=== PATIENT | female | born 1935 | race Caucasian/White ===

== ENCOUNTER 2020-07-17 20:57 | Emergency (ER) | payer MEDICARE, BC, SELFPAY ==
[2020-07-17 20:59] VITALS: BP 138/82; PULSE 78; RESP 16; TEMP 36; O2SAT 96; BMI 28.3
--- NOTE | 2020-07-17 22:36 | ED.VIS.GEN ---
History of Present Illness Chief Complaint: Diarrhea Narrative: This patient is an 85-year-old female who presents with diarrhea. She has had diarrhea. For the last 5 days. She was seen at an urgent care. She had a stool culture. This returned positive for Campylobacter. She started azithromycin tonight. She states tonight when she was drinking it feels like things were going down right. She is able to drink water without regurgitation vomiting but felt like she had a lump in her throat. No difficulty breathing. She also had increased diarrhea today and is concerned for dehydration and she did have some nausea earlier. No pain. Past Medical History - Allergies and Home Meds Allergies/Adverse Reactions: Allergies amoxicillin Adverse Reaction (Verified 07/17/20 21:04) Rash ampicillin Adverse Reaction (Verified 07/17/20 21:04) Rash ceftriaxone [From Rocephin] Adverse Reaction (Verified 07/17/20 21:04) Rash Cephalosporins Adverse Reaction (Verified 07/17/20 21:04) Rash minocycline Adverse Reaction (Verified 07/17/20 21:04) Rash sulfamethoxazole [From Bactrim] Adverse Reaction (Verified 07/17/20 21:04) Rash trimethoprim [From Bactrim] Adverse Reaction (Verified 07/17/20 21:04) Rash Primary Care Physician: Abel Ortiz DO [Primary Care Provider] - Past Medical History: - - Hyperlipidemia, hypothyroidism Surgical History: no surgical history Smoking Status: Never smoker Review of Systems All systems negative except as indicated General: Denies: Fever Eyes: Denies: Visual changes - bilaterally ENT: Denies: Bilateral ear pain Cardiovascular: Denies: Chest pain Respiratory: Denies: Dyspnea Gastrointestinal: Reports: Nausea, Diarrhea. Denies: Abdominal pain, Vomiting Musculoskeletal: Denies: Myalgias, Arthralgias Skin: Denies: Rash Neurological: Denies: Headache Hematologic: Denies: Easy bruising Allergy: Denies: Uticaria Physical Exam Vital Signs/Narrative: Vital Signs Temp Pulse Resp BP Pulse Ox 07/17/20 20:59 96.8 F L 78 16 138/82 H 96 Inital Vital Signs reviewed: Yes General: Well nourished Head: Normocephalic Eyes: EOMI ENT: Moist mucous membranes, - - Oropharynx clear, airway patent, no stridor Neck: Supple Cardiovascular: Regular rate, Regular rhythm Respiratory: No distress, CTA bilaterally Abdomen: Soft, Nontender, Nondistended Skin: Normal color Neurological: Alert Psychological: Normal affect Diagnostic/Tx/Re-eval Laboratory Results 07/17/20 23:00 Sodium 140 Potassium 3.6 Chloride 105 Carbon Dioxide 28.0 Anion Gap 7 BUN 13 Creatinine 0.93 Estim Creat Clear Calc 41.24 Est GFR (MDRD) Af Amer 74 Est GFR (MDRD) Non-Af 61 BUN/Creatinine Ratio 14.0 Glucose 115 H Calcium 8.6 - Medical Decision Making Patient was given IV fluid and Zofran. BMP is normal. Patient advised to complete her prescribed medications follow-up as an outpatient or return for new or worsening symptoms and was discharged home. ED Disposition - Plan for ED Patient: Disposition: Home or Assisted Living Diagnosis: Diarrhea Instructions: ED Diarrhea, Bacterial (Adult) Referrals: Abel Ortiz DO [Primary Care Provider] -
[2020-07-17] MEDS: 0.9% Normal Saline 1,000 ML 999 ML IV (23:06)
[2020-07-17] MEDS: Ondansetron 4 MG/2 ML Vial IV (23:06)
[2020-07-17 23:37] LABS: Anion Gap 7 (5-15); BUN 13 mg/dL (7-18); Calcium,Total 8.6 mg/dL (8.5-10.1); Chloride 105 mmol/L (98-107); Creatinine, Serum 0.93 mg/dL (0.55-1.02); EST Glomerular Filtration Rate 61 mL/min (>60); Est Glom Filt Rate - Afr Amer 74 mL/min (>60); Estimated Creatinine Clearance 41.24 ml/min; Glucose 115 mg/dL (74-106); Potassium 3.6 mmol/L (3.5-5.1); Sodium Level 140 mmol/L (136-145)
[2020-07-18 00:07] VITALS: BP 126/71; PULSE 78; RESP 18; O2SAT 97
== END 2020-07-18 00:07 | disposition home or self-care (01) ==
PROVIDERS: Emergency Provider Emergency Medicine; PCP Student in an Organized Health Care Education/Training Program
DX: R19.7 Diarrhea, unspecified (principal); E03.9 Hypothyroidism, unspecified; E78.5 Hyperlipidemia, unspecified; Z88.0 Allergy status to penicillin; Z88.1 Allergy status to other antibiotic agents; Z88.2 Allergy status to sulfonamides
CPT/HCPCS: 80048; 96361; 96374; 99282; J7030; J2405

== ENCOUNTER → 2024-01-17 20:15 | Outpatient (REF) | payer MEDICAID, SELFPAY ==
[2024-01-18 09:41] LABS: Mucous, Urine 0 SEEN /hpf (<or=2+)
[2024-01-18 09:59] LABS: Color, Urine Yellow (Yellow); Glucose, Dipstick Normal (Normal); Ketone-Dipstick Negative (Negative); Leukocyte Esterase-Dipstick 500 /ul (Negative); Nitrite-Dipstick Negative (Negative); Occult Blood-Urine 50 /ul (Negative); Protein-Dipstick 15 mg/dl (Negative); Specific Gravity, Urine 1.015 (1.002-1.030); Urine Bilirubin Dipstick Negative (Negative); Urine Clarity Clear (Clear); Urine Urobilinogen Normal (Normal)
[2024-01-18 10:21] LABS: White Blood Cells >100 SEEN /hpf (0-5)
[2024-01-18 10:22] LABS: Bacteria 2+ /hpf (None Seen); Red Blood Cells-Urine 10-25 SEEN /hpf (0-5); Squamous Epithelial Cells - UA 0-5 SEEN /hpf (5-10)
== END ==
LOC: OLS.SWAL 20:15
PROVIDERS: PCP Student in an Organized Health Care Education/Training Program; Visit Provider Student in an Organized Health Care Education/Training Program
DX: N39.0 Urinary tract infection, site not specified (principal)
CPT/HCPCS: 81001; 87086; 87088

== ENCOUNTER → 2024-04-03 | Outpatient (REF) | payer MEDICAID, SELFPAY ==
[2024-04-03 08:12] LABS: Color, Urine Straw (Yellow); Glucose, Dipstick Normal (Normal); Ketone-Dipstick Negative (Negative); Leukocyte Esterase-Dipstick 500 /ul (Negative); Nitrite-Dipstick Negative (Negative); Occult Blood-Urine 150 /ul (Negative); Protein-Dipstick 15 mg/dl (Negative); Specific Gravity, Urine 1.015 (1.002-1.030); Urine Bilirubin Dipstick Negative (Negative); Urine Clarity Sl. Cloudy (Clear); Urine Urobilinogen Normal (Normal); Urine pH 6.5 (5.0 - 8.0)
[2024-04-03 08:53] LABS: Red Blood Cells-Urine 10-25 SEEN /hpf (0-5); White Blood Cells >100 SEEN /hpf (0-5)
[2024-04-03 08:54] LABS: Squamous Epithelial Cells - UA 10-25 SEEN /hpf (5-10)
[2024-04-03 08:55] LABS: Bacteria 2+ /hpf (None Seen); Mucous, Urine 1+ /hpf (<or=2+)
== END | disposition home or self-care (01) ==
LOC: OLS.SWAL 07:38
PROVIDERS: PCP Student in an Organized Health Care Education/Training Program; Referring Provider Student in an Organized Health Care Education/Training Program; Visit Provider Student in an Organized Health Care Education/Training Program
DX: N39.0 Urinary tract infection, site not specified (principal)
CPT/HCPCS: 81001; 87086

== ENCOUNTER 2024-07-22 22:53 | Emergency (ER) | payer MEDICARE, MEDICAID, SELFPAY ==
[2024-07-22 22:53] VITALS: BP 143/70; PULSE 91; RESP 18; TEMP 37.2; O2SAT 93; BMI 32.3
[2024-07-22 22:58] VITALS: BP 143/70; PULSE 92; RESP 17; TEMP 37.2; O2SAT 96
--- NOTE | 2024-07-22 23:05 | EKG12_ITS ---
Test Reason : SOB Blood Pressure : */* mmHG Vent. Rate : 89 BPM Atrial Rate : 89 BPM P-R Int : 282 ms QRS Dur : 102 ms QT Int : 368 ms P-R-T Axes : 37 -76 53 degrees QTcB Int : 447 ms Sinus rhythm with 1st degree A-V block Left axis deviation Low voltage QRS Inferior infarct Possible Anterolateral infarct , age undetermined Abnormal ECG Confirmed by Alexandro Jacobs ([id number]), editor book ELIOT RANKIN ([id number]) on 07/24/2024 10:59:33 AM Referred By: SHANELLE Confirmed By: Alexandro Jacobs
--- NOTE | 2024-07-22 23:06 | EDS_ITS ---
HPI History of Present Illness Chief Complaint: Cough Informant: patient and EMS Narrative Narrative: Brought by EMS from [facility] for evaluation. History dementia. She has had an ongoing cough cannot tell me timeframe. Denies fevers. Reports dyspnea and there was no wheezing. Status post albuterol by EMS. She denies asthma or COPD history. Denies tobacco history. Denies chest or abdominal pain. Denies vomiting diarrhea. Denies any urinary symptoms. PFSH PFSH Medical History History of lung cancer Hypothyroidism HLD (hyperlipidemia) Home Medications ?Medication ?Instructions ?Recorded ?Last Taken ?Type levothyroxine 100 mcg tablet 100 mcg PO DAILY 07/17/20 Unknown History naproxen sodium 220 mg capsule 220 mg PO PRN PRN Pain 1-10 Or 07/17/20 Unknown History Fever yvxtyhga-usd-jqspa acid 0.4 1 tab PO DAILY 03/05/23 Un known History mg-lycopene 300 mcg-lutein 250 mcg tablet (Centrum Silver) ondansetron HCl 8 mg tablet 8 mg PO Q8H PRN nausea and 03/05/23 Unknown Rx vomiting #14 tabs Allergy/AdvReac Type Severity Reaction Status Date / Time amoxicillin AdvReac Rash Verified 07/22/24 22:55 ampicillin AdvReac Rash Verified 07/22/24 22:55 ceftriaxone (From Rocephin) AdvReac Rash Verified 07/22/24 22:55 Cephalosporins AdvReac Rash Verified 07/22/24 22:55 minocycline AdvReac Rash Verified 07/22/24 22:55 sulfamethoxazole (From AdvReac Rash Verified 07/22/24 22:55 Bactrim) trimethoprim (From Bactrim) AdvReac Rash Verified 07/22/24 22:55 Family History Father Cancer Surgical History History of lung surgery Social History Smoking Status: Never smoker alcohol intake: current alcohol intake frequency: a few times a month Alcohol type: wine substance use type: does not use ROS ROS ED Constitutional Constitutional ED: Denies chills, fever(s) or sweats ENT ENT ED: Denies sore throat Cardiovascular Cardiovascular: Denies chest pain, leg edema, palpitations or racing heartbeat Respiratory/Chest Respiratory/Chest: Reports cough and dyspnea; Denies dyspnea on exertion Gastrointestinal Gastrointestinal: Denies abdominal pain, diarrhea, nausea or vomiting Genitourinary Genitourinary ED: Denies dysuria, hematuria or urinary frequency Musculoskeletal Musculoskeletal: Denies back pain, extremity pain or neck pain Integumentary Denies rash or wounds Neurologic Neurologic: Denies headache(s), paresthesias or weakness EXAM Physical Exam Const Vital Signs: 07/22/24 22:53 07/22/24 22:58 07/22/24 23:20 Temperature 99 F 99 F Temperature Source Oral Oral Pulse Rate 91 92 Respiratory Rate 18 17 Respiratory Effort Short of Breath Labored Respiratory Depth Normal Respiratory Pattern Normal Blood Pressure 143/70 H 143/70 H Blood Pressure Mean 94 94 Pulse Ox 93 96 Oxygen Delivery Method Room Air Room Air Room Air 07/22/24 23:22 07/22/24 23:58 Temperature 98.9 F Temperature Source Oral Pulse Rate 89 95 Respiratory Rate 24 H 23 H Respiratory Effort Respiratory Depth Respiratory Pattern Tachypnea Blood Pressure 137/59 H Blood Pressure Mean 85 Pulse Ox 96 Oxygen Delivery Method Room Air Positive well nourished and well developed General Appearance ED: well developed and NAD HEENT Reports moist mucous membranes normocephalic and atraumatic Eyes General Eye ED: Yes normal appearance of both eyes Neck full ROM Chest Wall Chest: Negative for tenderness Resp Resp Narrative: Bilateral mild wheezing noted. No distress. Effort and Inspection: symmetric chest movement; Negative for respiratory di stress Cardio regular rate, regular rhythm and no murmurs Peripheral Pulses: pulses 2+ throughout GI normal to inspection, nondistended, normoactive bowel sounds and non-tender Palpation: Negative for guarding or rebound tenderness present Extremity normal to inspection General Extremety ED: Negative for edema or tenderness General Extremity: Negative for edema Neuro no sensory deficits noted Neuro Narrative: Alert to person and place, reported to me, year was 2023. Sensorium / Orientation: awake and alert Skin no rashes or lesions noted and no wounds MDM MDM MDM Narrative Medical decision making narrative: Interventions / MDM: Differential diagnosis: Viral syndrome, bronchospasms, history of dementia Diagnosis considered but do not suspect: Pneumonia however x-ray negative. My EKG interpretation: Sinus first-degree AV block rate of 89, no ST or T wave changes, interventricular delay with QRS of 102. Imaging independently reviewed and interpreted by myself: 2 view chest x-ray: No acute process also read by radiology. External documents reviewed: N/A Test considered but not ordered:N/A ED course: Vital stable in the ED 96% room air no distress. Temp of 99. Still current mild wheezing status post albuterol by EMS. Will check lab work chest x-ray additional aerosol treatments ordered. 0100: X-ray negative labs stable EKG sinus rhythm. Wheezing improving. Nursing discussed with facility note COPD or asthma history. No indication for steroids. Discussed with them will dispense albuterol MDI with spacer for use at the facility. COVID, flu, RSV negative. Re-evaluation: stable Disposition discussed with patient/family/significant other: Patient Case discussed with consulting clinician: Nursing facility This note was generated with [employer] dictation software. It may contain incorrect words, spelling, and punctuation that were not noted in checking the note before signing. Lab Data Attestation: I reviewed the patient's lab results. Labs: Laboratory Results - last 24 hr 07/22/24 23:17 WBC 6.6 RBC 4.00 L Hgb 12.0 Hct 36.6 L MCV 91.5 MCH 30.0 MCHC 32.8 RDW Std Deviation 46.8 H RDW Coeff of [place] 13.8 Plt Count 140 L MPV 10.4 Immature Gran % (Auto) 0.300 Neut % (Auto) 68.9 Lymph % (Auto) 15.7 L [place] % (Auto) 12.5 H Eos % (Auto) 2.3 Baso % (Auto) 0.3 Absolute Neuts (auto) 4.6 Absolute Lymphs (auto) 1.04 Nucleated RBC % 0 Sodium 137 Potassium 4.1 Chloride 104 Carbon Dioxide 22.0 Anion Gap 11 BUN 25 H Creatinine 0.86 Estim Creat Clear Calc 50.55 Est GFR (MDRD) Non-Af 65 BUN/Creatinine Ratio 29.5 H Glucose 102 H Calcium 8.9 Radiography Diagnostic Testing: Clinical Impression(s) from Imaging Studies Chest X-Ray 07/22/24 23:47 IMPRESSION: No acute cardiopulmonary process. Reading Location: [facility] Discharge Plan Triage Chief Complaint: Cough ED Provider: Glenn Steiner Dx/Rx/DC Orders Clinical Impression: Viral upper respiratory infection, Acute bronchospasm, Dementia Instructions: ED Bronchospasm (Adult), ED URI, Viral, No Abx (Adult) Prescriptions: No Action Centrum Silver 0.4 mg-300 mcg- 250 mcg tablet 1 tab PO DAILY ondansetron HCl 8 mg tablet 8 mg PO Q8H PRN (Reason: nausea and vomiting) Qty: 14 0RF levothyroxine 100 MCG tablet 100 mcg PO DAILY naproxen sodium 220 MG capsule 220 mg PO PRN PRN (Reason: Pain 1-10 Or Fever) Primary Care Provider: Abel Ortiz Referrals: Abel Ortiz, [Primary Care Provider] - 1 Week if not improving Activity Restrictions/Additional Instructions: EKG normal chest x-ray negative. Labs negative. COVID, influenza, RSV negative. Use inhaler every 4 hours as needed for wheezing. Print Language: Hebrew Disposition Disposition: Home, Self Care
[2024-07-22 23:20] VITALS: O2SAT 95
[2024-07-22] MEDS: Ipratropium/Albuterol Sulfate 3 ML AMPUL.NEB INHALATION (23:21)
[2024-07-22 23:22] VITALS: PULSE 89; RESP 24
--- NOTE | 2024-07-22 23:47 | RAD_ITS ---
PROCEDURE: CHEST PA AND LATERAL REASON FOR EXAM: Cough. TECHNIQUE: Frontal and lateral views of the chest. COMPARISON: None. FINDINGS: Cardiac size and pulmonary vasculature are within normal limits. No consolidation, pleural effusion, or pneumothorax is present. There is dextroscoliosis of the midthoracic spine. Degenerative changes are identified. RAD/Chest PA and Lateral IMPRESSION: No acute cardiopulmonary process. Reading Location: [facility]
[2024-07-22 23:58] VITALS: BP 137/59; PULSE 95; RESP 23; TEMP 37.2; O2SAT 96
[2024-07-22 23:59] LABS: Anion Gap 11 (5-15); BUN 25 mg/dL (4-19); BUN/Creat Ratio 29.5 RATIO (10-20); Calcium,Total 8.9 mg/dL (7.6-11.0); Chloride 104 mmol/L (98-108); Creatinine, Serum 0.86 mg/dL (0.70-1.20); EST Glomerular Filtration Rate 65 (>60); Estimated Creatinine Clearance 50.55 ml/min (50-250); Glucose 102 mg/dL (70-99); Potassium 4.1 mmol/L (3.3-5.1); Sodium Level 137 mmol/L (133-145)
[2024-07-23 00:08] LABS: Absolute Lymphocyte Count 1.04 X10^3/uL (0.83-4.51); Absolute Neutrophil Count 4.6 X10^3/uL (2.0-7.7); Basophil# 0.02 X10^3/uL; Basophil% 0.3 % (0-1); Eosinophil# 0.15 X10^3/uL; Eosinophils% 2.3 % (0-5); Hematocrit 36.6 % (37-47); Lymphocyte # 1.04 X10^3/ul (0.83-4.51); Lymphocyte % 15.7 % (19-41); Mean Corp Hgb Conc 32.8 g/dL (32-36); Mean Corpuscular Volume 91.5 fL (81-99); Mean Platelet Vol. 10.4 fl (6.2-12.0); Monocyte# 0.83 X10^3/uL; Monocyte% 12.5 % (0-10); NRBC Flagged by Analyzer 0 % (0-5); Neutrophil # 4.58 X10^3/uL (2.7-7.7); Neutrophil % 68.9 % (47-70); Platelet Count 140 K/mm3 (150-450); RBC Distribution Width CV 13.8 % (11.6-14.6); RBC Distribution Width SD 46.8 fl (35.1-43.9); White Blood Count 6.6 K/mm3 (4.4-11.0)
[2024-07-23 00:53] VITALS: BP 137/59; PULSE 90; RESP 21; O2SAT 94
--- NOTE | 2024-07-23 01:13 | ED.RN ---
CALLED [facility] @0115 TO ARRANGE TRANSPORT FOR PT, ETA IS 2 HOURS ([id number]).
[2024-07-23 01:33] VITALS: BP 117/56; PULSE 88; RESP 18; TEMP 36.6; O2SAT 92
[2024-07-23 03:00] VITALS: PULSE 93; RESP 20; O2SAT 94
[2024-07-23] MEDS: Albuterol Sulfate 8 gm Inhaler (60 puffs) 2 PUFF INHALATION (03:04)
[2024-07-23] MEDS: INHALER, ASSIST DEVICES 1 EACH SPACER INHALATION (04:12)
== END 2024-07-23 04:18 | disposition home or self-care (01) ==
PROVIDERS: Emergency Provider Emergency Medicine; PCP Student in an Organized Health Care Education/Training Program; Visit Provider Emergency Medicine
DX: J06.9 Acute upper respiratory infection, unspecified (principal); F03.90 Unspecified dementia, unspecified severity, without behavioral disturbance, psychotic disturbance, mood disturbance, and anxiety; I44.0 Atrioventricular block, first degree; E78.5 Hyperlipidemia, unspecified; J98.01 Acute bronchospasm; E03.9 Hypothyroidism, unspecified; Z85.118 Personal history of other malignant neoplasm of bronchus and lung
CPT/HCPCS: 71046; 80048; 85025; 87631; 93005; 94640; 99285; A4216

== ENCOUNTER 2024-07-26 00:09 | Emergency (ER) | payer MEDICARE, MEDICAID, SELFPAY ==
[2024-07-26 00:09] VITALS: BP 130/59; PULSE 76; RESP 16; TEMP 36.9; O2SAT 93; BMI 32.1
[2024-07-26 00:21] VITALS: O2SAT 96
--- NOTE | 2024-07-26 00:22 | RAD_ITS ---
PROCEDURE: CHEST PA AND LATERAL REASON FOR EXAM: COUGH TECHNIQUE: Frontal and lateral views of the chest. COMPARISON: 07/22/2024 FINDINGS: There are bilateral left more than right patchy ill-defined airspace opacities at the lower lobes which may be inflammatory, infectious with possible aspiration not entirely excluded. Pulmonary vascularity appears within limits. No pleural effusion. Right staple line and surgical clips at the right hilum again noted. The cardiac and mediastinal contours appear within limits. Atherosclerotic change aortic arch. RAD/Chest PA and Lateral IMPRESSION: There are bilateral left more than right patchy ill-defined airspace opacities at the lower lobes which may be inflammatory, infectious with possible aspiration not entirely excluded. Pulmonary vasculari ty appears within limits. No pleural effusion. Reading Location: [id number]
--- NOTE | 2024-07-26 00:23 | EDS_ITS ---
HPI History of Present Illness Chief Complaint: Shortness of Breath Informant: patient, EMS and SNF Narrative Narrative: Patient is an 89-year-old female from [facility] with history of dementia as well as hyperlipidemia and hypothyroidism. She was seen recently secondary to congestion and cough and at that time had negative COVID influenza RSV swab as well as normal blood work and a normal chest x-ray. Reportedly the patient's been having difficulty using her inhaler and the detention felt that she may need admitted for oxygen and therefore called EMS to have her brought in for evaluation. Upon arrival to the ER the patient is in no acute respiratory distress satting 93% on room air and she repeatedly states that she does not understand why she is at the hospital at this time. She denies fevers chills chest pain or shortness of breath but does admit to the persistent cough that she has had over the past week. [facility] Medical History Unspecified urinary incontinence Major depressive disorder, single episode, unspecified Vitamin D deficiency, unspecified Unspecified dementia, mild, without behavioral disturbance, psychotic disturbance, mood disturbance, and anxiety History of lung cancer Hypothyroidism HLD (hyperlipidemia) Home Medications ?Medication ?Instructions ?Recorded ?Last Taken ?Type levothyroxine 100 mcg tablet 100 mcg PO DAILY 07/17/20 Unknown History naproxen sodium 220 mg capsule 220 mg PO PRN PRN Pain 1-10 Or 07/17/20 Unknown History Fever xobhfrxy-lib-hbwto acid 0.4 1 tab PO DAILY 03/05/23 Un known History mg-lycopene 300 mcg-lutein 250 mcg tablet (Centrum Silver) ondansetron HCl 8 mg tablet 8 mg PO Q8H PRN nausea and 03/05/23 Unknown Rx vomiting #14 tabs levofloxacin 500 mg tablet 500 mg PO DAILY 7 days #7 t abs 07/26/24 Unknown Rx Allergy/AdvReac Type Severity Reaction Status Date / Time amoxicillin AdvReac Rash Verified 07/26/24 00:15 ampicillin AdvReac Rash Verified 07/26/24 00:15 ceftriaxone (From Rocephin) AdvReac Rash Verified 07/26/24 00:15 Cephalosporins AdvReac Rash Verified 07/26/24 00:15 minocycline AdvReac Rash Verified 07/26/24 00:15 sulfamethoxazole (From AdvReac Rash Verified 07/26/24 00:15 Bactrim) trimethoprim (From Bactrim) AdvReac Rash Verified 07/26/24 00:15 Family History Father Cancer Surgical History History of lung surgery Social History Smoking Status: Never smoker alcohol intake: current alcohol intake frequency: a few times a month Alcohol type: wine substance use type: does not use ROS ROS ED Constitutional Constitutional ED: Denies chills or fever(s) Eyes Eyes: Denies change in vision ENT ENT ED: Denies sore throat Cardiovascular Cardiovascular: Denies chest pain Respiratory/Chest Respiratory/Chest: Reports cough; Denies dyspnea Gastrointestinal Gastrointestinal: Denies abdominal pain, diarrhea, nausea or vomiting Genitourinary Genitourinary ED: Denies dysuria Musculoskeletal Musculoskeletal: Denies myalgias Integumentary Denies rash Neurologic Neurologic: Denies headache(s) Hematologic/Lymphatic Hematologic/Lymphatic: Denies easy bleeding or easy bruising EXAM Physical Exam Const Vital Signs: 07/26/24 00:09 07/26/24 00:21 07/26/24 01:04 Temperature 98.4 F Temperature Source Oral Pulse Rate 76 75 Respiratory Rate 16 16 Respiratory Effort Normal Non-Labored Respiratory Depth Normal Respiratory Pattern Normal Normal Blood Pressure 130/59 H Blood Pressure Mean 82 Pulse Ox 93 Oxygen Delivery Method Room Air Positive well nourished and well developed General Appearance ED: well developed; Negative for pallor HEENT HEENT Narrative: No tongue or lip swelling no oral lesions no airway edema or compromise There is cobblestoning noted in posterior pharynx consistent with sinus drainage without secondary findings to suggest infection Eyes PERRL and EOMs intact bilaterally General Eye ED: Negative for scleral icterus Neck supple and no JVD Chest Wall palpation of chest normal Resp normal respiratory effort Resp Narrative: Breath sounds are diminished throughout with diffuse expiratory wheeze however no nasal flaring retractions tachypnea accessory muscle use stridor or dyspnea with speech Cardio regular rate and regular rhythm Extremity normal to inspection Extremity Narrative: No asymmetric edema no pitting edema negative Homans' sign bilaterally Neuro CN's II-XII intact bilaterally and no sensory deficits noted Neuro Narrative: Patient is at her baseline mental status consistent with history of dementia without focal neurologic deficit Sensorium / Orientation: alert Motor Exam: strength 5/5 throughout Psych mental status grossly normal Skin no rashes or lesions noted General Skin Exam: Negative for jaundice or pallor MDM MDM MDM Narrative Medical decision making narrative: Patient arrived to the ER with stable vitals in no acute respiratory distress and satting in the mid 90s on room air. She was seen on July 22 for the same complaint and at that time was negative for COVID influenza RSV chest x-ray did not reveal pneumonia and blood work showed no systemic findings concerning for sepsis or acute kidney injury. As the patient is not hypoxic she is not in respiratory distress she did not derangement to her vital signs I do not feel that there is need for repeat blood work or viral swab. In order to ensure that the x-ray was not lagging behind from the previous day and that she has now developed tension pneumonia I did elect to repeat an x-ray. The x-ray today is showing poor inspiratory effort but there is concern for developing infection. Secondary to this should be placed on oral Levaquin. However because she is not hypoxic or in respiratory distress does not derangement to her vital signs I do not feel that there will be need for repeat blood work or even potential admission as she is not hypoxic. Therefore the patient was placed on oral Levaquin but is safe to return to the nursing facility. History & Record Review Discussion w/independent historian: EMS personnel and Patient Radiography Diagnostic Testing: Clinical Impression(s) from Imaging Studies Chest X-Ray 07/26/24 00:22 IMPRESSION: There are bilateral left more than right patchy ill-defined airspace opacities at the lower lobes which may be inflammatory, infectious with possible aspiration not entirely excluded. Pulmonary vascularity appears within limits. No pleural effusion. Reading Location: [id number] 2 view chest x-ray as interpreted by the emergency medicine physician reveals poor inspiration with hazy opacities in the bilateral lower lobes right slightly greater than left which could be development of pneumonia versus poor inspiration and atelectasis Discharge Plan Triage Chief Complaint: Shortness of Breath ED Provider: Jerardo Black Dx/Rx/DC Orders Clinical Impression: Pneumonia, Dementia, Hypothyroidism, HLD (hyperlipidemia) Instructions: Treating Pneumonia Prescriptions: New levofloxacin 500 mg tablet 500 mg PO DAILY 7 Days Qty: 7 0RF No Action Centrum Silver 0.4 mg-300 mcg- 250 mcg tablet 1 tab PO DAILY ondansetron HCl 8 mg tablet 8 mg PO Q8H PRN (Reason: nausea and vomiting) Qty: 14 0RF levothyroxine 100 MCG tablet 100 mcg PO DAILY naproxen sodium 220 MG capsule 220 mg PO PRN PRN (Reason: Pain 1-10 Or Fever) Primary Care Provider: Abel Ortiz Referrals: Abel Ortiz DO [Primary Care Provider] - Activity Restrictions/Additional Instructions: Your x-ray today questions pneumonia that was not present from your x-ray on July 22. Secondary to this take the prescribed antibiotics/Levaquin once a day. However you will still need to take your inhaler to help with bronchospasm and wheeze. Your oxygen level and work of breathing are normal in the ER and therefore you do not require oxygen and you do not have signs of systemic infection/sepsis and therefore do not require admission or IV antibiotics. If your symptoms continue to worsen he develop a fever or you have any further co ncerns please return to the ER for repeat evaluation. Print Language: Citizen Of [place] Disposition Disposition: Home, Self Care
--- NOTE | 2024-07-26 00:55 | ED.RN ---
[facility] CALLED REQUESTING UPDATE. INFORMATION PROVIDED ON PT. CURRENT STATUS.
[2024-07-26] MEDS: Ipratropium/Albuterol Sulfate 3 ML AMPUL.NEB INHALATION (01:02)
[2024-07-26 01:04] VITALS: PULSE 75; RESP 16
[2024-07-26 02:00] VITALS: BP 131/57; PULSE 78; RESP 18; O2SAT 93
[2024-07-26 02:10] VITALS: BP 131/57; PULSE 77; RESP 18; TEMP 36.7; O2SAT 93
[2024-07-26] MEDS: levoFLOXacin 500 MG Tablet PO (02:19)
--- NOTE | 2024-07-26 02:51 | ED.RN ---
This RN gave report to DARYA Peter at [facility] at this time about the patient's care while at [facility].
== END 2024-07-26 02:50 | disposition home or self-care (01) ==
PROVIDERS: Emergency Provider Emergency Medicine; PCP Student in an Organized Health Care Education/Training Program; Visit Provider Emergency Medicine
DX: J18.9 Pneumonia, unspecified organism (principal); F03.90 Unspecified dementia, unspecified severity, without behavioral disturbance, psychotic disturbance, mood disturbance, and anxiety; E78.5 Hyperlipidemia, unspecified; E03.9 Hypothyroidism, unspecified; Z85.118 Personal history of other malignant neoplasm of bronchus and lung
CPT/HCPCS: 71046; 94640; 99284

== ENCOUNTER → 2024-08-08 | Outpatient (REF) | payer MEDICAID, SELFPAY ==
[2024-08-08 09:13] LABS: Basophil# 0.05 X10^3/uL; Basophil% 0.7 % (0-1); Eosinophil# 0.21 X10^3/uL; Eosinophils% 2.8 % (0-5); Hematocrit 37.4 % (37-47); Lymphocyte % 21.1 % (19-41); Mean Corp Hgb Conc 32.1 g/dL (32-36); Mean Corpuscular Hgb 29.3 pg (27.0-32.0); Mean Corpuscular Volume 91.4 fL (81-99); Mean Platelet Vol. 10.4 fl (6.2-12.0); Monocyte# 0.68 X10^3/uL; NRBC Flagged by Analyzer 0 % (0-5); Neutrophil # 5.01 X10^3/uL (2.7-7.7); Platelet Count 188 K/mm3 (150-450); RBC Distribution Width CV 13.5 % (11.6-14.6); RBC Distribution Width SD 45.4 fl (35.1-43.9); Red Blood Count 4.09 M/mm3 (4.2-5.4); White Blood Count 7.6 K/mm3 (4.4-11.0)
[2024-08-08 12:04] LABS: ALB/GLOB Ratio 1.5 RATIO (0.9-2.4); AST(SGOT) 26 U/L (<=31); Alanine Aminotransfer ALT/SGPT 16 U/L (<=34); Alkaline Phosphatase 80 U/L (35-104); Anion Gap 12 (5-15); BUN 21 mg/dL (4-19); BUN/Creat Ratio 22.1 RATIO (10-20); Calcium,Total 9.3 mg/dL (7.6-11.0); Carbon Dioxide 23.1 mmol/L (21.0-32.0); Chloride 105 mmol/L (98-108); Creatinine, Serum 0.97 mg/dL (0.70-1.20); EST Glomerular Filtration Rate 57 (>60); Globulin 2.7 g/dL (2.2-4.2); Glucose 90 mg/dL (70-99); Magnesium 2.1 mg/dL (1.5-2.2); Potassium 4.6 mmol/L (3.3-5.1); Protein, Total 6.8 g/dL (5.9-8.4); Sodium Level 140 mmol/L (133-145); Vitamin B12 506 pg/mL (180-914); Vitamin D,25 Hydroxy 34.6 ng/mL (30-100)
== END | disposition home or self-care (01) ==
LOC: OLS.SWAL 05:00
PROVIDERS: PCP Student in an Organized Health Care Education/Training Program; Visit Provider Student in an Organized Health Care Education/Training Program
DX: R26.89 Other abnormalities of gait and mobility (principal); E03.9 Hypothyroidism, unspecified
CPT/HCPCS: 36415; 80053; 82306; 82607; 83735; 84439; 84443; 85025

== ENCOUNTER 2024-09-18 17:16 | Emergency (ER) | payer MEDICAID, SELFPAY ==
[2024-09-18 17:18] VITALS: PULSE 71; RESP 16; TEMP 36.6; O2SAT 98; BMI 34.4
[2024-09-18 18:07] VITALS: BP 139/63
--- NOTE | 2024-09-18 18:10 | ED.RN ---
Pts son is in [place] and wanted to get an update. Son told that she hadn't been seen yet and to call back in an hour or so.
--- NOTE | 2024-09-18 18:18 | CT_ITS ---
PROCEDURE: BRAIN/HEAD WITHOUT CONTRAST 09/18/2024 REASON FOR EXAM: Patient fell hitting head. TECHNIQUE: Contiguous axial scans of 3.75 mm slice thicknesses with sagittal and coronal reconstruction images. One or more dose reduction techniques were utilized (e.g., automated exposure control, adjustment of mA and/or kv according to patient size, use of iterative reconstruction technique). RADIATION DOSE SUMMARY: DLP: 855.03 mGycm COMPARISON: No relevant prior FINDINGS: Cerebrum: No intraparenchymal hemorrhage. No abnormal areas of encephalomalacia. No mass effect or midline shift. Diffuse central white matter and subcortical hypoattenuation.. Ventricles and cisterns: Appropriate size for patient's age. Age-appropriate senescent change. Extra-axial fluid: Unremarkable. Posterior fossa: Unremarkable cerebellum. No abnormalities involving the brainstem. Paranasal sinuses: Normal. Vasculature: Unremarkable. Mastoid air cells: Postoperative findings on the right Calvarium: Unremarkable. Soft tissues: Artifact from cochlear implant.. CT/Brain/Head without Contrast IMPRESSION: Chronic age-related microvascular ischemic changes. Cochlear implant. Age-appropriate senescent change. No acute intracranial findings. Reading Location: [facility]
[2024-09-18 19:00] VITALS: BP 132/71; PULSE 98; RESP 12; O2SAT 98
[2024-09-18] MEDS: Lidocaine 1% (20 ml mdv) 20 ML Vial 5 ML INFILT (19:35)
--- NOTE | 2024-09-18 19:39 | ED.RN ---
ATTEMPTED TO CALL REPORT TO MYRON [facility] W/ NO ANSWER.
[2024-09-18 19:40] VITALS: BP 130/70; PULSE 88; RESP 18; TEMP 36.6; O2SAT 99
--- NOTE | 2024-09-18 23:57 | ED.VIS.FALL ---
HPI HPI - Fall History of Present Illness Chief Complaint: Fall Informant: patient and EMS Narrative Narrative: 89-year-old female from [facility] presenting to the emergency room with head injury following a fall. Patient states that she frequently falls due to balance issues. She states that today was no different and she struck the back of her head on a piece of furniture. She denies a loss of consciousness. It is not reported that the patient is on a blood thinner. She denies any other injuries. She denies neck pain arm or leg pain. She denies any hip pelvis or abdominal pain. No chest pain. [facility] Medical History Unspecified urinary incontinence Major depressive disorder, single episode, unspecified Vitamin D deficiency, unspecified Unspecified dementia, mild, without behavioral disturbance, psychotic disturbance, mood disturbance, and anxiety History of lung cancer Hypothyroidism HLD (hyperlipidemia) Home Medications ?Medication ?Instructions ?Recorded ?Last Taken ?Type levothyroxine 100 mcg tablet 100 mcg PO MOTUWETHFRSA 07/17/20 Unknown History Lactobacillus acidophilus 1 tab PO DAILY 09/18/24 Unknown History (Acidophilus chewable tablet) acetaminophen 325 mg capsule 650 mg PO Q4H PRN fever 09/18/24 Unknown History albuterol sulfate 90 mcg/actuation 2 inh inhalation Q4H PRN shortness 09/18/24 Unknown History aerosol inhaler (Ventolin HFA) of breath or wheezing aluminum-magnesium hydroxide 200 30 ml PO Q4H PRN GI DISTRES 09/18/24 Unknown History mg-200 mg/5 mL oral suspension aspirin 81 mg tablet,delayed 81 mg PO DAILY 09/18/24 Unknown History release (Adult Aspirin Regimen) carboxymethylcellulose sodium 1 % 1 drp EACH EYE Q8H PRN dry eye(s) 09/18/24 Unknown History eye drops (Artificial Tears (carboxymethylcellulose)) cholecalciferol (vitamin D3) 50 50 mcg PO DAILY 09/18/24 Unknown History mcg (2,000 unit) capsule guaifenesin 100 mg/5 mL oral 200 mg PO Q4H PRN congestion 09/18/24 Unknown History liquid (Adult [facility]-Tussin) levothyroxine 100 mcg tablet 200 mcg PO BLANC 09/18/24 Unknown History (Levo-T) meloxicam 15 mg tablet 15 mg PO DAILY 09/18/24 Unknown History memantine 5 mg tablet 5 mg PO BID 09/18/24 Unknown History multivitamin (Daily Multi-Vitamin 1 tab PO DAILY 09/18/24 Unknown History tablet) nystatin 100,000 unit/gram topical 1 applic topical BID PRN YEAST 09/18/24 Unknown History powder ([facility]) ondansetron 4 mg disintegrating 4 mg PO Q8H PRN nausea and vomiting 09/18/24 Unknown History tablet sertraline 50 mg tablet 50 mg PO QHS 09/18/24 Unknown History simvastatin 40 mg tablet 40 mg PO QHS 09/18/24 Unknown History Allergy/AdvReac Type Severity Reaction Status Date / Time amoxicillin AdvReac Rash Verified 07/26/24 00:15 ampicillin AdvReac Rash Verified 07/26/24 00:15 ceftriaxone (From Rocephin) AdvReac Rash Verified 07/26/24 00:15 Cephalosporins AdvReac Rash Verified 07/26/24 00:15 minocycline AdvReac Rash Verified 07/26/24 00:15 sulfamethoxazole (From AdvReac Rash Verified 07/26/24 00:15 Bactrim) trimethoprim (From Bactrim) AdvReac Rash Verified 07/26/24 00:15 Family History Father Cancer Surgical History History of lung surgery Social History Smoking Status: Never smoker alcohol intake: current alcohol intake frequency: a few times a month Alcohol type: wine substance use type: does not use ROS ROS ED Constitutional Constitutional ED: Denies chills or weight loss Eyes Eyes: Denies change in vision or diplopia ENT ENT ED: Denies ear pain, rhinorrhea or sore throat Cardiovascular Cardiovascular: Denies chest pain, orthopnea, palpitations or racing heartbeat Respiratory/Chest Respiratory/Chest: Denies cough, dyspnea or orthopnea Gastrointestinal Gastrointestinal: Denies abdominal pain, diarrhea, nausea or vomiting Genitourinary Genitourinary ED: Denies dysuria, hematuria or urinary frequency Musculoskeletal Musculoskeletal: Denies arthralgias, back pain, myalgias or neck pain Integumentary Reports other Details: Scalp laceration ; Denies abscess or rash Neurologic Neurologic: Reports headache(s); Denies weakness Psychiatric Psychiatric: Denies anxiety, depression, suicidal ideation or suicidal thoughts Endocrine Endocrinology: Denies polydipsia, polyphagia or polyuria Allergic/Immunologic Allergic/Immunologic ED: Denies mouth swelling, tongue swelling or urticaria EXAM Physical Exam Const Vital Signs: 09/18/24 17:18 09/18/24 17:22 09/18/24 18:07 Temperature 97.9 F Temperature Source Oral Pulse Rate 71 Respiratory Rate 16 Respiratory Effort Normal Respiratory Depth Normal Respiratory Pattern Normal Blood Pressure 139/63 H Blood Pressure Mean 88 Pulse Ox 98 Oxygen Delivery Method Room Air Room Air 09/18/24 19:00 09/18/24 19:40 Temperature 98 F Temperature Source Pulse Rate 98 88 Respiratory Rate 12 18 Respiratory Effort Respiratory Depth Respiratory Pattern Blood Pressure 132/71 H 130/70 H Blood Pressure Mean 91 90 Pulse Ox 98 99 Oxygen Delivery Method Room Air Positive well nourished and well developed General Appearance ED: well developed and NAD HEENT Reports normocephalic and moist mucous membranes HEENT Narrative: Located in the occiput of the scalp is a 1 cm linear laceration with no active bleeding. No palpable bony depression. Eyes PERRL and EOMs intact bilaterally Neck no lymphadenopathy, supple and no JVD Resp normal respiratory effort and clear to auscultation bilaterally Cardio regular rate, regular rhythm and no murmurs GI normal to inspection, nondistended, normoactive bowel sounds and non-tender Palpation: soft Back/Spine no CVA tenderness and normal ROM Extremity normal to inspection General Extremety ED: Negative for edema General Extremity: Negative for edema Neuro CN's II-XII intact bilaterally [place] Coma Scale: document GCS findings Spontaneous Obeys Commands Oriented 15 Sensorium / Orientation: alert, oriented to person and oriented to place Motor Exam: strength 5/5 throughout Psych mental status grossly normal Mood & Affect: Negative for depressed or tearful Skin no rashes or lesions noted MDM MDM MDM Narrative Medical decision making narrative: Differential diagnosis includes but not limited to concussion skull fracture intracranial hemorrhage laceration CT the brain does not demonstrate any intracranial hemorrhage or fracture. The wound was locally anesthetized using 1% lidocaine and closed using 2 simple erupted 4-0 Ethilon sutures. Stitches will need to be removed in 5 to 7 days. I believe the patient can be discharged back to SNF. Return if worsening or concerns History & Record Review Discussion w/independent historian: EMS personnel, Patient and Other (SNF) Additional record(s) reviewed:: Prior ED visit and Prior labs Radiography Diagnostic Testing: Clinical Impression(s) from Imaging Studies Brain CT 09/18/24 18:18 IMPRESSION: Chronic age-related microvascular ischemic changes. Cochlear implant. Age-appropriate senescent change. No acute intracranial findings. Reading Location: [facility] Discharge Plan Triage Chief Complaint: Fall ED Provider: Alex Gomez Dx/Rx/DC Orders Clinical Impression: Fall, Laceration of scalp, Head injury Instructions: ED Laceration Scalp Stitches or [place] Prescriptions: No Action levothyroxine 100 MCG tablet 100 mcg PO MOTUWETHFRSA acetaminophen 325 mg capsule 650 mg PO Q4H PRN (Reason: fever ) Acidophilus Tablet,Chewable 1 tab PO DAILY aluminum-magnesium hydroxide 200-200 mg/5 mL suspension 30 ml PO Q4H PRN (Reason: GI DISTRES) Artificial Tears (cmc) 1 % drops 1 drp EACH EYE Q8H PRN (Reason: dry eye(s)) aspirin [Adult Aspirin Regimen] 81 mg tablet,delayed release (DR/EC) 81 mg PO DAILY cholecalciferol (vitamin D3) 50 mcg (2,000 unit) capsule 50 mcg PO DAILY guaifenesin [Adult [facility]-Tussin] 100 mg/5 mL liquid 200 mg PO Q4H PRN (Reason: congestion) meloxicam 15 mg tablet 15 mg PO DAILY memantine 5 mg tablet 5 mg PO BID multivitamin [Daily Multi-Vitamin] Tablet 1 tab PO DAILY nystatin [Nyamyc] 100,000 unit/gram powder 1 applic topical BID PRN (Reason: YEAST) levothyroxine [Levo-T] 100 mcg tablet 200 mcg PO BLANC albuterol sulfate [Ventolin HFA] 90 mcg/actuation HFA aerosol inhaler 2 inh inhalation Q4H PRN (Reason: shortness of breath or wheezing) simvastatin 40 mg tablet 40 mg PO QHS sertraline 50 mg tablet 50 mg PO QHS ondansetron 4 mg tablet,disintegrating 4 mg PO Q8H PRN (Reason: nausea and vomiting) Primary Care Provider: Abel Ortiz Referrals: Abel Ortiz DO [Primary Care Provider] - (1 week for suture removal) Print Language: Mongolian Disposition Disposition: Home, Self Care Discharge Date/Time: 09/18/24 20:10
== END 2024-09-18 20:10 | disposition home or self-care (01) ==
PROVIDERS: Emergency Provider Emergency Medicine; PCP Student in an Organized Health Care Education/Training Program; Visit Provider Emergency Medicine
DX: S01.01XA Laceration without foreign body of scalp, initial encounter (principal); E78.5 Hyperlipidemia, unspecified; E03.9 Hypothyroidism, unspecified; Z79.51 Long term (current) use of inhaled steroids; Z79.82 Long term (current) use of aspirin; Z79.899 Other long term (current) drug therapy; W19.XXXA Unspecified fall, initial encounter
CPT/HCPCS: 12001; 70450; 99285

== ENCOUNTER 2024-11-04 07:52 | Emergency (ER) | payer MEDICARE, MEDICAID, SELFPAY ==
--- NOTE | 2024-11-04 07:53 | RAD_ITS ---
PROCEDURE: HIP, UNI W/ PELVIS 2-3 VIEWS 11/04/2024 REASON FOR EXAM: FALL Initial encounter TECHNIQUE: HIP, UNI W/ PELVIS 2-3 VIEWS COMPARISON: None FINDINGS: Bones: No hip fracture. No pelvis fracture. 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 Mild cartilage loss in the right hip. Soft tissues: Unremarkable Other: RAD/HIP, UNI W/ Pelvis 2-3 Views IMPRESSION: No acute fracture of the right hip Reading Location: [facility]
[2024-11-04 07:54] VITALS: BP 143/110; PULSE 69; RESP 18; TEMP 36.9; O2SAT 96; BMI 34.2
--- NOTE | 2024-11-04 08:12 | EX.ED.GENINJ ---
HPI History of Present Illness Chief Complaint: Fall Detail of Chief Complaint: Fall and now unable to ambulate Informant: EMS and SNF Limited: dementia Onset/Context/Timing Onset: Days Mechanism/Context: Fall Location of pain/injuries: Right hip Location: Right groin area Current Severity: Patient not a good informant due to her dementia. Patient appears in no di Maximum Severity: Moderate (With logrolling.) Worsened by: Movement Relieved by: Remaining still Associated Symptoms Associated Symptoms: Positive for Loss of function and Inability to ambulate; Negative for Parasthesias, Weakness or Loss of consciousness Narrative Narrative: Patient is an 89-year-old woman who presents from nursing facility. History is limited due to dementia. She reportedly fell a couple days ago. She was walking yesterday with no difficulty. Today she is unable to walk. History is limited to what paramedics told me. Will review retirement documentation. Prior similar symptoms: No Recent Illness/Hospitalization: No PFSH PFSH Medical History Unspecified urinary incontinence Major depressive disorder, single episode, unspecified Vitamin D deficiency, unspecified Unspecified dementia, mild, without behavioral disturbance, psychotic disturbance, mood disturbance, and anxiety History of lung cancer Hypothyroidism HLD (hyperlipidemia) Home Medications ?Medication ?Instructions ?Recorded ?Last Taken ?Type levothyroxine 100 mcg tablet 100 mcg PO MOTUWETHFRSA 07/17/20 Unknown History Lactobacillus acidophilus 1 tab PO DAILY 09/18/24 Unknown History (Acidophilus chewable tablet) acetaminophen 325 mg capsule 650 mg PO Q4H PRN fever 09/18/24 Unknown History albuterol sulfate 90 mcg/actuation 2 inh inhalation Q4H PRN shortness 09/18/24 Unknown History aerosol inhaler (Ventolin HFA) of breath or wheezing aluminum-magnesium hydroxide 200 30 ml PO Q4H PRN GI DISTRES 09/18/24 Unknown History mg-200 mg/5 mL oral suspension aspirin 81 mg tablet,delayed 81 mg PO DAILY 09/18/24 Unknown History release (Adult Aspirin Regimen) carboxymethylcellulose sodium 1 % 1 drp EACH EYE Q8H PRN dry eye(s) 09/18/24 Unknown History eye drops (Artificial Tears (carboxymethylcellulose)) cholecalciferol (vitamin D3) 50 50 mcg PO DAILY 09/18/24 Unknown History mcg (2,000 unit) capsule guaifenesin 100 mg/5 mL oral 200 mg PO Q4H PRN congestion 09/18/24 Unknown History liquid (Adult [facility]-Tussin) levothyroxine 100 mcg tablet 200 mcg PO BLANC 09/18/24 Unknown History (Levo-T) meloxicam 15 mg tablet 15 mg PO DAILY 09/18/24 Unknown History memantine 5 mg tablet 5 mg PO BID 09/18/24 Unknown History multivitamin (Daily Multi-Vitamin 1 tab PO DAILY 09/18/24 Unknown History tablet) nystatin 100,000 unit/gram topical 1 applic topical BID PRN YEAST 09/18/24 Unknown History powder (Nyamyc) ondansetron 4 mg disintegrating 4 mg PO Q8H PRN nausea and vomiting 09/18/24 Unknown History tablet sertraline 50 mg tablet 50 mg PO QHS 09/18/24 Unknown History simvastatin 40 mg tablet 40 mg PO QHS 09/18/24 Unknown History Allergy/AdvReac Type Severity Reaction Status Date / Time amoxicillin AdvReac Rash Verified 11/04/24 07:58 ampicillin AdvReac Rash Verified 11/04/24 07:58 ceftriaxone (From Rocephin) AdvReac Rash Verified 11/04/24 07:58 Cephalosporins AdvReac Rash Verified 11/04/24 07:58 minocycline AdvReac Rash Verified 11/04/24 07:58 sulfamethoxazole (From AdvReac Rash Verified 11/04/24 07:58 Bactrim) trimethoprim (From Bactrim) AdvReac Rash Verified 11/04/24 07:58 Family History Father Cancer Surgical History History of lung surgery Social History Smoking Status: Never smoker alcohol intake: current alcohol intake frequency: a few times a month Alcohol type: wine substance use type: does not use ROS ROS ED Review of Systems ROS Unobtainable: due to mental status EXAM Physical Exam Const Vital Signs: 11/04/24 07:54 11/04/24 08:04 11/04/24 08:52 Temperature 98.4 F Temperature Source Oral Pulse Rate 69 64 Respiratory Rate 18 18 Respiratory Effort Normal Non-Labored Respiratory Depth Normal Respiratory Pattern Normal Blood Pressure 143/110 H 155/72 H Blood Pressure Mean 121 99 Pulse Ox 96 95 Oxygen Delivery Method Room Air Room Air Room Air 11/04/24 09:00 11/04/24 10:00 Temperature Temperature Source Pulse Rate 61 67 Respiratory Rate 16 14 Respiratory Effort Respiratory Depth Respiratory Pattern Blood Pressure 155/86 H 131/79 H Blood Pressure Mean 109 96 Pulse Ox 94 95 Oxygen Delivery Method Room Air Room Air Positive well nourished and well developed Constitutional Narrative: Patient's blood pressure is elevated. General Appearance ED: well developed and NAD HEENT Reports TM's clear atraumatic; Negative for tenderness Nose: Negative for septum abnormal Tympanic Membrane ED: Yes TM's clear Eyes PERRL and EOMs intact bilaterally General Eye ED: Yes other Other Details: There is no subconjunctival hemorrhage. Neck full ROM General: Negative for tenderness Chest Wall palpation of chest normal Resp normal respiratory effort and clear to auscultation bilaterally Cardio regular rhythm, S1 normal heart sound, S2 normal heart sound and no murmurs Rate: regular rate GI normal to inspection, nondistended, normoactive bowel sounds, non-tender, non-distended and no masses GI Narrative: There is no pain ovation of the right or left iliac wing, pubic symphysis or right or left ischial tuberosity. Palpation: soft Back/Spine no thoracic nor lumbar tenderness Extremity Negative for normal to inspection Extremity Narrative: Right lower extremity is externally rotated. Logrolling causes discomfort in the groin area on the right. There is no neurovasc compromise. There is no swelling of the knee. There is no pain ovation of the knee or patella. Neuro No oriented x3 and CN's II-XII intact bilaterally Neuro Narrative: Patient moves both upper extremities and left lower extremity. She will not move her right lower extremity. Sensorium / Orientation: Negative for alert Psych Psych Narrative: Patient's altered mental status due to dementia. She appears depressed. Skin no wounds and no jaundice MDM MDM MDM Narrative Medical decision making narrative: Suspicious for hip fracture. Hip x-ray was placed. If patient does have hip fracture will obtain chest x-ray and appropriate blood work to help risk stratify for surgery and admission. Radiography Diagnostic Testing: Clinical Impression(s) from Imaging Studies Hip/Pelvis X-Ray 11/04/24 07:53 IMPRESSION: No acute fracture of the right hip [facility] Lower Extremity CT 11/04/24 08:56 IMPRESSION: No acute fracture or dislocations. Mild degenerative changes of the right hip as above. Reading Location: [id number] CT was obtained since patient will not weight-bear. CT was reviewed by me at 0914. I do not see evidence of a fracture. Awaiting formal read by radiologist. Treatment and Re-Evaluation Narrative: Since patient is able to ambulate with walker and apply weight to her right lower extremity she will be discharged back to the nursing facility. Discharge Plan Triage Chief Complaint: Fall ED Provider: Vishal Oliveira Dx/Rx/DC Orders Clinical Impression: Contusion of hip, right, HLD (hyperlipidemia), Hypothyroidism, Difficulty in walking, Injury due to fall, Dementia, Hypertension Instructions: ED Hip Contusion Prescriptions: No Action levothyroxine 100 MCG tablet 100 mcg PO MOTUWETHFRSA acetaminophen 325 mg capsule 650 mg PO Q4H PRN (Reason: fever ) Acidophilus Tablet,Chewable 1 tab PO DAILY aluminum-magnesium hydroxide 200-200 mg/5 mL suspension 30 ml PO Q4H PRN (Reason: GI DISTRES) Artificial Tears (cmc) 1 % drops 1 drp EACH EYE Q8H PRN (Reason: dry eye(s)) aspirin [Adult Aspirin Regimen] 81 mg tablet,delayed release (DR/EC) 81 mg PO DAILY cholecalciferol (vitamin D3) 50 mcg (2,000 unit) capsule 50 mcg PO DAILY guaifenesin [Adult Wal-Tussin] 100 mg/5 mL liquid 200 mg PO Q4H PRN (Reason: congestion) meloxicam 15 mg tablet 15 mg PO DAILY memantine 5 mg tablet 5 mg PO BID multivitamin [Daily Multi-Vitamin] Tablet 1 tab PO DAILY nystatin [Nyamyc] 100,000 unit/gram powder 1 applic topical BID PRN (Reason: YEAST) levothyroxine [Levo-T] 100 mcg tablet 200 mcg PO BLANC albuterol sulfate [Ventolin HFA] 90 mcg/actuation HFA aerosol inhaler 2 inh inhalation Q4H PRN (Reason: shortness of breath or wheezing) simvastatin 40 mg tablet 40 mg PO QHS sertraline 50 mg tablet 50 mg PO QHS ondansetron 4 mg tablet,disintegrating 4 mg PO Q8H PRN (Reason: nausea and vomiting) Primary Care Provider: Abel Ortiz Referrals: Abel Ortiz DO [Primary Care Provider] - As Needed Print Language: Tajik Disposition Disposition: Home, Self Care
--- OUTSIDE RECORDS SUMMARY | 2024-11-04 08:34 | XMS RPT_ITS | CCD ---
Author Organization [facility] ion Partnership [facility] Care Team Providers Care Casting Supervisor Name Role Phone Abel Ortiz DO Primary Care Provider Serena Cummings MD Unavailable Abel Ortiz Primary Care Provider Abel Ortiz DO Primary Care Provider Serena Cummings MD Unavailable Abel Ortiz DO Primary Care Provider MIGUEL A DAVIS Referring Unavailable ABEL ORTIZ Primary Care Unavailable Marguerite Reyes Unavailable Jhaveri TREASURY DIRECTOR.Haydee PORTER Unavailable [facility] TREASURY DIRECTOR.Iva PORTER Unavailable Jhaveri TREASURY DIRECTOR.Haydee PORTER Unavailable ABEL ORTIZ Primary Care Unavailable ALEXANDER GALAVIZ Attending Unavailable ABEL ORTIZ Primary Care Unavailable LAEXANDER GALAVIZ Attending Unavailable Dr. Abel Ortiz DO Primary Care Provider [phone] Abel Flood Attending Provider UnavailAbel Petersen Referring Provider Dr. Glenn Neely Emergency Provider Dr. Jerardo Black DO Emergency Provider Dr. Abel Ortiz DO Primary Care Provider Dr. Glenn Steiner DO Attending Provider [phone] Jerardo Black DO Attending Provider Ortiz OLS, Abel Attending Provider Unavaila robert Ortiz, Abel Primary Care Unavailable Ortiz OLS, Abel Attending Unavailable Ortiz, Abel Primary Care Unavailable Glenn Steiner Attending Unavailable Ortiz, Abel Primary Care Unavailable Jerardo Black Attending Unavailable Ortiz, Abel Primary Care Unavailable Alex Gomez Attending Unavailable Ortiz, Abel Primary Care Unavailable Ortiz OLS, Abel Attending Unavailable Ortiz OLS, Abel Referring Unavailable Ortiz, Abel Primary Care Unavailable Ortiz OLS, Abel Attending Unavailable ORTIZ, ABEL L Primary Care Unavailable ORTIZ, ABLE L Attending Unavailable ORTIZ, ABEL L Primary Care Unavailable ORTIZ, ABEL L Referring Unavailable ORTIZ, ABEL L Primary Care Unavailable ORTIZ, ABEL L Attending Unavailable ORTIZ, ABEL L Primary Care Unavailable ORTIZ, ABEL L Referring Unavailable ORTIZ, ABEL L Primary Care Unavailable ORTZI, ABLE L Attending Unavailable MIGUEL A DAVISF Attending Unavailable ORTIZ, ABEL L Primary Care Unavailable CAMILA LEDEZMA Attending Unavailable ORTIZ, ABEL L Primary Care Unavailable ORTIZ, ABEL L Primary Care Unavailable ALI, MIGUEL A ANNE Referring Unavailable ORTIZ, ABEL L Primary Care Unavailable DANIELLE PEACE Attending Unavailable Allergies Allergy Classification Reported Allergen(s) Allergy Type Date of Onset Reaction(s) Facility (20 sources) Amoxicillin; Translations: [AMOXICILLIN] Drug Allergy 02-21-20 05 [facility] (20 sources) Ampicillin; Translations: [AMPICILLIN] Drug Allergy 07-22-19 12 [facility] (20 sources) cefTRIAXone; Translations: [CEFTRIAXONE SODIUM] Drug Allergy 07-22-19 [facility] (20 sources) Cephalosporins (Antibiotic); Translations: [CEPHALOSPORINS] Drug Allergy 02-21-20 05 [facility] (20 sources) Minocycline; Translations: [MINOCYCLINE] Drug Allergy 07-22-19 12 [facility] (20 sources) Sulfamethoxazole; Translations: [SULFAMETHOXAZOLE] Drug Allergy 08-29-19 11 [facility] (20 sources) Cephalosporins (Antibiotic) Drug Allergy 02-21-20 05 [facility] (11 sources) cefTRIAXone Drug Allergy 07-22-19 12 [facility] (8 sources) Minocycline Drug Allergy 07-22-19 12 [facility] (8 sources) Sulfamethoxazole Allergy to substance 08-29-19 11 [facility] (11 sources) Trimethoprim Drug Allergy 04-12-20 21 [facility] (3 sources) Cephalosporins (Antibiotic) Propensity to adverse reactions 07-23-19 [facility] (1 source) Amoxicillin Drug Allergy 07-27-19 [facility] (1 source) Ampicillin Drug Allergy 07-27-19 [facility] (1 source) cefTRIAXone Drug Allergy 07-27-19 [facility] (1 source) Cephalosporins (Antibiotic) Drug allergy (disorder) 07-27-19 [facility] (1 source) Minocycline Drug Allergy 07-27-19 [facility] (1 source) Sulfamethoxazole Drug Allergy 07-27-19 [facility] (1 source) Trimethoprim Drug Allergy 07-27-19 [facility] Medications Current Medications Medication Drug Class(es) Dates Sig (Normalized) Sig (Original) acetaminophen 325 mg oral capsule (4 sources) take 1 capsule by mouth every four hours as needed for pain acetaminophen (Tylenol) 325 MG capsule Take 325 mg by mouth every 4 hours as needed for mild pain (1-3). Active [id number] 200 actuat albuterol 0.09 mg/actuat metered dose inhaler (2 sources) beta2-Adrenergic Agonist take 2 puff(s) by inhalation every four hours as needed for wheezing albuterol 108 (90 Base) MCG/ACT inhaler Inhale 2 puffs every 4 hours as needed for wheezing. Active aluminum hydroxide 40 mg/ml / magnesium hydroxide 40 mg/ml / simethicone 4 mg/ml oral suspension (4 sources) take 30 mL by mouth every four hours as needed for gastroesophageal reflux disease aluminum & magnesium hydroxide-simethico ne (Mylanta) 200-200-20 MG/5ML oral suspension Take 30 mL by mouth every 4 hours as needed for indigestion or heartburn. Active ARTIFICIAL TEAR SOLUTION OP (2 sources) ARTIFICIAL TEAR SOLUTION OP Administer into affected eye(s) every 8 hours as needed. Active benzonatate 100 mg oral capsule (3 sources) Non-narcotic Antitussive Start: 02-06-2022 End: 03-08-2022 take 1 capsule by mouth three times daily as needed for cough benzonatate (TESSALON PERLES) 100 mg capsule Indications: Productive cough Take 1 capsule by mouth three times daily as needed for cough. 60 capsule 0 02/06/2022 03/08/2022 Active Comment on above: Take 1 capsule by mo uth three times daily as needed for cough. cholecalciferol 0.05 mg oral capsule (8 sources) Vitamin D take 1 capsule by mouth once daily cholecalciferol (Vitamin D-3) 50 MCG (2000 UT) capsule Take 2,000 Units by mouth daily. Active cholecalciferol, vitamin D3, (VITAMIN D3 50 MCG, 2,000 UNIT, GUMMIES) (20 sources) cholecalciferol, vitamin D3, (VITAMIN D3 50 MCG, 2,000 UNIT, GUMMIES) Active cholecalciferol, vitamin D3, (VITAMIN D3 50 MCG, 2,000 UNIT, GUMMIES) donepezil hydrochloride 5 mg oral tablet (20 sources) Start: 08-27-2023 End: 08-04-2024 take 1 tablet by mouth once daily at bedtime donepezil (ARICEPT) 10 mg tablet Indications: Moderate dementia without behavioral disturbance, psychotic disturbance, mood disturbance, or anxiety, unspecified dementia type (HCC) Take 1 tablet by mouth daily at bedtime. 90 tablet 1 11/09/2023 08/04/2024 Discontinued Start: 08-05-2023 End: 02-02-2025 take 1 tablet by mouth once daily at bedtime donepezil (ARICEPT) 5 mg tablet Take 1 tablet by mouth daily at bedtime. 08/04/2024 Active 12 hr guaiFENesin 600 mg extended release oral tablet (7 sources) Start: 02-06-2022 End: 03-08-2022 take 2 tablets by mouth twice daily guaiFENesin (MUCINEX) 600 mg 12 hr tablet Indications: Productive cough Take 2 tablets by mouth twice daily. 120 tablet 0 02/06/2022 03/08/2022 Active take 10 mL by mouth every four hours as needed for cough guaiFENesin (Robitussin) 100 MG/5ML liqu id Take 10 mL by mouth every 4 hours as needed for cough. Active Comment on above: Take 2 tablets by mo ut twice daily. Incontinence Pad, Liner, Disp (BLADDER CONTROL PAD LONG) pads (19 sources) Start: 03-11-2024 Incontinence Pad, Liner, Disp (BLADDER CONTROL PAD LONG) pads Indications: Urinary incontinence, unspecified type , Mild dementia without behavioral disturbance, psychotic disturbance, mood disturbance, or anxiety, unspecified dementia type (HCC) 1 application three times a day as needed (urinary incontinence). 200 Each 2 03/11/2024 Active Lactobacillus (4 sources) Lactobacillus (ACIDOPHILUS PO) Take by mouth daily. Active Lactobacillus acidophilus (20 sources) Lactobacillus ac idophilus (PROBIOTIC ORAL) Take by mouth once daily. Active Lactobacillus ac idophilus (PROBIOTIC ORAL) Take by mouth once daily. 0 Active Comment on above: Take by mouth once d aily. levoFLOXacin 500 mg oral tablet (4 sources) Quinolone Antimicrobial Start: 07-27-19 End: 08-04-19 take 1 tablet by mouth once daily Levofloxacin 500 mg tablet Active 500 mg PO DAILY 7 July 26, 2024 12:00am levothyroxine sodium 0.1 mg oral tablet (20 sources) l-Thyroxine Start: 05-16-20 levothyroxine (Synthroid, Levoxyl) 100 MCG tablet 100 mcg daily. Take one tablet daily for six days a week. Take 2 tablets one day of the week 05/16/2023 Active Start: 07-17-2020 End: 04-30-2023 take 1 tablet by mouth once daily, then take 2 tablets by mouth every week levothyroxine (SYNTHROID) 100 mcg tablet Indications: Hypothyroidism, unspecified type Take 1 tablet by mouth once daily 6 days a week and 2 tablets one day per week. Take on an empty stomach. 96 tablet 3 04/30/2023 Active Comment on above: TAKE ON AN EMPTY STO MACH. Take 1 PO daily x 6 days a week and 2 PO 1 day a week Take 1 tablet by sean th once daily 6 days a week and 2 tablets one day per week. Take on an empty stomach. Multiple Vitamin (multivitamin) tablet (8 sources) take 1 tablet by mouth once daily Multiple Vitamin (multivitamin) tablet Take 1 tablet by mouth daily. Active take 1 tablet by mouth once laurel y Multiple Vitamin (multivitamin) tablet Take 1 tablet by mouth daily. 0 Active Mxbqdmii-Pfb-Vd-Lycopen-Lute in (Centrum Silver) 0.4 mg-300 mcg- 250 mcg tablet (3 sources) Start: 03-05-2023 take 1 tablet by mouth once daily Mswghqcr-Eqc-Ew-Lycopen-Lutein (Centrum Silver) 0.4 mg-300 mcg- 250 mcg tablet Active 1 {tbl} PO DAILY March 05, 2023 12:00am MULTIVITAMIN TAB (20 sources) Start: 06-29-2005 MULTIVITAMIN TAB Take one(1) tablet daily. 0 06/29/2005 Active Comment on above: Take one(1) tablet d aily. naproxen sodium 220 mg oral capsule (3 sources) Nonst eroid al Anti- infla mmato ry Drug Start: 07-17-2020 Naproxen Sodium 220 MG capsu le Active 220 mg PO NEEDED as needed for Pain 1-10 Or Fever July 17, 2020 1:00am ondansetron 4 mg disintegrat ing oral tablet (20 sources) Serot onin- 3 Research Associate tor Antag onist Start: 08-03-2023 take 1 tablet by mouth every eight hours as needed for nausea and nausea ondansetron orally disintegrating (ZOFRAN ODT) 4 mg disintegrating tablet Indications: Nausea Take 1 tablet by mouth every 8 hours as needed for nausea/vomiting. 20 tablet 1 08/03/2023 Active Start: 03-05-2023 take 1 tablet by sean th every eight hours as needed for nausea and vomiting Ondansetron Hcl 8 mg tablet Active 8 mg PO Q8H as needed for nausea and vomiting March 05, 2023 12:00am take 1 tablet by sean th every eight hours as needed for nausea and vomiting ondansetron (Zofran) 4 MG tablet Take 4 mg by mouth every 8 hours as needed for nausea or vomiting. Active Comment on above: Take 1 tablet by sean th every 8 hours as needed for nausea/vomiting. Probiotic Product (PROBIOTIC-10 PO) (8 sources) Probiotic Produc t (PROBIOTIC-10 PO) Take by mouth. Active Probiotic Produc t (PROBIOTIC-10 PO) Take by mouth. 0 Active sertraline 50 mg oral tablet (20 sources) Serotonin Reuptake Inhibitor Start: 11-09-2023 take 1 tablet by mouth once daily at bedtime sertraline (ZOLOFT) 50 mg tablet Indications: Major depressive disorder with current active episode, unspecified depression episode severity, unspecified whether recurrent Take 1 tablet by mouth daily at bedtime. 90 tablet 1 11/09/2023 Active simvastatin 40 mg oral tablet (20 sources) HMG-CoA Reductase Inhibitor Start: 02-28-2021 End: 08-03-2023 take 1 tablet by mouth once daily at bedtime simvastatin (ZOCOR) 40 mg tablet Indications: Pure hypercholesterolemia Take 1 tablet by mouth daily at bedtime. 90 tablet 3 08/03/2023 Active Start: 07-17-2020 End: 03-05-2023 take 1 tablet by mouth at bedtime Simvastatin 20 MG tablet Discontinued 20 mg PO AT BEDTIME July 17, 2020 1:00am March 05, 2023 2:42pm Comment on above: Take 1 tablet by sean th daily at bedtime. TAKE 1 TABLET BY SEAN TH AT BEDTIME Completed/Discontinued Medications Medication Drug Class(es) Dates Sig (Normalized) Sig (Original) aspirin 81 mg chewable tablet (20 sources) Platelet Aggregation Inhibitor, Nonsteroidal Anti-inflammatory Drug Start: 07-17-2020 End: 03-05-2023 Aspirin 81 MG tablet,chewable Discontinued 1 {tbl} PO DAILY July 17, 2020 1:00am March 05, 2023 2:42pm Start: 02-20-2005 ASPIRIN 81 MG TAB Take one(1) tablet daily. 0 02/20/2005 Active take 1 tablet by sean th once daily aspirin 81 MG EC tablet Take 81 mg by mouth daily. Active Comment on above: Take one(1) tablet d aily. esomeprazole 20 mg delayed release oral capsule (5 sources) Proton Pump Inhibitor Start: 05-31-19 End: 09-09-19 esomeprazole (NEXIUM) 20 mg capsule 2 caps every morning, 1/2 hr before meal. 60 capsule 1 05/31/2020 09/08/2021 Discontinued Comment on above: 2 caps every morning , 1/2 hr before meal. KandyAcidJordan lew B.Animalis 1 EACH capsule (3 sources) Start: 07-18-19 End: 03-05-20 take 1 capsule by mouth once daily L.Acidvipin,Paracasei, B.Animalis 1 EACH capsule Discontinued 1 NMA PO DAILY July 17, 2020 1:00am March 05, 2023 2:42pm lidocaine 0.05 mg/mg medicated patch (2 sources) Antiarrhythmic, Amide Local Anesthetic Start: 08-14-19 End: 08-19-19 apply 1 dose transdermal route every twelve hours lidocaine (LIDODERM) 5 % Indications: Fall, initial encounter Apply 1 Patch as directed every 12 hours for 5 days. Remove old patch prior to placing new patch. Location: L side of chest 10 Patch 08/13/2022 08/18/2022 Comment on above: Apply 1 Patch as dir ected every 12 hours for 5 days. Remove old patch prior to placing new patch. Location: L side of chest perflutren lipid microspheres 1.3 mL in NaCl (PF) 0.9% 10 mL injection (DEFINITY) (20 sources) Start: 01-08-20 End: 04-08-20 perflutren lipid microspheres 1.3 mL in NaCl (PF) 0.9% 10 mL injection (DEFINITY) 125 ml sodium chloride 9 mg/ml prefilled syringe (20 sources) Start: 01-08-20 End: 04-08-20 sodium chloride 0.9 % (flush) 10 mL (BD POSIFLUSH) Problems Active Problems Problem Classification Problem Date Documented Da te Episodic/Chronic Administrative/social admission (20 sources) Bereavement; Translations: [Disappearance and of family member] Onset: 06-07-2018 08-09-2018 Episodic Anxiety disorders (20 sources) Anxiety; Translations: [Other specified anxiety disorders] Onset: 06-07-2018 06-07-2018 Chronic Cancer of bronchus; lung (20 sources) Malignant neoplasm of right upper lobe of lung; Translations: [Malignant neoplasm of upper lobe, right bronchus or lung] Onset: 08-08-2018 08-11-2018 Chronic Cancer of bronchus; lung (20 sources) History of malignant neoplasm of thoracic cavity structure; Translations: [Personal history of other malignant neoplasm of bronchus and lung] Onset: 01-07-2022 Episodic Cancer; other respiratory and intrathoracic (3 sources) Malignant neoplasm of lower respiratory tract; 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] Onset: 10-12-2024 Chronic Delirium, dementia, and amnestic and other cognitive disorders (20 sources) Dementia; Translations: [Mild dementia without behavioral disturbance, psychotic disturbance, mood disturbance, or anxiety] Onset: 05-04-2023 06-24-2023 Chronic Disorders of lipid metabolism (20 sources) Pure hypercholesterolemia; Translations: [Pure hypercholesterolemia, unspecified] Onset: 02-23-2005 03-05-2009 Chronic Diverticulosis and diverticulitis (20 sources) Diverticular disease; Translations: [Diverticulosis of intestine, part unspecified, without perforation or abscess without bleeding] Onset: 02-21-2009 02-26-2009 Chronic E Codes: Fall (2 sources) Fall; Translations: [Unspecified fall, initial encounter] Episodic Genitourinary symptoms and ill-defined conditions (20 sources) Urinary incontinence; Translations: [Unspecified urinary incontinence] Onset: 06-04-2021 06-04-2021 Chronic Miscellaneous mental health disorders (20 sources) Insomnia; Translations: [Other insomnia not due to a substance or known physiological condition] Onset: 06-07-2018 06-07-2018 Chronic Mood disorders (20 sources) Major depressive disorder; Translations: [Major depressive disorder, single episode, unspecified] Onset: 11-09-2023 11-09-2023 Chronic Mycoses (13 sources) Onychomycosis; Translations: [Tinea unguium] Onset: 08-04-2024 08-04-2024 Episodic Nutritional deficiencies (20 sources) Vitamin D deficiency; Translations: [Vitamin D deficiency, unspecified] Onset: 03-01-2021 03-01-2021 Chronic Osteoarthritis (20 sources) Degenerative joint disease involving multiple joints; Translations: [Polyosteoarthritis, unspecified] Onset: 02-23-2005 02-23-2005 Chronic Other connective tissue disease (12 sources) Other symptoms and signs involving the musculoskeletal system; Translations: [Other musculoskeletal symptoms referable to limbs] Onset: 08-04-2024 08-04-2024 Episodic Other ear and sense organ disorders (20 sources) Sensorineural hearing loss, bilateral; Translations: [Sensorineural hearing loss, bilateral] Onset: 03-25-2015 Chronic Other ear and sense organ disorders (20 sources) Cochlear prosthesis in situ; Translations: [Cochlear implant status] Onset: 06-18-2017 06-18-2017 Chronic Other ear and sense organ disorders (1 source) Impacted cerumen of bilateral ears; Translations: [Impacted cerumen, bilateral] Episodic Other gastrointestinal disorders (11 sources) Diarrhea; Translations: [Diarrhea, unspecified] Onset: 06-24-2023 06-24-2023 Episodic Other injuries and conditions due to external causes (1 source) Unspecified injury of head, initial encounter; Translations: [Unspecified injury of head, initial encounter] Onset: 09-21-2024 Episodic Other lower respiratory disease (3 sources) Multiple nodules of lung; Translations: [Other nonspecific abnormal finding of lung field] Episodic Other lower respiratory disease (2 sources) Productive cough ; Translations: [Productive cough] Episodic Other lower respiratory disease (1 source) Cough; Translations: [Cough] 05-20-2021 Episodic Other lower respiratory disease (1 source) Shortness of breath; Translations: [Shortness of breath] Onset: 08-04-2024 Episodic Other lower respiratory disease (1 source) Other nonspecific abnormal finding of lung field; Translations: [Lung nodules] Onset: 10-12-2024 Episodic Other nervous system disorders (2 sources) Impaired cognition; Translations: [Other symptoms and signs involving cognitive functions and awareness] 06-24-2023 Episodic Other nervous system disorders (12 sources) Abnormal gait; Translations: [Other abnormalities of gait and mobility] Onset: 08-04-2024 08-04-2024 Episodic Other nervous system disorders (1 source) Other abnormalities of gait and mobility; Translations: [Other abnormalities of gait and mobility] Onset: 08-31-2024 Episodic Other non-traumatic joint disorders (1 source) Bilateral arthritis of feet 08-04-2024 Chronic Other non-traumatic joint disorders (20 sources) Bunion; Translations: [Effusion, unspecified foot] Onset: 06-24-2023 06-24-2023 Episodic Comment on above: Nontoxic-appearing, slightly hard of hearing 85-year-old female presents to the now clinic for evaluation of the above complaint. Patient has a history of bunion to her great toes. Recently had the left great toe bunion irritated with new tight fitting shoes. She had a little bit of bleeding that has since resolved. There is no evidence of secondary infection or gout. Patient is given outpatient referral to podiatry. Advised on wearing comfortable loose fitting shoe and following up as instructed. Signs and symptoms for which to return are discussed as well as those for which to seek ER care. Patient declined any pain medication as she states she is able to take Aleve at home which is helping. Her questions are answered and she verbalizes understanding and agreement with plan. Other nutritional; endocrine; and metabolic disorders (20 sources) Obesity; Translations: [Obesity, unspecified] Onset: 06-26-2008 06-26-2008 Chronic Other screening for suspected conditions (not mental disorders or infectious disease) (1 source) Patient encounter status; Translations: [Encounter for screening mammogram for malignant neoplasm of breast] Episodic Other upper respiratory disease (3 sources) Acute bronchospasm; Translations: [Acute bronchospasm] 07-23-2024 Episodic Other upper respiratory infections (3 sources) Viral upper respiratory tract infection; Translations: [Acute upper respiratory infection, unspecified] 07-23-2024 Episodic Pneumonia (except that caused by tuberculosis or sexually transmitted disease) (2 sources) Pneumonia; Translations: [Pneumonia, unspecified organism] 07-26-2024 Episodic Residual codes; unclassified (1 source) Procedure not done; Translations: [Procedure and treatment not carried out, unspecified reason] Episodic Residual codes; unclassified (1 source) Left after triage; Translations: [Procedure and treatment not carried out due to patient leaving prior to being seen by health care provider] Episodic Thyroid disorders (20 sources) Hypothyroidism; Translations: [Hypothyroidism, unspecified] Onset: 07-22-2011 07-22-2011 Chronic Unclassified (1 source) Cough, unspecified; Translations: [Cough, unspecified] Onset: 08-04-2024 Unclassified (1 source) New Patient Onset: 10-11-2024 Unclassified (1 source) Mild dementia without behavioral disturbance, psychotic disturbance, mood disturbance, or anxiety, unspecified dementia type (HCC); Translations: [Mild dementia without behavioral disturbance, psychotic disturbance, mood disturbance, or anxiety, unspecified dementia type (HCC)] Onset: 05-04-2023 Past or Other Problems Problem Classification Problem Date Documented Da te Episodic/Chronic Chronic obstructive pulmonary disease and bronchiectasis (20 sources) Bronchitis; Translations: [Bronchitis, not specified as acute or chronic] Onset: 0 05-22-2019 Episodic Gastrointestinal hemorrhage (20 sources) Gastrointestinal hemorrhage; Translations: [Gastrointestinal hemorrhage, unspecified] Onset: 3 05-12-2021 Episodic Genitourinary symptoms and ill-defined conditions (20 sources) Dysuria; Translations: [Dysuria] Onset: 3 06-24-2023 Episodic Heart valve disorders (20 sources) Heart murmur; Translations: [Cardiac murmur, unspecified] Onset: 2 Episodic Inflammatory diseases of female pelvic organs (20 sources) Abscess of labia; Translations: [Abscess of vulva] Onset: 1 07-14-2010 Episodic Malaise and fatigue (20 sources) Fatigue; Translations: [Other fatigue] Onset: 2 Episodic Nausea and vomiting (20 sources) Nausea; Translations: [Nausea] Onset: 4 08-03-2023 Episodic Noninfectious gastroenteritis (20 sources) Colitis; Translations: [Noninfective gastroenteritis and colitis, unspecified] Onset: 3 05-12-2021 Episodic Other aftercare (20 sources) Cochlear prosthesis in situ; Translations: [Encounter for other specified surgical aftercare] Onset: 8 Episodic Other gastrointestinal disorders (20 sources) Chronic constipation; Translations: [Other constipation] Onset: 8 06-18-2017 Episodic Other lower respiratory disease (20 sources) Dyspnea; Translations: [Shortness of breath] Onset: 2 Episodic Other nervous system disorders (20 sources) Acute postoperative pain; Translations: [Other acute postprocedural pain] Onset: 9 08-11-2018 Episodic Other nervous system disorders (20 sources) Impairment of balance; Translations: [Other abnormalities of gait and mobility] Onset: 3 01-13-2023 Episodic Other non-traumatic joint disorders (18 sources) Hip pain; Translations: [Pain in left hip] Onset: 4 03-31-2024 Episodic Other nutritional; endocrine; and metabolic disorders (20 sources) Unintentional weight loss; Translations: [Abnormal weight loss] Onset: 4 11-09-2023 Episodic Other nutritional; endocrine; and metabolic disorders (1 source) Abnormal weight loss; Translations: [Weight loss, unintentional] Onset: 4 Episodic Other skin disorders (20 sources) Actinic keratosis; Translations: [Actinic keratosis] Onset: 9 03-27-2019 Episodic Other upper respiratory disease (20 sources) Lesion of nose; Translations: [Other specified disorders of nose and nasal sinuses] Onset: 0 05-22-2019 Episodic Pleurisy; pneumothorax; pulmonary collapse (20 sources) Chylothorax; 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] Onset: 9 08-11-2018 Episodic Residual codes; unclassified (20 sources) History of lung lobectomy; Translations: [Acquired absence of lung [part of]] Onset: 9 08-23-2018 Episodic Residual codes; unclassified (20 sources) Poor short-term memory ; Translations: [Other amnesia] Onset: 3 01-13-2023 Episodic Residual codes; unclassified (20 sources) Medication non-compliance due to cognitive impairment; Translations: [Unspecified symptoms and signs involving cognitive functions and awareness] Onset: 3 06-24-2023 Episodic Unclassified (1 source) Weakness of both lower extremities 08-04-2024 Urinary tract infections (2 sources) Urinary tract infection, site not specified; Translations: [Urinary tract infection, site not specified] Onset: Episodic Results Test Name Value Interpretation Reference Range Facility [facility] 10-12-2024 [facility] Visit (SP) Office (HEMMED) MONSERRAT FRENCH ([id number]) 1935 F DEF Date Time Provider Department 10/12/24 9:40 AM MIGUEL A DAVIS HEMMED During your visit today, we recorded the following information about you: Temperature Pulse Respiration Blood pressure 97.8 degrees 68/minute 16/minute 101/50 Weight 90.9 kg Miguel A Davis MD 10/12/2024 10:29 AM Signed Patient Overview: The patient is an 89-year-old female with a diagnosis of 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 She underwent a right upper lobectomy in June 2018, during which lymph nodes were resected. No adjuvant therapy was required. We have been following her with serial imaging once a year to ensure there is no new lung primary. Her CT scans from August 2023 were essentially negative. Diagnostic Results: - CT Chest (September 29, 2024): No evidence of intrathoracic lymphadenopathy or suspicious pulmonary nodules. Recording using [employer] software for draft documentation of the visit was discussed with the patient/authorized media sales representative; all questions welcomed and answered. Patient/authorized media sales representative agreed to proceed INTERIM HISTORY:Ms. French returns for follow up. On 06/2018, the patient, an 89-year-old female, was diagnosed with right upper lobe non-small cell lung cancer, measuring 2.2 cm with an invasive component of 1.2 cm. She underwent a right upper lobectomy with lymph node resection and did not require adjuvant therapy. She has been monitored with annual imaging to check for new lung primaries. A CT scan in 08/2023 showed no significant findings. A recent non-contrast chest CT on 09/29/2024 revealed no intrathoracic lymphadenopathy or suspicious pulmonary nodules. She reports good appetite, no issues with persistent cough, new bone pain, or upper right abdominal pain. She has gained weight and denies bowel or bladder function problems, though she occasionally uses pads for urinary incontinence. She experiences hip pain, likely related to her gait, but has no other complaints. She resides in assisted living at [facility] in [place]. Review Of Systems: GENERAL: Negative for weight loss or fever, positive for weight gain, denies malaise HEENT: Negative for frequent or significant headaches; no changes in vision or hearing; no epistaxis or other nasal problems NECK: Negative for lumps, goiter, pain, and significant neck swelling RESPIRATORY: Negative for cough, dyspnea, or shortness of breath CARDIOVASCULAR: Negative for chest pain, leg swelling, CHF, or palpitations GI: No nausea, vomiting, diarrhea, heartburn, abdominal pain, hematochezia, or melena GENITOURINARY: Positive for occasional urinary incontinence requiring pads, denies dysuria or urinary frequency MUSCULOSKELETAL: Positive for hip pain, negative for joint swelling or muscle pain, no back pain SKIN: Negative for lesions, rash, and itching PSYCH: Negative for anxiety or depression HEMATOLOGY/LYMPHOLOGY: No bleeding concerns NEURO: No history of headaches, syncope, paralysis, seizures, or tremors ENDOCRINE: No history of polydipsia, increased thirst, or other endocrine symptoms Physical Examination: BP 101/50 Pulse 68 Temp 36.6 ?C (97.8 ?F) (Temporal) Resp 16 Wt 90.9 kg (200 lb 6.4 oz) SpO2 98% BMI 34.21 kg/m? General: Alert AND oriented, no acute distress Skin: Normal HEENT: Pupils equal, round. Oral cavity, oropharynx clear Neck: Supple, no mass Breast: Deferred Respiratory: Clear to auscultation, bilaterally Cardiovascular: Regular rate and rhythm, no murmurs, rubs, or gallops Abdomen: Soft, non-tender, non-distended, no masses palpable, no hepatosplenomegaly, normal bowel sounds Genitourinary: Deferred MSK: Back is non-tender Extremities: No clubbing, cyanosis, or edema Labs: (09/29/24) CT Chest without contrast: No evidence of intrathoracic lymphadenopathy or suspicious pulmonary nodules (August 2023) CT Chest: Essentially negative (2022) CT Chest: Stable left lower lung nodule, no new suspicious findings DATA: Diagnostic tests reviewed for today's visit: Most recent labs and imaging results. CBC: WBC (k/uL) Date Value 03/31/2024 7.86 02/24/2021 6.48 RBC (m/uL) Date Value 03/31/2024 4.07 02/24/2021 3.90 Hemoglobin (g/dL) Date Value 03/31/2024 12.3 02/24/2021 12.1 Hematocrit (%) Date Value 03/31/2024 39.3 02/24/2021 36.0 Platelet Count (k/uL) Date Value 03/31/2024 200 02/24/2021 159 MCV (fL) Date Value 03/31/2024 96.6 02/24/2021 92.3 MCH Date Value 03/31/2024 30.2 pg 02/24/2021 31.0 pG MPV (fL) Date Value 03/31/2024 10.7 02/24/2021 9.8 CMP: Sodium (mmol/L) Date Value 03/31/2024 138 02/24/2021 138 Chloride (mmol/L) Date Value 03/31/2024 100 (more content not included)... Normal [facility] CNOVon 10-11-2024 CNOV Office Visit (TOMÁS ) MONSERRAT FRENCH ([id number]) 1935 F DEF Date Time Provider Department 10/11/24 1:25 PM CAMILA LEDEZMA During your visit today, we recorded the following information about you: Camila Ledezma PA-C 10/11/2024 3:30 PM Signed History of Present Illness Ms. MONSERRAT FRENCH is a 89 year old female Chief Complaint: Reestablish care for cochlear implant S/p right sided cochlear implant Dr. Cabrera 05/14/2015 Wears a left sided hearing aid from outside facility Last programmed by audiology 07/18/24 Last seen 12/19/[address] Cabrera Since last seen, The implant has been functioning well She now is in a mcc for dementia, she requires virtual assistant for advertisers to use the device but depends on it for hearing Otalgia/magnet site pain: denies Otorrhea: denies Dizziness/Imbalance: denies Facial Numbness, Weakness or Tingling: denies ALLERGIES Allergen Reactions Bactrim [Sulfametho* Rash shaking and chills, dry mouth Amoxicillin Rash Ampicillin Rash Cephalosporins Rash Minocycline Rash shaking and chills , dry mouth Rocephin [Ceftriaxo* Rash Current Outpatient Medications on File Prior to Visit Medication Sig donepezil (ARICEPT) 5 mg tablet Take 1 tablet by mouth daily at bedtime. Incontinence Pad, Liner, Disp (BLADDER CONTROL PAD LONG) pads 1 application three times a day as needed (urinary incontinence). sertraline (ZOLOFT) 50 mg tablet Take 1 tablet by mouth daily at bedtime. simvastatin (ZOCOR) 40 mg tablet Take 1 tablet by mouth daily at bedtime. ondansetron orally disintegrating (ZOFRAN ODT) 4 mg disintegrating tablet Take 1 tablet by mouth every 8 hours as needed for nausea/vomiting. cholecalciferol, vitamin D3, (VITAMIN D3 50 MCG, 2,000 UNIT, GUMMIES) levothyroxine (SYNTHROID) 100 mcg tablet Take 1 tablet by mouth once daily 6 days a week and 2 tablets one day per week. Take on an empty stomach. Lactobacillus acidophilus (PROBIOTIC ORAL) Take by mouth once daily. MULTIVITAMIN TAB Take one(1) tablet daily. ASPIRIN 81 MG TAB Take one(1) tablet daily. No current facility-administered medications on file prior to visit. Objective: There were no vitals taken for this visit. Appearance: Non-syndromic, cooperative and calm Communication: Voice has adequate volume; there is no stridor Head/Face: head and facial contours are symmetric Facial nerve 1/6 bilateral Skin: no skin lesions or scarring on face Ears: AD EAC clear. TM intact without perforation or retraction. Middle ear aerated. Magnet site well seated without erythema or swelling. EAC clear. TM intact without perforation or retraction. Middle ear aerated. Nose: external exam with straight profile Oral Cavity: Normal dentition Oropharynx: Uvula hangs midline; mucosa is pink and moist; tonsils present Neck: no LAD; thyroid without masses or enlargement Lymphatic: No lymphadenopathy or masses Neuro/Psych.: Alert and Oriented x 3 Cranial nerves intact Assessment: Z96.[address] (primary encounter diagnosis) H90.3 Sensorineural hearing loss (SNHL) of both ears Plan: Medically cleared for cochlear implant use and any upgrades or replacement parts, established with cochlear implant surgeon Yina Daigle's practice Follow-up within 2-3 years to stay medically established Camila Ledezma PA-C Otology Medical Decision Making: Problems: Low: Stable chronic illness Risk: Minimal: Minimal risk from testing/treatment Medical Decision Making Level: 2 - Straightforward Camila Ledezma PA-C 10/11/2024 1:18 PM Addendum She is established with the care of Dr. Yina Daigle now that Dr. Cabrera is retired I?m interested in upgrading my Cochlear Implant processor, what do I do now? Coverage of replacement processors may differ based on your insurance carrier or plan. If you are interested in upgrading your processor, it must be damaged and out of warranty, obsolete, or more than 5 years old for most insurance plans to cover an upgrade. Verify that you are current with your surgeon and have been seen within the last 3 years. If it has been more than 3 years, call to schedule immediately. You will be seen by one of the physician?s assistants in the office to reestablish care with a signing provider. Reach out to your current device?s garment cutter. Your garment cutter is [employer]ar [employer]: Your garment cutter will reach out to the [facility] HIP team to get a Letter of Medical Necessity signed by your medical provider to submit to insurance. Once the letter is signed by your provider, it will be submitted by the garment cutter to insurance. Your credit authorizer is not able to sign the paperwork for you, as it must be completed by a medical doctor. When the garment cutter gets insurance approval, they will notify you and mail the upgrade (more content not included)... Normal [facility] CT CHEST WO IVCONon 09-30-[address] CHEST WO IVCON * * *Final Report* * * DATE OF EXAM: Sep 29 2024 8:33AM [facility] 0541 - CT CHEST WO IVCON / PROCEDURE REASON: Malignant neoplasm of unspecified part of unspecified bronchus or lung (HCC) * * * * Physician Interpretation * * * * EXAMINATION: CHEST CT WITHOUT CONTRAST CLINICAL HISTORY: Lung cancer Technique: Spiral CT acquisition of the chest from the thoracic inlet to the upper abdomen without contrast. MQ: [id number] CT Radiation dose: Integrated Dose-length product (DLP) for this visit = 235 mGy*cm CT Dose Reduction Employed: Automated exposure control(AEC) and iterative recon Comparison: CT chest 09/06/2023 RESULT: Limitations: None. Lines, tubes, and devices: None. Lung parenchyma and airways: Postoperative changes from a right upper lobectomy. No consolidation. Stable nodules in the left lower lobe measuring 4 mm or less. No new suspicious pulmonary nodule. The central airways are patent. Pleural space: No pleural effusion. No pleural thickening. Lower neck, lymph nodes, and mediastinum: The imaged thyroid gland is normal. No lymphadenopathy in the supraclavicular, axillary, mediastinal, or hilar regions. Heart, pericardium, and thoracic vessels: The thoracic aorta and main pulmonary artery are normal in caliber. The cardiac chambers are normal in size. Coronary artery atherosclerotic calcifications are noted, although the study is not optimized for coronary assessment. No pericardial effusion or thickening. Bones and soft tissues: No destructive bone lesion. Degenerative disease of the thoracic spine. Chest wall is unremarkable. Upper abdomen: No acute abnormality in the imaged upper abdomen. Cholelithiasis. Small sliding hiatal hernia. Localizer images: No additional findings. IMPRESSION: No new suspicious pulmonary nodules. No thoracic lymphadenopathy. Preventative Maintenance Technician: PSCB Transcribe Date/Time: Oct 06 2024 12:04P Dictated by : JONAS NUNEZ MD This examination was interpreted and the report reviewed and electronically signed by: JONAS NUNEZ MD on Oct 06 2024 12:15PM EST [id number] Normal [facility] Brain/Head without Contrasto n 09-18-2024 Brain/Head without Contrast [facility] Imaging Services [address] [place] [id number] Brain/Head without Contrast MR#: [id number] Acct: [id number] Name: MONSERRAT FRENCH Rep #: [id number] : 1935 F 89 From: Leo Costa MD PCP: Dr. Abel Ortiz, DO Status: PRE ER Study: Brain/Head without Contrast Date of Exam: 10/08 Exam# [id number] Ordering Dr: Dominick Blevins MD PROCEDURE: BRAIN/HEAD WITHOUT CONTRAST 09/18/2024 REASON FOR EXAM: Patient fell hitting head. TECHNIQUE: Contiguous axial scans of 3.75 mm slice thicknesses with sagittal and coronal reconstruction images. One or more dose reduction techniques were utilized (e.g., automated exposure control, adjustment of mA and/or kv according to patient size, use of iterative reconstruction technique). RADIATION DOSE SUMMARY: DLP: 855.03 mGycm COMPARISON: No relevant prior FINDINGS: Cerebrum: No intraparenchymal hemorrhage. No abnormal areas of encephalomalacia. No mass effect or midline shift. Diffuse central white matter and subcortical hypoattenuation.. Ventricles and cisterns: Appropriate size for patient's age. Age-appropriate senescent change. Extra-axial fluid: Unremarkable. Posterior fossa: Unremarkable cerebellum. No abnormalities involving the brainstem. Paranasal sinuses: Normal. Vasculature: Unremarkable. Mastoid air cells: Postoperative findings on the right Calvarium: Unremarkable. Soft tissues: Artifact from cochlear implant.. CT/Brain/Head without Contrast IMPRESSION: Chronic age-related microvascular ischemic changes. Cochlear implant. Age-appropriate senescent change. No acute intracranial findings. Reading Location: [facility] CC: Dr. Dominick Blevins MD; Dr. Abel Ortiz DO Preventative Maintenance Technician: Signed Normal [facility] Emergency Department Summary on 09-18-2024 Emergency Department Summary [facility] Medical Records Department [address] [place] [address] Emergency Department Summary 09/18/24 MR#: [id number] Acct: [id number] Name: MONSERRAT FRENCH Rep #: [id number] : 1935 89 From: Alex Gomez DO PCP: Dr. Abel Ortiz DO Status:DEP ER Location: ED HPI HPI - Fall History of Present Illness Chief Complaint: Fall Informant: patient and EMS Narrative Narrative: 89-year-old female from [facility] presenting to the emergency room with head injury following a fall. Patient states that she frequently falls due to balance issues. She states that today was no different and she struck the back of her head on a piece of furniture. She denies a loss of consciousness. It is not reported that the patient is on a blood thinner. She denies any other injuries. She denies neck pain arm or leg pain. She denies any hip pelvis or abdominal pain. No chest pain. [facility] Medical History Unspecified urinary incontinence Major depressive disorder, single episode, unspecified Vitamin D deficiency, unspecified Unspecified dementia, mild, without behavioral disturbance, psychotic disturbance, mood disturbance, and anxiety History of lung cancer Hypothyroidism HLD (hyperlipidemia) Home Medications ???Medication ???Instructions ???Recorded ???Last Taken ???Type levothyroxine 100 mcg tablet 100 mcg PO MOTUWETHFRSA 07/17/20 U nknown History Lactobacillus acidophilus 1 tab PO DAILY 09/18/24 Unknown Hi story (Acidophilus chewable tablet) acetaminophen 325 mg capsule 650 mg PO Q4H PRN fever 09/18/24 U nknown History albuterol sulfate 90 mcg/actuation 2 inh inhalation Q4H PRN shortne ss 09/18/24 Unknown History aerosol inhaler (Ventolin HFA) of breath or wheezing aluminum-magnesium hydroxide 200 30 ml PO Q4H PRN GI DISTRES Unknown History mg-200 mg/5 mL oral suspension aspirin 81 mg tablet,delayed 81 mg PO DAILY 09/18/24 Unknown Hi story release (Adult Aspirin Regimen) carboxymethylcellulose sodium 1 % 1 drp EACH EYE Q8H PRN dry eye(s) 09/18/24 Unknown History eye drops (Artificial Tears (carboxymethylcellulose )) cholecalciferol (vitamin D3) 50 50 mcg PO DAILY 09/18/24 Unknown H istory mcg (2,000 unit) capsule guaifenesin 100 mg/5 mL oral 200 mg PO Q4H PRN congestion 09/18 Unknown History liquid (Adult Wal-Tussin) levothyroxine 100 mcg tablet 200 mcg PO BLANC 09/18/24 Unknown His tory (Levo-T) meloxicam 15 mg tablet 15 mg PO DAILY 09/18/24 Unknown Hi story memantine 5 mg tablet 5 mg PO BID 09/18/24 Unknown Histo ry multivitamin (Daily Multi-Vitamin 1 tab PO DAILY 09/18/24 Unknown H istory tablet) nystatin 100,000 unit/gram topical 1 applic topical BID PRN YEAST 0 09/18/24 Unknown History powder (Nyamyc) ondansetron 4 mg disintegrating 4 mg PO Q8H PRN nausea and vomitin g 09/18/24 Unknown History tablet sertraline 50 mg tablet 50 mg PO QHS 09/18/24 Unknown Hist ory simvastatin 40 mg tablet 40 mg PO QHS 09/18/24 Unknown Hist ory Allergy/AdvReac Type Severity Reaction Status Date / Time amoxicillin AdvReac Rash Verified 07/26/24 00:15 ampicillin AdvReac Rash Verified 07/26/24 00:15 ceftriaxone (From Rocephin) AdvReac Rash Verified 07/26/24 00:15 Cephalosporins AdvReac Rash Verified 07/26/24 00:15 minocycline AdvReac Rash Verified 07/26/24 00:15 sulfamethoxazole (From AdvReac Rash Verified 07/26/24 00:15 Bactrim) trimethoprim (From Bactrim) AdvReac Rash Verified 07/26/24 00:15 Family History Father Cancer Surgical History History of lung surgery Social History Smoking Status: Never smoker alcohol intake: current alcohol intake frequency: a few times a month Alcohol type: wine substance use type: does not use ROS ROS ED Constitutional Constitutional ED: Denies chills or weight loss Eyes Eyes: Denies change in vision or diplopia ENT ENT ED: Denies ear pain, rhinorrhea or sore throat Cardiovascular Cardiovascular: Denies chest pain, orthopnea, palpitations or racing heartbeat Respiratory/Chest Respiratory/Chest: Denies cough, dyspnea or orthopnea Gastrointestinal Gastrointestinal: Denies abdominal pain, diarrhea, nausea or vomiting Genitourinary Genitourinary ED: Denies dysuria, hematuria or urinary frequency Musculoskeletal Musculoskeletal: Denies arthralgias, back pain, myalgias or neck pain Integumentary Reports other Details: Scalp laceration ; Denies abscess or rash Neurologic Neurologic: Reports headache(s); Denies weakness Psychiatric Psychiatric: Denies anxiety, depression, suicidal ideation (more content not included)... [facility] 09-12-2024 [facility] Telephone (FAMWS) MONSERRAT FRENCH ([id number]) 1935 F DEF Date Time Provider Department 09/12/24 ABEL ORTIZ [facility] During your visit today, we recorded the following information about you: Tg Leonard MA 09/12/2024 1:03 PM Signed See Green Is Good message regarding pt. Please review and advise. Did not see anything in faxes, but may have already been received in office. Tg Leonard MA Pt message: Perfecto Ortiz. This is Boris messaging you. Spoke with the nurses today at [facility] and they are reporting that mom's hip has been causing her pain. They took an x-ray and sent it to your office. They are awaiting further instructions and have been giving her Aleve in the meantime. I know she's had cortisone shots in the past. Could this be an option now? Thanks Abel Grimm DO 09/19/2024 5:13 PM Signed I don't have an xray to review Please find results for me to see DO Butch Leiva Susan LPN 09/20/2024 10:34 AM Signed Medication order sent to [facility]. Allergies As of Date: 09/12/2024 Noted Allergy Reaction BACTRIM (SULFAMETHOXAZOLE) 08/28/2010 2 - Rash Comments: shaking and chills, dry mouth AMOXICILLIN 02/20/2005 2 - Rash AMPICILLIN 07/22/2011 2 - Rash CEPHALOSPORINS 02/20/2005 2 - Rash MINOCYCLINE 07/22/2011 2 - Rash Comments: shaking and chills , dry mouth ROCEPHIN (CEFTRIAXONE SODIUM) 07/22/2011 2 - Rash Date Reviewed: 08/04/2024 Reviewed by: Zoraida De La Garza LPN - Fully Assessed Reason for Visit: Hip Pain [136] Prescriptions as of 09/20/2024 - donepezil (ARICEPT) 5 mg tablet Take 1 tablet by mouth daily at bedtime. - Incontinence Pad, Liner, Disp (BLADDER CONTROL PAD LONG) pads 1 application three times a day as needed (urinary incontinence). - sertraline (ZOLOFT) 50 mg tablet Take 1 tablet by mouth daily at bedtime. - simvastatin (ZOCOR) 40 mg tablet Take 1 tablet by mouth daily at bedtime. - ondansetron orally disintegrating (ZOFRAN ODT) 4 mg disintegrating tablet Take 1 tablet by mouth every 8 hours as needed for nausea/vomiting. - cholecalciferol, vitamin D3, (VITAMIN D3 50 MCG, 2,000 UNIT, GUMMIES) - levothyroxine (SYNTHROID) 100 mcg tablet Take 1 tablet by mouth once daily 6 days a week and 2 tablets one day per week. Take on an empty stomach. - Lactobacillus acidophilus (PROBIOTIC ORAL) Take by mouth once daily. - MULTIVITAMIN TAB Take one(1) tablet daily. - ASPIRIN 81 MG TAB Take one(1) tablet daily. Problem List As Of Date 09/12/2024 Noted Resolved Pure Hypercholesterolemia [E78.00] 02/23/2005 GENERAL OSTEOARTHROSIS [M15.9] 02/23/2005 OBESITY NOS [E66.9] 06/26/2008 Diverticulosis [K57.90] 02/21/2009 Labial abscess [N76.4] 07/14/2010 Hypothyroidism [E03.9] 07/22/2011 Colitis [K52.9] 06/15/2012 GI bleed [K92.2] 06/15/2012 Acquired hypothyroidism [E03.9] 12/14/2014 Sensorineural hearing loss, bilateral [H90.3] 03/25/2015 Cochlear implant follow-up [Z48.89, Z96.21] 06/11/2017 Chronic constipation [K59.09] 06/18/[address] [Z96.21] 06/18/2017 Class 1 obesity without serious comorbidity wit*06/18/2017 Situational insomnia [F51.09] 06/07/2018 Bereavement [Z63.4] 06/07/2018 Situational anxiety [F41.8] 06/07/2018 Malignant neoplasm of upper lobe of right lung *08/08/2018 Discharge planning issues [Z75.8] 08/08/2018 Pain, postoperative, acute [G89.18] 08/08/2018 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 Hypothyroidism, acquired [E03.9] 08/23/2018 Adenocarcinoma of lung, stage 1, right (HCC) [C*08/23/2018 S/P lobectomy of lung [Z90.2] 08/23/2018 Actinic keratosis [L57.0] 03/27/2019 Nasal sore [J34.89] 05/22/2019 Bronchitis [J40] 05/22/2019 Malignant neoplasm of right upper lobe of lung * Vitamin D deficiency [E55.9] 03/01/2021 Urinary incontinence [R32] 06/04/2021 Cardiac murmur, previously undiagnosed [R01.1] 01/07/2022 Fatigue [R53.83] 01/07/2022 SOB (shortness of breath) [R06.02] 01/07/2022 History of lung cancer [Z85.118] 01/07/2022 Memory loss, short term [R41.3] 01/13/2023 Balance disorder [R26.89] 01/13/2023 Medication noncompliance due to cognitive impai*05/04/2023 Moderate late onset Alzheimer's dementia withou*05/04/2023 Dysuria [R30.0] 05/04/2023 Nausea [R11.0] 08/03/2023 Weight loss, unintentional [R63.4] 11/09/2023 Major depressive disorder with current active e*11/09/2023 Osteoarthritis [M19.90] 03/31/2024 Left hip pain [M25.552] 03/31/2024 Impaired gait and mobility [R26.89] 08/04/2024 Bunion, left foot [M21.612] 08/04/2024 Onychomycosis [B35.1] 08/04/2024 Arthritis of both feet [M19.071, M19.072] 08/04/2024 Weakness of both lower extremities [R29.898] 08/04/2024 Impaired mobility and ADLs [Z74.09, Z78.9] 08/04/2024 Encounter Status:Closed by ZORAIDA DE LA GARZA LPN on 09/20/24 [facility] 36on 08-09-2024 36 Med order sent Normal [facility] 36 Name of caller: Destiny Contact phone number: [phone] Relationship to Patient: Titus Luna Assisted Living Provider: Practice: [facility] Chief Complaint/Reason for Call: Destiny called in regarding voicemail from the office. Destiny stated they have not received any information or medication changes. Destiny provided a fax number of [phone] to send any information to if needed. Please call Destiny back to advise. Best time of day caller can be reached: any Patient advised that office/PCP has 24-48 business hours to return their call: no Normal [facility] 36 Assistant Broker transferre d me to the nursing line for patient and I got voicemail again. Left a message explaining called previously about an RX that was sent to the pharmacy for patient. I asked for call back to confirm they received our messages and the medication order. Normal [facility] 36on 08-08-2024 36 Son is OK with patie nt starting memantine (see Mychart message). Prescribing Memantine 5 mg daily for 7 days then 5 mg BID thereafter. Script sent to pharmacy I did try to call her assisted living ([facility] ). No answer. Did get the nursing staff voicemail. Left voicemail identifying myself and asking them to call our office tomorrow to receive instructions Reina - Could you reach out to [facility] and let them know I sent a script of Memantine to her pharmacy ([facility])? She should take 5 mg daily x 7 days then 5 mg BID thereafter. Their phone number is: [phone]. She is in the assisted living (which was option 3 when I tried calling) [facility] Absolute neutrophil countOrd ered By: Abel Ortiz on 08-08-2024 Neutrophils (Bld) [#/Vol] 5.0 10*3/uL 2.0-7.7 [facility] Anion gap in Serum or Plasma Ordered By: Abel Ortiz on 08-08-2024 Anion gap [Moles/Vol] 12 mmol/L 5-15 [facility] BUN/creatinine ratioOrdered By: Abel Ortiz on 08-08-2024 Urea nitrogen/Creatinine [Mass ratio] 22.1 mg/mg High 10-20 [facility] Basophil percentageOrdered B y: Abel Ortiz on 08-08-2024 Basophils/100 WBC (Bld) 0.7 % 0-1 [facility] [place] Bilirubin, totalOrdered By: Abel Ortiz on 08-08-2024 Bilirubin [Mass/Vol] 0.50 mg/dL 0.00-1.30 [facility] CBC W/Diff, Automatedon 07-16 Absolute Lymph 1.60 X10 3/uL Normal 0.83-4.51 [facility] Comment on above: Order Comment: 180 Performed By: #### L 506.0400, L506.1001, L100.0100, L503.0106, L501.9520, L500.4050, L501.5200 ####[facility] [address] [place], [address] Absolute Neut 5.0 X10 3/uL Normal 2.0-7.7 [facility] Comment on above: Order Comment: 180 Performed By: #### L 506.0400, L506.1001, L100.0100, L503.0106, L501.9520, L500.4050, L501.5200 ####[facility] [address] [place], [address] Basophils/100 WBC (Bld) 0.7 % Normal 0-1 [facility] Comment on above: Order Comment: 180 Performed By: #### L 506.0400, L506.1001, L100.0100, L503.0106, L501.9520, L500.4050, L501.5200 ####[facility] [address] [place], [address] Eosinophils/100 WBC (Bld) 2.8 % Normal 0-5 [facility] Comment on above: Order Comment: 180 Performed By: #### L 506.0400, L506.1001, L100.0100, L503.0106, L501.9520, L500.4050, L501.5200 ####[facility] [address] [place], [address] Erythrocyte distribution width (RBC) [Ratio] 13.5 % Normal 11.6-14.6 [facility] Comment on above: Order Comment: 180 Performed By: #### L 506.0400, L506.1001, L100.0100, L503.0106, L501.9520, L500.4050, L501.5200 ####[facility] [address] [place], [address] Hematocrit (Bld) [Volume fraction] 37.4 % Normal 37-47 [facility] Comment on above: Order Comment: 180 Performed By: #### L 506.0400, L506.1001, L100.0100, L503.0106, L501.9520, L500.4050, L501.5200 ####[facility] [address] [place], [address] Hemoglobin (Bld) [Mass/Vol] 12.0 g/dL Normal 12.0-15.0 [facility] Comment on above: Order Comment: 180 Performed By: #### L 506.0400, L506.1001, L100.0100, L503.0106, L501.9520, L500.4050, L501.5200 ####[facility] [address] [place], [address] IG% 0.400 Normal 0.0-0.9 [facility] Comment on above: Order Comment: 180 Result Comment: IG% - Immature Granulocytes (promyelocytes, myelocytes and metamyelocytes) > 1% indicates that a LEFT SHIFT is Present. Performed By: #### L 506.0400, L506.1001, L100.0100, L503.0106, L501.9520, L500.4050, L501.5200 ####[facility] [address] [place], [address] Lymphocytes/100 WBC (Bld) 21.1 % Normal 19-41 [facility] Comment on above: Order Comment: 180 Performed By: #### L 506.0400, L506.1001, L100.0100, L503.0106, L501.9520, L500.4050, L501.5200 ####[facility] [address] [place], [address] MCH (RBC) [Entitic mass] 29.3 pg Normal 27.0-32.0 [facility] Comment on above: Order Comment: 180 Performed By: #### L 506.0400, L506.1001, L100.0100, L503.0106, L501.9520, L500.4050, L501.5200 ####[facility] [address] [place], [address] MCHC (RBC) [Mass/Vol] 32.1 g/dL Normal 32-36 [facility] Comment on above: Order Comment: 180 Performed By: #### L 506.0400, L506.1001, L100.0100, L503.0106, L501.9520, L500.4050, L501.5200 ####[facility] [address] [place], [address] MCV (RBC) [Entitic vol] 91.4 fL Normal 81-99 [facility] Comment on above: Order Comment: 180 Performed By: #### L 506.0400, L506.1001, L100.0100, L503.0106, L501.9520, L500.4050, L501.5200 ####[facility] [address] [place], [address] Monocytes/100 WBC (Bld) 9.0 % Normal 0-10 [facility] Comment on above: Order Comment: 180 Performed By: #### L 506.0400, L506.1001, L100.0100, L503.0106, L501.9520, L500.4050, L501.5200 ####[facility] [address] [place], [address] Neutrophils/100 WBC (Bld) 66.0 % Normal 47-70 [facility] Comment on above: Order Comment: 180 Performed By: #### L 506.0400, L506.1001, L100.0100, L503.0106, L501.9520, L500.4050, L501.5200 ####[facility] [address] [place], [address] Nucleated RBC (Bld) [#/Vol] 0 10*3/uL Normal 0-5 [facility] Comment on above: Order Comment: 180 Performed By: #### L 506.0400, L506.1001, L100.0100, L503.0106, L501.9520, L500.4050, L501.5200 ####[facility] [address] [place], [address] Platelet mean volume (Bld) [Entitic vol] 10.4 fL Normal 6.2-12.0 [facility] Comment on above: Order Comment: 180 Performed By: #### L 506.0400, L506.1001, L100.0100, L503.0106, L501.9520, L500.4050, L501.5200 ####[facility] [address] [place], [address] Platelets (Bld) [#/Vol] 188 10*3/uL Normal 150-450 [facility] Comment on above: Order Comment: 180 Performed By: #### L 506.0400, L506.1001, L100.0100, L503.0106, L501.9520, L500.4050, L501.5200 ####[facility] [address] [place], [address] RBC (Bld) [#/Vol] 4.09 10*6/uL Low 4.2-5.4 [facility] Comment on above: Order Comment: 180 Performed By: #### L 506.0400, L506.1001, L100.0100, L503.0106, L501.9520, L500.4050, L501.5200 ####[facility] [address] [place], [address] RDW SD 45.4 fl High 35.1-43.9 [facility] Comment on above: Order Comment: 180 Performed By: #### L 506.0400, L506.1001, L100.0100, L503.0106, L501.9520, L500.4050, L501.5200 ####[facility] [address] [place], [address] WBC (Bld) [#/Vol] 7.6 10*3/uL Normal 4.4-11.0 [facility] Comment on above: Order Comment: 180 Performed By: #### L 506.0400, L506.1001, L100.0100, L503.0106, L501.9520, L500.4050, L501.5200 ####[facility] [address] [place], [address] Carbon dioxide, total [Moles /volume] in Central venous bloodOrdered By: Abel Ortiz on 08-08-2024 CO2 [Moles/Vol] 23.1 mmol/L 21.0-32.0 [facility] Chloride assayOrdered By: Arlene Ortiz on 08-08-2024 Chloride [Moles/Vol] 105 mmol/L 98-108 [facility] Comprehensive Metabolic Prof ilon 08-08-2024 Albumin [Mass/Vol] 4.0 g/dL Normal 3.4-4.8 [facility] Comment on above: Order Comment: 180 Performed By: #### L 506.0400, L506.1001, L100.0100, L503.0106, L501.9520, L500.4050, L501.5200 ####[facility] [address] [place], [address] Albumin/Globulin [Mass ratio] 1.5 {ratio} Normal 0.9-2.4 [facility] Comment on above: Order Comment: 180 Performed By: #### L 506.0400, L506.1001, L100.0100, L503.0106, L501.9520, L500.4050, L501.5200 ####[facility] [address] [place], [address] ALK PHOS 80 U/L Normal 35-104 [facility] Comment on above: Order Comment: 180 Performed By: #### L 506.0400, L506.1001, L100.0100, L503.0106, L501.9520, L500.4050, L501.5200 ####[facility] [address] [place], [address] ALT [Catalytic activity/Vol] 16 U/L Normal <=34 [facility] Comment on above: Order Comment: 180 Performed By: #### L 506.0400, L506.1001, L100.0100, L503.0106, L501.9520, L500.4050, L501.5200 ####[facility] [address] [place], [address] AST [Catalytic activity/Vol] 26 U/L Normal <=31 [facility] Comment on above: Order Comment: 180 Performed By: #### L 506.0400, L506.1001, L100.0100, L503.0106, L501.9520, L500.4050, L501.5200 ####[facility] [address] [place], [address] Bilirubin [Mass/Vol] 0.50 mg/dL Normal 0.00-1.30 [facility] Comment on above: Order Comment: 180 Performed By: #### L 506.0400, L506.1001, L100.0100, L503.0106, L501.9520, L500.4050, L501.5200 ####[facility] [address] [place], [address] BUN/CRE 22.1 RATIO High 10-20 [facility] Comment on above: Order Comment: 180 Performed By: #### L 506.0400, L506.1001, L100.0100, L503.0106, L501.9520, L500.4050, L501.5200 ####[facility] [address] [place], [address] Calcium [Mass/Vol] 9.3 mg/dL Normal 7.6-11.0 [facility] Comment on above: Order Comment: 180 Performed By: #### L 506.0400, L506.1001, L100.0100, L503.0106, L501.9520, L500.4050, L501.5200 ####[facility] [address] [place], [address] Chloride [Moles/Vol] 105 mmol/L Normal 98-108 [facility] Comment on above: Order Comment: 180 Performed By: #### L 506.0400, L506.1001, L100.0100, L503.0106, L501.9520, L500.4050, L501.5200 ####[facility] [address] [place], [address] CO2 [Moles/Vol] 23.1 mmol/L Normal 21.0-32.0 [facility] Comment on above: Order Comment: 180 Performed By: #### L 506.0400, L506.1001, L100.0100, L503.0106, L501.9520, L500.4050, L501.5200 ####[facility] [address] [place], [address] Creatinine [Mass/Vol] 0.97 mg/dL Normal 0.70-1.20 [facility] Comment on above: Order Comment: 180 Performed By: #### L 506.0400, L506.1001, L100.0100, L503.0106, L501.9520, L500.4050, L501.5200 ####[facility] [address] [place], [address] GAP 12 Normal 5-15 [facility] Comment on above: Order Comment: 180 Performed By: #### L 506.0400, L506.1001, L100.0100, L503.0106, L501.9520, L500.4050, L501.5200 ####[facility] [address] [place], [address] GFR/1.73 sq M.predicted among non-blacks MDRD (S/P/Bld) [Vol rate/Area] 57 mL/min/{1.73_m2} Low >60 [facility] Comment on above: Order Comment: 180 Result Comment: mL/m in/1.73m2 CKD-EPI Creatinine Equation (2020) Performed By: #### L 506.0400, L506.1001, L100.0100, L503.0106, L501.9520, L500.4050, L501.5200 ####[facility] [address] [place], [address] Globulin (S) [Mass/Vol] 2.7 g/dL Normal 2.2-4.2 [facility] Comment on above: Order Comment: 180 Performed By: #### L 506.0400, L506.1001, L100.0100, L503.0106, L501.9520, L500.4050, L501.5200 ####[facility] [address] [place], [address] Glucose [Mass/Vol] 90 mg/dL Normal 70-99 [facility] Comment on above: Order Comment: 180 Performed By: #### L 506.0400, L506.1001, L100.0100, L503.0106, L501.9520, L500.4050, L501.5200 ####[facility] [address] [place], [address] Potassium [Moles/Vol] 4.6 mmol/L Normal 3.3-5.1 [facility] Comment on above: Order Comment: 180 Performed By: #### L 506.0400, L506.1001, L100.0100, L503.0106, L501.9520, L500.4050, L501.5200 ####[facility] [address] [place], [address] Sodium [Moles/Vol] 140 mmol/L Normal 133-145 [facility] Comment on above: Order Comment: 180 Performed By: #### L 506.0400, L506.1001, L100.0100, L503.0106, L501.9520, L500.4050, L501.5200 ####[facility] [address] [place], [address] T PROT 6.8 g/dL Normal 5.9-8.4 [facility] Comment on above: Order Comment: 180 Performed By: #### L 506.0400, L506.1001, L100.0100, L503.0106, L501.9520, L500.4050, L501.5200 ####[facility] [address] [place], [address] Urea nitrogen [Mass/Vol] 21 mg/dL High 4-19 [facility] Comment on above: Order Comment: 180 Performed By: #### L 506.0400, L506.1001, L100.0100, L503.0106, L501.9520, L500.4050, L501.5200 ####[facility] [address] [place], [address] Eosinophil percentageOrdered By: Abel Ortiz on 08-08-2024 Eosinophils/100 WBC (Bld) 2.8 % 0-5 [facility] Erythrocyte distribution wid th (RBC) [Ratio]Ordered By: Abel Ortiz on 08-08-2024 Erythrocyte distribution width (RBC) [Entitic vol] 45.4 fL High 35.1-43.9 [facility] Erythrocyte distribution wid th ratioOrdered By: Abel Ortiz on 08-08-2024 Erythrocyte distribution width (RBC) [Ratio] 13.5 % 11.6-14.6 [facility] GFR/1.73 sq M.predicted german g non-blacks MDRD (S/P/Bld) [Vol rate/Area]Ordered By: Abel Ortiz on 08-08-2024 Estimated GFR (MDRD) Non-Af Amer 57 Low >60 [facility] Comment on above: mL/min/1.73m2 CKD-EP I Creatinine Equation (2020) Hematocrit Auto (Bld) [Volum e fraction]Ordered By: Abel Ortiz on 08-08-2024 Hematocrit (Bld) [Volume fraction] 37.4 % 37-47 [facility] Hemoglobin measurementOrdere d By: Abel Ortiz on 08-08-2024 Hemoglobin (Bld) [Mass/Vol] 12.0 g/dL 12.0-15.0 [facility] Immature granulocytes/100 WB C Auto (Bld)Ordered By: Abel Ortiz on 08-08-2024 Immature granulocytes/100 WBC (Bld) 0.400 % 0.0-0.9 [facility] Comment on above: IG% - Immature Granu locytes (promyelocytes, myelocytes and metamyelocytes) > 1% indicates that a LEFT SHIFT is Present. L503.0106on 08-08-2024 Cobalamin (Vitamin B12) [Mass/Vol] 506 pg/mL Normal 180-914 [facility] Comment on above: Order Comment: 180 Performed By: #### L 506.0400, L506.1001, L100.0100, L503.0106, L501.9520, L500.4050, L501.5200 ####[facility] [address] [place], [place], [address] L506.1001on 08-08-2024 Vitamin D 25-OH 34.6 ng/mL Normal 30-100 [facility] Comment on above: Order Comment: 180 Result Comment: Zohreh min D Status Deficiency: <20 ng/mL (50nmol/L) Insufficiency: 20-30 ng/mL (50-75 nmol/L) Sufficiency: 30-100 ng/mL (75-250 nmol/L) Toxicity: >100 ng/mL (>250 nmol/L) Performed By: #### L 506.0400, L506.1001, L100.0100, L503.0106, L501.9520, L500.4050, L501.5200 ####[facility] [address] [place], [place], [id number] Laboratory - Chemistry and C hemistry - challengeOrdered By: Abel Ortiz on 08-08-2024 AST [Catalytic activity/Vol] 26 U/L <32 [facility] Lymphocytes Auto (Unsp spec) [#/Vol]Ordered By: Abel Ortiz on 08-08-2024 Lymphocytes (Bld) [#/Vol] 1.60 10*3/uL 0.83-4.51 [facility] Lymphocytes/100 WBC Auto (Un sp spec)Ordered By: Abel Ortiz on 08-08-2024 Lymphocytes/100 WBC (Bld) 21.1 % 19-41 [facility] MCV (mean corpuscular volume ) determinationOrdered By: Abel Ortiz on 08-08-2024 MCV (RBC) [Entitic vol] 91.4 fL 81-99 [facility] [place] Magnesiumon 08-08-2024 Magnesium [Mass/Vol] 2.1 mg/dL Normal 1.5-2.2 [facility] Comment on above: Order Comment: 180 Performed By: #### L 506.0400, L506.1001, L100.0100, L503.0106, L501.9520, L500.4050, L501.5200 ####[facility] [address] [place], [place], [id number] Magnesium (Unsp spec) [Mass/ Vol]Ordered By: Abel Ortiz on 08-08-2024 Magnesium [Mass/Vol] 2.1 mg/dL 1.5-2.2 [facility] Mean corpuscular hemoglobin (MCH) determinationOrdered By: Abel Ortiz on 08-08-2024 MCH (RBC) [Entitic mass] 29.3 pg 27.0-32.0 [facility] Mean corpuscular hemoglobin concentration (MCHC) determinationOrdered By: Abel Ortiz on 08-08-2024 MCHC (RBC) [Mass/Vol] 32.1 g/dL 32-36 [facility] Mean platelet volume determi nationOrdered By: Abel Ortiz on 08-08-2024 Platelet mean volume (Bld) [Entitic vol] 10.4 fL 6.2-12.0 [facility] Monocyte percentageOrdered B y: Abel Ortiz on 08-08-2024 Monocytes/100 WBC (Bld) 9.0 % 0-10 [facility] [place] Neutrophil percentageOrdered By: Abel Ortiz on 08-08-2024 Neutrophils/100 WBC (Bld) 66.0 % 47-70 [facility] Nucleated red blood cell per centageOrdered By: Abel Ortiz on 08-08-2024 Nucleated RBC/100 WBC (Bld) [Ratio] 0 % 0-5 [facility] Platelet countOrdered By: Arlene Ortiz on 08-08-2024 Platelets (Bld) [#/Vol] 188 10*3/uL 150-450 [facility] Potassium (Unsp spec) [Mass/ Vol]Ordered By: Abel Ortiz on 08-08-2024 Potassium [Moles/Vol] 4.6 mmol/L 3.3-5.1 [facility] RBC Auto (Bld) [#/Vol]Ordere d By: Abel Ortiz on 08-08-2024 RBC (Bld) [#/Vol] 4.09 10*6/uL Low 4.2-5.4 [facility] Serum creatinine measurement (mass/volume)Ordered By: Abel Ortiz on 08-08-2024 Creatinine [Mass/Vol] 0.97 mg/dL 0.70-1.20 [facility] Serum globulin measurementOr dered By: Abel Ortiz on 08-08-2024 Globulin (S) [Mass/Vol] 2.7 g/dL 2.2-4.2 [facility] Serum glucose measurement (m ass/volume)Ordered By: Abel Ortiz on 08-08-2024 Glucose [Mass/Vol] 90 mg/dL 70-99 [facility] Serum or plasma alanine [place]ancaster otransferase (ALT) measurementOrdered By: Abel Ortiz on 08-08-2024 ALT [Catalytic activity/Vol] 16 U/L <35 [facility] Serum or plasma albumin natalie urement (mass/volume)Ordered By: Abel Ortiz on 08-08-2024 Albumin [Mass/Vol] 4.0 g/dL 3.4-4.8 [facility] Serum or plasma albumin/glob ulin mass ratioOrdered By: Abel Ortiz on 08-08-2024 Albumin/Globulin [Mass ratio] 1.5 {ratio} 0.9-2.4 [facility] Serum or plasma alkaline vivek sphatase measurementOrdered By: Abel Ortiz on 08-08-2024 ALP [Catalytic activity/Vol] 80 U/L 35-104 [facility] Serum or plasma calcium natalie urement (mass/volume)Ordered By: Abel Ortiz on 08-08-2024 Calcium [Mass/Vol] 9.3 mg/dL 7.6-11.0 [facility] Serum or plasma urea nitroge n measurement (mass/volume)Ordered By: Abel Ortiz on 08-08-2024 Urea nitrogen [Mass/Vol] 21 mg/dL High 4-19 [facility] Sodium levelOrdered By: Brittney Ortiz on 08-08-2024 Sodium [Moles/Vol] 140 mmol/L 133-145 [facility] T4 Free Directon 08-08-2024 T4 FREE DIRECT 1.30 ng/dL Normal 0.76-1.46 [facility] Comment on above: Order Comment: 180 Performed By: #### L 506.0400, L506.1001, L100.0100, L503.0106, L501.9520, L500.4050, L501.5200 ####[facility] [address] [place], [address] T4 freeOrdered By: Abel bowling on 08-08-2024 Free T4 [Mass/Vol] 1.30 ng/dL 0.76-1.46 [facility] TSH DL <= 0.005 mIU/L QnOrde red By: Abel Ortiz on 08-08-2024 Thyroid Stimulating Hormone (TSH) 7.120 uIU/mL High 0.300-4.200 [facility] Thyroid Stim Hormone (TSH)on 08-08-2024 TSH 7.120 uIU/mL High 0.300-4.200 [facility] Comment on above: Order Comment: 180 Performed By: #### L 506.0400, L506.1001, L100.0100, L503.0106, L501.9520, L500.4050, L501.5200 ####[facility] [address] [place], [address] Total proteinOrdered By: Monty Ortiz on 08-08-2024 Protein [Mass/Vol] 6.8 g/dL 5.9-8.4 [facility] Vitamin B12 ser/plasOrdered By: Abel Ortiz on 08-08-2024 Cobalamin (Vitamin B12) [Mass/Vol] 506 pg/mL 180-914 [facility] Vitamin D, 25-hydroxyOrdered By: Abel Ortiz on 08-08-2024 Vitamin D 25-Hydroxy 34.6 ng/mL 30-100 [facility] Comment on above: Vitamin D StatusDefi ciency: <20 ng/mL (50nmol/L)Insufficiency: 20-30 ng/mL (50-75 nmol/L)Sufficiency: 30-100 ng/mL (75-250 nmol/L)Toxicity: >100 ng/mL (>250 nmol/L) White blood cell (WBC) count Ordered By: Abel Ortiz on 08-08-2024 WBC (Bld) [#/Vol] 7.6 10*3/uL 4.4-11.0 [facility] CNOVon 08-07-2024 CNOV Office Visit (OTAUME ) MONSERRAT FRENCH ([id number]) 1935 F DEF Date Time Provider Department 08/07/24 10:30 AM DANIELLE PEACE During your visit today, we recorded the following information about you: Danielle Peace, CARLY 08/07/2024 10:32 PM Signed [facility] COCHLEAR IMPLANT ADULT PROGRAMMING Name: Monserrat French CCF#:[id number] Date of Service: 08/07/2024 Date of : 1935 Age: [age] year old COCHLEAR IMPLANT INFORMATION (see below for all device details) Right ear: External Processor: Cochlear [id number] (Nucleus 7) - upgraded 06/07/2020 Processor SN: [id number] Processor (Back Up CP910) SN: [id number] Magnet strength: 05/18 Internal Device: AeroScout CI522 Profile with Slim Straight Array Internal Device SN: [id number] Inactive electrodes: 1-3 (poor sound quality) Surgery Date: 04/17/2015 Initial activation date: 05/14/2015 Surgeon: Dallin Cabrera M.D. Left ear: Tresa 3 series I20 paviby-eej-zzp (BTE) hearing aid with full shell ear mold and open vent; the device was fit at an outside facility and is being managed by that facility. Remote Control (CR210) SN: [id number] Remote Psychology Technician (CR230) SN: [id number] Cochlear Mini Microphone SN: [id number] Cochlear Phone Clip SN: [id number] Cochlear TV Streamer SN: [id number] HISTORY: Monserrat French was seen for annual evaluation of the device/s. The patient reported: * that she is here for an annual follow up and has no concerns. She is accompanied to today's visit by her son, Leonid who is visiting from [place] He reported that his mother hears women's voices better than men and there's a definite improvement with the processor on. * Problems noted with the equipment: patient noted no issues however, visual inspection revealed her cable to be worn and the sheathing at the connection points to the coil and the plug are torn. Her microphone covers have not been changed in at least 1 year. * No pain, redness, swelling at magnet site. * Wearing sound processor: all waking hours per day *Last otology visit 12/19/2018-Dallin Cabrera MD CONTRALATERAL HEARING AID TROUBLESHOOTING: This patient does not remember ever wearing a hearing aid in her left ear. Her son does not remember the last time she had a hearing aid as well. We discussed that at their last visit with Dr. Davis on 07/06/2023 they discussed replacing her Tresa hearing aid with a ReSound to allow for better streaming access with her phone. The patient and her son do not recall this and will look for her Tresa aid at home. They were encouraged to consider updating her hearing test and obtaining a new hearing aid for the left ear. AIDED AUDIOMETRIC TESTING: Audiologic testing was completed in the sound field with the speech processor(s) at user settings Program 1, Volume 6, sensitivity 12. before programming. See Audiogram under procedures tab for obtained thresholds. 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 NOTE: The contralateral ear was Plugged during testing. The following testing and results were obtained: Omkxntfcp-Vdkutgm-Pqzvd nant Words (CNC) Test Condition List # Phonemes Words Clinically significant change compared to previous visit? Clinically significant change compared to BEST? Right Ear 3 80% 60% no (68% on 07/06/2023) no (68% on 07/05/2019) AZ BIO (quiet) Test Condition List # Score Clinically significant change compared to previous visit? Clinically significant change compared to BEST? Right Ear 2 76% no (65% on 07/06/2023) no (88% on 08/26/2021) AZ BIO (+10 SNR) Test Condition List # Score Clinically significant change compared to previous visit? Clinically significant change compared to BEST? Right Ear 8 23% yes, decreased (47% on 07/06/2023) yes, decreased (47% on 07/06/2023) Bkb 14 16.5 Summary: Detection was obtained between 20 and 30 dBHL for 250-6000 Hz with the right CI only. Speech perception testing revealed stable performance on CNC words and [employer] sentences in quiet with the right CI only. Speech perception in noise declined significantly. COCHLEAR IMPLANT PROGRAMMING: Datalogging: Time in Use 14.5 hours Time in quiet 7 hours RIGHT Programming: Headset pressure, magnet strength, and incision site were checked with no problems noted. Electrode impedances, used to monitor internal device function, were measured across the electrode array. Impedances were WNL across all active electrodes. Review of impedances obtained today with comparison to previous 4 visits and 60-day postactivation baseline did not identify any remarkable changes or atypical measurements. Programming consisted of sweeping Comfort (C) levels at loud, but comfortable (more content not included)... Normal [facility] HEARING IMPLANTABLE DEVICES (E.G. COCHLEAR IMPLANTS (CI), BONE ANCHORED (TESSA), SENSORY DEVICES)[facility] (FAMWS ) MONSERRAT FRENCH ([id number]) 1935 F DEF Date Time Provider Department 08/04/24 9:40 AM ABEL ORTIZ [facility] During your visit today, we recorded the following information about you: Temperature Pulse Respiration Blood pressure 96.7 degrees 76/minute 20/minute 134/70 Weight 86.2 kg Abel Ortiz, 08/04/2024 5:20 PM Signed CC: Monserrat French is a 89 year old female who presents to the office for follow up HPI: At previous OFFICE VISIT on 11/09/23 Alzhemier's dementia, moderate, is taking aricept 5 mg a day, has seen Neurologist. Is having more memory decline. She drove from her home to [place] and was found about 1 hour from [place] by the police department. Sons have taken her keys- she is not longer driving for the last 1 month Weight loss. Son thinks she is now only eating about 1 meal a day. Gets meals on wheels daily delivered to her home. Is supposed to be drinking her Boost. He has a camera installed in her kitchen to monitor her. Also she is only walking the dog once a day now, not more often. She admits to depression symptoms several days a week- is lonely. Doesn't have people to talk to much No recent falls Urinary incontinence, comes and goes, hasn't been wearing her depends. No blood or frequency or urgency or dysuria. Hypothyroidism, states that she is taking her thyroid medication At follow up on 03/31/2024 Alzheimer's disease, seeing Neurologist, dose of aricept was attempted to be increased to 10 mg a day but caused her to have diarrhea so had to go back down on this dose and this resolved then. Memory continues to decline, she is doing well now that she has been in a fdc care facility living for the last 3 months since December. No falls Bowel function has been better now Urinary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 nurse, she was seen in [place] ED 3 days ago and diagnosed with URI. Was given prescription for albuterol inhaler 2 puffs q4 hours but with her dementia has been unable to use it. She has been having persistent cough and ox sat at 92%. Called asking recs and prescription to help with breathing. Advised that they should switch to albuterol nebs every 4 hours. If she is continuing to have increased WOB or oxygen sat <90%, then need to follow again in ED. DO Angel Vega Jordan L, DO 07/26/2024 9:27 AM Signed Noted, agree Abel Ortiz DO Allergies As of Date: 07/25/2024 Noted Allergy Reaction BACTRIM (SULFAMETHOXAZOLE) 08/28/2010 2 - Rash Comments: shaking and chills, dry mouth AMOXICILLIN 02/20/2005 2 - Rash AMPICILLIN 07/22/2011 2 - Rash CEPHALOSPORINS 02/20/2005 2 - Rash MINOCYCLINE 07/22/2011 2 - Rash Comments: shaking and chills , dry mouth ROCEPHIN (CEFTRIAXONE SODIUM) 07/22/2011 2 - Rash Date Reviewed: 11/09/2023 Reviewed by: Zoraida De La Garza LPN - Fully Assessed Prescriptions as of 09/27/2024 - donepezil (ARICEPT) 5 mg tablet Take 1 tablet by mouth daily at bedtime. - Incontinence Pad, Liner, Disp (BLADDER CONTROL PAD LONG) pads 1 application three times a day as needed (urinary incontinence). - sertraline (ZOLOFT) 50 mg tablet Take 1 tablet by mouth daily at bedtime. - simvastatin (ZOCOR) 40 mg tablet Take 1 tablet by mouth daily at bedtime. - ondansetron orally disintegrating (ZOFRAN ODT) 4 mg disintegrating tablet Take 1 tablet by mouth every 8 hours as needed for nausea/vomiting. - cholecalciferol, vitamin D3, (VITAMIN D3 50 MCG, 2,000 UNIT, GUMMIES) - levothyroxine (SYNTHROID) 100 mcg tablet Take 1 tablet by mouth once daily 6 days a week and 2 tablets one day per week. Take on an empty stomach. - Lactobacillus acidophilus (PROBIOTIC ORAL) Take by mouth once daily. - MULTIVITAMIN TAB Take one(1) tablet daily. - ASPIRIN 81 MG TAB Take one(1) tablet daily. Problem List As Of Date 07/25/2024 Noted Resolved Pure Hypercholesterolemia [E78.00] 02/23/2005 GENERAL OSTEOARTHROSIS [M15.9] 02/23/2005 OBESITY NOS [E66.9] 06/26/2008 Diverticulosis [K57.90] 02/21/2009 Labial abscess [N76.4] 07/14/2010 Hypothyroidism [E03.9] 07/22/2011 Colitis [K52.9] 06/15/2012 GI bleed [K92.2] 06/15/2012 Acquired hypothyroidism [E03.9] 12/14/2014 Sensorineural hearing loss, bilateral [H90.3] 03/25/2015 Cochlear implant follow-up [Z48.89, Z96.21] 06/11/2017 Chronic constipation [K59.09] 06/18/[address] [Z96.21] 06/18/2017 Class 1 obesity without serious comorbidity wit*06/18/2017 Situational insomnia [F51.09] 06/07/2018 Bereavement [Z63.4] 06/07/2018 Situational anxiety [F41.8] 06/07/2018 Malignant neoplasm of upper lobe of right lung *08/08/2018 Discharge planning issues [Z75.8] 08/08/2018 Pain, postoperative, acute [G89.18] 08/08/2018 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 Hypothyroidism, acquired [E03.9] 08/23/2018 Adenocarcinoma of lung, stage 1, right (HCC) [C*08/23/2018 S/P lobectomy of lung [Z90.2] 08/23/2018 Actinic keratosis [L57.0] 03/27/2019 Nasal sore [J34.89] 05/22/2019 Bronchitis [J40] 05/22/2019 Malignant neoplasm of right upper lobe of lung * Vitamin D deficiency [E55.9] 03/01/2021 Urinary incontinence [R32] 06/04/2021 Cardiac murmur, previously undiagnosed [R01.1] 01/07/2022 Fatigue [R53.83] 01/07/2022 SOB (shortness of breath) [R06.02] 01/07/2022 History of lung cancer [Z85.118] 01/07/2022 Memory loss, short term [R41.3] 01/13/2023 Balance disorder [R26.89] 01/13/2023 Medication noncompliance due to cognitive impai*05/04/2023 Mild dementia without behavioral disturbance, p*05/04/2023 Dysuria [R30.0] 05/04/2023 Nausea [R11.0] 08/03/2023 Weight loss, unintentional [R63.4] 11/09/2023 Major depressive disorder with current active e*11/09/2023 Osteoarthritis [M19.90] 03/31/2024 Left hip pain [M25.552] 03/31/2024 Encounter Status:Closed by DINORA CALLEJAS on 09/27/24 Normal [facility] CBC W/Diff, Automatedon 03-0 Absolute Lymph 1.04 X10 3/uL Normal 0.83-4.51 [facility] Comment on above: Performed By: #### L 500.2500, L100.0100 #### [facility] [address] [place], [address] Absolute Neut 4.6 X10 3/uL Normal 2.0-7.7 [facility] Comment on above: Performed By: #### L 500.2500, L100.0100 #### [facility] [address] [place], [address] Basophils/100 WBC (Bld) 0.3 % Normal 0-1 [facility] Comment on above: Performed By: #### L 500.2500, L100.0100 #### [facility] [address] [place], [address] Eosinophils/100 WBC (Bld) 2.3 % Normal 0-5 [facility] Comment on above: Performed By: #### L 500.2500, L100.0100 #### [facility] [address] [place], [address] Erythrocyte distribution width (RBC) [Ratio] 13.8 % Normal 11.6-14.6 [facility] Comment on above: Performed By: #### L 500.2500, L100.0100 #### [facility] [address] [place], [address] Hematocrit (Bld) [Volume fraction] 36.6 % Low 37-47 [facility] Comment on above: Performed By: #### L 500.2500, L100.0100 #### [facility] [address] [place], [address] Hemoglobin (Bld) [Mass/Vol] 12.0 g/dL Normal 12.0-15.0 [facility] Comment on above: Performed By: #### L 500.2500, L100.0100 #### [facility] [address] [place], [address] IG% 0.300 Normal 0.0-0.9 [facility] Comment on above: Result Comment: IG% - Immature Granulocytes (promyelocytes, myelocytes and metamyelocytes) > 1% indicates that a LEFT SHIFT is Present. Performed By: #### L 500.2500, L100.0100 #### [facility] [address] [place], [address] Lymphocytes/100 WBC (Bld) 15.7 % Low 19-41 [facility] Comment on above: Performed By: #### L 500.2500, L100.0100 #### [facility] [address] [place], [address] MCH (RBC) [Entitic mass] 30.0 pg Normal 27.0-32.0 [facility] Comment on above: Performed By: #### L 500.2500, L100.0100 #### [facility] [address] [place], [address] MCHC (RBC) [Mass/Vol] 32.8 g/dL Normal 32-36 [facility] Comment on above: Performed By: #### L 500.2500, L100.0100 #### [facility] [address] [place], [address] MCV (RBC) [Entitic vol] 91.5 fL Normal 81-99 [facility] Comment on above: Performed By: #### L 500.2500, L100.0100 #### [facility] [address] [place], [address] Monocytes/100 WBC (Bld) 12.5 % High 0-10 [facility] Comment on above: Performed By: #### L 500.2500, L100.0100 #### [facility] [address] [place], [address] Neutrophils/100 WBC (Bld) 68.9 % Normal 47-70 [facility] Comment on above: Performed By: #### L 500.2500, L100.0100 #### [facility] [address] [place], [address] Nucleated RBC (Bld) [#/Vol] 0 10*3/uL Normal 0-5 [facility] Comment on above: Performed By: #### L 500.2500, L100.0100 #### [facility] [address] [place], [address] Platelet mean volume (Bld) [Entitic vol] 10.4 fL Normal 6.2-12.0 [facility] Comment on above: Performed By: #### L 500.2500, L100.0100 #### [facility] [address] [place], [address] Platelets (Bld) [#/Vol] 140 10*3/uL Low 150-450 [facility] Comment on above: Performed By: #### L 500.2500, L100.0100 #### [facility] [address] [place], [address] RBC (Bld) [#/Vol] 4.00 10*6/uL Low 4.2-5.4 [facility] Comment on above: Performed By: #### L 500.2500, L100.0100 #### [facility] [address] [place], [address] RDW SD 46.8 fl High 35.1-43.9 [facility] Comment on above: Performed By: #### L 500.2500, L100.0100 #### [facility] [address] [place], [address] WBC (Bld) [#/Vol] 6.6 10*3/uL Normal 4.4-11.0 [facility] Comment on above: Performed By: #### L 500.2500, L100.0100 #### [facility] [address] [place], [address] M100.678on 07-23-2024 M100.678 SARS-CoV-2 (COVID 19 ) Negative INFLUENZA A Negative INFLUENZA B Negative RSV PCR Negative Normal [facility] Comment on above: Performed By: #### M 100.678 #### [facility] [address] [place], [address] 12 Lead EKGon 07-22-2024 12 Lead EKG [facility] Cardiovascular Services [address] [place] [address] 12 Lead EKG 07/22/24 2306 MR#: [id number] Acct: [id number] Name: MONSERRAT FRENCH Rep #: [id number] : 1935 89 From: Alexandro Jacobs MD Attending Dr: Status: DEP ER Ordering Dr: Glenn Steiner DO Date: 07/22/24 Location: ED Sex: F C Admitted: Test Reason : SOB Blood Pressure : */* mmHG Vent. Rate : 89 BPM Atrial Rate : 89 BPM P-R Int : 282 ms QRS Dur : 102 ms QT Int : 368 ms P-R-T Axes : 37 -76 53 degrees QTcB Int : 447 ms Sinus rhythm with 1st degree A-V block Left axis deviation Low voltage QRS Inferior infarct Possible Anterolateral infarct , age undetermined Abnormal ECG Confirmed by Alexandro Jacobs ([id number]), order editor ELIOT RANKIN ([id number]) on 07/24/2024 10:59:33 AM Referred By: SHANELLE Confirmed By: Alexandro Jacobs 07/24/24 1059 Date Alexandro Jacobs MD CC: Dr. Abel Ortiz DO; Dr. Glenn Steiner DO Signed Normal [facility] Absolute neutrophil countOrd ered By: Glenn Steiner on 07-22-2024 Neutrophils (Bld) [#/Vol] 4.6 10*3/uL 2.0-7.7 [facility] Anion gap in Serum or Plasma Ordered By: Glenn Steiner on 07-22-2024 Anion gap [Moles/Vol] 11 mmol/L 5-15 [facility] BUN/creatinine ratioOrdered By: Glenn Steiner on 07-22-2024 Urea nitrogen/Creatinine [Mass ratio] 29.5 mg/mg High 10-20 [facility] Basic Metabolic Profile (BMP )on 07-22-2024 BUN/CRE 29.5 RATIO High 10- [facility] Comment on above: Performed By: #### L 500.2500, L100.0100 #### [facility] [address] [place], [address] Calcium [Mass/Vol] 8.9 mg/dL Normal 7.6-11.0 [facility] Comment on above: Performed By: #### L 500.2500, L100.0100 #### [facility] [address] [place], [address] Chloride [Moles/Vol] 104 mmol/L Normal 98-108 [facility] Comment on above: Performed By: #### L 500.2500, L100.0100 #### [facility] [address] [place], [address] CO2 [Moles/Vol] 22.0 mmol/L Normal 21.0-32.0 [facility] Comment on above: Performed By: #### L 500.2500, L100.0100 #### [facility] [address] [place], [address] Creatinine [Mass/Vol] 0.86 mg/dL Normal 0.70-1.20 [facility] Comment on above: Performed By: #### L 500.2500, L100.0100 #### [facility] [address] [place], [address] ECRCL 50.55 ml/min Normal 50-250 [facility] Comment on above: Performed By: #### L 500.2500, L100.0100 #### [facility] [address] [place], [address] GAP 11 Normal 5-15 [facility] Comment on above: Performed By: #### L 500.2500, L100.0100 #### [facility] [address] [place], [address] GFR/1.73 sq M.predicted among non-blacks MDRD (S/P/Bld) [Vol rate/Area] 65 mL/min/{1.73_m2} Normal >60 [facility] Comment on above: Result Comment: mL/m in/1.73m2 CKD-EPI Creatinine Equation (2020) Performed By: #### L 500.2500, L100.0100 #### [facility] [address] [place], [address] Glucose [Mass/Vol] 102 mg/dL High 70-99 [facility] Comment on above: Performed By: #### L 500.2500, L100.0100 #### [facility] [address] [place], [address] Potassium [Moles/Vol] 4.1 mmol/L Normal 3.3-5.1 [facility] Comment on above: Performed By: #### L 500.2500, L100.0100 #### [facility] [address] [place], [address] Sodium [Moles/Vol] 137 mmol/L Normal 133-145 [facility] Comment on above: Performed By: #### L 500.2500, L100.0100 #### [facility] [address] [place], [address] Urea nitrogen [Mass/Vol] 25 mg/dL High 4-19 [facility] Comment on above: Performed By: #### L 500.2500, L100.0100 #### [facility] [address] [place], [address] Basophil percentageOrdered B y: Glenn Steiner on 07-22-2024 Basophils/100 WBC (Bld) 0.3 % 0-1 [facility] Carbon dioxide, total [Moles /volume] in Central venous bloodOrdered By: Glenn Steiner on 07-22-2024 CO2 [Moles/Vol] 22.0 mmol/L 21.0-32.0 [facility] Chest PA and Lateralon 07-22 Chest PA and Lateral [facility] Imaging Services [address] [place] [address] Chest PA and Lateral MR#: [id number] Acct: [id number] Name: MONSERRAT FRENCH Rep #: [id number] : 1935 F 89 From: Shiva Sellers DO PCP: Dr. Abel Ortiz, DO Status: REG ER Study: Chest PA and Lateral Date of Exam: 07/22/24 Exam# [id number] Ordering Dr: Glenn Steiner DO PROCEDURE: CHEST PA AND LATERAL REASON FOR EXAM: Cough. TECHNIQUE: Frontal and lateral views of the chest. COMPARISON: None. FINDINGS: Cardiac size and pulmonary vasculature are within normal limits. No consolidation, pleural effusion, or pneumothorax is present. There is dextroscoliosis of the midthoracic spine. Degenerative changes are identified. RAD/Chest PA and Lateral IMPRESSION: No acute cardiopulmonary process. Reading [facility] CC: Dr. Abel Ortiz DO; Dr. Glenn Steiner DO Preventative Maintenance Technician: Signed Normal [facility] Chloride assayOrdered By: Prakash Steiner on 07-22-2024 Chloride [Moles/Vol] 104 mmol/L 98-108 [facility] Emergency Department Summary on 07-22-2024 Emergency Department Summary [facility] Medical Records Department [address] [place] [address] Emergency Department Summary 07/22/24 MR#: [id number] Acct: [id number] Name: MONSERRAT FRENCH Rep #: [id number] : 1935 89 From: Glenn Farfan PCP: Dr. Abel Ortiz DO Status:REG ER Location: ED HPI History of Present Illness Chief Complaint: Cough Informant: patient and EMS Narrative Narrative: Brought by EMS from [facility] for evaluation. History dementia. She has had an ongoing cough cannot tell me timeframe. Denies fevers. Reports dyspnea and there was no wheezing. Status post albuterol by EMS. She denies asthma or COPD history. Denies tobacco history. Denies chest or abdominal pain. Denies vomiting diarrhea. Denies any urinary symptoms. [facility] Medical History History of lung cancer Hypothyroidism HLD (hyperlipidemia) Home Medications ???Medication ???Instructions ???Recorded ???Last Taken ???Type levothyroxine 100 mcg tablet 100 mcg PO DAILY 07/17/20 Unknown History naproxen sodium 220 mg capsule 220 mg PO PRN PRN Pain 1-10 Or 08/04 Unknown History Fever rsdnhltu-woo-dkvrl acid 0.4 1 tab PO DAILY 03/05/23 Unknown Hi story mg-lycopene 300 mcg-lutein 250 mcg tablet (Centrum Silver) ondansetron HCl 8 mg tablet 8 mg PO Q8H PRN nausea and 3 Unknown Rx vomiting #14 tabs Allergy/AdvReac Type Severity Reaction Status Date / Time amoxicillin AdvReac Rash Verified 07/22/24 22:55 ampicillin AdvReac Rash Verified 07/22/24 22:55 ceftriaxone (From Rocephin) AdvReac Rash Verified 07/22/24 22:55 Cephalosporins AdvReac Rash Verified 07/22/24 22:55 minocycline AdvReac Rash Verified 07/22/24 22:55 sulfamethoxazole (From AdvReac Rash Verified 07/22/24 22:55 Bactrim) trimethoprim (From Bactrim) AdvReac Rash Verified 07/22/24 22:55 Family History Father Cancer Surgical History History of lung surgery Social History Smoking Status: Never smoker alcohol intake: current alcohol intake frequency: a few times a month Alcohol type: wine substance use type: does not use ROS ROS ED Constitutional Constitutional ED: Denies chills, fever(s) or sweats ENT ENT ED: Denies sore throat Cardiovascular Cardiovascular: Denies chest pain, leg edema, palpitations or racing heartbeat Respiratory/Chest Respiratory/Chest: Reports cough and dyspnea; Denies dyspnea on exertion Gastrointestinal Gastrointestinal: Denies abdominal pain, diarrhea, nausea or vomiting Genitourinary Genitourinary ED: Denies dysuria, hematuria or urinary frequency Musculoskeletal Musculoskeletal: Denies back pain, extremity pain or neck pain Integumentary Denies rash or wounds Neurologic Neurologic: Denies headache(s), paresthesias or weakness EXAM Physical Exam Const Vital Signs: 07/22/24 22:53 07/22/24 22:58 07/22/24 23:20 Temperature 99 F 99 F Temperature Source Oral Oral Pulse Rate 91 92 Respiratory Rate 18 17 Respiratory Effort Short of Breath Labored Respiratory Depth Normal Respiratory Pattern Normal Blood Pressure 143/70 H 143/70 H Blood Pressure Mean 94 94 Pulse Ox 93 96 Oxygen Delivery Method Room Air Room Air Room Air 07/22/24 23:22 07/22/24 23:58 Temperature 98.9 F Temperature Source Oral Pulse Rate 89 95 Respiratory Rate 24 H 23 H Respiratory Effort Respiratory Depth Respiratory Pattern Tachypnea Blood Pressure 137/59 H Blood Pressure Mean 85 Pulse Ox 96 Oxygen Delivery Method Room Air Positive well nourished and well developed General Appearance ED: well developed and NAD HEENT Reports moist mucous membranes normocephalic and atraumatic Eyes General Eye ED: Yes normal appearance of both eyes Neck full ROM Chest Wall Chest: Negative for tenderness Resp Resp Narrative: Bilateral mild wheezing noted. No distress. Effort and Inspection: symmetric chest movement; Negative for respiratory distress Cardio regular rate, regular rhythm and no murmurs Peripheral Pulses: pulses 2+ throughout GI normal to inspection, nondistended, normoactive bowel sounds and non-tender Palpation: Negative for guarding or rebound tenderness present Extremity normal to inspection General Extremety ED: Negative for edema or tenderness General Extremity: Negative for edema Neuro no sensory deficits noted Neuro Narrative: Alert to person and place, reported to me, year was 2023. Sensorium / Orientation: awake and alert Skin no rashes or lesions noted and no wounds MDM MDM MDM Narrative Medical decision making narrative: Interve (more content not included)... Normal [facility] Eosinophil percentageOrdered By: Glenn Steiner on 07-22-2024 Eosinophils/100 WBC (Bld) 2.3 % 0-5 [facility] [facility] Erythrocyte distribution wid th ratioOrdered By: Glenn Steiner on 07-22-2024 Erythrocyte distribution width (RBC) [Ratio] 13.8 % 11.6-14.6 [facility] Erythrocyte distribution wid th standard deviationOrdered By: Glenn Steiner on 07-22-2024 Erythrocyte distribution width (RBC) [Entitic vol] 46.8 fL High 35.1-43.9 [facility] Estimation of creatinine kristian aranceOrdered By: Glenn Steiner on 07-22-2024 Estimated Creatinine Clearance Calc 50.55 ml/min 50-250 [facility] GFR/1.73 sq M.predicted german g non-blacks MDRD (S/P/Bld) [Vol rate/Area]Ordered By: Glenn Steiner on 07-22-2024 Estimated GFR (MDRD) Non-Af Amer 65 >60 [facility] Comment on above: mL/min/1.73m2 CKD-EP I Creatinine Equation (2020) Hematocrit Auto (Bld) [Volum e fraction]Ordered By: Glenn Steiner on 07-22-2024 Hematocrit (Bld) [Volume fraction] 36.6 % Low 37-47 [facility] Hemoglobin measurementOrdere d By: Glenn Steiner on 07-22-2024 Hemoglobin (Bld) [Mass/Vol] 12.0 g/dL 12.0-15.0 [facility] Immature granulocytes/100 WB C Auto (Bld)Ordered By: Glenn Steiner on 07-22-2024 Immature granulocytes/100 WBC (Bld) 0.300 % 0.0-0.9 [facility] Comment on above: IG% - Immature Granu locytes (promyelocytes, myelocytes and metamyelocytes) > 1% indicates that a LEFT SHIFT is Present. Influenza virus A and B and SARS-CoV-2 (COVID-19) and Respiratory syncytial virus RNAOrdered By: Glenn Steiner on 07-22-2024 SARS-CoV-2 (COVID-19) RNA HA+probe Ql (Unsp spec) [facility] Lymphocytes Auto (Unsp spec) [#/Vol]Ordered By: Glenn Steiner on 07-22-2024 Lymphocytes (Bld) [#/Vol] 1.04 10*3/uL 0.83-4.51 [facility] Lymphocytes/100 WBC Auto (Un sp spec)Ordered By: Glenn Steiner on 07-22-2024 Lymphocytes/100 WBC (Bld) 15.7 % Low 19-41 [facility] MCV (mean corpuscular volume ) determinationOrdered By: Glenn Steiner on 07-22-2024 MCV (RBC) [Entitic vol] 91.5 fL 81-99 [facility] [place] Mean corpuscular hemoglobin (MCH) determinationOrdered By: Glenn Steiner on 07-22-2024 MCH (RBC) [Entitic mass] 30.0 pg 27.0-32.0 [facility] Mean corpuscular hemoglobin concentration (MCHC) determinationOrdered By: Glenn Steiner on 07-22-2024 MCHC (RBC) [Mass/Vol] 32.8 g/dL 32-36 [facility] Mean platelet volume determi nationOrdered By: Glenn Steiner on 07-22-2024 Platelet mean volume (Bld) [Entitic vol] 10.4 fL 6.2-12.0 [facility] Monocyte percentageOrdered B y: Glenn Steiner on 07-22-2024 Monocytes/100 WBC (Bld) 12.5 % High 0-10 [place] Neutrophil percentageOrdered By: Glenn Steiner on 07-22-2024 Neutrophils/100 WBC (Bld) 68.9 % 47-70 [facility] Nucleated red blood cell per centageOrdered By: Glenn Steiner on 07-22-2024 Nucleated RBC/100 WBC (Bld) [Ratio] 0 % 0-5 [facility] Platelet countOrdered By: Prakash Steiner on 07-22-2024 Platelets (Bld) [#/Vol] 140 10*3/uL Low 150-450 [facility] Potassium (Unsp spec) [Mass/ Vol]Ordered By: Glenn Steiner on 07-22-2024 Potassium [Moles/Vol] 4.1 mmol/L 3.3-5.1 [facility] RBC Auto (Bld) [#/Vol]Ordere d By: Glenn Steiner on 07-22-2024 RBC (Bld) [#/Vol] 4.00 10*6/uL Low 4.2-5.4 [facility] Serum creatinine measurement (mass/volume)Ordered By: Glenn Steiner on 07-22-2024 Creatinine [Mass/Vol] 0.86 mg/dL 0.70-1.20 [facility] Serum glucose measurement (m ass/volume)Ordered By: Glenn Steiner on 07-22-2024 Glucose [Mass/Vol] 102 mg/dL High 70-99 [facility] Serum or plasma calcium natalie urement (mass/volume)Ordered By: Glenn Steiner on 07-22-2024 Calcium [Mass/Vol] 8.9 mg/dL 7.6-11.0 [facility] Serum or plasma urea nitroge n measurement (mass/volume)Ordered By: Glenn Steiner on 07-22-2024 Urea nitrogen [Mass/Vol] 25 mg/dL High 4-19 [facility] Sodium levelOrdered By: Glenn Steiner on 07-22-2024 Sodium [Moles/Vol] 137 mmol/L 133-145 [facility] White blood cell (WBC) count Ordered By: Glenn Steiner on 07-22-2024 WBC (Bld) [#/Vol] 6.6 10*3/uL 4.4-11.0 [facility] CNPNon 06-21-2024 CNPN Telephone (HEMMED) MONSERRAT FRENCH ([id number]) 1935 F DEF Date Time Provider Department 06/21/24 MIGUEL A DAVIS HEMNIDHI During your visit today, we recorded the following information about you: Dinora Kowalski 06/21/2024 10:43 AM Signed Called patient and left LVM that appt with Dr. Davis on 10/05/2024 has been canceled due to provider being out of office. Advised to call back to reschedule. Dinora Fierro Allergies As of Date: 06/21/2024 Noted Allergy Reaction BACTRIM (SULFAMETHOXAZOLE) 08/28/2010 2 - Rash Comments: shaking and chills, dry mouth AMOXICILLIN 02/20/2005 2 - Rash AMPICILLIN 07/22/2011 2 - Rash CEPHALOSPORINS 02/20/2005 2 - Rash MINOCYCLINE 07/22/2011 2 - Rash Comments: shaking and chills , dry mouth ROCEPHIN (CEFTRIAXONE SODIUM) 07/22/2011 2 - Rash Date Reviewed: 11/09/2023 Reviewed by: Zoraida De La Garza LPN - Fully Assessed Reason for Visit: Appointment [186] Prescriptions as of 06/21/2024 - Incontinence Pad, Liner, Disp (BLADDER CONTROL PAD LONG) pads 1 application three times a day as needed (urinary incontinence). - sertraline (ZOLOFT) 50 mg tablet Take 1 tablet by mouth daily at bedtime. - donepezil (ARICEPT) 10 mg tablet Take 1 tablet by mouth daily at bedtime. - simvastatin (ZOCOR) 40 mg tablet Take 1 tablet by mouth daily at bedtime. - ondansetron orally disintegrating (ZOFRAN ODT) 4 mg disintegrating tablet Take 1 tablet by mouth every 8 hours as needed for nausea/vomiting. - cholecalciferol, vitamin D3, (VITAMIN D3 50 MCG, 2,000 UNIT, GUMMIES) - levothyroxine (SYNTHROID) 100 mcg tablet Take 1 tablet by mouth once daily 6 days a week and 2 tablets one day per week. Take on an empty stomach. - Lactobacillus acidophilus (PROBIOTIC ORAL) Take by mouth once daily. - MULTIVITAMIN TAB Take one(1) tablet daily. - ASPIRIN 81 MG TAB Take one(1) tablet daily. Problem List As Of Date 06/21/2024 Noted Resolved Pure Hypercholesterolemia [E78.00] 02/23/2005 GENERAL OSTEOARTHROSIS [M15.9] 02/23/2005 OBESITY NOS [E66.9] 06/26/2008 Diverticulosis [K57.90] 02/21/2009 Labial abscess [N76.4] 07/14/2010 Hypothyroidism [E03.9] 07/22/2011 Colitis [K52.9] 06/15/2012 GI bleed [K92.2] 06/15/2012 Acquired hypothyroidism [E03.9] 12/14/2014 Sensorineural hearing loss, bilateral [H90.3] 03/25/2015 Cochlear implant follow-up [Z48.89, Z96.21] 06/11/2017 Chronic constipation [K59.09] 06/18/[address] [Z96.21] 06/18/2017 Class 1 obesity without serious comorbidity wit*06/18/2017 Situational insomnia [F51.09] 06/07/2018 Bereavement [Z63.4] 06/07/2018 Situational anxiety [F41.8] 06/07/2018 Malignant neoplasm of upper lobe of right lung *08/08/2018 Discharge planning issues [Z75.8] 08/08/2018 Pain, postoperative, acute [G89.18] 08/08/2018 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 Hypothyroidism, acquired [E03.9] 08/23/2018 Adenocarcinoma of lung, stage 1, right (HCC) [C*08/23/2018 S/P lobectomy of lung [Z90.2] 08/23/2018 Actinic keratosis [L57.0] 03/27/2019 Nasal sore [J34.89] 05/22/2019 Bronchitis [J40] 05/22/2019 Malignant neoplasm of right upper lobe of lung * Vitamin D deficiency [E55.9] 03/01/2021 Urinary incontinence [R32] 06/04/2021 Cardiac murmur, previously undiagnosed [R01.1] 01/07/2022 Fatigue [R53.83] 01/07/2022 SOB (shortness of breath) [R06.02] 01/07/2022 History of lung cancer [Z85.118] 01/07/2022 Memory loss, short term [R41.3] 01/13/2023 Balance disorder [R26.89] 01/13/2023 Medication noncompliance due to cognitive impai*05/04/2023 Mild dementia without behavioral disturbance, p*05/04/2023 Dysuria [R30.0] 05/04/2023 Nausea [R11.0] 08/03/2023 Weight loss, unintentional [R63.4] 11/09/2023 Major depressive disorder with current active e*11/09/2023 Osteoarthritis [M19.90] 03/31/2024 Left hip pain [M25.552] 03/31/2024 Encounter Status:Closed by DINORA KOWALSKI on 06/21/24 [facility] 04-26-2024 KASIA Telephone (NEENA) MONSERRAT FRENCH ([id number]) 1935 F DEF Date Time Provider Department 04/26/24 MARGUERITE DAVIS During your visit today, we recorded the following information about you: Dinora Kowalski 04/26/2024 10:17 AM Signed Patients son Leonid called into the office regarding patient stating her Cochlear implant battery is not working and is wondering next steps in how to fix this and if that is something our office can help with. Leonid can be reached at [phone]. Dinora Fierro Megan 04/26/2024 3:19 PM Signed Spoke with Leonid and relayed providers message below. Leonid verbalized understanding and will reach out to Cochlear. Provided contact number to Leonid. Thanks, Dinora Kowalski Allergies As of Date: 04/26/2024 Noted Allergy Reaction BACTRIM (SULFAMETHOXAZOLE) 08/28/2010 2 - Rash Comments: shaking and chills, dry mouth AMOXICILLIN 02/20/2005 2 - Rash AMPICILLIN 07/22/2011 2 - Rash CEPHALOSPORINS 02/20/2005 2 - Rash MINOCYCLINE 07/22/2011 2 - Rash Comments: shaking and chills , dry mouth ROCEPHIN (CEFTRIAXONE SODIUM) 07/22/2011 2 - Rash Date Reviewed: 11/09/2023 Reviewed by: Zoraida De La Garza LPN - Fully Assessed Reason for Visit: Patient Question [1477] Prescriptions as of 04/27/2024 - Incontinence Pad, Liner, Disp (BLADDER CONTROL PAD LONG) pads 1 application three times a day as needed (urinary incontinence). - sertraline (ZOLOFT) 50 mg tablet Take 1 tablet by mouth daily at bedtime. - donepezil (ARICEPT) 10 mg tablet Take 1 tablet by mouth daily at bedtime. - simvastatin (ZOCOR) 40 mg tablet Take 1 tablet by mouth daily at bedtime. - ondansetron orally disintegrating (ZOFRAN ODT) 4 mg disintegrating tablet Take 1 tablet by mouth every 8 hours as needed for nausea/vomiting. - cholecalciferol, vitamin D3, (VITAMIN D3 50 MCG, 2,000 UNIT, GUMMIES) - levothyroxine (SYNTHROID) 100 mcg tablet Take 1 tablet by mouth once daily 6 days a week and 2 tablets one day per week. Take on an empty stomach. - Lactobacillus acidophilus (PROBIOTIC ORAL) Take by mouth once daily. - MULTIVITAMIN TAB Take one(1) tablet daily. - ASPIRIN 81 MG TAB Take one(1) tablet daily. Problem List As Of Date 04/26/2024 Noted Resolved Pure Hypercholesterolemia [E78.00] 02/23/2005 GENERAL OSTEOARTHROSIS [M15.9] 02/23/2005 OBESITY NOS [E66.9] 06/26/2008 Diverticulosis [K57.90] 02/21/2009 Labial abscess [N76.4] 07/14/2010 Hypothyroidism [E03.9] 07/22/2011 Colitis [K52.9] 06/15/2012 GI bleed [K92.2] 06/15/2012 Acquired hypothyroidism [E03.9] 12/14/2014 Sensorineural hearing loss, bilateral [H90.3] 03/25/2015 Cochlear implant follow-up [Z48.89, Z96.21] 06/11/2017 Chronic constipation [K59.09] 06/18/[address] [Z96.21] 06/18/2017 Class 1 obesity without serious comorbidity wit*06/18/2017 Situational insomnia [F51.09] 06/07/2018 Bereavement [Z63.4] 06/07/2018 Situational anxiety [F41.8] 06/07/2018 Malignant neoplasm of upper lobe of right lung *08/08/2018 Discharge planning issues [Z75.8] 08/08/2018 Pain, postoperative, acute [G89.18] 08/08/2018 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 Hypothyroidism, acquired [E03.9] 08/23/2018 Adenocarcinoma of lung, stage 1, right (HCC) [C*08/23/2018 S/P lobectomy of lung [Z90.2] 08/23/2018 Actinic keratosis [L57.0] 03/27/2019 Nasal sore [J34.89] 05/22/2019 Bronchitis [J40] 05/22/2019 Malignant neoplasm of right upper lobe of lung * Vitamin D deficiency [E55.9] 03/01/2021 Urinary incontinence [R32] 06/04/2021 Cardiac murmur, previously undiagnosed [R01.1] 01/07/2022 Fatigue [R53.83] 01/07/2022 SOB (shortness of breath) [R06.02] 01/07/2022 History of lung cancer [Z85.118] 01/07/2022 Memory loss, short term [R41.3] 01/13/2023 Balance disorder [R26.89] 01/13/2023 Medication noncompliance due to cognitive impai*05/04/2023 Mild dementia without behavioral disturbance, p*05/04/2023 Dysuria [R30.0] 05/04/2023 Nausea [R11.0] 08/03/2023 Weight loss, unintentional [R63.4] 11/09/2023 Major depressive disorder with current active e*11/09/2023 Osteoarthritis [M19.90] 03/31/2024 Left hip pain [M25.552] 03/31/2024 Encounter Status:Closed by DINORA KOWALSKI on 04/27/24 [facility] 04-17-2024 CNPN Telephone (FAMHonorioWS) MONSERRAT FRENCH ([id number]) 1935 F DEF Date Time Provider Department 04/17/24 [facility] During your visit today, we recorded the following information about you: Sofiya DeleonJERE 04/17/2024 11:11 AM Signed Per patient mychart: Dr. Ortiz - This is Boris [place] French's son. We brought mom to [place] for the holiday. She had a cough when we left [place] but she didn't seem too bad. The cough has persisted this week and I decided to test her for COVID last night. The test came back positive. She does not have too many symptoms. - A cough, mainly while laying in bed. I have moved her to a couch where she can be propped up. This has helped. - She seems a bit lethargic but not sure how much of that is attributable to the dementia - I can hear a little wheezing or rattle in her breathing, mainly at night. - No sore throat - No fever - No headache - Has an appetite - Can smell I have not tried any OTC drugs. She will be back in [place] on April 16. Any recommendations for care over the next few days? Plan once she's back in [place]? Following up on this. We tested her today and the test came back negative. Possibly a false positive or she was at the end of Covid from a previous infection. She was improved today with just a cough that is less persistent than it was. She is back at [facility] where they checked her heart and oxygen levels and all looked good. Apologies for the false alarm. Nurses will continue to check in with her at [facility]. Rosario Pandey PA-C 04/18/2024 1:30 PM Signed Noted-reviewed addendum, patient improved. Advise f/u in office if symptoms are not resolving, or worsening. ACE Beltran Susan LPN 04/18/2024 1:43 PM Signed Informed via my Chart. Allergies As of Date: 04/17/2024 Noted Allergy Reaction BACTRIM (SULFAMETHOXAZOLE) 08/28/2010 2 - Rash Comments: shaking and chills, dry mouth AMOXICILLIN 02/20/2005 2 - Rash AMPICILLIN 07/22/2011 2 - Rash CEPHALOSPORINS 02/20/2005 2 - Rash MINOCYCLINE 07/22/2011 2 - Rash Comments: shaking and chills , dry mouth ROCEPHIN (CEFTRIAXONE SODIUM) 07/22/2011 2 - Rash Date Reviewed: 11/09/2023 Reviewed by: Zoraida De La Gazra LPN - Fully Assessed Reason for Visit: Patient Update [1234] Cmt: Cough, FYI Prescriptions as of 04/18/2024 - Incontinence Pad, Liner, Disp (BLADDER CONTROL PAD LONG) pads 1 application three times a day as needed (urinary incontinence). - sertraline (ZOLOFT) 50 mg tablet Take 1 tablet by mouth daily at bedtime. - donepezil (ARICEPT) 10 mg tablet Take 1 tablet by mouth daily at bedtime. - simvastatin (ZOCOR) 40 mg tablet Take 1 tablet by mouth daily at bedtime. - ondansetron orally disintegrating (ZOFRAN ODT) 4 mg disintegrating tablet Take 1 tablet by mouth every 8 hours as needed for nausea/vomiting. - cholecalciferol, vitamin D3, (VITAMIN D3 50 MCG, 2,000 UNIT, GUMMIES) - levothyroxine (SYNTHROID) 100 mcg tablet Take 1 tablet by mouth once daily 6 days a week and 2 tablets one day per week. Take on an empty stomach. - Lactobacillus acidophilus (PROBIOTIC ORAL) Take by mouth once daily. - MULTIVITAMIN TAB Take one(1) tablet daily. - ASPIRIN 81 MG TAB Take one(1) tablet daily. Problem List As Of Date 04/17/2024 Noted Resolved Pure Hypercholesterolemia [E78.00] 02/23/2005 GENERAL OSTEOARTHROSIS [M15.9] 02/23/2005 OBESITY NOS [E66.9] 06/26/2008 Diverticulosis [K57.90] 02/21/2009 Labial abscess [N76.4] 07/14/2010 Hypothyroidism [E03.9] 07/22/2011 Colitis [K52.9] 06/15/2012 GI bleed [K92.2] 06/15/2012 Acquired hypothyroidism [E03.9] 12/14/2014 Sensorineural hearing loss, bilateral [H90.3] 03/25/2015 Cochlear implant follow-up [Z48.89, Z96.21] 06/11/2017 Chronic constipation [K59.09] 06/18/[address] [Z96.21] 06/18/2017 Class 1 obesity without serious comorbidity wit*06/18/2017 Situational insomnia [F51.09] 06/07/2018 Bereavement [Z63.4] 06/07/2018 Situational anxiety [F41.8] 06/07/2018 Malignant neoplasm of upper lobe of right lung *08/08/2018 Discharge planning issues [Z75.8] 08/08/2018 Pain, postoperative, acute [G89.18] 08/08/2018 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 Hypothyroidism, acquired [E03.9] 08/23/2018 Adenocarcinoma of lung, stage 1, right (HCC) [C*08/23/2018 S/P lobectomy of lung [Z90.2] 08/23/2018 Actinic keratosis [L57.0] 03/27/2019 Nasal sore [J34.89] 05/22/2019 Bronchitis [J40] 05/22/2019 Malignant neoplasm of right upper lobe of lung * Vitamin D deficiency [E55.9] 03/01/2021 Urinary incontinence [R32] 06/04/2021 Cardiac murmur, previously undiagnosed [R01.1] 01/07/2022 Fatigue [R53.83] 01/07/2022 SOB (shortness of breath) [R06.02] 01/07/2022 History of lung cancer [Z85.118] 01/07/2022 Memory loss, short term [R41.3] (more content not included)... Normal [facility] Urine Cultureon 04-04-2024 [facility] UNKNOWN METHOD OF COLLECTION Culture exhibits no growth. Normal [facility] Comment on above: Performed By: #### L 400.0001, M100.2200 ####[facility] [address] [place], [address] Bilirubin Test strip Ql (U)O rdered By: Abel Ortiz on 04-03-2024 Bilirubin Ql (U) Negative Negative [facility] Epithelial cells.squamous LM Ql (Urine sed)Ordered By: Abel Ortiz on 04-03-2024 Epithelial cells.squamous LM.HPF (Urine sed) [#/Area] 10 /[HPF] 5-10 [facility] Glucose Ql (U)Ordered By: Arlene Ortiz on 04-03-2024 Urine Glucose (UA) Normal mg/dl Normal [facility] Ketones Test strip Ql (U)Ord ered By: Abel Ortiz on 04-03-2024 Ketones Ql (U) Negative Negative [facility] Microscopic analysis of urin e for red blood cells (RBC)Ordered By: Abel Ortiz on 04-03-2024 Urine RBC 10-25 SEEN /hpf 0-5 [facility] Mucus LM Ql (Urine sed)Order ed By: Abel Ortiz on 04-03-2024 Mucus Ql (Urine sed) 1+ /hpf [facility] Nitrite Test strip Ql (U)Ord ered By: Abel Ortiz on 04-03-2024 Nitrite Ql (U) Negative Negative [facility] Protein Test strip Ql (U)Ord ered By: Abel Lopezon on 04-03-2024 Protein Ql (U) 15 mg/dl High Negative [facility] Urinalysis, Completeon 04-03 BACTERIA 2+ /hpf Normal None Seen [facility] Comment on above: Order Comment: UNKNO WN METHOD OF COLLECTIONCLEAN CATCH Performed By: #### L 400.0001, M100.2200 ####[facility] [address] [place], [address] Mucus Ql (Urine sed) 1+ /hpf Normal [facility] Comment on above: Order Comment: UNKNO WN METHOD OF COLLECTIONCLEAN CATCH Performed By: #### L 400.0001, M100.2200 ####[facility] [address] [place], [address] EPI,SQUAMOUS 10-25 SEEN Normal 5-10 [facility] Comment on above: Order Comment: UNKNO WN METHOD OF COLLECTIONCLEAN CATCH Performed By: #### L 400.0001, M1.0 ####[facility] [address] [place], [address] RBC 10-25 SEEN Normal 0-5 [facility] Comment on above: Order Comment: UNKNO WN METHOD OF COLLECTIONCLEAN CATCH Performed By: #### L 400.0001, M100.2200 ####[facility] [address] [place], [address] WBC >100 SEEN Normal 0-5 [facility] Comment on above: Order Comment: UNKNO WN METHOD OF COLLECTIONCLEAN CATCH Performed By: #### L 400.0001, M100.2200 ####[facility] [address] [place], [address] BILIRUBIN URINE Negative Normal Negative [facility] Comment on above: Order Comment: UNKNO WN METHOD OF COLLECTIONCLEAN CATCH Performed By: #### L 400.0001, M100.2200 ####[facility] [address] [place], [address] Clarity (U) Sl. Cloudy Normal Clear [facility] Comment on above: Order Comment: UNKNO WN METHOD OF COLLECTIONCLEAN CATCH Performed By: #### L 400.0001, ####[facility] [address] [place], [address] Color (U) Straw Normal Yellow [facility] Comment on above: Order Comment: UNKNO WN METHOD OF COLLECTIONCLEAN CATCH Performed By: #### L 400.0001, ####[facility] [address] [place], [address] GLUCOSE, UR Normal Normal Normal [facility] Comment on above: Order Comment: UNKNO WN METHOD OF COLLECTIONCLEAN CATCH Performed By: #### L 400.0001, ####[facility] [address] [place], [address] KETONE UR Negative Normal Negative [facility] Comment on above: Order Comment: UNKNO WN METHOD OF COLLECTIONCLEAN CATCH Performed By: #### L 400.0001, ####[facility] [address] [place], [address] LEUK ESTERASE 500 /ul Abnormal Negative [facility] Comment on above: Order Comment: UNKNO WN METHOD OF COLLECTIONCLEAN CATCH Performed By: #### L 400.0001, ####[facility] [address] [place], [address] Nitrite Ql (U) Negative Normal Negative [facility] Comment on above: Order Comment: UNKNO WN METHOD OF COLLECTIONCLEAN CATCH Performed By: #### L 400.0001, ####[facility] [address] [place], [address] OCCULT BLOOD-UR 150 /ul Abnormal Negative [facility] Comment on above: Order Comment: UNKNO WN METHOD OF COLLECTIONCLEAN CATCH Performed By: #### L 400.0001, ####[facility] [address] [place], [address] pH UR 6.5 Normal 5.0 - 8.0 [facility] Comment on above: Order Comment: UNKNO WN METHOD OF COLLECTIONCLEAN CATCH Performed By: #### L 400.0001, M100.0 ####[facility] [address] [place], [address] PROT DIPSTX 15 mg/dl Abnormal Negative [facility] Comment on above: Order Comment: UNKNO WN METHOD OF COLLECTIONCLEAN CATCH Performed By: #### L 400.0001, M1.0 ####[facility] [address] [place], [address] SP.GR. DIPSTX 1.015 Normal 1.002-1.030 [facility] Comment on above: Order Comment: UNKNO WN METHOD OF COLLECTIONCLEAN CATCH Performed By: #### L 400.0001, .2199 ####[facility] [address] [place], [address] UROBILI Normal Normal Normal [facility] Comment on above: Order Comment: UNKNO WN METHOD OF COLLECTIONCLEAN CATCH Performed By: #### L 400.0001, M1.0 ####[facility] [address] [place], [address] Urine blood detectionOrdered By: Abel Ortiz on 04-03-2024 Urine Occult Blood 150 /ul High Negative [facility] Urine clarityOrdered By: Monty Ortiz on 04-03-2024 Clarity (U) Sl. Cloudy Clear [facility] Urine color determinationOrd ered By: Abel Ortiz on 04-03-2024 Color (U) Straw Yellow [facility] Urine cultureOrdered By: Monty Ortiz on 04-03-2024 Bacteria identified Cx Nom (U) Culture exhibits no growth. [facility] Urine leukocyte esterase det ection by dipstickOrdered By: Abel Ortiz on 04-03-2024 Leukocyte esterase Test strip Ql (U) 500 /ul High Negative [facility] Urine pHOrdered By: Abel camarena on 04-03-2024 pH (U) 6.5 [pH] 5.0 - 8.0 [facility] Urine sediment bacteria coun t by microscopy (number/high power field)Ordered By: Abel Ortiz on 04-03-2024 Bacteria LM.HPF (Urine sed) [#/Area] 2 /[HPF] None Seen [facility] Urine specific gravity measu rementOrdered By: Abel Ortiz on 04-03-2024 Specific gravity (U) [Rel density] 1.015 1.002-1.030 [facility] Urobilinogen Ql (U)Ordered B y: Abel Ortiz on 04-03-2024 Urine Urobilinogen Normal mg/dl Normal [facility] White blood cell countOrdere d By: Abel Ortiz on 04-03-2024 Urine WBC >100 SEEN /hpf 0-5 [facility] 25(OH)D3 SerPl-mCncon 2023 25-hydroxyvitamin D3 [Mass/Vol] 32.4 ng/mL Normal 31.0-80.0 [facility] Comment on above: Order Comment: Speci men Type: BLOOD SPECIMEN Ordering Facility: [facility] Address: [address] [place] [address] Result Comment: Clas sification of 25 [place] Vitamin D status: Deficiency/Insufficiency: < or = 30 ng/ml. Sufficiency/Optimal Levels: 31-80 ng/mL Toxicity: > 100 ng/mL. Test performed by chemiluminescent immunoassay. Performed By: #### 1 989-3 #### [facility] CLIA [id number] [address] [place] [address] [place] [address] [place] CBC W Auto Differential pane l (Bld)on 03-31-2024 Basophils (Bld) [#/Vol] 0.05 10*3/uL [facility] Basophils/100 WBC (Bld) 0.6 % [facility] Differential cell count method Nom (Bld) Auto [facility] Eosinophils (Bld) [#/Vol] 0.09 10*3/uL [facility] Eosinophils/100 WBC (Bld) 1.1 % [facility] Erythrocyte distribution width (RBC) [Ratio] 13.5 % 11.5 - 15.0 % [facility] Hematocrit (Bld) [Volume fraction] 39.3 % 36.0 - 46.0 % [facility] Hemoglobin (Bld) [Mass/Vol] 12.3 g/dL 11.5 - 15.5 g/dL [facility] Immature granulocytes (Bld) [#/Vol] [facility] Immature granulocytes/100 WBC (Bld) 0.1 % [facility] Lymphocytes (Bld) [#/Vol] 1.20 10*3/uL [facility] Lymphocytes/100 WBC (Bld) 15.3 % [facility] MCH (RBC) [Entitic mass] 30.2 pg 26.0 - 34.0 pg [facility] MCHC (RBC) [Mass/Vol] 31.3 g/dL 30.5 - 36.0 g/dL [facility] MCV (RBC) [Entitic vol] 96.6 fL 80.0 - 100.0 fL [facility] Monocytes (Bld) [#/Vol] 0.80 10*3/uL [facility] Monocytes/100 WBC (Bld) 10.2 % [facility] Neutrophils (Bld) [#/Vol] 5.71 10*3/uL [facility] Neutrophils/100 WBC (Bld) 72.7 % [facility] Nucleated RBC (Bld) [#/Vol] [facility] Nucleated RBC/100 WBC (Bld) [Ratio] 0.0 % /100 WBC [facility] Platelet mean volume (Bld) [Entitic vol] 10.7 fL 9.0 - 12.7 fL [facility] Platelets (Bld) [#/Vol] 200 10*3/uL [facility] RBC (Bld) [#/Vol] 4.07 10*6/uL 3.90 - 5.2 0 m/uL [facility] WBC (Bld) [#/Vol] 7.86 10*3/uL [facility] Basophils (Bld) [#/Vol] 0.05 10*3/uL Normal <0.11 [facility] Comment on above: Order Comment: Speci men Type: BLOOD SPECIMEN Ordering Facility: [facility] Address: [address] [place] [address] Performed By: #### 3 016-3, 2132-01, #### [facility] CLIA [id number] [address] [place] [address] [place] Basophils/100 WBC (Bld) 0.6 % Normal [facility] Comment on above: Order Comment: Speci men Type: BLOOD SPECIMEN Ordering Facility: [facility] Address: [address] [place] [address] Performed By: #### 3 016-3, 2132-01, #### [facility] CLIA [id number] [address] [place] [address] [place] Differential cell count method Nom (Bld) Auto Normal [facility] Comment on above: Order Comment: Speci men Type: BLOOD SPECIMEN Ordering Facility: [facility] Address: [address] [place] [address] Performed By: #### 3 016-3, 2132-01, #### [facility] CLIA [id number] [address] [place] [address] [place] Eosinophils (Bld) [#/Vol] 0.09 10*3/uL Normal <0.46 [facility] Comment on above: Order Comment: Speci men Type: BLOOD SPECIMEN Ordering Facility: [facility] Address: [address] [place] [address] Performed By: #### 3 016-3, 2132-01, #### [facility] CLIA [id number] [address] [place] [address] [place] Eosinophils/100 WBC (Bld) 1.1 % Normal [facility] Comment on above: Order Comment: Speci men Type: BLOOD SPECIMEN Ordering Facility: [facility] Address: [address] [place] [address] Performed By: #### 3 016-3, 2132-01, #### [facility] CLIA [id number] [address] [place] [address] [place] Erythrocyte distribution width (RBC) [Ratio] 13.5 % Normal 11.5-15.0 [facility] Comment on above: Order Comment: Speci men Type: BLOOD SPECIMEN Ordering Facility: [facility] Address: [address] [place] [address] Performed By: #### 3 -3, 2132-01, #### [facility] CLIA [id number] [address] [place] [address] [place] Hematocrit (Bld) [Volume fraction] 39.3 % Normal 36.0-46.0 [facility] Comment on above: Order Comment: Speci men Type: BLOOD SPECIMEN Ordering Facility: [facility] Address: [address] [place] [address] Performed By: #### 3 -3, 2132-01, #### [facility] CLIA [id number] [address] [place] [address] [place] Hemoglobin (Bld) [Mass/Vol] 12.3 g/dL Normal 11.5-15.5 [facility] Comment on above: Order Comment: Speci men Type: BLOOD SPECIMEN Ordering Facility: [facility] Address: [address] [place] [address] Performed By: #### 3 016-3, 2132-01, #### [facility] CLIA [id number] [address] [place] [address] [place] Immature granulocytes (Bld) [#/Vol] 10*3/uL Normal <0.10 [facility] Comment on above: Order Comment: Speci men Type: BLOOD SPECIMEN Ordering Facility: [facility] Address: [address] [place] [address] Performed By: #### 3 016-3, 2132-01, #### [facility] CLIA [id number] [address] [place] [address] [place] Immature granulocytes/100 WBC (Bld) 0.1 % Normal [facility] Comment on above: Order Comment: Speci men Type: BLOOD SPECIMEN Ordering Facility: [facility] Address: [address] [place] [address] Performed By: #### 3 016-3, 2132-01, #### [facility] CLIA [id number] [address] [place] [address] [place] Lymphocytes (Bld) [#/Vol] 1.20 10*3/uL Normal 1.00-4.00 [facility] Comment on above: Order Comment: Speci men Type: BLOOD SPECIMEN Ordering Facility: [facility] Address: [address] [place] [address] Performed By: #### 3 0163, 2132-01, #### [facility] CLIA [id number] [address] [place] [address] [place] Lymphocytes/100 WBC (Bld) 15.3 % Normal [facility] Comment on above: Order Comment: Speci men Type: BLOOD SPECIMEN Ordering Facility: [facility] Address: [address] [place] [address] Performed By: #### 3 016-3, 2132-01, #### [facility] CLIA [id number] [address] [place] [address] [place] MCH (RBC) [Entitic mass] 30.2 pg Normal 26.0-34.0 [facility] Comment on above: Order Comment: Speci men Type: BLOOD SPECIMEN Ordering Facility: [facility] Address: [address] [place] [address] Performed By: #### 3 016-3, 2132-01, #### [facility] CLIA [id number] [address] [place] [address] [place] MCHC (RBC) [Mass/Vol] 31.3 g/dL Normal 30.5-36.0 [facility] Comment on above: Order Comment: Speci men Type: BLOOD SPECIMEN Ordering Facility: [facility] Address: [address] [place] [address] Performed By: #### 3 016-3, 2132-01, #### [facility] CLIA [id number] [address] [place] [address] [place] MCV (RBC) [Entitic vol] 96.6 fL Normal 80.0-100.0 [facility] Comment on above: Order Comment: Speci men Type: BLOOD SPECIMEN Ordering Facility: [facility] Address: [address] [place] [address] Performed By: #### 3 016-3, 2132-01, #### [facility] CLIA [id number] [address] [place] [address] [place] Monocytes (Bld) [#/Vol] 0.80 10*3/uL Normal <0.87 [facility] Comment on above: Order Comment: Speci men Type: BLOOD SPECIMEN Ordering Facility: [facility] Address: [address] [place] [address] Performed By: #### 3 016-3, 2132-01, #### [facility] CLIA [id number] [address] [place] [address] [place] Monocytes/100 WBC (Bld) 10.2 % Normal [facility] Comment on above: Order Comment: Speci men Type: BLOOD SPECIMEN Ordering Facility: [facility] Address: [address] [place] [address] Performed By: #### 3 016-3, 2132-01, #### [facility] CLIA [id number] [address] [place] [address] [place] Neutrophils (Bld) [#/Vol] 5.71 10*3/uL Normal 1.45-7.50 [facility] Comment on above: Order Comment: Speci men Type: BLOOD SPECIMEN Ordering Facility: [facility] Address: [address] [place] [address] Performed By: #### 3 016-3, 2132-01, #### [facility] CLIA [id number] [address] [place] [address] [place] Neutrophils/100 WBC (Bld) 72.7 % Normal [facility] Comment on above: Order Comment: Speci men Type: BLOOD SPECIMEN Ordering Facility: [facility] Address: [address] [place] [address] Performed By: #### 3 016-3, 2132-01, #### [facility] CLIA [id number] [address] [place] [address] [place] Nucleated RBC (Bld) [#/Vol] 10*3/uL Normal <0.01 [facility] Comment on above: Order Comment: Speci men Type: BLOOD SPECIMEN Ordering Facility: [facility] Address: [address] [place] [address] Performed By: #### 3 016-3, 2132-01, #### [facility] CLIA [id number] [address] [place] [address] [place] Nucleated RBC/100 WBC (Bld) [Ratio] 0.0 /100 WBC Normal [facility] Comment on above: Order Comment: Speci men Type: BLOOD SPECIMEN Ordering Facility: [facility] Address: [address] [place] [address] Performed By: #### 3 016-3, 2132-01, #### [facility] CLIA [id number] [address] [place] [address] [place] Platelet mean volume (Bld) [Entitic vol] 10.7 fL Normal 9.0-12.7 [facility] Comment on above: Order Comment: Speci men Type: BLOOD SPECIMEN Ordering Facility: [facility] Address: [address] [place] [address] Performed By: #### 3 016-3, 2132-01, #### [facility] CLIA [id number] [address] [place] [address] [place] Platelets (Bld) [#/Vol] 200 10*3/uL Normal 150-400 [facility] Comment on above: Order Comment: Speci men Type: BLOOD SPECIMEN Ordering Facility: [facility] Address: [address] [place] [address] Performed By: #### 3 016-3, 2132-01, #### [facility] CLIA [id number] [address] [place] [address] [place] RBC (Bld) [#/Vol] 4.07 10*6/uL Normal 3.90-5.20 [facility] Comment on above: Order Comment: Speci men Type: BLOOD SPECIMEN Ordering Facility: [facility] Address: [address] [place] [address] Performed By: #### 3 016-3, 2132-01, #### [facility] CLIA [id number] [address] [place] [address] [place] WBC (Bld) [#/Vol] 7.86 10*3/uL Normal 3.70-11.00 [facility] Comment on above: Order Comment: Speci men Type: BLOOD SPECIMEN Ordering Facility: [facility] Address: [address] [place] [address] Performed By: #### 3 016-3, 2132-01, #### [facility] CLIA [id number] [address] [place] [address] [place] CNOVon 03-31-2024 [facility] MONSERRAT FRENCH ([id number]) 1935 F DEF Date Time Provider Department 03/31/24 10:40 AM [facility] During your visit today, we recorded the following information about you: Temperature Pulse Respiration Blood pressure 97 degrees 60/minute 20/minute 122/60 Weight 81.5 kg Abel Ortiz, 03/31/2024 12:46 PM Signed CC: Monserrat French is a 88 year old female who presents to the office for follow up HPI: At previous OFFICE VISIT on 11/09/23 Alzhemier's dementia, moderate, is taking aricept 5 mg a day, has seen Neurologist. Is having more memory decline. She drove from her home to [place] and was found about 1 hour from [place] by the police department. Sons have taken her keys- she is not longer driving for the last 1 month Weight loss. Son thinks she is now only eating about 1 meal a day. Gets meals on wheels daily delivered to her home. Is supposed to be drinking her Boost. He has a camera installed in her kitchen to monitor her. Also she is only walking the dog once a day now, not more often. She admits to depression symptoms several days a week- is lonely. Doesn't have people to talk to much No recent falls Urinary incontinence, comes and goes, hasn't been wearing her depends. No blood or frequency or urgency or dysuria. Hypothyroidism, states that she is taking her thyroid medication Currently Alzheimer's disease, seeing Neurologist, dose of aricept was attempted to be increased to 10 mg a day but caused her to have diarrhea so had to go back down on this dose and this resolved then. Memory continues to decline, she is doing well now that she has been in a supervisor long goods care facility living for the last 3 months since December. No falls Bowel function has been better now Urinary incontinence is chronic Chronic left hip pain, no falls. Would be willing to do PHYSICAL THERAPY Weight gain has been occuring PAST MEDICAL HISTORY Diagnosis Date Disorders of lipoid metabolism Diverticulosis of colon (without mention of hemorrhage) Generalized osteoarthrosis, unspecified site Hemorrhage of gastrointestinal tract, unspecified Hypothyroidism 04/2010 Internal hemorrhoids without mention of complication Malignant neoplasm of right upper lobe of lung (HCC) Nonspecific abnormal electrocardiogram (ECG) (EKG) Osteoporosis, unspecified Pure hypercholesterolemia PAST SURGICAL HISTORY Procedure Laterality Date COLONOSCOPY FLX DX W/COLLJ SPEC WHEN PFRMD 12/30/2005 Colonoscopy COLONOSCOPY FLX DX W/COLLJ SPEC WHEN PFRMD 07/14/2012 Colonoscopy repeat 10 years EXC CYST/ABERRANT BREAST TISSUE OPEN /> LESION IMPLANT COCHLEAR DEVICE Right many years ago. Social History: Social History Tobacco Use Smoking status: Never Smokeless tobacco: Never Substance Use Topics Alcohol use: Yes Comment: RARELY Drug use: Never FAMILY HISTORY Problem Relation Age of Onset other (melanoma) Sister other (pancreatic cancer) Father Current Outpatient prescriptions: donepezil (ARICEPT) 10 mg tablet Take 1 tablet by mouth daily at bedtime. (Patient taking differently: Take 5 mg by mouth daily at bedtime.) Incontinence Pad, Liner, Disp (BLADDER CONTROL PAD LONG) pads 1 application three times a day as needed (urinary incontinence). sertraline (ZOLOFT) 50 mg tablet Take 1 tablet by mouth daily at bedtime. simvastatin (ZOCOR) 40 mg tablet Take 1 tablet by mouth daily at bedtime. ondansetron orally disintegrating (ZOFRAN ODT) 4 mg disintegrating tablet Take 1 tablet by mouth every 8 hours as needed for nausea/vomiting. cholecalciferol, vitamin D3, (VITAMIN D3 50 MCG, 2,000 UNIT, GUMMIES) levothyroxine (SYNTHROID) 100 mcg tablet Take 1 tablet by mouth once daily 6 days a week and 2 tablets one day per week. Take on an empty stomach. Lactobacillus acidophilus (PROBIOTIC ORAL) Take by mouth once daily. MULTIVITAMIN TAB Take one(1) tablet daily. ASPIRIN 81 MG TAB Take one(1) tablet daily. Allergies: ALLERGIES Allergen Reactions Bactrim [Sulfametho* Rash shaking and chills, dry mouth Amoxicillin Rash Ampicillin Rash Cephalosporins Rash Minocycline Rash shaking and chills , dry mouth Rocephin [Ceftriaxo* Rash ROS: See HPI PE: 11/15/24 1040 BP: 122/60 Pulse: 60 Resp: 20 Temp: 36.1 ?C (97 ?F) TempSrc: Temporal Weight: 81.5 kg (179 lb 10.8 oz) Gen: AANDOX3, NAD, non-toxic appearing, thin, memory impaired, well dressed HEENT: PERRLA, EOMs intact b/l, nares without drainage, pharynx without erythema, exudate, lesions, or drainage. Uvula midline. Neck: No LAD, no thyromegaly, no meningismus. CV: RRR, no murmur Lungs: CTA b/l, no wheezing Skin: No rashes, lesions, or wounds on exposed skin. No edema, normal pulses Thin Abd: NT, ND, normal BS, no masses palpable Poor ROM hips ASSESSMENT/PLAN: 1. Mild dementia w (more content not included)... Normal [facility] Comprehensive metabolic 2000 panelon 03-31-2024 Albumin [Mass/Vol] 4.3 g/dL Normal 3.9-4.9 [facility] Comment on above: Order Comment: Speci men Type: BLOOD SPECIMEN Ordering Facility: [facility] Address: [address] [place] [address] Performed By: #### 3 016-3, 2132-01, #### [facility] CLIA [id number] [address] [place] [address] [place] ALP [Catalytic activity/Vol] 88 U/L Normal 34-123 [facility] Comment on above: Order Comment: Speci men Type: BLOOD SPECIMEN Ordering Facility: [facility] Address: [address] [place] [address] Performed By: #### 3 016-3, 2132-01, #### [facility] CLIA [id number] [address] [place] [address] [place] ALT [Catalytic activity/Vol] 18 U/L Normal 7-38 [facility] Comment on above: Order Comment: Speci men Type: BLOOD SPECIMEN Ordering Facility: [facility] Address: [address] [place] [address] Performed By: #### 3 016-3, 2132-01, #### [facility] CLIA [id number] [address] [place] [address] [place] Anion gap [Moles/Vol] 11 mmol/L Normal 8-15 [facility] Comment on above: Order Comment: Speci men Type: BLOOD SPECIMEN Ordering Facility: [facility] Address: [address] [place] [address] Performed By: #### 3 016-3, 2132-01, #### [facility] CLIA [id number] [address] [place] [address] [place] AST [Catalytic activity/Vol] 26 U/L Normal 13-35 [facility] Comment on above: Order Comment: Speci men Type: BLOOD SPECIMEN Ordering Facility: [facility] Address: [address] [place] [address] Performed By: #### 3 016-3, 2132-01, #### [facility] CLIA [id number] [address] [place] [address] [place] Bilirubin [Mass/Vol] 0.3 mg/dL Normal 0.2-1.3 [facility] Comment on above: Order Comment: Speci men Type: BLOOD SPECIMEN Ordering Facility: [facility] Address: [address] [place] [address] Performed By: #### 3 016-3, 2132-01, #### [facility] CLIA [id number] [address] [place] [address] [place] Calcium [Mass/Vol] 9.7 mg/dL Normal 8.5-10.2 [facility] Comment on above: Order Comment: Speci men Type: BLOOD SPECIMEN Ordering Facility: [facility] Address: [address] [place], [place] [address] Performed By: #### 3 016-3, 2132-01, #### [facility] CLIA [id number] [address] [place] [address] [place] Chloride [Moles/Vol] 100 mmol/L Normal 98-107 [facility] Comment on above: Order Comment: Speci men Type: BLOOD SPECIMEN Ordering Facility: [facility] Address: [address] [place] [address] Performed By: #### 3 016-3, 2132-01, #### [facility] CLIA [id number] [address] [place] [address] [place] CO2 [Moles/Vol] 27 mmol/L Normal 22-30 [facility] Comment on above: Order Comment: Speci men Type: BLOOD SPECIMEN Ordering Facility: [facility] Address: [address] [place] [address] Performed By: #### 3 016-3, 2132-01, #### [facility] CLIA [id number] [address] [place] [address] [place] Creatinine [Mass/Vol] 1.08 mg/dL High 0.58-0.96 [facility] Comment on above: Order Comment: Speci men Type: BLOOD SPECIMEN Ordering Facility: [facility] Address: [address] [place] [address] Performed By: #### 3 016-3, 2132-01, #### [facility] CLIA [id number] [address] [place] [address] [place] Creatinine and Glomerular filtration rate.predicted panel (S/P/Bld) 50 mL/min/1.73m??? Low >=60 [facility] Comment on above: Order Comment: Speci men Type: BLOOD SPECIMEN Ordering Facility: [facility] Address: [address] [place] [address] Result Comment: Merline mated Glomerular Filtration Rate (eGFR) is calculated using the 2020 CKD-EPI creatinine equation. This equation utilizes serum creatinine, sex, and age as parameters. The creatinine assay has traceable calibration to isotope dilution-mass spectrometry. Refer to KDIGO guidelines for clinical interpretation. In patients with unstable renal function, e.g. those with acute kidney injury, the eGFR may not accurately reflect actual GFR. Performed By: #### 3 016-3, 2132-01, #### [facility] CLIA [id number] [address] [place] [address] [place] Glucose [Mass/Vol] 98 mg/dL Normal 74-99 [facility] Comment on above: Order Comment: Nain weber Type: BLOOD SPECIMEN Ordering Facility: [facility] Address: [address] [place] [address] Result Comment: The [place] Diabetes [employer] (ADA) provides guidance for cutoff values for fasting glucose and random glucose. The ADA defines fasting as no caloric intake for at least 8 hours. Fasting plasma glucose results between 100 to 125 mg/dL indicate increased risk for diabetes (prediabetes). Fasting plasma glucose results greater than or equal to 126 mg/dL meet the criteria for diagnosis of diabetes. In the absence of unequivocal hyperglycemia, results should be confirmed by repeat testing. In a patient with classic symptoms of hyperglycemia or hyperglycemic crisis, random plasma glucose results greater than or equal to 200 mg/dL meet the criteria for diagnosis of diabetes. Reference: Standards of Medical Care in Diabetes 2016, [place] [employer]. Diabetes Care. 2016.39(Suppl 1). Performed By: #### 3 016-3, 2132-01, #### [facility] CLIA [id number] [address] [place], [place] [id number] [place] Potassium [Moles/Vol] 5.0 mmol/L Normal 3.7-5.1 [facility] Comment on above: Order Comment: Nain weber Type: BLOOD SPECIMEN Ordering Facility: [facility] Address: [address] [place] [address] Performed By: #### 3 016-3, 2132-01, #### [facility] CLIA [id number] [address] [place] [address] [place] Protein [Mass/Vol] 7.3 g/dL Normal 6.3-8.0 [facility] Comment on above: Order Comment: Speci men Type: BLOOD SPECIMEN Ordering Facility: [facility] Address: [address] [place] [address] Performed By: #### 3 016-3, 2132-01, #### [facility] CLIA [id number] [address] [place] [address] [place] Sodium [Moles/Vol] 138 mmol/L Normal 136-144 [facility] Comment on above: Order Comment: Speci men Type: BLOOD SPECIMEN Ordering Facility: [facility] Address: [address] [place] [address] Performed By: #### 3 016-3, 2132-01, #### [facility] CLIA [id number] [address] [place] [address] [place] Urea nitrogen [Mass/Vol] 22 mg/dL High 7-21 [facility] Comment on above: Order Comment: Speci men Type: BLOOD SPECIMEN Ordering Facility: [facility] Address: [address] [place] [address] Performed By: #### 3 016-3, 2132-01, #### [facility] CLIA [id number] [address] [place] [address] [place] TSH SerPl-aCncon 03-31-2024 TSH Qn 6.800 m[IU]/L High 0.270-4.200 [facility] Comment on above: Order Comment: Speci men Type: BLOOD SPECIMEN Ordering Facility: [facility] Address: [address] [place] [address] Performed By: #### 3 016-3, 2132-01, #### [facility] CLIA [id number] [address] [place] [address] [place] Vit B12 SerPl-mCncon 024 Cobalamin (Vitamin B12) [Mass/Vol] 497 pg/mL Normal 232-1245 [facility] Comment on above: Order Comment: Speci men Type: BLOOD SPECIMEN Ordering Facility: [facility] Address: [address] [place] [address] Performed By: #### 3 016-3, 2132-9, 49736-0 #### [facility] CLIA [id number] [address] [place] [address] CNPNon 03-08-2024 [facility] MONSERRAT FRENCH ([id number]) 1935 F DEF Date Time Provider Department 03/08/24 ABEL ORTIZ [facility] During your visit today, we recorded the following information about you: Zoraida De La Garza LPN 03/08/2024 7:25 PM Signed Monserrat French [facility] My Chart Rx Pool Dr. Ortiz - Mom has been using pads due to incontinence. [facility] mentioned that if this was prescribed by you this would be covered by Medicaid. Can you please add a prescription for Monserrat to have pads? Thanks Abel Lees DO 03/11/2024 12:21 PM Signed Please inform patient's son that rx sent as below Abel Ortiz DO The following approved medication requests have been transmitted electronically. Requested Prescriptions Signed Prescriptions Disp Refills Incontinence Pad, Liner, Disp (BLADDER CONTROL PAD LONG) pads 200 Each 2 Si application three times a day as needed (urinary incontinence). Authorizing Provider: ABEL ORTIZ DO Rowland, Kathryn, MA 03/13/2024 11:07 AM Signed Detailed message left on Boris's identified VM. Siria Walker MA Allergies As of Date: 03/08/2024 Noted Allergy Reaction BACTRIM (SULFAMETHOXAZOLE) 08/28/2010 2 - Rash Comments: shaking and chills, dry mouth AMOXICILLIN 02/20/2005 2 - Rash AMPICILLIN 07/22/2011 2 - Rash CEPHALOSPORINS 02/20/2005 2 - Rash MINOCYCLINE 07/22/2011 2 - Rash Comments: shaking and chills , dry mouth ROCEPHIN (CEFTRIAXONE SODIUM) 07/22/2011 2 - Rash Date Reviewed: 11/09/2023 Reviewed by: Zoraida De La Garza LPN - Fully Assessed Reason for Visit: Incontinence [338] Primary Visit Diagnosis:Urinary incontinence, unspecified type [R32] Other Visit Diagnosis:Mild dementia without behavioral disturbance, psychotic disturbance, mood disturbance, or anxiety, unspecified dementia type (HCC) [F03.A0] Order(s):Incontinence Pad, Liner, Disp (BLADDER CONTROL PAD LONG) pads1 application three times a day as needed (urinary incontinence).Disp: 200 EachRfl: 2 Prescriptions as of 03/13/2024 - Incontinence Pad, Liner, Disp (BLADDER CONTROL PAD LONG) pads 1 application three times a day as needed (urinary incontinence). - sertraline (ZOLOFT) 50 mg tablet Take 1 tablet by mouth daily at bedtime. - donepezil (ARICEPT) 10 mg tablet Take 1 tablet by mouth daily at bedtime. - simvastatin (ZOCOR) 40 mg tablet Take 1 tablet by mouth daily at bedtime. - ondansetron orally disintegrating (ZOFRAN ODT) 4 mg disintegrating tablet Take 1 tablet by mouth every 8 hours as needed for nausea/vomiting. - cholecalciferol, vitamin D3, (VITAMIN D3 50 MCG, 2,000 UNIT, GUMMIES) - levothyroxine (SYNTHROID) 100 mcg tablet Take 1 tablet by mouth once daily 6 days a week and 2 tablets one day per week. Take on an empty stomach. - Lactobacillus acidophilus (PROBIOTIC ORAL) Take by mouth once daily. - MULTIVITAMIN TAB Take one(1) tablet daily. - ASPIRIN 81 MG TAB Take one(1) tablet daily. Problem List As Of Date 03/08/2024 Noted Resolved Pure Hypercholesterolemia [E78.00] 02/23/2005 GENERAL OSTEOARTHROSIS [M15.9] 02/23/2005 OBESITY NOS [E66.9] 06/26/2008 Diverticulosis [K57.90] 02/21/2009 Labial abscess [N76.4] 07/14/2010 Hypothyroidism [E03.9] 07/22/2011 Colitis [K52.9] 06/15/2012 GI bleed [K92.2] 06/15/2012 Acquired hypothyroidism [E03.9] 12/14/2014 Sensorineural hearing loss, bilateral [H90.3] 03/25/2015 Cochlear implant follow-up [Z48.89, Z96.21] 06/11/2017 Chronic constipation [K59.09] 06/18/[address] [Z96.21] 06/18/2017 Class 1 obesity without serious comorbidity wit*06/18/2017 Situational insomnia [F51.09] 06/07/2018 Bereavement [Z63.4] 06/07/2018 Situational anxiety [F41.8] 06/07/2018 Malignant neoplasm of upper lobe of right lung *08/08/2018 Discharge planning issues [Z75.8] 08/08/2018 Pain, postoperative, acute [G89.18] 08/08/2018 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 Hypothyroidism, acquired [E03.9] 08/23/2018 Adenocarcinoma of lung, stage 1, right (HCC) [C*08/23/2018 S/P lobectomy of lung [Z90.2] 08/23/2018 Actinic keratosis [L57.0] 03/27/2019 Nasal sore [J34.89] 05/22/2019 Bronchitis [J40] 05/22/2019 Malignant neoplasm of right upper lobe of lung * Vitamin D deficiency [E55.9] 03/01/2021 Urinary incontinence [R32] 06/04/2021 Cardiac murmur, previously undiagnosed [R01.1] 01/07/2022 Fatigue [R53.83] 01/07/2022 SOB (shortness of breath) [R06.02] 01/07/2022 History of lung cancer [Z85.118] 01/07/2022 Memory loss, short term [R41.3] 01/13/2023 Balance disorder [R26.89] 01/13/2023 Medication noncompliance due to cognitive impai*05/04/2023 Mild dementia without behavioral disturbance, p*05/04/2023 Dysuria [R30.0] 05/04/2023 Nausea [R11.0] 08/03/2023 Weight loss, unintentional [R63.4] (more content not included)... Normal [facility] Office Visiton 02-03-2024 Follow-up visit [id number] Gerber French rlfabienne 1935 F Date Provider Department Center 02/03/2024 [id number] GALAVIZ [facility] CS None No family history on file Level of Service:27058 [place] OFFICE/OUTPATIENT ESTABLISHED [facility] 40 MIN Reason for Visit and Comments: Dementia [30] Normal [facility] Progress Noteon 02-03-2024 Progress Note Review of Systems Constitutional: Positive for fatigue. Negative for appetite change, fever and unexpected weight change. HENT: Positive for hearing loss. Negative for dental problem and trouble swallowing. Eyes: Negative for visual disturbance. Respiratory: Negative for cough and shortness of breath. Cardiovascular: Positive for leg swelling. Gastrointestinal: Positive for diarrhea. Negative for constipation. Genitourinary: Negative for difficulty urinating and dysuria. Musculoskeletal: Positive for gait problem. Negative for arthralgias and back pain. Neurological: Negative for tremors, speech difficulty and weakness. Psychiatric/Behavioral: Positive for confusion and sleep disturbance. Negative for agitation, dysphoric mood and hallucinations. The patient is nervous/anxious. Normal [facility] Progress Note [facility] - [address] [address] Dept: [phone] Dept Loc: [phone] Visit type: [facility] Follow Up Visit Reason for Visit: Dementia Visit Date: 02/03/2024 Assessment and Plan 1. Alzheimer's dementia without behavioral disturbance (HCC) Family has not noticed any slowing of disease progression or improvements in cognition since starting the aricept. Possible it is contributing to intermittent diarrhea. Will trial a reduced dose of Aricept to 5 mg daily. Son asked about Donanemab. Discussed it is an infusion medication that attempts to slow cognition/function decline. It does require frequent MRI monitoring for side effects like brain bleeds. I am not sure about it's availability to the [facility]. Offered referral to Neurology to discuss monoclonal antibody options but son declined at this time after this discussion. MOCA test score declined from to 04/15. She did not have working hearing aids and it is possible that impacted the score a bit today Follow up in about 6 months (around 08/02/2024). Subjective HPI: Monserrat French is a 88 y.o. female with past medical history of Alzheimer's Disease who presents to the [facility] for a follow-up visit. The patient is known to me. Chart Review: -Initially seen in June 2023: Family started to notice memory issues back in 2021. Impaired short term memory. In they noticed she wasn't taking her medications. Family increased supervision. Got her a medication dispenser and calendar. 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 Sons now doing the banking. -MOCA , MIS 10/29 -Concerning for mild stage Alzheimer's Disease -started on aricept in July 2023 -Now in an assisted living - [facility] History obtained from caregiver(s): Son Leonid Arenas -She moved into assisted living in middle of December. Seems to like it so far. -Short term memory is definitely worsening with time. For example: she will forget she just ate lunch. -Taking care of her personal hygiene. -Uses signs and calenders. -Cognition seemed a lot better this morning after she drank gatorade -Mood: Sometimes gets frustrated with her memory issues. Can be talked through it pretty well. Overall seems to be in a good mood. Likes having people to talk to. -No longer driving. Had to give up her dog to move into the assisted living. However, she rarely brings up the car or the dog. Doesn't seem upset. -Hallucinations: none -Appetite: Good -Sleep: Seems to be OK. -She has had diarrhea off and on for the past 2-3 months. History obtained from patient: -She is very hard of hearing without her hearing aids (battery ran out). All questions were written down for her -She is feeling well. She notices issues with her memory. Will forget what just happened. Family reminds her -She likes her new assisted living. Participates in some activities like bingo -eating well, sleeping well Reviewed progress notes completed by AVRIL (LIANA) and social work. Allergies Allergen Reactions Sulfamethoxazole Rash shaking and chills, dry mouth Ampicillin Rash Ceftriaxone Rash Minocycline Rash shaking and chills , dry mouth Cephalosporins Rash Trimethoprim Rash Current Outpatient Medications Medication Sig Dispense Refill acetaminophen (Tylenol) 325 MG capsule Take 325 mg by mouth every 4 hours as needed for mild pain (1-3). aluminum & magnesium hydroxide-simethicone (Mylanta) 200-200-20 MG/5ML oral suspension Take 30 mL by mouth every 4 hours as needed for indigestion or heartburn. aspirin 81 MG EC tablet Take 81 mg by mouth daily. cholecalciferol (Vitamin D-3) 50 MCG (2000 UT) capsule Take 2,000 Units by mouth daily. guaiFENesin (Robitussin) 100 MG/5ML liquid Take 10 mL by mouth every 4 hours as needed for cough. Lactobacillus (ACIDOPHILUS PO) Take by mouth daily. levothyroxine (Synthroid, Levoxyl) 100 MCG tablet 100 mcg daily. Take one tablet daily for six days a week. Take 2 tablets one day of the week Multiple Vitamin (multivitamin) tablet Take 1 tablet by mouth daily. ondansetron (Zofran) 4 MG tablet Take 4 mg by mouth every 8 hours as needed for nausea or vomiting. sertraline (Zoloft) 50 MG tablet Take 50 mg by mouth daily. simvastatin (Zocor) 40 MG tablet Take 40 mg by mouth Nightly. donepezil (Aricept) 5 MG tablet Take 1 tablet (5 mg) by mouth Nightly. 30 tablet 11 Probiotic Product (PROBIOTIC-10 PO) Take by mouth. No current facility-administered medications for this visit. Past Medical History: Diagnosis Date Actinic keratosis 03/27/2019 Adenocarcinoma of lung, stage 1, right (HCC) 08/23/2018 Balance disorder 01/13/2023 Bronchitis 05/22/2019 Cardiac murmur, previously undiagnosed 01/07/2022 Chronic constipation 2/2 (more content not included)... Normal [facility] Progress Note [facility] Social History Present at visit: patient, son Leonid, daughter in law Deepa Marital status: Children: 3 children (none) Living arrangement: alone, own home >>02/03/24 [facility] in [place] Household safety problems: fell once last year, no injury, no longer has access to stove >>02/03/24 none Concerning Behaviors: Hallucinations, rare, a little anxiety >>02/03/24 no Wandering potential: No >>02/03/24 no Pets: Yes, 1 dog, no issues caring for the dog Guns in the home: None Elder abuse: Yes, money was disappearing out of her accounts, kids now on her accounts >>02/03/24 no longer has access to get scammed Alcohol/Tobacco/Marijua na/Drug Use History: minimal when she is out service: Neither pt or spouse/partner Highest level of education: HS Occupation: retired from bureau director Activities: goes to [employer] basketball games in winter, plays cards once per week, gets together with friends, goes to visit family several times per year >>02/03/24 participating in activities if prompted Exercise: walks the dog Finances: minimal savings, income- slightly overqualified for Passport/Medicaid >>02/03/24 on Medicaid My Chart: Only son uses Healthcare Power of Archivist: Yes: nguyễn Jaquez Financial Power of Archivist: Yes: nguyễn Jaquez Living Will: Yes Guardian: No Code Status: Full Code Primary Caregiver: davi Jaquez and Boris >>02/03/24 staff at facility, davi Current care plan/supervision: sons talk to her every few days, one kid seeing her once per month >>02/03/24 has 24 hour supervision at facility Community resources: Yes: Home Delivered Meals and Video Monitoring, has a lady who comes to clean on occasion >>02/03/24 In Assisted Living Caregiver stressors: denies >>02/03/24 less stress due to patient being in Assisted Living Goals for care: evaluate memory, resources As a Caregiver, What Matters Most to You: Patient safety, medications >>06/24/23 Sons noticed that patient was starting to have trouble with finances and medications. They have taken over her finances and monitor her accounts. Patient wasn't taking her medications, then was over taking medications. Now they have implemented a new system which is working for the last week. SW gave son information on alarmed medications dispensers. Kids all live far from patient, 1 in [place], 1 in [place], and 1 in [place]. >>02/03/24 Son noticing increased decline in short term memory. Family noticed that patient's memory started rapidly declining about 4 months ago. Wasn't taking her medications correctly. Family moved her into Assisted Living and patient is adapting to it well. Patient will participate in activities if she remembers them. SW encouraged them to ask facility staff to remind her. No resources given today. Functional Status (I: Independent, A: Assisted, D: Dependent) ADLs I A D Notes Bathing [x] [] [] No issues >>02/03/24 no issues Dressing [x] [] [] No issues Toileting [x] [] [] No issues Transfers [x] [] [] No issues Feeding [x] [] [] No issues Ambulation [x] [] [] none Assistive devices: Grab bars and Hearing aids IADLs I A D Telephone [] [x] [] Has a cell phone, can call and answer, can text (sometimes get confused), can set up own appointments, does miss some appointments >>02/03/24 can call and answer, family sets up appointments, needs reminders Transportation [] [] [x] Driving safety concerns: still driving, only local, gets turned around sometimes, no night driving >>02/03/24 no longer driving Shopping [] [] [x] Forgets what she needs, overbuying same items >>02/03/24 family picks up items for her Meal prep [] [x] [] Gets mobile meals, not losing weight or forgetting to eat, just heating things up, doesn't access to stove >>02/03/24 facility provides Housework [] [x] [] Still cleaning, neighbor helps sometimes >>02/03/24 facility provides cleaning and laundry Medications [] [] [x] Was not taking them and then was overtaking them, new system implemented and she is doing ok >>02/03/24 facility admnisters Finances [] [] [x] Sons managing finances, patient was getting scammed, was forgetting to pay bills, was overdrafting, was taking a lot of blackwell out of bank. Patient can carry blackwell/cards appropriately >>02/03/24 family manages Normal [facility] Urine Cultureon 01-19-2024 URC Below infection leve l. Mixed Gram Pos Gram Neg Org Gillett Count 1000-10,000 MIXC Mixed contaminants. Submit a new specimen if indicated. Normal [facility] Comment on above: Performed By: #### M 100.2200, L400.0001 #### [facility] [address] [place], [address] Urinalysis, Completeon 01-17 BACTERIA 2+ /hpf Normal None Seen [facility] Comment on above: Order Comment: CLEAN CATCH Performed By: #### M 100.2200, L400.0001 #### [facility] [address] [place], [address] EPI,SQUAMOUS 0-5 SEEN Normal 5-10 [facility] Comment on above: Order Comment: CLEAN CATCH Performed By: #### M 100.2200, [id number] #### [facility] [address] [place], [address] RBC 10-25 SEEN Normal 0-5 [facility] Comment on above: Order Comment: CLEAN CATCH Performed By: #### M 100.2200, [id number] #### [facility] [address] [place], [address] WBC >100 SEEN Normal 0-5 [facility] Comment on above: Order Comment: CLEAN CATCH Performed By: #### M 100.2200, [id number] #### [facility] [address] [place], [address] Mucus Ql (Urine sed) 0 SEEN Normal [facility] Comment on above: Order Comment: CLEAN CATCH Performed By: #### M 100.2200, [id number] #### [facility] [address] [place], [address] Rusty 01-05-2024 [facility] Telephone ([facility]) MONSERRAT FRENCH ([id number]) 1935 F DEF Date Time Provider Department 01/05/24 [facility] ORTI[facility] During your visit today, we recorded the following information about you: Lazara Ingram MA 01/05/2024 12:56 PM Signed Please see pt message -- BC Dr. Ortiz - This is Monserrat's son, Boris. She was moved to Assisted Living at [facility] on December 26. Two items: 1) She has been having frequent accidents with peeing herself and bowel movements. Not sure if she's forgetting and moving too slow or there is another underlying issue. Please advise. She has a follow-up with you on March 31. 2) Her left side, hip, knee and ankle appear to be bothering her. There is PT available at [facility] with a doctor's orders. Should we pursue this? Thanks Boris Abel Ortiz, DO 01/05/2024 9:06 PM Signed Yes, agree with need for PHYSICAL THERAPY for her left knee and hip and ankle pain Please call the assisted living to place this order by verbal if able or I can sign faxed order Also need for UA culture and sensitivitiy to be checked Lazara Schwartz MA 01/06/2024 4:21 PM Signed Attempted to contact [facility] assisted living nurse with no answer. Will need to try again. AVRIL Harrison Linda M, CAD INTERN 01/10/2024 1:03 PM Signed Left message for nurse to return call. Lou Cortes, RN 01/12/2024 3:42 PM Signed Patient's daughter in law, Albertina calling to request orders for PT and UA/ C+S be faxed to [facility]. . DARYA Florez Bernadette, PA-C 01/13/2024 3:06 PM Signed Consult to PT ordered and UA with culture. Please print and fax. Rosario Pandey PA-C 01/13/2024 Lazara Ingram MA 01/13/2024 4:08 PM Signed Consult and Urine order faxed. Lazara Ingram MA Allergies As of Date: 01/05/2024 Noted Allergy Reaction BACTRIM (SULFAMETHOXAZOLE) 08/28/2010 2 - Rash Comments: shaking and chills, dry mouth AMOXICILLIN 02/20/2005 2 - Rash AMPICILLIN 07/22/2011 2 - Rash CEPHALOSPORINS 02/20/2005 2 - Rash MINOCYCLINE 07/22/2011 2 - Rash Comments: shaking and chills , dry mouth ROCEPHIN (CEFTRIAXONE SODIUM) 07/22/2011 2 - Rash Date Reviewed: 11/09/2023 Reviewed by: Zoraida De La Garza LPN - Fully Assessed Reason for Visit: Patient Update [1234] Primary Visit Diagnosis:Osteoarthriti s of other site, unspecified osteoarthritis type [M19.09] Other Visit Diagnosis:Urinary incontinence, unspecified type [R32] Order(s):CONSULT TO PHYSICAL THERAPY [9032] Order #: [id number]: 1 FUTURE URINALYSIS WITH MICROSCOPIC, REFLEX CULTURE [SQUACII] Order #: [id number] FUTURE Prescriptions as of 01/13/2024 - sertraline (ZOLOFT) 50 mg tablet Take 1 tablet by mouth daily at bedtime. - donepezil (ARICEPT) 10 mg tablet Take 1 tablet by mouth daily at bedtime. - simvastatin (ZOCOR) 40 mg tablet Take 1 tablet by mouth daily at bedtime. - ondansetron orally disintegrating (ZOFRAN ODT) 4 mg disintegrating tablet Take 1 tablet by mouth every 8 hours as needed for nausea/vomiting. - cholecalciferol, vitamin D3, (VITAMIN D3 50 MCG, 2,000 UNIT, GUMMIES) - levothyroxine (SYNTHROID) 100 mcg tablet Take 1 tablet by mouth once daily 6 days a week and 2 tablets one day per week. Take on an empty stomach. - Lactobacillus acidophilus (PROBIOTIC ORAL) Take by mouth once daily. - MULTIVITAMIN TAB Take one(1) tablet daily. - ASPIRIN 81 MG TAB Take one(1) tablet daily. Problem List As Of Date 01/05/2024 Noted Resolved Pure Hypercholesterolemia [E78.00] 02/23/2005 GENERAL OSTEOARTHROSIS [M15.9] 02/23/2005 OBESITY NOS [E66.9] 06/26/2008 Diverticulosis [K57.90] 02/21/2009 Labial abscess [N76.4] 07/14/2010 Hypothyroidism [E03.9] 07/22/2011 Colitis [K52.9] 06/15/2012 GI bleed [K92.2] 06/15/2012 Acquired hypothyroidism [E03.9] 12/14/2014 Sensorineural hearing loss, bilateral [H90.3] 03/25/2015 Cochlear implant follow-up [Z48.89, Z96.21] 06/11/2017 Chronic constipation [K59.09] 06/18/[address] [Z96.21] 06/18/2017 Class 1 obesity without serious comorbidity wit*06/18/2017 Situational insomnia [F51.09] 06/07/2018 Bereavement [Z63.4] 06/07/2018 Situational anxiety [F41.8] 06/07/2018 Malignant neoplasm of upper lobe of right lung *08/08/2018 Discharge planning issues [Z75.8] 08/08/2018 Pain, postoperative, acute [G89.18] 08/08/2018 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 Normal [facility] CNPNon 12-02-2023 CNPN Telephone ([facility]) MONSERRAT FRENCH ([id number]) 1935 F DEF Date Time Provider Department 12/02/23 ABEL ORTIZ [facility] During your visit today, we recorded the following information about you: Malgorzata Reardon RN 12/02/2023 10:08 AM Signed Rubina with [facility] calling to update PCP office that she will be faxing over a form this morning for provider to review and complete for level of care for patient. Patient is moving into [facility] today. For any questions call Rubina at [phone] DARYA Alvarenga Jazzmin, MA 12/03/2023 12:02 PM Signed Form on JG desk AVRIL Harrison Jordan L, DO 12/08/2023 9:51 PM Signed Paperwork signed DO Apolinar Leiva Linda M, LPN 12/09/2023 8:35 AM Signed Paperworked faxed back. Allergies As of Date: 12/02/2023 Noted Allergy Reaction BACTRIM (SULFAMETHOXAZOLE) 08/28/2010 2 - Rash Comments: shaking and chills, dry mouth AMOXICILLIN 02/20/2005 2 - Rash AMPICILLIN 07/22/2011 2 - Rash CEPHALOSPORINS 02/20/2005 2 - Rash MINOCYCLINE 07/22/2011 2 - Rash Comments: shaking and chills , dry mouth ROCEPHIN (CEFTRIAXONE SODIUM) 07/22/2011 2 - Rash Date Reviewed: 11/09/2023 Reviewed by: Zoraida De La Garza LPN - Fully Assessed Reason for Visit: Fax Update [Other] Prescriptions as of 12/09/2023 - sertraline (ZOLOFT) 50 mg tablet Take 1 tablet by mouth daily at bedtime. - donepezil (ARICEPT) 10 mg tablet Take 1 tablet by mouth daily at bedtime. - simvastatin (ZOCOR) 40 mg tablet Take 1 tablet by mouth daily at bedtime. - ondansetron orally disintegrating (ZOFRAN ODT) 4 mg disintegrating tablet Take 1 tablet by mouth every 8 hours as needed for nausea/vomiting. - cholecalciferol, vitamin D3, (VITAMIN D3 50 MCG, 2,000 UNIT, GUMMIES) - levothyroxine (SYNTHROID) 100 mcg tablet Take 1 tablet by mouth once daily 6 days a week and 2 tablets one day per week. Take on an empty stomach. - Lactobacillus acidophilus (PROBIOTIC ORAL) Take by mouth once daily. - MULTIVITAMIN TAB Take one(1) tablet daily. - ASPIRIN 81 MG TAB Take one(1) tablet daily. Problem List As Of Date 12/02/2023 Noted Resolved Pure Hypercholesterolemia [E78.00] 02/23/2005 GENERAL OSTEOARTHROSIS [M15.9] 02/23/2005 OBESITY NOS [E66.9] 06/26/2008 Diverticulosis [K57.90] 02/21/2009 Labial abscess [N76.4] 07/14/2010 Hypothyroidism [E03.9] 07/22/2011 Colitis [K52.9] 06/15/2012 GI bleed [K92.2] 06/15/2012 Acquired hypothyroidism [E03.9] 12/14/2014 Sensorineural hearing loss, bilateral [H90.3] 03/25/2015 Cochlear implant follow-up [Z48.89, Z96.21] 06/11/2017 Chronic constipation [K59.09] 06/18/[address] [Z96.21] 06/18/2017 Class 1 obesity without serious comorbidity wit*06/18/2017 Situational insomnia [F51.09] 06/07/2018 Bereavement [Z63.4] 06/07/2018 Situational anxiety [F41.8] 06/07/2018 Malignant neoplasm of upper lobe of right lung *08/08/2018 Discharge planning issues [Z75.8] 08/08/2018 Pain, postoperative, acute [G89.18] 08/08/2018 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 Hypothyroidism, acquired [E03.9] 08/23/2018 Adenocarcinoma of lung, stage 1, right (HCC) [C*08/23/2018 S/P lobectomy of lung [Z90.2] 08/23/2018 Actinic keratosis [L57.0] 03/27/2019 Nasal sore [J34.89] 05/22/2019 Bronchitis [J40] 05/22/2019 Malignant neoplasm of right upper lobe of lung * Vitamin D deficiency [E55.9] 03/01/2021 Urinary incontinence [R32] 06/04/2021 Cardiac murmur, previously undiagnosed [R01.1] 01/07/2022 Fatigue [R53.83] 01/07/2022 SOB (shortness of breath) [R06.02] 01/07/2022 History of lung cancer [Z85.118] 01/07/2022 Memory loss, short term [R41.3] 01/13/2023 Balance disorder [R26.89] 01/13/2023 Medication noncompliance due to cognitive impai*05/04/2023 Mild dementia without behavioral disturbance, p*05/04/2023 Dysuria [R30.0] 05/04/2023 Nausea [R11.0] 08/03/2023 Weight loss, unintentional [R63.4] 11/09/2023 Major depressive disorder with current active e*11/09/2023 Encounter Status:Closed by SUMMER DUNBAR on 12/09/23 [facility] 12-01-2023 [facility] Telephone (FAMPWS) MONSERRAT FRENCH ([id number]) 1935 F DEF Date Time Provider Department 12/01/23 [facility] During your visit today, we recorded the following information about you: Abel Ortiz, 12/01/2023 1:04 PM Signed Please call son and let him know that her blood work overall is stable except her TSH was slightly high, which means that she was likely missing some of her doses of her synthroid and we need to try to keep this consistent in the AM before eating Abel Greg Ortiz, Anisha Palmer LPN 12/01/2023 3:14 PM Signed Phoned patient son Leonid and went over results, notes from Dr Ortiz with understanding. He is try to get assistance from assisted living with making sure mother is getting her medications since he lives in [place]. Allergies As of Date: 12/01/2023 Noted Allergy Reaction BACTRIM (SULFAMETHOXAZOLE) 08/28/2010 2 - Rash Comments: shaking and chills, dry mouth AMOXICILLIN 02/20/2005 2 - Rash AMPICILLIN 07/22/2011 2 - Rash CEPHALOSPORINS 02/20/2005 2 - Rash MINOCYCLINE 07/22/2011 2 - Rash Comments: shaking and chills , dry mouth ROCEPHIN (CEFTRIAXONE SODIUM) 07/22/2011 2 - Rash Date Reviewed: 11/09/2023 Reviewed by: Zoraida De La Garza LPN - Fully Assessed Reason for Visit: Results [95] Prescriptions as of 12/01/2023 - sertraline (ZOLOFT) 50 mg tablet Take 1 tablet by mouth daily at bedtime. - donepezil (ARICEPT) 10 mg tablet Take 1 tablet by mouth daily at bedtime. - simvastatin (ZOCOR) 40 mg tablet Take 1 tablet by mouth daily at bedtime. - ondansetron orally disintegrating (ZOFRAN ODT) 4 mg disintegrating tablet Take 1 tablet by mouth every 8 hours as needed for nausea/vomiting. - cholecalciferol, vitamin D3, (VITAMIN D3 50 MCG, 2,000 UNIT, GUMMIES) - levothyroxine (SYNTHROID) 100 mcg tablet Take 1 tablet by mouth once daily 6 days a week and 2 tablets one day per week. Take on an empty stomach. - Lactobacillus acidophilus (PROBIOTIC ORAL) Take by mouth once daily. - MULTIVITAMIN TAB Take one(1) tablet daily. - ASPIRIN 81 MG TAB Take one(1) tablet daily. Problem List As Of Date 12/01/2023 Noted Resolved Pure Hypercholesterolemia [E78.00] 02/23/2005 GENERAL OSTEOARTHROSIS [M15.9] 02/23/2005 OBESITY NOS [E66.9] 06/26/2008 Diverticulosis [K57.90] 02/21/2009 Labial abscess [N76.4] 07/14/2010 Hypothyroidism [E03.9] 07/22/2011 Colitis [K52.9] 06/15/2012 GI bleed [K92.2] 06/15/2012 Acquired hypothyroidism [E03.9] 12/14/2014 Sensorineural hearing loss, bilateral [H90.3] 03/25/2015 Cochlear implant follow-up [Z48.89, Z96.21] 06/11/2017 Chronic constipation [K59.09] 06/18/[address] [Z96.21] 06/18/2017 Class 1 obesity without serious comorbidity wit*06/18/2017 Situational insomnia [F51.09] 06/07/2018 Bereavement [Z63.4] 06/07/2018 Situational anxiety [F41.8] 06/07/2018 Malignant neoplasm of upper lobe of right lung *08/08/2018 Discharge planning issues [Z75.8] 08/08/2018 Pain, postoperative, acute [G89.18] 08/08/2018 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 Hypothyroidism, acquired [E03.9] 08/23/2018 Adenocarcinoma of lung, stage 1, right (HCC) [C*08/23/2018 S/P lobectomy of lung [Z90.2] 08/23/2018 Actinic keratosis [L57.0] 03/27/2019 Nasal sore [J34.89] 05/22/2019 Bronchitis [J40] 05/22/2019 Malignant neoplasm of right upper lobe of lung * Vitamin D deficiency [E55.9] 03/01/2021 Urinary incontinence [R32] 06/04/2021 Cardiac murmur, previously undiagnosed [R01.1] 01/07/2022 Fatigue [R53.83] 01/07/2022 SOB (shortness of breath) [R06.02] 01/07/2022 History of lung cancer [Z85.118] 01/07/2022 Memory loss, short term [R41.3] 01/13/2023 Balance disorder [R26.89] 01/13/2023 Medication noncompliance due to cognitive impai*05/04/2023 Mild dementia without behavioral disturbance, p*05/04/2023 Dysuria [R30.0] 05/04/2023 Nausea [R11.0] 08/03/2023 Weight loss, unintentional [R63.4] 11/09/2023 Major depressive disorder with current active e*11/09/2023 Encounter Status:Closed by ANISHA CHAMPAGNE on 12/01/23 [facility] 11-29-2023 [facility] Telephone (FAMPWS) MONSERRAT FRENCH ([id number]) 1935 F DEF Date Time Provider Department 11/29/23 ABEL ORTIZ [facility] During your visit today, we recorded the following information about you: Summer Dunbar, JERE 11/29/2023 10:[address] Ortiz - This is Monserrat Hicks's son. Mom has had a rough couple of weeks with frequent peeing accidents and more confusion than she has been exhibiting. A neighbor has been checking on her daily and it seems she won't eat unless fed by her. We have removed her dog from the house as she stated she was too tired to walk or care for it. We have an opening at [facility] and she will be likely going there soon. My brother should be in town Wednesday or Wednesday next week. Two questions: 1) Wondering about the peeing and extra confusion. I've heard this could be UTI? [place] having her checked? 2) Assisted Living says we'll need your office to fill out some paperwork. How best to coordinate that? Thanks Haydee Barahona APRN.[employer]ER 11/29/2023 11:25 AM Signed Should have appointment to assess all of this. Thank you, Haydee Jhaveri APRN.CHARLOTTE Mahi AnishaJERE 11/29/2023 1:19 PM Signed Attempted to call patient son Steve, his phone was not accepting calls. Sending notes below to my chart. Zoraida De La Garza LPN 11/30/2023 1:49 PM Signed Forms received and Faxed back to [facility]. Allergies As of Date: 11/29/2023 Noted Allergy Reaction BACTRIM (SULFAMETHOXAZOLE) 08/28/2010 2 - Rash Comments: shaking and chills, dry mouth AMOXICILLIN 02/20/2005 2 - Rash AMPICILLIN 07/22/2011 2 - Rash CEPHALOSPORINS 02/20/2005 2 - Rash MINOCYCLINE 07/22/2011 2 - Rash Comments: shaking and chills , dry mouth ROCEPHIN (CEFTRIAXONE SODIUM) 07/22/2011 2 - Rash Date Reviewed: 11/09/2023 Reviewed by: Zoraida De La Garza LPN - Fully Assessed Prescriptions as of 02/16/2024 - sertraline (ZOLOFT) 50 mg tablet Take 1 tablet by mouth daily at bedtime. - donepezil (ARICEPT) 10 mg tablet Take 1 tablet by mouth daily at bedtime. - simvastatin (ZOCOR) 40 mg tablet Take 1 tablet by mouth daily at bedtime. - ondansetron orally disintegrating (ZOFRAN ODT) 4 mg disintegrating tablet Take 1 tablet by mouth every 8 hours as needed for nausea/vomiting. - cholecalciferol, vitamin D3, (VITAMIN D3 50 MCG, 2,000 UNIT, GUMMIES) - levothyroxine (SYNTHROID) 100 mcg tablet Take 1 tablet by mouth once daily 6 days a week and 2 tablets one day per week. Take on an empty stomach. - Lactobacillus acidophilus (PROBIOTIC ORAL) Take by mouth once daily. - MULTIVITAMIN TAB Take one(1) tablet daily. - ASPIRIN 81 MG TAB Take one(1) tablet daily. Problem List As Of Date 11/29/2023 Noted Resolved Pure Hypercholesterolemia [E78.00] 02/23/2005 GENERAL OSTEOARTHROSIS [M15.9] 02/23/2005 OBESITY NOS [E66.9] 06/26/2008 Diverticulosis [K57.90] 02/21/2009 Labial abscess [N76.4] 07/14/2010 Hypothyroidism [E03.9] 07/22/2011 Colitis [K52.9] 06/15/2012 GI bleed [K92.2] 06/15/2012 Acquired hypothyroidism [E03.9] 12/14/2014 Sensorineural hearing loss, bilateral [H90.3] 03/25/2015 Cochlear implant follow-up [Z48.89, Z96.21] 06/11/2017 Chronic constipation [K59.09] 06/18/[address] [Z96.21] 06/18/2017 Class 1 obesity without serious comorbidity wit*06/18/2017 Situational insomnia [F51.09] 06/07/2018 Bereavement [Z63.4] 06/07/2018 Situational anxiety [F41.8] 06/07/2018 Malignant neoplasm of upper lobe of right lung *08/08/2018 Discharge planning issues [Z75.8] 08/08/2018 Pain, postoperative, acute [G89.18] 08/08/2018 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 Hypothyroidism, acquired [E03.9] 08/23/2018 Adenocarcinoma of lung, stage 1, right (HCC) [C*08/23/2018 S/P lobectomy of lung [Z90.2] 08/23/2018 Actinic keratosis [L57.0] 03/27/2019 Nasal sore [J34.89] 05/22/2019 Bronchitis [J40] 05/22/2019 Malignant neoplasm of right upper lobe of lung * Vitamin D deficiency [E55.9] 03/01/2021 Urinary incontinence [R32] 06/04/2021 Cardiac murmur, previously undiagnosed [R01.1] 01/07/2022 Fatigue [R53.83] 01/07/2022 SOB (shortness of breath) [R06.02] 01/07/2022 History of lung cancer [Z85.118] 01/07/2022 Memory loss, short term [R41.3] 01/13/2023 Balance disorder [R26.89] 01/13/2023 Medication noncompliance due to cognitive impai*05/04/2023 Mild dementia without behavioral disturbance, p*05/04/2023 Dysuria [R30.0] 05/04/2023 Nausea [R11.0] 08/03/2023 Weight loss, unintentional [R63.4] 11/09/2023 Major depressive disorder with current active e*11/09/2023 Encounter Status:Closed by SUMMER DUNBAR on 02/16/24 Normal [facility] 25(OH)D3 SerPl-mCncon 2023 25-hydroxyvitamin D3 [Mass/Vol] 42.3 ng/mL Normal 31.0-80.0 [facility] Comment on above: Order Comment: Speci men Type: BLOOD SPECIMEN Ordering Facility: [facility] Address: [address] [place] [address] Result Comment: Clas sification of 25 OH Vitamin D status: Deficiency/Insufficiency: < or = 30 ng/ml. Sufficiency/Optimal Levels: 31-80 ng/mL Toxicity: > 100 ng/mL. Test performed by chemiluminescent immunoassay. Performed By: #### 3 016-3, 2132-9, 63319-5 #### [facility] CLIA [id number] [address] [place], [place] [address] [place] [address] [place] CBC W Auto Differential pane l (Bld)on 11-09-2023 Basophils (Bld) [#/Vol] 0.04 10*3/uL [facility] Basophils/100 WBC (Bld) 0.7 % [facility] Differential cell count method Nom (Bld) Auto [facility] Eosinophils (Bld) [#/Vol] 0.07 10*3/uL [facility] Eosinophils/100 WBC (Bld) 1.2 % [facility] Erythrocyte distribution width (RBC) [Ratio] 13.2 % 11.5 - 15.0 % [facility] Hematocrit (Bld) [Volume fraction] 40.6 % 36.0 - 46.0 % [facility] Hemoglobin (Bld) [Mass/Vol] 13.3 g/dL 11.5 - 15.5 g/dL [facility] Immature granulocytes (Bld) [#/Vol] [facility] Immature granulocytes/100 WBC (Bld) 0.2 % [facility] Interpretation and review of laboratory results Abnormal [facility] Lymphocytes (Bld) [#/Vol] 0.99 10*3/uL Low [facility] Lymphocytes/100 WBC (Bld) 17.2 % [facility] MCH (RBC) [Entitic mass] 31.1 pg 26.0 - 34.0 pg [facility] MCHC (RBC) [Mass/Vol] 32.8 g/dL 30.5 - 36.0 g/dL [facility] MCV (RBC) [Entitic vol] 94.9 fL 80.0 - 100.0 fL [facility] Monocytes (Bld) [#/Vol] 0.49 10*3/uL [facility] Monocytes/100 WBC (Bld) 8.5 % [facility] Neutrophils (Bld) [#/Vol] 4.14 10*3/uL [facility] Neutrophils/100 WBC (Bld) 72.2 % [facility] Nucleated RBC (Bld) [#/Vol] NINF [facility] Nucleated RBC/100 WBC (Bld) [Ratio] 0.0 % /100 WBC [facility] Platelet mean volume (Bld) [Entitic vol] 11.3 fL 9.0 - 12.7 fL [facility] Platelets (Bld) [#/Vol] 190 10*3/uL [facility] RBC (Bld) [#/Vol] 4.28 10*6/uL 3.90 - 5.2 0 m/uL [facility] WBC (Bld) [#/Vol] 5.74 10*3/uL [facility] Basophils (Bld) [#/Vol] 0.04 10*3/uL Normal <0.11 [facility] Comment on above: Order Comment: Speci men Type: BLOOD SPECIMEN Ordering Facility: [facility] Address: [address] [place] [address] Performed By: #### 3 016-3, 2132-9, 87948-7 #### [facility] CLIA [id number] [address] [place] [address] [place] Basophils/100 WBC (Bld) 0.7 % Normal [facility] Comment on above: Order Comment: Speci men Type: BLOOD SPECIMEN Ordering Facility: [facility] Address: [address] [place] [address] Performed By: #### 3 016-3, 2132-01, #### [facility] CLIA [id number] [address] [place] [address] [place] Differential cell count method Nom (Bld) Auto Normal [facility] Comment on above: Order Comment: Speci men Type: BLOOD SPECIMEN Ordering Facility: [facility] Address: [address] [place] [address] Performed By: #### 3 016-3, 2132-01, #### [facility] CLIA [id number] [address] [place] [address] [place] Eosinophils (Bld) [#/Vol] 0.07 10*3/uL Normal <0.46 [facility] Comment on above: Order Comment: Speci men Type: BLOOD SPECIMEN Ordering Facility: [facility] Address: [address] [place] [address] Performed By: #### 3 016-3, 2132-01, #### [facility] CLIA [id number] [address] [place] [address] [place] Eosinophils/100 WBC (Bld) 1.2 % Normal [facility] Comment on above: Order Comment: Speci men Type: BLOOD SPECIMEN Ordering Facility: [facility] Address: [address] [place] [address] Performed By: #### 3 016-3, 2132-01, #### [facility] CLIA [id number] [address] [place] [address] [place] Erythrocyte distribution width (RBC) [Ratio] 13.2 % Normal 11.5-15.0 [facility] Comment on above: Order Comment: Speci men Type: BLOOD SPECIMEN Ordering Facility: [facility] Address: [address] [place] [address] Performed By: #### 3 016-3, 2132-01, #### [facility] CLIA [id number] [address] [place] [address] [place] Hematocrit (Bld) [Volume fraction] 40.6 % Normal 36.0-46.0 [facility] Comment on above: Order Comment: Speci men Type: BLOOD SPECIMEN Ordering Facility: [facility] Address: [address] [place] [address] Performed By: #### 3 016-3, 2132-01, #### [facility] CLIA [id number] [address] [place] [address] [place] Hemoglobin (Bld) [Mass/Vol] 13.3 g/dL Normal 11.5-15.5 [facility] Comment on above: Order Comment: Speci men Type: BLOOD SPECIMEN Ordering Facility: [facility] Address: [address] [place] [address] Performed By: #### 3 3, 2132-01, #### [facility] CLIA [id number] [address] [place] [address] [place] Immature granulocytes (Bld) [#/Vol] 10*3/uL Normal <0.10 [facility] Comment on above: Order Comment: Speci men Type: BLOOD SPECIMEN Ordering Facility: [facility] Address: [address] [place] [address] Performed By: #### 3 016-3, 2132-01, #### [facility] CLIA [id number] [address] [place] [address] [place] Immature granulocytes/100 WBC (Bld) 0.2 % Normal [facility] Comment on above: Order Comment: Speci men Type: BLOOD SPECIMEN Ordering Facility: [facility] Address: [address] [place] [address] Performed By: #### 3 016-3, 2132-01, #### [facility] CLIA [id number] [address] [place] [address] [place] Lymphocytes (Bld) [#/Vol] 0.99 10*3/uL Low 1.00-4.00 [facility] Comment on above: Order Comment: Speci men Type: BLOOD SPECIMEN Ordering Facility: [facility] Address: [address] [place] [address] Performed By: #### 3 016-3, 2132-01, #### [facility] CLIA [id number] [address] [place] [address] [place] Lymphocytes/100 WBC (Bld) 17.2 % Normal [facility] Comment on above: Order Comment: Speci men Type: BLOOD SPECIMEN Ordering Facility: [facility] Address: [address] [place] [address] Performed By: #### 3 016-3, 2132-01, #### [facility] CLIA [id number] [address] [place] [address] [place] MCH (RBC) [Entitic mass] 31.1 pg Normal 26.0-34.0 [facility] Comment on above: Order Comment: Speci men Type: BLOOD SPECIMEN Ordering Facility: [facility] Address: [address] [place] [address] Performed By: #### 3 016-3, 2132-01, #### [facility] CLIA [id number] [address] [place] [address] [place] MCHC (RBC) [Mass/Vol] 32.8 g/dL Normal 30.5-36.0 [facility] Comment on above: Order Comment: Speci men Type: BLOOD SPECIMEN Ordering Facility: [facility] Address: [address] [place] [address] Performed By: #### 3 016-3, 2132-01, #### [facility] CLIA [id number] [address] [place] [address] [place] MCV (RBC) [Entitic vol] 94.9 fL Normal 80.0-100.0 [facility] Comment on above: Order Comment: Speci men Type: BLOOD SPECIMEN Ordering Facility: [facility] Address: [address] [place] [address] Performed By: #### 3 016-3, 2132-01, #### [facility] CLIA [id number] [address] [place] [address] [place] Monocytes (Bld) [#/Vol] 0.49 10*3/uL Normal <0.87 [facility] Comment on above: Order Comment: Speci men Type: BLOOD SPECIMEN Ordering Facility: [facility] Address: [address] [place] [address] Performed By: #### 3 016-3, 2132-01, #### [facility] CLIA [id number] [address] [place] [address] [place] Monocytes/100 WBC (Bld) 8.5 % Normal [facility] Comment on above: Order Comment: Speci men Type: BLOOD SPECIMEN Ordering Facility: [facility] Address: [address] [place] [address] Performed By: #### 3 016-3, 2132-01, #### [facility] CLIA [id number] [address] [place] [address] [place] Neutrophils (Bld) [#/Vol] 4.14 10*3/uL Normal 1.45-7.50 [facility] Comment on above: Order Comment: Speci men Type: BLOOD SPECIMEN Ordering Facility: [facility] Address: [address] [place] [address] Performed By: #### 3 016-3, 2132-01, #### [facility] CLIA [id number] [address] [place] [address] [place] Neutrophils/100 WBC (Bld) 72.2 % Normal [facility] Comment on above: Order Comment: Speci men Type: BLOOD SPECIMEN Ordering Facility: [facility] Address: [address] [place] [address] Performed By: #### 3 016-3, 2132-01, #### [facility] CLIA [id number] [address] [place] [address] [place] Nucleated RBC (Bld) [#/Vol] 10*3/uL Normal <0.01 [facility] Comment on above: Order Comment: Speci men Type: BLOOD SPECIMEN Ordering Facility: [facility] Address: [address] [place] [address] Performed By: #### 3 016-3, 2132-01, #### [facility] CLIA [id number] [address] [place] [address] [place] Nucleated RBC/100 WBC (Bld) [Ratio] 0.0 /100 WBC Normal [facility] Comment on above: Order Comment: Speci men Type: BLOOD SPECIMEN Ordering Facility: [facility] Address: [address] [place] [address] Performed By: #### 3 016-3, 2132-01, #### [facility] CLIA [id number] [address] [place] [address] [place] Platelet mean volume (Bld) [Entitic vol] 11.3 fL Normal 9.0-12.7 [facility] Comment on above: Order Comment: Speci men Type: BLOOD SPECIMEN Ordering Facility: [facility] Address: [address] [place] [address] Performed By: #### 3 016-3, 2132-01, #### [facility] [facility] CLIA [id number] [address] [place] [address] [place] Platelets (Bld) [#/Vol] 190 10*3/uL Normal 150-400 [facility] Comment on above: Order Comment: Speci men Type: BLOOD SPECIMEN Ordering Facility: [facility] Address: [address] [place] [address] Performed By: #### 3 016-3, 2131-9, 25054-7 #### [facility] CLIA [id number] [address] [place] [address] [place] RBC (Bld) [#/Vol] 4.28 10*6/uL Normal 3.90-5.20 [facility] Comment on above: Order Comment: Speci men Type: BLOOD SPECIMEN Ordering Facility: [facility] Address: [address] [place] [address] Performed By: #### 3 016-3, 2131-9, 93247-5 #### [facility] CLIA [id number] [address] [place] [address] [place] WBC (Bld) [#/Vol] 5.74 10*3/uL Normal 3.70-11.00 [facility] Comment on above: Order Comment: Speci men Type: BLOOD SPECIMEN Ordering Facility: [facility] Address: [address] [place] [address] Performed By: #### 3 016-3, 2131-9, 91186-8 #### [facility] CLIA [id number] [address] [place] [address] [place] CNOVon 11-09-2023 CNOV Office Visit (FAMPWS ) MONSERRAT FRENCH ([id number]) 1935 F DEF Date Time Provider Department 11/09/23 10:00 AM ABEL ORTIZ During your visit today, we recorded the following information about you: Temperature Pulse Respiration Blood pressure 97 degrees 80/minute 16/minute 120/70 Weight 68.5 kg OrtizAbel mar, DO 11/09/2023 11:02 AM Signed CC: Monserrat French is a 88 year old female who presents to the office for follow up HPI: Alzhemier's dementia, moderate, is taking aricept 5 mg a day, has seen Neurologist. Is having more memory decline. She drove from her home to [place] and was found about 1 hour from [place] by the police department. Sons have taken her keys- she is not longer driving for the last 1 month Weight loss. Son thinks she is now only eating about 1 meal a day. Gets meals on wheels daily delivered to her home. Is supposed to be drinking her Boost. He has a camera installed in her kitchen to monitor her. Also she is only walking the dog once a day now, not more often. She admits to depression symptoms several days a week- is lonely. Doesn't have people to talk to much No recent falls Urinary incontinence, comes and goes, hasn't been wearing her depends. No blood or frequency or urgency or dysuria. Hypothyroidism, states that she is taking her thyroid medication PAST MEDICAL HISTORY Diagnosis Date Disorders of lipoid metabolism Diverticulosis of colon (without mention of hemorrhage) Generalized osteoarthrosis, unspecified site Hemorrhage of gastrointestinal tract, unspecified Hypothyroidism 04/2010 Internal hemorrhoids without mention of complication Malignant neoplasm of right upper lobe of lung (HCC) Nonspecific abnormal electrocardiogram (ECG) (EKG) Osteoporosis, unspecified Pure hypercholesterolemia PAST SURGICAL HISTORY Procedure Laterality Date COLONOSCOPY FLX DX W/COLLJ SPEC WHEN PFRMD 12/30/2005 Colonoscopy COLONOSCOPY FLX DX W/COLLJ SPEC WHEN PFRMD 07/14/2012 Colonoscopy repeat 10 years EXC CYST/ABERRANT BREAST TISSUE OPEN 1/> LESION IMPLANT COCHLEAR DEVICE Right many years ago. Current Outpatient Medications Medication Sig sertraline (ZOLOFT) 50 mg tablet Take 1 tablet by mouth daily at bedtime. donepezil (ARICEPT) 10 mg tablet Take 1 tablet by mouth daily at bedtime. simvastatin (ZOCOR) 40 mg tablet Take 1 tablet by mouth daily at bedtime. ondansetron orally disintegrating (ZOFRAN ODT) 4 mg disintegrating tablet Take 1 tablet by mouth every 8 hours as needed for nausea/vomiting. cholecalciferol, vitamin D3, (VITAMIN D3 50 MCG, 2,000 UNIT, GUMMIES) levothyroxine (SYNTHROID) 100 mcg tablet Take 1 tablet by mouth once daily 6 days a week and 2 tablets one day per week. Take on an empty stomach. Lactobacillus acidophilus (PROBIOTIC ORAL) Take by mouth once daily. MULTIVITAMIN TAB Take one(1) tablet daily. ASPIRIN 81 MG TAB Take one(1) tablet daily. No current facility-administered medications for this visit. ALLERGIES Allergen Reactions Bactrim [Sulfametho* Rash shaking and chills, dry mouth Amoxicillin Rash Ampicillin Rash Cephalosporins Rash Minocycline Rash shaking and chills , dry mouth Rocephin [Ceftriaxo* Rash Social History Tobacco Use Smoking status: Never Smokeless tobacco: Never Substance Use Topics Alcohol use: Yes Comment: RARELY Drug use: Never ROS: See HPI PE: BP 120/70 Pulse 80 Temp (Src) 97 (Right Tympanic) Resp 16 Wt 151 lb (68.5kg) Gen: AANDOX3, NAD, non-toxic appearing, thin, memory impaired, well dressed HEENT: PERRLA, EOMs intact b/l, nares without drainage, pharynx without erythema, exudate, lesions, or drainage. Uvula midline. Neck: No LAD, no thyromegaly, no meningismus. CV: RRR, no murmur Lungs: CTA b/l, no wheezing Skin: No rashes, lesions, or wounds on exposed skin. No edema, normal pulses Thin Abd: NT, ND, normal BS, no masses palpable ASSESSMENT/PLAN: 1. Weight loss, unintentional - ICD9: 783.21, ICD10: R63.4 (primary diagnosis) Labs as ordered Concerns that she isn't eating enougth daily Son is looking into assisted living facility for her to go to potentially Her dementia is worsening. She is no longer driving which is the correct decision Will start on zoloft to help mood- titrate up as needed Increase aricept from 5 mg to 10 mg She is needing help with her IADLs etc.- not cooking, she is still bathing herself - COMPREHENSIVE METABOLIC PANEL - COMPLETE BLOOD COUNT AND DIFFERENTIAL - MAGNESIUM - PREALBUMIN - PROTEIN ELECTROPHORESIS SERUM W/INTERP - VITAMIN B12 2. Vitamin D deficiency - ICD9: 268.9, ICD10: E55.9 - VITAMIN D 25 HYDROXY 3. Mild dementia without behavioral disturbance, psychotic disturbance, mood disturbance, or anxiety, unspecified dementia type (HCC) - ICD9: 294.10, ICD10: F03.A0 4. Major depressive dis (more content not included)... Normal [facility] Comprehensive metabolic 2000 panelon 11-09-2023 Albumin [Mass/Vol] 4.3 g/dL Normal 3.9-4.9 [facility] Comment on above: Order Comment: Speci men Type: BLOOD SPECIMEN Ordering Facility: [facility] Address: [address] [place] [address] Performed By: #### 3 016-3, 2132-01, #### [facility] CLIA [id number] [address] [place] [address] [place] ALP [Catalytic activity/Vol] 92 U/L Normal 34-123 [facility] Comment on above: Order Comment: Speci men Type: BLOOD SPECIMEN Ordering Facility: [facility] Address: [address] [place] [address] Performed By: #### 3 016-3, 2132-01, #### [facility] CLIA [id number] [address] [place] [address] [place] ALT [Catalytic activity/Vol] 8 U/L Normal 7-38 [facility] Comment on above: Order Comment: Speci men Type: BLOOD SPECIMEN Ordering Facility: [facility] Address: [address] [place] [address] Performed By: #### 3 016-3, 2132-01, #### [facility] CLIA [id number] [address] [place] [address] [place] Anion gap [Moles/Vol] 13 mmol/L Normal 8-15 [facility] Comment on above: Order Comment: Speci men Type: BLOOD SPECIMEN Ordering Facility: [facility] Address: [address] [place] [address] Performed By: #### 3 016-3, 2132-01, #### [facility] CLIA [id number] [address] [place] [address] [place] AST [Catalytic activity/Vol] 20 U/L Normal 13-35 [facility] Comment on above: Order Comment: Speci men Type: BLOOD SPECIMEN Ordering Facility: [facility] Address: [address] [place] [address] Performed By: #### 3 016-3, 2132-01, #### [facility] CLIA [id number] [address] [place] [address] [place] Bilirubin [Mass/Vol] 0.7 mg/dL Normal 0.2-1.3 [facility] Comment on above: Order Comment: Speci men Type: BLOOD SPECIMEN Ordering Facility: [facility] Address: [address] [place] [address] Performed By: #### 3 016-3, 2132-01, #### [facility] CLIA [id number] [address] [place] [address] [place] Calcium [Mass/Vol] 9.8 mg/dL Normal 8.5-10.2 [facility] Comment on above: Order Comment: Speci men Type: BLOOD SPECIMEN Ordering Facility: [facility] Address: [address] [place] [address] Performed By: #### 3 016-3, 2132-01, #### [facility] CLIA [id number] [address] [place] [address] [place] Chloride [Moles/Vol] 104 mmol/L Normal 98-107 [facility] Comment on above: Order Comment: Speci men Type: BLOOD SPECIMEN Ordering Facility: [facility] Address: [address] [place] [address] Performed By: #### 3 016-3, 2132-01, #### [facility] CLIA [id number] [address] [place] [address] [place] CO2 [Moles/Vol] 23 mmol/L Normal 22-30 [facility] Comment on above: Order Comment: Speci men Type: BLOOD SPECIMEN Ordering Facility: [facility] Address: [address] [place] [address] Performed By: #### 3 016-3, 2132-01, #### [facility] CLIA [id number] [address] [place] [address] [place] Creatinine [Mass/Vol] 0.90 mg/dL Normal 0.58-0.96 [facility] Comment on above: Order Comment: Speci men Type: BLOOD SPECIMEN Ordering Facility: [facility] Address: [address] [place] [address] Performed By: #### 3 016-3, 2132-01, #### [facility] CLIA [id number] [address] [place] [address] [place] Creatinine and Glomerular filtration rate.predicted panel (S/P/Bld) 62 mL/min/1.73m??? Normal >=60 [facility] Comment on above: Order Comment: Speci men Type: BLOOD SPECIMEN Ordering Facility: [facility] Address: [address] [place] [address] Result Comment: Merline mated Glomerular Filtration Rate (eGFR) is calculated using the 2020 CKD-EPI creatinine equation. This equation utilizes serum creatinine, sex, and age as parameters. The creatinine assay has traceable calibration to isotope dilution-mass spectrometry. Refer to KDIGO guidelines for clinical interpretation. In patients with unstable renal function, e.g. those with acute kidney injury, the eGFR may not accurately reflect actual GFR. Performed By: #### 3 016-3, 2132-01, #### [facility] CLIA [id number] [address] [place] [address] [place] Glucose [Mass/Vol] 99 mg/dL Normal 74-99 [facility] Comment on above: Order Comment: Speci men Type: BLOOD SPECIMEN Ordering Facility: [facility] Address: [address] [place] [address] Result Comment: The [place] Diabetes Association (ADA) provides guidance for cutoff values for fasting glucose and random glucose. The ADA defines fasting as no caloric intake for at least 8 hours. Fasting plasma glucose results between 100 to 125 mg/dL indicate increased risk for diabetes (prediabetes). Fasting plasma glucose results greater than or equal to 126 mg/dL meet the criteria for diagnosis of diabetes. In the absence of unequivocal hyperglycemia, results should be confirmed by repeat testing. In a patient with classic symptoms of hyperglycemia or hyperglycemic crisis, random plasma glucose results greater than or equal to 200 mg/dL meet the criteria for diagnosis of diabetes. Reference: Standards of Medical Care in Diabetes 2016, [place] Diabetes Association. Diabetes Care. 2016.39(Suppl 1). Performed By: #### 3 016-3, 2132-01, #### [facility] CLIA [id number] [address] [place] [address] [place] Potassium [Moles/Vol] 4.3 mmol/L Normal 3.7-5.1 [facility] Comment on above: Order Comment: Nain weber Type: BLOOD SPECIMEN Ordering Facility: [facility] Address: [address] [place] [address] Performed By: #### 3 016-3, 2132-01, #### [facility] CLIA [id number] [address] [place] [address] [place] Protein [Mass/Vol] 7.0 g/dL Normal 6.3-8.0 [facility] Comment on above: Order Comment: Nain weber Type: BLOOD SPECIMEN Ordering Facility: [facility] Address: [address] [place] [address] Performed By: #### 3 016-3, 2132-01, #### [facility] CLIA [id number] [address] [place] [address] [place] Sodium [Moles/Vol] 140 mmol/L Normal 136-144 [facility] Comment on above: Order Comment: Speci men Type: BLOOD SPECIMEN Ordering Facility: [facility] Address: [address] [place] [address] Performed By: #### 3 016-3, 2132-01, #### [facility] CLIA [id number] [address] [place] [address] [place] Urea nitrogen [Mass/Vol] 14 mg/dL Normal 7-21 [facility] Comment on above: Order Comment: Speci men Type: BLOOD SPECIMEN Ordering Facility: [facility] Address: [address] [place] [address] Performed By: #### 3 016-3, 2132-01, #### [facility] CLIA [id number] [address] [place] [address] [place] Magnesium SerPl-mCncon 11-08 Magnesium [Mass/Vol] 2.2 mg/dL Normal 1.7-2.3 [facility] Comment on above: Order Comment: Speci men Type: BLOOD SPECIMEN Ordering Facility: [facility] Address: [address] [place] [address] Performed By: #### 3 016-3, 2132-01, #### [facility] CLIA [id number] [address] [place], [place] [address] [place] PROTEIN ELECTROPHORESIS SERU M (P)on 11-09-2023 Albumin [Mass/Vol] 4.01 g/dL Normal 3.43-5.41 [facility] Comment on above: Order Comment: Speci men Type: BLOOD SPECIMEN Ordering Facility: [facility] Address: [address] [place] [address] Performed By: #### 3 016-3, 2132-01, #### [facility] CLIA [id number] [address] [place] [address] [place] Alpha 1 globulin Elph [Mass/Vol] 0.33 g/dL Normal 0.18-0.43 [facility] Comment on above: Order Comment: Speci men Type: BLOOD SPECIMEN Ordering Facility: [facility] Address: [address] [place] [address] Performed By: #### 3 016-3, 2132-01, #### [facility] CLIA [id number] [address] [place] [address] [place] Alpha 2 globulin Elph [Mass/Vol] 0.86 g/dL Normal 0.42-0.98 [facility] Comment on above: Order Comment: Speci men Type: BLOOD SPECIMEN Ordering Facility: [facility] Address: [address] [place] [address] Performed By: #### 3 016-3, 2132-01, #### [facility] CLIA [id number] [address] [place], [place] [address] [place] Beta globulin Elph [Mass/Vol] 0.80 g/dL Normal 0.61-1.17 [facility] Comment on above: Order Comment: Speci men Type: BLOOD SPECIMEN Ordering Facility: [facility] Address: [address] [place], [place] [address] Performed By: #### 3 016-3, 2132-01, #### [facility] CLIA [id number] [address] [place], [place] [address] [place] Gamma globulin Elph [Mass/Vol] 0.70 g/dL Normal 0.53-1.51 [facility] Comment on above: Order Comment: Speci men Type: BLOOD SPECIMEN Ordering Facility: [facility] Address: [address] [place], [place] [address] Performed By: #### 3 016-3, 2132-01, #### [facility] CLIA [id number] [address] [place] [address] [place] M-PROTEIN LOCATION Normal [facility] Comment on above: Order Comment: Speci men Type: BLOOD SPECIMEN Ordering Facility: [facility] Address: [address] [place] [address] Result Comment: Not Applicable. Performed By: #### 3 016-3, 2132-01, #### [facility] CLIA [id number] [address] [place], [place] [address] [place] Protein Fractions [Interp] No definitive M protein is identified on protein electrophoresis. Normal No definitive M protein is identified on protein electrophores is. [facility] Comment on above: Order Comment: Speci men Type: BLOOD SPECIMEN Ordering Facility: [facility] Address: [address] [place] [address] Performed By: #### 3 016-3, 2132-01, #### [facility] CLIA [id number] [address] [place] [address] [place] Protein.monoclonal Elph [Mass/Vol] 0.00 g/dL Normal <=0.00 [facility] Comment on above: Order Comment: Speci men Type: BLOOD SPECIMEN Ordering Facility: [facility] Address: [address] [place] [address] Performed By: #### 3 016-3, 2132-01, #### [facility] CLIA [id number] [address] [place], [place] [address] [place] SPE STAFF REVIEW Reviewed by Carline Jimenez M.D. Normal [facility] Comment on above: Order Comment: Speci men Type: BLOOD SPECIMEN Ordering Facility: [facility] Address: [address] [place] [address] Performed By: #### 3 016-3, 2132-01, #### [facility] CLIA [id number] [address] [place], [place] [address] [place] Prealb SerPl-mCncon 11-09-19 24 Prealbumin [Mass/Vol] 24 mg/dL Normal 17-36 [facility] Comment on above: Order Comment: Speci men Type: BLOOD SPECIMEN Ordering Facility: [facility] Address: [address] [place] [address] Performed By: #### 3 016-3, 2132-01, #### [facility] CLIA [id number] [address] [place] [address] [place] Prot SerPl-mCncon 11-09-2023 Protein [Mass/Vol] 6.7 g/dL Normal 6.3-8.0 [facility] Comment on above: Order Comment: Speci men Type: BLOOD SPECIMEN Ordering Facility: [facility] Address: [address] [place] [address] Performed By: #### 3 016-3, 2132-01, #### [facility] CLIA [id number] [address] [place] [address] [place] T4 Free SerPl-mCncon 024 Free T4 [Mass/Vol] 1.3 ng/dL Normal 0.9-1.7 [facility] Comment on above: Order Comment: Speci men Type: BLOOD SPECIMEN Ordering Facility: [facility] Address: [address] [place] [address] Performed By: #### 3 016-3, 2132-01, #### [facility] CLIA [id number] [address] [place] [address] [place] TSH SerPl-aCncon 11-09-2023 TSH Qn 6.700 m[IU]/L High 0.270-4.200 [facility] Comment on above: Order Comment: Speci men Type: BLOOD SPECIMEN Ordering Facility: [facility] Address: [address] [place] [address] Performed By: #### 3 -3, 2132-01, #### [facility] CLIA [id number] [address] [place] [address] [place] Vit B12 [facility] 25-2 024 Cobalamin (Vitamin B12) [Mass/Vol] 594 pg/mL Normal 232-1245 [facility] Comment on above: Order Comment: Speci men Type: BLOOD SPECIMEN Ordering Facility: [facility] Address: [address] [place] [address] Performed By: #### 3 016-3, 2132-01, #### [facility] CLIA [id number] [address] [place] [address] [place] CBC W Auto Differential pane l (Bld)on 09-30-2023 Basophils (Bld) [#/Vol] 0.04 10*3/uL Normal <0.11 [facility] Comment on above: Order Comment: Speci men Type: BLOOD SPECIMEN Ordering Facility: [facility] Address: [address] [place] [address] Performed By: #### 5 7021-8 #### [facility] CLIA [id number] [address] STATES OF [facility] Basophils/100 WBC (Bld) 0.7 % Normal [facility] Comment on above: Order Comment: Speci men Type: BLOOD SPECIMEN Ordering Facility: [facility] Address: [address] [place] [address] Performed By: #### 5 7021-8 #### [facility] CLIA [id number] [address] [place] [address] [place] Differential cell count method Nom (Bld) Auto Normal [facility] Comment on above: Order Comment: Speci men Type: BLOOD SPECIMEN Ordering Facility: [facility] Address: [address] [place] [address] Performed By: #### 5 7021-8 #### [facility] CLIA [id number] [address] [place] [address] [place] Eosinophils (Bld) [#/Vol] 0.05 10*3/uL Normal <0.46 [facility] Comment on above: Order Comment: Speci men Type: BLOOD SPECIMEN Ordering Facility: [facility] Address: [address] [place] [address] Performed By: #### 5 7021-8 #### [facility] CLIA [id number] [address] [place] Eosinophils/100 WBC (Bld) 0.8 % Normal [facility] Comment on above: Order Comment: Speci men Type: BLOOD SPECIMEN Ordering Facility: [facility] Address: [address] [place] [address] Performed By: #### 5 7021-8 #### [facility] CLIA [id number] [address] STATES [facility] Erythrocyte distribution width (RBC) [Ratio] 13.1 % Normal 11.5-15.0 [facility] Comment on above: Order Comment: Speci men Type: BLOOD SPECIMEN Ordering Facility: [facility] Address: [address] [place] [address] Performed By: #### 5 7021-8 #### [facility] CLIA [id number] [address] Hematocrit (Bld) [Volume fraction] 39.0 % Normal 36.0-46.0 [facility] Comment on above: Order Comment: Speci men Type: BLOOD SPECIMEN Ordering Facility: [facility] Address: [address] [place] [address] Performed By: #### 5 7021-8 #### [facility] CLIA [id number] [address] [place] Hemoglobin (Bld) [Mass/Vol] 12.7 g/dL Normal 11.5-15.5 [facility] Comment on above: Order Comment: Speci men Type: BLOOD SPECIMEN Ordering Facility: [facility] Address: [address] [place] [address] Performed By: #### 5 7021-8 #### [facility] CLIA [id number] [address] [place] Immature granulocytes (Bld) [#/Vol] 10*3/uL Normal <0.10 [facility] Comment on above: Order Comment: Speci men Type: BLOOD SPECIMEN Ordering Facility: [facility] Address: [address] [place] [address] Performed By: #### 5 7021-8 #### [facility] CLIA [id number] [address] Immature granulocytes/100 WBC (Bld) 0.3 % Normal [facility] Comment on above: Order Comment: Speci men Type: BLOOD SPECIMEN Ordering Facility: [facility] Address: [address] [place] [address] Performed By: #### 5 7021-8 #### [facility] CLIA [id number] 1000 [address] Lymphocytes (Bld) [#/Vol] 1.10 10*3/uL Normal 1.00-4.00 [facility] Comment on above: Order Comment: Speci men Type: BLOOD SPECIMEN Ordering Facility: [facility] Address: [address] [place] [address] Performed By: #### 5 7021-8 #### [facility] CLIA [id number] [address] Lymphocytes/100 WBC (Bld) 18.2 % Normal [facility] Comment on above: Order Comment: Speci men Type: BLOOD SPECIMEN Ordering Facility: [facility] Address: [address] [place] [address] Performed By: #### 5 7021-8 #### [facility] CLIA [id number] [address] MCH (RBC) [Entitic mass] 30.5 pg Normal 26.0-34.0 [facility] Comment on above: Order Comment: Speci men Type: BLOOD SPECIMEN Ordering Facility: [facility] Address: [address] [place] [address] Performed By: #### 5 7021-8 #### [facility] CLIA [id number] [address] STATES [facility] MCHC (RBC) [Mass/Vol] 32.6 g/dL Normal 30.5-36.0 [facility] Comment on above: Order Comment: Speci men Type: BLOOD SPECIMEN Ordering Facility: [facility] Address: [address] [place] [address] Performed By: #### 5 7021-8 #### [facility] CLIA [id number] 1000 [place] [address] [place] MCV (RBC) [Entitic vol] 93.5 fL Normal 80.0-100.0 [facility] Comment on above: Order Comment: Speci men Type: BLOOD SPECIMEN Ordering Facility: [facility] Address: [address] [place] [address] Performed By: #### 5 7021-8 #### [facility] CLIA [id number] [address] [place] Monocytes (Bld) [#/Vol] 0.63 10*3/uL Normal <0.87 [facility] Comment on above: Order Comment: Speci men Type: BLOOD SPECIMEN Ordering Facility: [facility] Address: [address] [place] [address] Performed By: #### 5 7021-8 #### [facility] CLIA [id number] [address] Monocytes/100 WBC (Bld) 10.4 % Normal [facility] Comment on above: Order Comment: Speci men Type: BLOOD SPECIMEN Ordering Facility: [facility] Address: [address] [place] [address] Performed By: #### 5 7021-8 #### [facility] CLIA [id number] 1000 [place] [address] [place] Neutrophils (Bld) [#/Vol] 4.21 10*3/uL Normal 1.45-7.50 [facility] Comment on above: Order Comment: Speci men Type: BLOOD SPECIMEN Ordering Facility: [facility] Address: [address] [place] [address] Performed By: #### 5 7021-8 #### [facility] CLIA [id number] [address] [place] Neutrophils/100 WBC (Bld) 69.6 % Normal [facility] Comment on above: Order Comment: Speci men Type: BLOOD SPECIMEN Ordering Facility: [facility] Address: [facility] [place] [address] Performed By: #### 5 7021-8 #### [facility] CLIA [id number] [address] [place] Nucleated RBC (Bld) [#/Vol] 10*3/uL Normal <0.01 [facility] Comment on above: Order Comment: Speci men Type: BLOOD SPECIMEN Ordering Facility: [facility] Address: [address] [place] [address] Performed By: #### 5 7021-8 #### [facility] CLIA [id number] [address] OF [facility] Nucleated RBC/100 WBC (Bld) [Ratio] 0.0 /100 WBC Normal [facility] Comment on above: Order Comment: Speci men Type: BLOOD SPECIMEN Ordering Facility: [facility] Address: [address] [place] [address] Performed By: #### 5 7021-8 #### [facility] CLIA [id number] 1000 [place] [address] [place] Platelet mean volume (Bld) [Entitic vol] 10.3 fL Normal 9.0-12.7 [facility] Comment on above: Order Comment: Speci men Type: BLOOD SPECIMEN Ordering Facility: [facility] Address: [address] [place] [address] Performed By: #### 5 7021-8 #### [facility] CLIA [id number] 1000 [place] [address] [place] Platelets (Bld) [#/Vol] 152 10*3/uL Normal 150-400 [facility] Comment on above: Order Comment: Speci men Type: BLOOD SPECIMEN Ordering Facility: [facility] Address: [address] [place] [address] Performed By: #### 5 7021-8 #### [facility] CLIA [id number] [address] [place] [address] [place] RBC (Bld) [#/Vol] 4.17 10*6/uL Normal 3.90-5.20 [facility] Comment on above: Order Comment: Speci men Type: BLOOD SPECIMEN Ordering Facility: [facility] Address: [address] [id number] Performed By: #### 5 7021-8 #### [facility] CLIA [id number] [address] OF [facility] WBC (Bld) [#/Vol] 6.05 10*3/uL Normal 3.70-11.00 [facility] Comment on above: Order Comment: Speci men Type: BLOOD SPECIMEN Ordering Facility: [facility] Address: [address] [place] [address] Performed By: #### 5 7021-8 #### [facility] CLIA [id number] [address] STATES OF [facility] Basophils (Bld) [#/Vol] 0.04 10*3/uL [facility] Basophils/100 WBC (Bld) 0.7 % [facility] Differential cell count method Nom (Bld) Auto [facility] Eosinophils (Bld) [#/Vol] 0.05 10*3/uL [facility] Eosinophils/100 WBC (Bld) 0.8 % [facility] Erythrocyte distribution width (RBC) [Ratio] 13.1 % 11.5 - 15.0 % [facility] Hematocrit (Bld) [Volume fraction] 39.0 % 36.0 - 46.0 % [facility] Hemoglobin (Bld) [Mass/Vol] 12.7 g/dL 11.5 - 15.5 g/dL [facility] Immature granulocytes (Bld) [#/Vol] [facility] Immature granulocytes/100 WBC (Bld) 0.3 % [facility] Lymphocytes (Bld) [#/Vol] 1.10 10*3/uL [facility] Lymphocytes/100 WBC (Bld) 18.2 % [facility] MCH (RBC) [Entitic mass] 30.5 pg 26.0 - 34.0 pg [facility] MCHC (RBC) [Mass/Vol] 32.6 g/dL 30.5 - 36.0 g/dL [facility] MCV (RBC) [Entitic vol] 93.5 fL 80.0 - 100.0 fL [facility] Monocytes (Bld) [#/Vol] 0.63 10*3/uL NINF [facility] Monocytes/100 WBC (Bld) 10.4 % [facility] Neutrophils (Bld) [#/Vol] 4.21 10*3/uL [facility] Neutrophils/100 WBC (Bld) 69.6 % [facility] Nucleated RBC (Bld) [#/Vol] NINF [facility] Nucleated RBC/100 WBC (Bld) [Ratio] 0.0 % /100 WBC [facility] Platelet mean volume (Bld) [Entitic vol] 10.3 fL 9.0 - 12.7 fL [facility] Platelets (Bld) [#/Vol] 152 10*3/uL [facility] RBC (Bld) [#/Vol] 4.17 10*6/uL 3.90 - 5.2 0 m/uL [facility] WBC (Bld) [#/Vol] 6.05 10*3/uL [facility] Comprehensive metabolic 2000 panelon 09-30-2023 Albumin [Mass/Vol] 4.0 g/dL Normal 3.9-4.9 [facility] Comment on above: Order Comment: Speci men Type: BLOOD SPECIMEN Ordering Facility: [facility] Address: [address] [place] [address] Performed By: #### 2 4323-8 #### [facility] CLIA [id number] [address] STATES OF [facility] ALP [Catalytic activity/Vol] 91 U/L Normal 34-123 [facility] Comment on above: Order Comment: Speci men Type: BLOOD SPECIMEN Ordering Facility: [facility] Address: [address] [place] [address] Performed By: #### 2 4323-8 #### [facility] CLIA [id number] [address] [place] ALT [Catalytic activity/Vol] 8 U/L Normal 7-38 [facility] Comment on above: Order Comment: Speci men Type: BLOOD SPECIMEN Ordering Facility: [facility] Address: [address] [place] [address] Performed By: #### 2 4323-8 #### [facility] CLIA [id number] 1000 [place] [address] [place] Anion gap [Moles/Vol] 10 mmol/L Normal 9-18 [facility] Comment on above: Order Comment: Speci men Type: BLOOD SPECIMEN Ordering Facility: [facility] Address: [address] [place] [address] Performed By: #### 2 4323-8 #### [facility] CLIA [id number] [address] [place] [address] [place] AST [Catalytic activity/Vol] 19 U/L Normal 13-35 [facility] Comment on above: Order Comment: Speci men Type: BLOOD SPECIMEN Ordering Facility: [facility] Address: [address] [place] [address] Performed By: #### 2 4323-8 #### [facility] CLIA [id number] [address] [place] Bilirubin [Mass/Vol] 0.6 mg/dL Normal 0.2-1.3 [facility] Comment on above: Order Comment: Speci men Type: BLOOD SPECIMEN Ordering Facility: [facility] Address: [address] [place] [address] Performed By: #### 2 4323-8 #### [facility] CLIA [id number] [address] OF [facility] Calcium [Mass/Vol] 9.5 mg/dL Normal 8.5-10.2 [facility] Comment on above: Order Comment: Speci men Type: BLOOD SPECIMEN Ordering Facility: [facility] Address: [facility] [place] [address] Performed By: #### 2 4323-8 #### [facility] CLIA [id number] [address] [place] Chloride [Moles/Vol] 101 mmol/L Normal 97-105 [facility] Comment on above: Order Comment: Speci men Type: BLOOD SPECIMEN Ordering Facility: [facility] Address: [facility] [place] [address] Performed By: #### 2 4323-8 #### [facility] CLIA [id number] [address] [place] CO2 [Moles/Vol] 26 mmol/L Normal 22-30 [facility] Comment on above: Order Comment: Nain weber Type: BLOOD SPECIMEN Ordering Facility: [facility] Address: [address] [place] [address] Performed By: #### 2 4323-8 #### [facility] CLIA [id number] [address] [place] Creatinine [Mass/Vol] 0.91 mg/dL Normal 0.58-0.96 [facility] Comment on above: Order Comment: Nain weber Type: BLOOD SPECIMEN Ordering Facility: [facility] Address: [address] [place] [address] Performed By: #### 2 4323-8 #### [facility] CLIA [id number] [address] Creatinine and Glomerular filtration rate.predicted panel (S/P/Bld) 62 mL/min/1.73m??? Normal >=60 [facility] Comment on above: Order Comment: Nain weber Type: BLOOD SPECIMEN Ordering Facility: [facility] Address: [address] [place] [address] Result Comment: Merline mated Glomerular Filtration Rate (eGFR) is calculated using the 2020 CKD-EPI creatinine equation. This equation utilizes serum creatinine, sex, and age as parameters. The creatinine assay has traceable calibration to isotope dilution-mass spectrometry. Refer to KDIGO guidelines for clinical interpretation. In patients with unstable renal function, e.g. those with acute kidney injury, the eGFR may not accurately reflect actual GFR. Performed By: #### 2 4323-8 #### [facility] CLIA [id number] [address] [place] Glucose [Mass/Vol] 123 mg/dL High 74-99 [facility] Comment on above: Order Comment: Nain weber Type: BLOOD SPECIMEN Ordering Facility: [facility] Address: [address] [place] [address] Result Comment: The [place] Diabetes Association (ADA) provides guidance for cutoff values for fasting glucose and random glucose. The ADA defines fasting as no caloric intake for at least 8 hours. Fasting plasma glucose results between 100 to 125 mg/dL indicate increased risk for diabetes (prediabetes). Fasting plasma glucose results greater than or equal to 126 mg/dL meet the criteria for diagnosis of diabetes. In the absence of unequivocal hyperglycemia, results should be confirmed by repeat testing. In a patient with classic symptoms of hyperglycemia or hyperglycemic crisis, random plasma glucose results greater than or equal to 200 mg/dL meet the criteria for diagnosis of diabetes. Reference: Standards of Medical Care in Diabetes 2016, [employer] Diabetes Association. Diabetes Care. 2016.39(Suppl 1). Performed By: #### 2 4323-8 #### [facility] CLIA [id number] [address] [place] [address] [place] Potassium [Moles/Vol] 4.3 mmol/L Normal 3.7-5.1 [facility] Comment on above: Order Comment: Nain weber Type: BLOOD SPECIMEN Ordering Facility: [facility] Address: [address] [place] [address] Performed By: #### 2 4323-8 #### [facility] CLIA [id number] [address] [place] [address] [place] Protein [Mass/Vol] 6.8 g/dL Normal 6.3-8.0 [facility] Comment on above: Order Comment: Nain weber Type: BLOOD SPECIMEN Ordering Facility: [facility] Address: [address] [place] [address] Performed By: #### 2 4323-8 #### [facility] CLIA [id number] [address] [place] [address] [place] Sodium [Moles/Vol] 137 mmol/L Normal 136-144 [facility] Comment on above: Order Comment: Nain weber Type: BLOOD SPECIMEN Ordering Facility: [facility] Address: [address] [place] [address] Performed By: #### 2 4323-8 #### [facility] CLIA [id number] [address] [place] [address] [place] Urea nitrogen [Mass/Vol] 18 mg/dL Normal 7-21 [facility] Comment on above: Order Comment: Nain weber Type: BLOOD SPECIMEN Ordering Facility: [facility] Address: [address] [place] [address] Performed By: #### 2 4323-8 #### [facility] CLIA [id number] [address] [place] [address] [place] Albumin [Mass/Vol] 4.0 g/dL 3.9 - 4.9 g/dL [facility] ALP [Catalytic activity/Vol] 91 U/L 34 - 123 U/L [facility] ALT [Catalytic activity/Vol] 8 U/L 7 - 38 U/L [facility] Anion gap [Moles/Vol] 10 mmol/L 9 - 18 mmol/L [facility] AST [Catalytic activity/Vol] 19 U/L 13 - 35 U/L [facility] Bilirubin [Mass/Vol] 0.6 mg/dL 0.2 - 1 .3 mg/dL [facility] Calcium [Mass/Vol] 9.5 mg/dL 8.5 - 10. 2 mg/dL [facility] Chloride [Moles/Vol] 101 mmol/L 97 - 10 5 mmol/L [facility] CO2 [Moles/Vol] 26 mmol/L 22 - 30 mmol/L [facility] Creatinine [Mass/Vol] 0.91 mg/dL 0.58 - 0.96 mg/dL [facility] GFR/1.73 sq M.predicted among non-blacks MDRD (S/P/Bld) [Vol rate/Area] 62 mL/min/{1.73_m2} - PINF [facility] Comment on above: Estimated Glomerular Filtration Rate (eGFR) is calculated using the 2020 CKD-EPI creatinine equation. This equation utilizes serum creatinine, sex, and age as parameters. The creatinine assay has traceable calibration to isotope dilution-mass spectrometry. Refer to KDIGO guidelines for clinical interpretation. In patients with unstable renal function, e.g. those with acute kidney injury, the eGFR may not accurately reflect actual GFR. Glucose [Mass/Vol] 123 mg/dL High 74 - 99 mg/dL [facility] Comment on above: The [place] Diabete s Association (ADA) provides guidance for cutoff values for fasting glucose and random glucose. The ADA defines fasting as no caloric intake for at least 8 hours. Fasting plasma glucose results between 100 to 125 mg/dL indicate increased risk for diabetes (prediabetes). Fasting plasma glucose results greater than or equal to 126 mg/dL meet the criteria for diagnosis of diabetes. In the absence of unequivocal hyperglycemia, results should be confirmed by repeat testing. In a patient with classic symptoms of hyperglycemia or hyperglycemic crisis, random plasma glucose results greater than or equal to 200 mg/dL meet the criteria for diagnosis of diabetes. Reference: Standards of Medical Care in Diabetes 2016, [place] Diabetes Association. Diabetes Care. 2016.39(Suppl 1). Interpretation and review of laboratory results Abnormal [facility] Potassium [Moles/Vol] 4.3 mmol/L 3.7 - 5.1 mmol/L [facility] Protein [Mass/Vol] 6.8 g/dL 6.3 - 8.0 g/dL [facility] Sodium [Moles/Vol] 137 mmol/L 136 - 144 mmol/L [facility] Urea nitrogen [Mass/Vol] 18 mg/dL 7 - 21 mg/dL [facility] [id number] 36 Left message notifying. Normal [facility] 36on 08-27-2023 36 That makes more sens e - thanks. I sent in the aricept 10 mg daily with a note to pharmacy to not fill until at least Wednesday. Son should be able to pick it up next week. Please let him know. Thanks! [facility] 36 Leonid stated he only called because he had it saved in his calendar to call and update us and that he doesn't think she is completely out he was just calling in advance. I notified him she should have atleast a weeks worth left. He will be back in town that week so he was wondering if we could have the 10 mg sent in for that week so he can pick it up then. [facility] 36 Please call back son and tell/ask him the following: I'm glad to hear she is tolerating the aricept well so far! However, she just started taking the aricept (donepezil) on 08/04. Was given 30 tablets. Shouldn't be out already. Should be taking the 5 mg dose for at least another week. Has she been accidentally double taking aricept or did she misplace pills? If so, would recommend increased supervision or looking into a locked pill dispenser I can send in one more week of aricept 5 mg and then next week send in a 10 mg script going forward. I'll set a reminder for myself to send it in next Wednesday so that he doesn't have to call. Would that work for patient/family? However, it is important to make sure she is only taking it once a day or else she is at increased risk of side effects. [facility] 36 S: Patient's son (Nba mendes) is calling the [facility] to request refill on medication. B: Onset of symptoms/concern finished last pill today. A: Leonid states pt was started on Aricept 5 mg last month and was told to call back to let them know how she is doing on the medication and if doing ok she would be increased to 10 mg. Leonid states pt has not had any side effects or issues with the Aricept 5 mg and they are ready to increase it to 10 mg. Leonid would like new Rx sent to pharmacy. Pt took her last 5 mg pill today. R: Will send to office to review and call Leonid at [phone]. Pharmacy is current in chart. Leonid to call back if any further ques or concerns. Reason for Disposition Prescription refill request for NON-ESSENTIAL medicine (i.e., no harm to patient if med not taken) and triager unable to refill per department policy Answer Assessment - Initial Assessment Questions 1. DRUG NAME: What medicine do you need to have refilled? Aricept 2. REFILLS REMAINING: How many refills are remaining? (Note: The label on the medicine or pill bottle will show how many refills are remaining. If there are no refills remaining, then a renewal may be needed.) 3. EXPIRATION DATE: What is the expiration date? (Note: The label states when the prescription will , and thus can no longer be refilled.) 4. PRESCRIBING HCP: Who prescribed it? Reason: If prescribed by specialist, call should be referred to that group. Dr Galaviz 5. SYMPTOMS: Do you have any symptoms? No 6. : Is there any chance that you are ? When was your last menstrual period? N/A Protocols used: Medication Refill and Renewal [id number] [facility] CT BRAIN WO IVCONon 01-14-[address] [facility] [address] CHEST WO IVCONon 09-02-19 [facility] XR Chest PA and Lateralon IMPRESSION: No developing abnormality or acute process Preventative Maintenance Technician: FRANK Transcribe Date/Time: Aug 13 2022 4:44P Dictated by : EDWAR WINTERS MD This examination was interpreted and the report reviewed and electronically signed by: EDWAR WINTERS MD on Aug 13 2022 4:45PM [facility] DIVISION OF RADIOLOGY * * *Final Report* * * DATE OF EXAM: Aug 13 2022 10:30AM WOX [id number] - XR CHEST 2V FRONTAL/LAT / PROCEDURE REASON: Fall, initial encounter * * * * Physician Interpretation * * * * EXAMINATION: CHEST RADIOGRAPH (2 VIEW FRONTAL & LATERAL) CLINICAL HISTORY: Fall, initial encounter MQ: XC2_6 EXAM DATE/TIME: 08/13/2022 10:30 AM COMPARISON: 05/20/2021 RESULT: Lines, tubes, and devices: None. Lungs and pleura: No consolidation. No lung mass. No pleural effusion. No pneumothorax. Stable elevation of the right hemidiaphragm Cardiomediastinal silhouette: Normal cardiomediastinal silhouette. Bones and soft tissues: Stable mild degenerative change and scoliosis DIVISION OF RADIOLOGY Provider, [facility] - 08/13/2022 * * *Final Report* * * DATE OF EXAM: Aug 13 2022 10:30AM WOX 5291 - XR CHEST 2V FRONTAL/LAT / PROCEDURE REASON: Fall, initial encounter * * * * Physician Interpretation * * * * EXAMINATION: CHEST RADIOGRAPH (2 VIEW FRONTAL & LATERAL) CLINICAL HISTORY: Fall, initial encounter MQ: XC2_6 EXAM DATE/TIME: 08/13/2022 10:30 AM COMPARISON: 05/20/2021 RESULT: Lines, tubes, and devices: None. Lungs and pleura: No consolidation. No lung mass. No pleural effusion. No pneumothorax. Stable elevation of the right hemidiaphragm Cardiomediastinal silhouette: Normal cardiomediastinal silhouette. Bones and soft tissues: Stable mild degenerative change and scoliosis IMPRESSION IMPRESSION: No developing abnormality or acute process Preventative Maintenance Technician: FRANK Transcribe Date/Time: Aug 13 2022 4:44P Dictated by : EDWAR WINTERS MD This examination was interpreted and the report reviewed and electronically signed by: EDWAR WINTERS MD on Aug 13 2022 4:45PM [facility] Radiology Study observation (narrative) [facility] XR Chest PA and LateralOrder ed By: [facility] Provider on 08-13-[address] [facility] [address] CHEST W IVCONon [facility] XR Chest PA and Lateralon IMPRESSION: No acute radiographic abnormality. Preventative Maintenance Technician: FRANK Transcribe Date/Time: May 20 2021 12:01P Dictated by : JONAS NUNEZ MD This examination was interpreted and the report reviewed and electronically signed by: JONAS NUNEZ MD on May 20 2021 12:04PM [facility] DIVISION OF RADIOLOGY * * *Final Report* * * DATE OF EXAM: May 20 2021 11:56AM WOX 5291 - XR CHEST 2V FRONTAL/LAT / PROCEDURE REASON: Cough * * * * Physician Interpretation * * * * EXAMINATION: CHEST RADIOGRAPH (2 VIEW FRONTAL & LATERAL) CLINICAL HISTORY: Cough MQ: XC2_6 EXAM DATE/TIME: 05/20/2021 11:56 AM COMPARISON: Chest x-ray 03/11/2019 RESULT: Lines, tubes, and devices: None. Lungs and pleura: Stable appearance of scarring in the right lung. There is a line of sutures adjacent to the right hilum. No consolidation. No lung mass. No pleural effusion. No pneumothorax. Cardiomediastinal silhouette: Normal cardiomediastinal silhouette. Bones and soft tissues: Degenerative disease of the thoracic spine. DIVISION OF RADIOLOGY Provider, [facility] - 05/20/2021 * * *Final Report* * * DATE OF EXAM: May 20 2021 11:56AM WOX 5291 - XR CHEST 2V FRONTAL/LAT / PROCEDURE REASON: Cough * * * * Physician Interpretation * * * * EXAMINATION: CHEST RADIOGRAPH (2 VIEW FRONTAL & LATERAL) CLINICAL HISTORY: Cough MQ: XC2_6 EXAM DATE/TIME: 05/20/2021 11:56 AM COMPARISON: Chest x-ray 03/11/2019 RESULT: Lines, tubes, and devices: None. Lungs and pleura: Stable appearance of scarring in the right lung. There is a line of sutures adjacent to the right hilum. No consolidation. No lung mass. No pleural effusion. No pneumothorax. Cardiomediastinal silhouette: Normal cardiomediastinal silhouette. Bones and soft tissues: Degenerative disease of the thoracic spine. IMPRESSION IMPRESSION: No acute radiographic abnormality. Preventative Maintenance Technician: PSC[employer] Transcribe Date/Time: May 20 2021 12:01P Dictated by : JONAS NUNEZ MD This examination was interpreted and the report reviewed and electronically signed by: JONAS NUNEZ MD on May 20 2021 12:04PM EST [facility] Radiology Study observation (narrative) Juan juarez [facility] XR Chest PA and LateralOrder ed By: [facility] Provider on 05-20-2021 [facility] Vital Signs Date Time Vital Sign Value Performing Clinician Facility 10-12-2024 10:00-0400 Body mass index (BMI) [Ratio] 34.21 kg/m2 Miguel A Davis MD Work Phone: [facility] 10-12-2024 10:00-0400 Body temperature 97.81 [degF] Miguel A Davis MD Work Phone: [facility] 10-12-2024 10:00-0400 Body weight 90.9 kg Miguel A Davis MD Work Phone: [facility] 10-12-2024 10:00-0400 Diastolic blood pressure 50 mm[Hg] Miguel A Davis MD Work Phone: [facility] 10-12-2024 10:00-0400 Heart rate 68 /min Miguel A Davis MD Work Phone: [facility] 10-12-2024 10:00-0400 Respiratory rate 16 /min Miguel A Davis MD Work Phone: [facility] 10-12-2024 10:00-0400 SaO2% (BldA) [Mass fraction] 98 % Miguel A Davis MD Work Phone: [facility] 10-12-2024 10:00-0400 Systolic blood pressure 101 mm[Hg] Miguel A Davis MD Work Phone: [facility] 08-04-2024 09:20-0400 Body mass index (BMI) [Ratio] 32.44 kg/m2 Abel Ortiz DO Work Phone: [facility] 08-04-2024 09:20-0400 Body temperature 96.69 [degF] Abel Ortiz DO Work Phone: [facility] 08-04-2024 09:20-0400 Body weight 86.18 kg Abel Ortiz DO Work Phone: [facility] 08-04-2024 09:20-0400 Diastolic blood pressure 70 mm[Hg] Abel Lopezon DO Work Phone: [facility] 08-04-2024 09:20-0400 Heart rate 76 /min Abel Ortiz DO Work Phone: [facility] 08-04-2024 09:20-0400 Respiratory rate 20 /min Abel Ortiz DO Work Phone: [facility] 08-04-2024 09:20-0400 Systolic blood pressure 134 mm[Hg] Abel Lopezon DO Work Phone: [facility] 08-03-2024 09:51-0400 Body mass index (BMI) [Ratio] 32.61 kg/m2 Alexander Galaviz MD Work Phone: [facility] 08-03-2024 09:51-0400 Body weight 86.18 kg Alexander Galaviz MD Work Phone: [facility] 08-03-2024 09:51-0400 Diastolic blood pressure 68 mm[Hg] Alexander Galaviz MD Work Phone: [facility] 08-03-2024 09:51-0400 Heart rate 77 /min Alexander Galaviz MD Work Phone: [facility] 08-03-2024 09:51-0400 Systolic blood pressure 114 mm[Hg] Alexander Galaviz MD Work Phone: [facility] 07-26-2024 02:10-0400 Body temperature 98 [degF] Dr. Abel Ortiz DO Work Phone: [facility] 07-26-2024 02:10-0400 Diastolic blood pressure 57 mm[Hg] Dr. Abel Ortiz DO Work Phone: [facility] 07-26-2024 02:10-0400 Heart rate 77 /min Dr. Abel Ortiz DO Work Phone: 8(016)220-698347 [place] [address] 07-26-2024 02:10-0400 Respiratory rate 18 /min Dr. Abel Ortiz DO Work Phone: 1(602)691-663047 [place] [address] 07-26-2024 02:10-0400 SaO2% (BldA) [Mass fraction] 93 % Dr. Abel Ortiz DO Work Phone: 6(910)603-550547 [place] [address] 07-26-2024 02:10-0400 Systolic blood pressure 131 mm[Hg] Dr. Abel Ortiz DO Work Phone: 8(863)860-465047 [place] [address] 07-26-2024 00:09-0400 Body height 165.[address] Abel Ortiz DO Work Phone: 9(859)695-173947 [place] [address] 07-26-2024 00:09-0400 Body mass index (BMI) [Ratio] 32.1 kg/m2 Dr. Abel Ortiz DO Work Phone: 6(148)387-393547 [place] [address] 07-26-2024 00:09-0400 Body weight 87.[address] Abel Ortiz DO Work Phone: 5(966)283-077847 [place] [address] 07-23-2024 14:00-0400 Heart rate 93 /min Dr. Abel Ortiz DO Work Phone: 7(958)241-814847 [place] [address] 07-23-2024 14:00-0400 Respiratory rate 20 /min Dr. Abel Ortiz DO Work Phone: 9(577)490-137647 [place] [address] 07-23-2024 14:00-0400 SaO2% (BldA) [Mass fraction] 94 % Dr. Abel Ortiz DO Work Phone: 1(269)258-938247 [place] [address] 07-23-2024 01:33-0500 Body temperature 97.8 [degF] Dr. Abel Ortiz DO Work Phone: 0(671)529-501847 [place] [address] 07-23-2024 01:33-0500 Diastolic blood pressure 56 mm[Hg] Dr. Abel Ortiz DO Work Phone: 9(525)280-837547 [place] [address] 07-23-2024 01:33-0500 Systolic blood pressure 117 mm[Hg] Dr. Abel Ortiz DO Work Phone: [facility] 07-22-2024 22:53-0500 Body height 165.[address] Abel Ortiz DO Work Phone: [facility] 07-22-2024 22:53-0500 Body mass index (BMI) [Ratio] 32.3 kg/m2 Dr. Abel Ortiz DO Work Phone: [facility] 07-22-2024 22:53-0500 Body weight 88.[address] Abel Ortiz DO Work Phone: [facility] 03-31-2024 10:40-0500 Body mass index (BMI) [Ratio] 30.68 kg/m2 Abel Alonsorison DO Work Phone: [facility] 03-31-2024 10:40-0500 Body temperature 97 [degF] Abel Ortiz DO Work Phone: [facility] 03-31-2024 10:40-0500 Body weight 81.5 kg Abel Ortiz DO Work Phone: [facility] 03-31-2024 10:40-0500 Diastolic blood pressure 60 mm[Hg] Abel Ortiz DO Work Phone: [facility] 03-31-2024 10:40-0500 Heart rate 60 /min Abel Ortiz DO Work Phone: [facility] 03-31-2024 10:40-0500 Respiratory rate 20 /min Abel Ortiz DO Work Phone: [facility] 03-31-2024 10:40-0500 Systolic blood pressure 122 mm[Hg] Abel Ortiz DO Work Phone: [facility] 02-03-2024 12:58-0400 Body mass index (BMI) [Ratio] 29.7 kg/m2 Alexander Galaviz MD Work Phone: [employer] 02-03-2024 12:58-0400 Body weight 78.47 kg Alexander Galaviz MD Work Phone: [facility] [employer] 02-03-2024 12:58-0400 Diastolic blood pressure 68 mm[Hg] Alexander Galaviz MD Work Phone: [facility] 02-03-2024 12:58-0400 Heart rate 85 /min Alexander Galaviz MD Work Phone: [facility] 02-03-2024 12:58-0400 Systolic blood pressure 118 mm[Hg] Alexander Galaviz MD Work Phone: [facility] 11-09-2023 09:56-0400 Body mass index (BMI) [Ratio] 25.78 kg/m2 Abel Ortiz DO Work Phone: [facility] 11-09-2023 09:56-0400 Body temperature 97 [degF] Abel Ortiz DO Work Phone: [facility] 11-09-2023 09:56-0400 Body weight 68.49 kg Abel Ortiz DO Work Phone: [facility] 11-09-2023 09:56-0400 Diastolic blood pressure 70 mm[Hg] Abel Ortiz DO Work Phone: [facility] 11-09-2023 09:56-0400 Heart rate 80 /min Abel Ortiz DO Work Phone: [facility] 11-09-2023 09:56-0400 Respiratory rate 16 /min Abel Ortiz DO Work Phone: [facility] 11-09-2023 09:56-0400 Systolic blood pressure 120 mm[Hg] Abel Ortiz DO Work Phone: [facility] 09-30-2023 13:31-0400 Body mass index (BMI) [Ratio] 26.5 kg/m2 Miguel A Davis MD Work Phone: [facility] 09-30-2023 13:31-0400 Body temperature 97 [degF] Miguel A Davis MD Work Phone: [facility] 05-16-2024 13:31-0400 Body weight 70.4 kg Miguel A Davis MD Work Phone: [facility] 09-30-2023 13:31-0400 Diastolic blood pressure 77 mm[Hg] Miguel A Davis MD Work Phone: [facility] 09-30-2023 13:31-0400 Heart rate 68 /min Miguel A Davis MD Work Phone: [facility] 09-30-2023 13:31-0400 Respiratory rate 16 /min Miguel A Davis MD Work Phone: [facility] 09-30-2023 13:31-0400 SaO2% (BldA) [Mass fraction] 97 % Miguel A Davis MD Work Phone: [facility] 09-30-2023 13:31-0400 Systolic blood pressure 137 mm[Hg] Miguel A Davis MD Work Phone: [facility] 08-05-2023 09:48-0400 Diastolic blood pressure 55 mm[Hg] Alexander Galaviz MD Work Phone: [facility] [employer] 08-05-2023 09:48-0400 Heart rate 85 /min Alexander Galaviz MD Work Phone: [facility] [employer] 08-05-2023 09:48-0400 Systolic blood pressure 90 mm[Hg] Alexander Galaviz MD Work Phone: [facility] [employer] 08-05-2023 09:38-0400 Body mass index (BMI) [Ratio] 28.12 kg/m2 Alexander Galaviz MD Work Phone: [facility] [employer] 08-05-2023 09:38-0400 Body weight 74.3 kg Alexander Galaviz MD Work Phone: [facility] [employer] 08-03-2023 12:31-0400 Body temperature 97.3 [degF] Abel Ortiz DO Work Phone: [facility] 08-03-2023 12:31-0400 Body weight 72.58 kg Abel Ortiz DO Work Phone: [facility] 08-03-2023 12:31-0400 Diastolic blood pressure 70 mm[Hg] Abel Ortiz DO Work Phone: [facility] 08-03-2023 12:31-0400 Heart rate 76 /min Abel Ortiz DO Work Phone: [facility] 08-03-2023 12:31-0400 Respiratory rate 20 /min Abel Ortiz DO Work Phone: [facility] 08-03-2023 12:31-0400 Systolic blood pressure 110 mm[Hg] Abel Ortiz DO Work Phone: [facility] 06-24-2023 13:35-0500 Diastolic blood pressure 66 mm[Hg] Alexander Galaviz MD Work Phone: [facility] [employer] 06-24-2023 13:35-0500 Heart rate 73 /min Alexander Galaviz MD Work Phone: [facility] 06-24-2023 13:35-0500 Systolic blood pressure 103 mm[Hg] Alexander Galaviz MD Work Phone: [facility] 06-24-2023 13:32-0500 Body height 162.6 cm Alexander Galaviz MD Work Phone: [facility] [employer] 06-24-2023 13:32-0500 Body mass index (BMI) [Ratio] 28.29 kg/m2 Alexander Galaviz MD Work Phone: [facility] [employer] 06-24-2023 13:32-0500 Body weight 74.75 kg Alexander Galaviz MD Work Phone: [facility] [employer] 09-14-2022 09:31-0400 Body temperature 98.29 [degF] Miguel A Davis MD Work Phone: [facility] 09-14-2022 09:31-0400 Body weight 76.25 kg Miguel A Davis MD Work Phone: [facility] 09-14-2022 09:31-0400 Diastolic blood pressure 61 mm[Hg] Miguel A Davis MD Work Phone: [facility] 09-14-2022 09:31-0400 Heart rate 68 /min Miguel A Davis MD Work Phone: [facility] 09-14-2022 09:31-0400 SaO2% (BldA) [Mass fraction] 97 % Miguel A Davis MD Work Phone: [facility] 09-14-2022 09:31-0400 Systolic blood pressure 122 mm[Hg] Miguel A Davis MD Work Phone: [facility] 08-13-2022 09:13-0400 Body weight 76.66 kg Haydee Jhaveri TREASURY DIRECTOR.ALLEY TENDER Work Phone: [facility] 08-13-2022 09:13-0400 Diastolic blood pressure 62 mm[Hg] Haydee Jhaveri TREASURY DIRECTOR.ALLEY TENDER Work Phone: [facility] 08-13-2022 09:13-0400 Heart rate 64 /min Haydee Jhaveri TREASURY DIRECTOR.ALLEY TENDER Work Phone: [facility] 08-13-2022 09:13-0400 Respiratory rate 14 /min Haydee Jhaveri TREASURY DIRECTOR.ALLEY TENDER Work Phone: [facility] 08-13-2022 09:13-0400 Systolic blood pressure 132 mm[Hg] Haydee Jhaveri TREASURY DIRECTOR.ALLEY TENDER Work Phone: [facility] 07-15-2022 10:22-0500 Body temperature 97.81 [degF] Iva Renée TREASURY DIRECTOR.ALLEY TENDER Work Phone: [facility] 07-15-2022 10:22-0500 Body weight 75.21 kg Iva Renée TREASURY DIRECTOR.ALLEY TENDER Work Phone: [facility] 07-15-2022 10:22-0500 Diastolic blood pressure 78 mm[Hg] Iva Renée TREASURY DIRECTOR.ALLEY TENDER Work Phone: [facility] 07-15-2022 10:22-0500 Heart rate 71 /min Iva Renée TREASURY DIRECTOR.ALLEY TENDER Work Phone: [facility] 07-15-2022 10:22-0500 Respiratory rate 16 /min Iva Renée TREASURY DIRECTOR.ALLEY TENDER Work Phone: [facility] 07-15-2022 10:22-0500 SaO2% (BldA) [Mass fraction] 97 % Iva Renée TREASURY DIRECTOR.ALLEY TENDER Work Phone: [facility] 07-15-2022 10:22-0500 Systolic blood pressure 120 mm[Hg] Iva Renée TREASURY DIRECTOR.ALLEY TENDER Work Phone: [facility] 03-02-2022 09:11-0400 Body weight 76.2 kg Miguel A Davis MD Work Phone: [facility] 03-02-2022 09:11-0400 Diastolic blood pressure 80 mm[Hg] Miguel A Davis MD Work Phone: [facility] 03-02-2022 09:11-0400 Heart rate 64 /min Miguel A Davis MD Work Phone: [facility] 03-02-2022 09:11-0400 Respiratory rate 18 /min Miguel A Davis MD Work Phone: [facility] 03-02-2022 09:11-0400 SaO2% (BldA) [Mass fraction] 99 % Miguel A Davis MD Work Phone: [facility] 03-02-2022 09:11-0400 Systolic blood pressure 114 mm[Hg] Miguel A Davis MD Work Phone: [facility] 02-06-2022 11:23-0400 Body temperature 97.9 [degF] Haydee Zurawick TREASURY DIRECTOR.ALLEY TENDER Work Phone: [facility] 02-06-2022 11:23-0400 Body weight 76.66 kg Haydee Zurawick TREASURY DIRECTOR.ALLEY TENDER Work Phone: [facility] 02-06-2022 11:23-0400 Diastolic blood pressure 66 mm[Hg] Haydee Zurawick TREASURY DIRECTOR.ALLEY TENDER Work Phone: [facility] 02-06-2022 11:23-0400 Heart rate 68 /min Haydee Zurawick TREASURY DIRECTOR.ALLEY TENDER Work Phone: [facility] 02-06-2022 11:23-0400 Respiratory rate 16 /min Haydee Anthony TREASURY DIRECTOR.ALLEY TENDER Work Phone: [facility] 02-06-2022 11:23-0400 SaO2% (BldA) [Mass fraction] 98 % Haydee Betzaidanikolayck TREASURY DIRECTOR.ALLEY TENDER Work Phone: [facility] 02-06-2022 11:23-0400 Systolic blood pressure 102 mm[Hg] Haydee Anthony TREASURY DIRECTOR.ALLEY TENDER Work Phone: [facility] 01-07-2022 17:39-0400 Body height 162.5 cm Abel Ortiz DO Work Phone: [facility] 01-07-2022 17:39-0400 Body weight 76.26 kg Abel Ortiz DO Work Phone: [facility] 01-07-2022 17:39-0400 Diastolic blood pressure 60 mm[Hg] Abel Ortiz DO Work Phone: [facility] 01-07-2022 17:39-0400 Heart rate 72 /min Abel Ortiz DO Work Phone: [facility] 01-07-2022 17:39-0400 Respiratory rate 16 /min Abel Ortiz DO Work Phone: [facility] 01-07-2022 17:39-0400 Systolic blood pressure 100 mm[Hg] Abel Ortiz DO Work Phone: [facility] 12-23-2021 09:14-0400 Body temperature 97 [degF] Abel Ortiz DO Work Phone: [facility] 12-23-2021 09:14-0400 Body weight 78.47 kg Abel Ortiz DO Work Phone: [facility] 12-23-2021 09:14-0400 Diastolic blood pressure 60 mm[Hg] Abel Ortiz DO Work Phone: [facility] 12-23-2021 09:14-0400 Heart rate 80 /min Abel Ortiz DO Work Phone: [facility] 12-23-2021 09:14-0400 Respiratory rate 24 /min Abel Ortiz DO Work Phone: [facility] 12-23-2021 09:14-0400 Systolic blood pressure 120 mm[Hg] Able Ortiz DO Work Phone: [facility] 09-08-2021 08:54-0400 Body weight 76.2 kg Abel Ortiz DO Work Phone: [facility] 09-08-2021 08:54-0400 Diastolic blood pressure 62 mm[Hg] Abel Ortiz DO Work Phone: [facility] 09-08-2021 08:54-0400 Heart rate 72 /min Abel Ortiz DO Work Phone: [facility] 09-08-2021 08:54-0400 Systolic blood pressure 112 mm[Hg] Abel Ortiz DO Work Phone: [facility] 09-04-2021 08:49-0400 Body temperature 98.1 [degF] Miguel A Davis MD Work Phone: [facility] 09-04-2021 08:49-0400 Body weight 75.75 kg Miguel A Davis MD Work Phone: [facility] 09-04-2021 08:49-0400 Diastolic blood pressure 78 mm[Hg] Miguel A Davis MD Work Phone: [facility] 09-04-2021 08:49-0400 Heart rate 73 /min Miguel A Davis MD Work Phone: [facility] 09-04-2021 08:49-0400 Respiratory rate 18 /min Miguel A Davis MD Work Phone: [facility] 09-04-2021 08:49-0400 SaO2% (BldA) [Mass fraction] 97 % Miguel A Davis MD Work Phone: [facility] 09-04-2021 08:49-0400 Systolic blood pressure 132 mm[Hg] Miguel A Davis MD Work Phone: [facility] Encounters Encounter Date Encounter Type Care Provider Facility Start: 10-12-2024 End: 10-12-2024 Patient encounter procedure Miguel A Davis MD Work Phone: Hematology/Oncology Start: 10-12-2024 End: 10-12-2024 ambulatory Miguel A Davis MD Work Phone: Hematology/Oncology Comment on above: Cancer of trachea, b ronchus, and lung (HCC) (Primary Dx); Personal history of malignant neoplasm of bronchus and lung; Lung nodules Start: 10-11-2024 End: 10-11-2024 Patient encounter procedure Camila Ledezma PA-C Work Phone: Otolaryngology Comment on above: Cochlear implant in place (Primary Dx); Sensorineural hearing loss (SNHL) of both ears Start: 10-11-2024 End: 10-11-2024 ambulatory CAMILA LEDEZMA Facility:[facility] Start: 09-29-2024 ambulatory ABEL Wilkes ity:[facility] Start: 09-29-2024 End: 09-29-2024 Subsequent hospital visit by physician Ousmane [facility] (I-Stat) Work Phone: Cat Scan Comment on above: Malignant neoplasm o f unspecified part of unspecified bronchus or lung (HCC) [C34.90] Start: 09-18-2024 End: 09-18-2024 Emergency department patient visit Abel Ortiz Facility:[facility] Start: 09-13-2024 End: 09-13-2024 ambulatory Abel Greg AlonsoOrtiz DO Work Phone: [facility] Comment on above: Allied Health Visit (Medication Adherence Outreach ) Start: 09-12-2024 End: 09-12-2024 ambulatory Abel L Ortiz DO Work Phone: [facility] Comment on above: Monserrat French Hip P ain Start: 09-12-2024 End: 09-20-2024 Telephone encounter Abel Alonsorison DO Work Phone: [facility] Comment on above: Hip Pain Start: 08-14-2024 End: 08-14-2024 ambulatory Abel L Ortiz DO Work Phone: [facility] Comment on above: Allied Health Visit (Medication Adherence Outreach/) Start: 08-08-2024 End: 08-08-[address] Abel Ortiz DO Work Phone: [facility] Work Phone: Start: 08-08-2024 End: 08-08-2024 Departed Referred Abel Ortiz -[facility] Work Phone: Start: 08-07-2024 End: 08-08-2024 ambulatory Abel Ortiz Facility:[facility] Start: 08-07-2024 End: 08-07-2024 Patient encounter procedure Danielle Jitendra CARROLL Work Phone: Audiology Comment on above: Sensorineural hearin g loss, bilateral (Primary Dx); Cochlear implant follow-up Start: 08-04-2024 End: 08-07-2024 Telephone encounter Abel Ortiz DO Work Phone: [facility] Start: 08-04-2024 End: 08-04-2024 ambulatory ABEL ORTIZ Facility:[facility] Start: 08-04-2024 End: 08-04-2024 Patient encounter procedure Abel Ortiz DO Work Phone: [facility] Comment on above: Weakness of both low er extremities (Primary Dx); Arthritis of both feet; Onychomycosis; Bunion, left foot; Impaired gait and mobility; Balance disorder; 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 behavioral disturbance, psychotic disturbance, mood disturbance, or anxiety (HCC); Impaired mobility and ADLs; Hypothyroidism, unspecified type; Vitamin D deficiency Start: 08-03-2024 End: 08-03-2024 Office outpatient visit 40 minutes Alexander Galaviz MD Work Phone: [facility] Comment on above: Alzheimer's dementia without behavioral disturbance (HCC) (Primary Dx) Start: 08-03-2024 End: 08-03-2024 ambulatory ABEL ORTIZ [facility] Start: 07-26-2024 End: 07-26-2024 Emergency department patient visit Dr. Abel Ortiz DO Work Phone: -Emergency Department Work Phone: Start: 07-25-2024 End: 09-27-2024 Telephone encounter Fadi Nash DO Work Phone: Family Medicine [facility] Start: 07-22-2024 End: 07-23-2024 Emergency department patient visit Dr. Abel Ortiz DO Work Phone: -Emergency Department Work Phone: Start: 06-21-2024 End: 06-21-2024 Telephone encounter Miguel A Davis MD Work Phone: Hematology/Oncology Comment on above: Appointment Start: 04-26-2024 End: 04-27-2024 Telephone encounter Marguerite CARROLL Work Phone: Audiology Comment on above: Patient Question Start: 04-17-2024 End: 04-18-2024 Telephone encounter Abel Ortiz DO Work Phone: [facility] Comment on above: Patient Update (Coug h, FYI) Start: 04-14-2024 End: 04-17-2024 ambulatory Abel Ortiz DO Work Phone: [facility] Comment on above: Monserrat [place] of Town Start: 04-03-2024 End: 04-03-2024 Departed Referred Abel Ortiz -[facility] Work Phone: Start: 04-03-2024 End: 04-03-2024 ambulatory Abel DAVENPORT Facility:[facility] Start: 03-31-2024 End: 04-03-2024 ambulatory Abel Ortiz DO Work Phone: [facility] Start: 03-31-2024 End: 04-03-2024 Patient encounter procedure Abel Ortiz DO Work Phone: [facility] Comment on above: Mild dementia withou t behavioral disturbance, psychotic disturbance, mood disturbance, or anxiety, unspecified dementia type (HCC) (Primary Dx); Vitamin D deficiency; Osteoarthritis of other site, unspecified osteoarthritis type; Pure hypercholesterolemia; Dysuria; Hypothyroidism, unspecified type; Major depressive disorder with current active episode, unspecified depression episode severity, unspecified whether recurrent; Urinary incontinence, unspecified type; Balance disorder; Left hip pain Monserrat French Next Appointment Start: 03-12-2024 End: 03-12-2024 ambulatory Marjorie Greenwood RN NURSE [employer] Comment on above: Information Start: 03-08-2024 End: 03-08-2024 ambulatory Abel Lopezon DO [facility] Comment on above: Monserrat French - Pad s Start: 03-08-2024 End: 03-13-2024 Telephone encounter Abel Ortiz DO Work Phone: [facility] Comment on above: Incontinence Start: 03-04-2024 End: 03-04-2024 ambulatory China Santiago RN NURSE [employer] Comment on above: Information Start: 02-03-2024 End: 02-03-2024 Office outpatient visit 40 minutes Alexander Galaviz MD Work Phone: [facility] Comment on above: Alzheimer's dementia without behavioral disturbance (HCC) (Primary Dx) Start: 02-03-2024 End: 02-03-2024 ambulatory ABEL ORTIZ [facility] Start: 01-17-2024 ambulatory Abel Ortiz Facilit y:[facility] Start: 01-05-2024 End: 01-05-2024 ambulatory Abel Alonsorison DO Work Phone: [facility] Comment on above: [facility] Start: 01-05-2024 End: 01-13-2024 Telephone encounter Abel Lopezon DO Work Phone: [facility] Comment on above: Patient Update Start: 12-02-2023 ambulatory Abel Smiley son DO Work Phone: [facility] Comment on above: Monserrat Campbell [facility] Certification Form Start: 12-02-2023 Telephone encounter Abel camarena DO Work Phone: [facility] Comment on above: Fax Update Start: 12-01-2023 Telephone encounter Abel camarena DO Work Phone: [facility] Comment on above: Results Start: 11-29-2023 End: 02-16-2024 Telephone encounter Abel Ortiz DO Work Phone: [facility] Start: 11-28-2023 ambulatory Abel grove DO Work Phone: [facility] Comment on above: Monserrat merritt Start: 11-09-2023 End: 11-09-2023 ambulatory ABEL ORTIZ Facility:[facility] Start: 11-09-2023 End: 11-09-2023 Patient encounter procedure Abel Ortiz DO Work Phone: [facility] Comment on above: Weight loss, uninten tional (Primary Dx); Vitamin D deficiency; Mild dementia without behavioral disturbance, psychotic disturbance, mood disturbance, or anxiety, unspecified dementia type (HCC); Major depressive disorder with current active episode, unspecified depression episode severity, unspecified whether recurrent; Hypothyroidism, unspecified type; Moderate dementia without behavioral disturbance, psychotic disturbance, mood disturbance, or anxiety, unspecified dementia type (HCC); Urinary incontinence, unspecified type Start: 09-30-2023 End: 10-01-2023 ambulatory Mgiuel A Davis MD Work Phone: Hematology/Oncology Comment on above: Malignant neoplasm o f unspecified part of unspecified bronchus or lung (HCC) (Primary Dx) Start: 09-30-2023 End: 09-30-2023 Patient encounter procedure Miguel A Davis MD Work Phone: Hematology/Oncology Start: 09-06-2023 End: 09-06-2023 Subsequent hospital visit by physician [facility] (I-Stat) Work Phone: Cat Scan Comment on above: Malignant neoplasm o f unspecified part of unspecified bronchus or lung (HCC) [C34.90] Start: 08-05-2023 End: 08-05-2023 Office outpatient visit 40 minutes Alexander Galaviz MD Work Phone: [facility] Geriatrics Comment on above: Alzheimer's dementia without behavioral disturbance (HCC) (Primary Dx) Start: 08-03-2023 End: 08-03-2023 Patient encounter procedure Abel Ortiz DO Work Phone: [facility] [place] Comment on above: Mild dementia withou t behavioral disturbance, psychotic disturbance, mood disturbance, or anxiety, unspecified dementia type (HCC) (Primary Dx); PURE HYPERCHOLESTEROLEM; Nausea; Malignant neoplasm of upper lobe of right lung (HCC); Hypothyroidism, unspecified type; Balance disorder; Vitamin D deficiency Start: 07-06-2023 End: 07-06-2023 Patient encounter procedure Marguerite Davis AUD Work Phone: Audiology Comment on above: Sensorineural hearin g loss, bilateral (Primary Dx); Cochlear implant follow-up Start: 06-24-2023 End: 06-24-2023 Office outpatient new 60 minutes Edelmira Sun TREASURY DIRECTOR - ALLEY TENDER Work Phone: [facility] Geriatrics Comment on above: Cognitive impairment (Primary Dx) Start: 05-26-2023 Telephone encounter Alexander oro MD Work Phone: [facility] Ger[facility] Comment on above: Correcting email add ress (Correcting email address) Start: 05-21-2023 Telephone encounter [facility] Physicians [facility] Clinical Communication Comment on above: Appointment Request Start: 01-23-2023 Refill Haydee Jhaveri TREASURY DIRECTOR.ALLEY TENDER Work Phone: [facility] [place] Comment on above: Refill Request Start: 01-20-2023 Telephone encounter Abel camarena DO Work Phone: [facility] [place] Comment on above: Patient Question; Re sults Start: 01-13-2023 End: 01-13-2023 Subsequent hospital visit by physician Ct [facility] (I-Stat) Work Phone: Cat Scan Comment on above: Fatigue, unspecified type [R53.83] Start: 01-13-2023 Telephone encounter Abel camarena DO Work Phone: [facility] [place] Comment on above: Results Start: 09-21-2022 Documentation procedure Mammog irene Coordinator [facility] Start: 09-21-2022 Letter encounter Mammography Coordinator [facility] Department Start: 09-14-2022 End: 09-14-2022 ambulatory Miguel A Davis MD Work Phone: Hematology/Oncology Comment on above: Encounter for screen ing mammogram for malignant neoplasm of breast (Primary Dx); Malignant neoplasm of unspecified part of unspecified bronchus or lung (HCC) Start: 09-14-2022 End: 09-14-2022 Patient encounter procedure Miguel A Davis MD Work Phone: [facility] Start: 09-01-2022 End: 09-01-2022 Subsequent hospital visit by physician [facility] (I-Stat) Work Phone: Cat Scan Comment on above: Malignant neoplasm o f unspecified part of unspecified bronchus or lung (HCC) [C34.90] Start: 08-13-2022 End: 08-13-2022 Subsequent hospital visit by physician Xr [facility] [place] Work Phone: Radiology Comment on above: Fall, initial encoun ter [W19.XXXA] Start: 08-13-2022 End: 08-13-2022 Patient encounter procedure Haydee Jhaveri APRN.ALLEY TENDER Work Phone: [facility] [place] Comment on above: Fall, initial encoun ter (Primary Dx) Start: 08-07-2022 Refill Haydee Jhaveri APRN.ALLEY TENDER Work Phone: [facility] Medicine [place] Comment on above: Refill Request Start: 07-15-2022 End: 07-15-2022 Patient encounter procedure Iva Chinchilla TREASURY DIRECTOR.ALLEY TENDER Work Phone: [facility] [place] Comment on above: Malignant neoplasm o f right upper lobe of lung (HCC) (Primary Dx); SOB (shortness of breath); Productive cough; Hypothyroidism, unspecified type Start: 06-22-2022 End: 06-22-2022 Patient encounter procedure Murphy Lira MD Work Phone: Otolaryngology Comment on above: Sensorineural hearin g loss (SNHL) of both ears (Primary Dx); Impacted cerumen of both ears Start: 06-01-2022 End: 06-01-2022 Patient encounter procedure Rosi Cisneros CARLY Work Phone: Audiology Comment on above: Sensorineural hearin g loss, bilateral (Primary Dx); Cochlear implant follow-up Start: 04-22-2022 Refill Abel grove DO Work Phone: [facility] [place] Comment on above: Refill Request Start: 04-17-2022 Refill Abel Smiley son DO Work Phone: [facility] [place] Comment on above: Refill Request Start: 03-24-2022 Telephone encounter Abel camarena DO Work Phone: [facility] [place] Comment on above: Results Start: 03-02-2022 End: 03-02-2022 ambulatory Miguel A Davis MD Work Phone: Hematology/Oncology Comment on above: Malignant neoplasm o f unspecified part of unspecified bronchus or lung (HCC) (Primary Dx) Start: 03-02-2022 End: 03-02-2022 Patient encounter procedure Miguel A Davis MD Work Phone: [facility] Start: 02-09-2022 Telephone encounter Abel camarena DO Work Phone: [facility] [place] Comment on above: Result of covid lab done 02-06-22 Start: 02-06-2022 End: 02-06-2022 Patient encounter procedure Haydee Cruz APRN.ALLEY TENDER Work Phone: [facility] [place] Comment on above: Productive cough (Pr imary Dx); Hypothyroidism, unspecified type; Malignant neoplasm of right upper lobe of lung (HCC) Start: 01-14-2022 Telephone encounter Abel camarena DO Work Phone: [facility] [place] Comment on above: Results Start: 01-12-2022 ambulatory Adilene ALEXIS E BRICK OR BLOCK MAKER Comment on above: Abdominal Pain Start: 01-07-2022 End: 01-07-2022 Patient encounter procedure Abel Ortiz DO Work Phone: [facility] [place] Comment on above: SOB (shortness of br eath) (Primary Dx); Fatigue, unspecified type; Cardiac murmur, previously undiagnosed; Hypothyroidism, unspecified type; Chronic constipation; Vitamin D deficiency; PURE HYPERCHOLESTEROLEM; History of lung cancer Start: 12-23-2021 End: 12-23-2021 Patient encounter procedure Abel Ortiz DO Work Phone: [facility] [place] Comment on above: Patient left after rosamaria olmedo (Primary Dx) Start: 12-05-2021 ambulatory Abel grove DO Work Phone: [facility] Medicine [place] Comment on above: Right Knee Pain Start: 09-19-2021 End: 09-19-2021 Patient encounter procedure Matt Peter APRN.ALLEY TENDER Work Phone: [facility] Comment on above: Procedure not guzman d out (Primary Dx) Start: 09-09-2021 Telephone encounter Abel pughbrunilda DO Work Phone: [facility] [place] Comment on above: Patient Question Start: 09-08-2021 End: 09-08-2021 Patient encounter procedure Abel Ortiz DO Work Phone: [facility] [place] Comment on above: Hypothyroidism, unsp ecified type (Primary Dx); Vitamin D deficiency; Chronic constipation; PURE HYPERCHOLESTEROLEM; Sensorineural hearing loss, bilateral; Malignant neoplasm of right upper lobe of lung (HCC); Fatigue, unspecified type Start: 09-04-2021 End: 09-04-2021 ambulatory Migue lA Davis MD Work Phone: Hematology/Oncology Comment on above: Cancer of trachea, b ronchus, and lung (HCC) (Primary Dx) Start: 09-04-2021 End: 09-04-2021 Patient encounter procedure Miguel A Davis MD Work Phone: [facility] Start: 09-01-2021 End: 09-01-2021 Subsequent hospital visit by physician Ousmane [facility] (I-Stat) Work Phone: Cat Scan Comment on above: Primary lung cancer with metastasis from lung to other site, right (HCC) [C34.91] Start: 08-26-2021 End: 08-26-2021 Patient encounter procedure Rosi Cisneros AUD Work Phone: Audiology Comment on above: Sensorineural hearin g loss, bilateral (Primary Dx); Cochlear implant follow-up Start: 05-20-2021 End: 05-20-2021 Subsequent hospital visit by physician Myrtle [facility] [place] Work Phone: Radiology Comment on above: Cough [R05.9] Procedures Date Procedure Procedure Detail Performing Clinician Start: 08-07-2024 HEARING IMPLANTABLE DEVICES (E.G. COCHLEAR IMPLANTS (CI), BONE ANCHORED (TESSA), SENSORY DEVICES) Danielle Peace AUD Work Phone: Start: 07-26-2024 X-ray of chest, PA a nd lateral views Dr. Abel Ortiz DO Work Phone: Start: 07-22-2024 X-ray of chest, PA a nd lateral views Dr. Abel Ortiz DO Work Phone: Start: 07-22-2024 SARS-CoV-2, Influenz a & RSV (PCR) Dr. Abel Ortiz DO Work Phone: Start: 04-03-[address] Raul Ortiz DO Work Phone: Start: 11-09-2023 Thyrotropin [Units/v olume] in Serum or Plasma Alexander Galaviz MD Work Phone: Start: 07-06-2023 HEARING IMPLANTABLE DEVICES (E.G. COCHLEAR IMPLANTS (CI), BONE ANCHORED (TESSA), SENSORY DEVICES) Marguerite Davis AUD Work Phone: Start: 06-24-2023 Adult depression scr eening assessment Alexander Galaviz MD Work Phone: Start: 04-27-2023 Thyrotropin [Units/v olume] in Serum or Plasma Alexander Galaviz MD Work Phone: Start: 01-13-2023 Ct head/brain w/o co ntrast material Abel Ortiz DO Work Phone: Start: 09-01-2022 Ct thorax w/o contra st material Miguel A Davis MD Work Phone: Start: 08-13-2022 Radiologic exam ches t 2 views Haydee Jhaveri TREASURY DIRECTOR.ALLEY TENDER Work Phone: Start: 03-02-2022 PFIZER-BIONTECH COVI D-19 BIVALENT BOOSTER VACCINE, AGE 12+ YR Miguel A Davis MD Work Phone: Start: 09-01-2021 Ct thorax w/contrast material Miguel A Davis MD Work Phone: Start: 05-20-2021 Radiologic exam ches t 2 views Dolores Antoine TREASURY DIRECTOR.ALLEY TENDER Work Phone: Plan of Treatment Date Care Activity Detail Author Start: 03-31-2027 Diabetes Screening Diabetes Screening [facility] Start: 11-08-2026 Diabetes Screening Diabetes Screening [facility] Start: 09-29-2026 Diabetes Screening Diabetes Screening [facility] Start: 01-13-2026 DIABETES SCREEN DIABETES SCREEN [facility] Start: 01-13-2026 Diabetes Screening Diabetes Screening [facility] Start: 09-14-2025 DIABETES SCREEN DIABETES SCREEN [facility] Start: 03-20-2025 DIABETES SCREEN DIABETES SCREEN [facility] Start: 02-03-2025 Depression Monitoring Depression Monitoring [facility] Start: 02-01-2025 End: 02-01-2025 Patient encounter procedure 02/01/2025 10:00 AM EDT [facility] [address] [place] [address] Alexander Galaviz MD [address] [address] [facility] Start: 01-15-2025 Influenza vaccination Influenza Vaccine (Season Ended) [facility] Start: 11-28-2024 End: 11-28-2024 Patient encounter procedure 11/28/2024 10:00 AM EDT Office Visit [facility] [place] [address] [place], [place] [id number] Abel Ortiz DO [address] [facility] [place] [address] 3 month follow up [facility] [place] Comment on above: 3 month follow up Start: 11-08-2024 Thyroid stimulating hormone measurement TSH Level [facility] Start: 11-04-2024 End: 02-03-2025 Cobalamin (Vitamin B12) [Mass/volume] in Serum or Plasma VITAMIN B12 Lab Routine Balance disorder Expected: 11/04/2024, Expires: 02/03/2025 [facility] Comment on above: Expected: 11/04/2024, Expires: Start: 10-13-2024 End: 10-13-2024 Follow-up encounter 10/13/2024 11:40 AM EDT Visit (SP) Office Hematology/Oncology [address] [address] [place] [address] [place] [address] follow up 1 yr Hematology/Oncology Comment on above: follow up 1 yr Start: 10-12-2024 End: 10-12-2024 Follow-up encounter Hematology/Oncology Comment on above: follow up 1 yr lung scan follow up 1 yr Start: 10-11-2024 End: 10-11-2024 Patient encounter procedure 10/11/2024 1:25 PM EDT Office Visit Otolaryngology [address] [place] [address] Camila Ledezma PA-C [address] [facility] [place] [address] per Danielle Peace, appt with otology needed to re-establish care for cochlear implant Otolaryngology Comment on above: per Danielle Peace, appt with otology needed to re-establish care for cochlear implant Start: 10-05-2024 End: 10-05-2024 Follow-up encounter 10/05/2024 9:40 AM EDT Visit (SP) Office Hematology/Oncology [address] [address] [place] [address] [place] [address] follow up 1 yr Hematology/Oncology Comment on above: follow up 1 yr Start: 09-29-2024 End: 09-29-2024 Patient encounter procedure 09/29/2024 8:00 AM EDT Appointment Cat Scan [address] [place] [address] Malignant neoplasm of unspecified part of unspecified bronchus or lung (HCC) [C34.90] Cat Scan Comment on above: Malignant neoplasm of unspecified part o f unspecified bronchus or lung (HCC) [C34.90] Start: 09-01-2024 DIABETES SCREEN DIABETES SCREEN [facility] Start: 08-07-2024 End: 08-07-2024 Patient encounter procedure 08/07/2024 10:30 AM EDT Office Visit Audiology [address] [address] Danielle Peace, AUD [address] [place] [address] CI FOLLOW UP Audiology Comment on above: CI FOLLOW UP Start: 08-04-2024 End: 11-03-2024 25-hydroxyvitamin D3 [Mass/volume] in Serum or Plasma VITAMIN D 25 HYDROXY Lab Routine Balance disorder Vitamin D deficiency Expected: 08/04/2024, Expires: 11/03/2024 [facility] Comment on above: Expected: 08/04/2024, Expires: Start: 08-04-2024 End: 11-03-2024 CBC W Auto Differential panel - Blood COMPLETE BLOOD COUNT AND DIFFERENTIAL Lab Routine Balance disorder Expected: 08/04/2024, Expires: 11/03/2024 [facility] Comment on above: Expected: 08/04/2024, Expires: Start: 08-04-2024 End: 11-03-2024 Comprehensive metabolic 2000 panel - Serum or Plasma COMPREHENSIVE METABOLIC PANEL Lab Routine Balance disorder Expected: 08/04/2024, Expires: 11/03/2024 [facility] Comment on above: Expected: 08/04/2024, Expires: Start: 08-04-2024 End: 11-03-2024 Magnesium [Mass/volume] in Serum or Plasma MAGNESIUM Lab Routine Balance disorder Expected: 08/04/2024, Expires: 11/03/2024 [facility] Comment on above: Expected: 08/04/2024, Expires: Start: 08-04-2024 End: 11-03-2024 Thyrotropin [Units/volume] in Serum or Plasma THYROID STIMULATING HORMONE Lab Routine Hypothyroidism, unspecified type Expected: 08/04/2024, Expires: 11/03/2024 [facility] Work Phone: Comment on above: Expected: 08/04/2024, Expires: Start: 08-04-2024 End: 11-03-2024 Thyroxine (T4) free [Mass/volume] in Serum or Plasma T4 FREE/FREE THYROXINE Lab Routine Hypothyroidism, unspecified type Expected: 08/04/2024, Expires: 11/03/2024 [facility] Comment on above: Expected: 08/04/2024, Expires: Start: 08-04-2024 End: 08-04-2024 Patient encounter procedure 08/04/2024 9:40 AM EDT Office Visit [facility] [place] [address] [place] [address] Abel Ortiz DO [address] [place] [address] Doctor requested a follow-up [facility] [place] Comment on above: Doctor requested a follow-up Start: 08-03-2024 End: 08-03-2024 Patient encounter procedure 08/03/2024 10:00 AM EDT [facility] [address] [place] [address] Alexander Galaviz MD [address] [place] [address] [facility] Start: 07-26-2024 [facility] Start: 07-23-2024 [facility] Start: 07-21-2024 End: 07-21-2024 Patient encounter procedure 07/21/2024 12:30 PM EST Office Visit Audiology [address] [address] Danielle Peace, AUD [address] [place] [address] Cochlear implant 1 year follow up Audiology Comment on above: Cochlear implant 1 year follow up Start: 07-04-2024 End: 07-04-2024 Patient encounter procedure 07/04/2024 8:00 AM EST Office Visit Audiology [address] [address] Marguerite Davis, AUD [address] [place] [address] Cochlear implant 1 year follow up Audiology Comment on above: Cochlear implant 1 year follow up Start: 06-24-2024 Depression Screening Depression Screening [facility] Start: 05-17-2024 Medicare Advantage Annual Wellness Visit Medicare Advantage Annual Wellness Visit [facility] Start: 04-27-2024 Thyroid stimulating hormone measurement TSH Level [facility] Start: 03-31-2024 End: 06-30-2024 25-hydroxyvitamin D3 [Mass/volume] in Serum or Plasma [facility] Comment on above: Expected: 03/31/2024, Expires: Start: 03-31-2024 End: 06-30-2024 Cobalamin (Vitamin B12) [Mass/volume] in Serum or Plasma [facility] Comment on above: Expected: 03/31/2024, Expires: Start: 03-31-2024 End: 06-30-2024 Comprehensive metabolic 2000 panel - Serum or Plasma [facility] Work Phone: Comment on above: Expected: 03/31/2024, Expires: Start: 03-31-2024 End: 06-30-2024 Thyrotropin [Units/volume] in Serum or Plasma [facility] Comment on above: Expected: 03/31/2024, Expires: Start: 03-31-2024 End: 03-31-2024 Patient encounter procedure 03/31/2024 10:40 AM EST Office Visit [facility] [place] [address] [place] [address] Abel Ortiz DO [address] [place] [address] Dr. Ortiz has asked to see [place] 3-4 months. [facility] [place] Comment on above: Dr. Ortiz has asked to see [place] 3- 4 months. Start: 02-25-2024 DIABETES SCREEN DIABETES SCREEN [facility] Start: 02-03-2024 End: 02-03-2024 Patient encounter procedure 02/03/2024 12:45 PM EDT Office Visit [facility] Geriatrics [address] [place] [address] Alexander Galaviz MD [address] [id number] [facility] Start: 01-16-2024 COVID-19 Vaccine ( season) COVID-19 Vaccine ( season) [facility] Start: 01-16-2024 Covid-19 Vaccine ( season) Covid-19 Vaccine ( season) [facility] Start: 01-16-2024 Influenza vaccination [facility] Start: 01-14-2024 COVID-19 VACCINE (6 - Pfizer series) COVID-19 VACCINE (6 - Pfizer series) [facility] Comment on above: Postponed from 07/03/2022 (Declined at t his time) Start: 01-14-2024 SHINGRIX VACCINE (1 of 2) SHINGRIX VACCINE (1 of 2) [facility] Comment on above: Postponed from 1987 (Declined at t his time) Start: 01-14-2024 Urine microalbumin profile [facility] Comment on above: Postponed from 06/27/2008 (Declined at t his time) Start: 01-13-2024 End: 04-13-2024 Urinalysis complete panel - Urine URINALYSIS WITH MICROSCOPIC, REFLEX CULTURE Lab Routine Urinary incontinence, unspecified type Expected: 01/13/2024, Expires: 04/13/2024 [facility] Work Phone: Comment on above: Expected: 01/13/2024, Expires: Start: 11-09-2023 End: 02-08-2024 25-hydroxyvitamin D3 [Mass/volume] in Serum or Plasma [facility] Comment on above: Expected: 11/09/2023, Expires: Start: 11-09-2023 End: 02-08-2024 Cobalamin (Vitamin B12) [Mass/volume] in Serum or Plasma [facility] Comment on above: Expected: 11/09/2023, Expires: Start: 11-09-2023 End: 02-08-2024 Comprehensive metabolic 2000 panel - Serum or Plasma [facility] Comment on above: Expected: 11/09/2023, Expires: Start: 11-09-2023 End: 02-08-2024 Magnesium [Mass/volume] in Serum or Plasma [facility] Comment on above: Expected: 11/09/2023, Expires: Start: 11-09-2023 End: 02-08-2024 Prealbumin [Mass/volume] in Serum or Plasma [facility] Comment on above: Expected: 11/09/2023, Expires: Start: 11-09-2023 End: 02-08-2024 PROTEIN ELECTROPHORESIS SERUM W/INTERP [facility] Comment on above: Expected: 11/09/2023, Expires: Start: 11-09-2023 End: 02-08-2024 Thyrotropin [Units/volume] in Serum or Plasma [facility] Work Phone: Comment on above: Expected: 11/09/2023, Expires: Start: 11-09-2023 End: 02-08-2024 Thyroxine (T4) free [Mass/volume] in Serum or Plasma [facility] Comment on above: Expected: 11/09/2023, Expires: Start: 11-09-2023 End: 02-08-2024 Urinalysis complete panel - Urine URINALYSIS, WITH MICROSCOPIC Lab Routine Urinary incontinence, unspecified type Expected: 11/09/2023, Expires: 02/08/2024 [facility] Comment on above: Expected: 11/09/2023, Expires: Start: 11-09-2023 End: 11-09-2023 Patient encounter procedure 11/09/2023 10:00 AM EDT Office Visit [facility] [place] [address] [place] [address] Abel Ortiz DO [address] [place] [address] 3 month follow up [facility] [place] Comment on above: 3 month follow up Start: 10-05-2023 End: 10-05-2023 Patient encounter procedure 10/05/2023 11:30 AM EDT Appointment Mammogram [address] [place] [address] Malignant neoplasm of unspecified part of unspecified bronchus or lung (HCC) [C34.90] Mammogram Comment on above: Malignant neoplasm of unspecified part o f unspecified bronchus or lung (HCC) [C34.90] Start: 09-30-2023 End: 09-30-2023 Follow-up encounter 09/30/2023 1:40 PM EDT Visit (SP) Office Hematology/Oncology [address] [address] [place] [address] [place], [place] [id number] Lung needs labs Scan scheduled follow up Hematology/Oncology Comment on above: Lung needs labs Scan scheduled follow up Start: 08-05-2023 End: 08-05-2023 Patient encounter procedure 08/05/2023 9:45 AM EDT Office Visit [facility] [place] [id number] Alexander Galaviz MD [address] [address] [facility] Start: 06-24-2023 End: 06-24-2023 Patient encounter procedure 06/24/2023 1:45 PM EST Office Visit [facility] [address] [place] [id number] Edelmira Sun, TREASURY DIRECTOR - ALLEY TENDER [address] [address] Alexander Galaviz MD [address] [address] [facility] Start: 05-17-2023 Medicare Advantage Annual Wellness Visit Medicare Advantage Annual Wellness Visit [facility] Start: 02-20-2023 End: 04-22-2023 Thyrotropin [Units/volume] in Serum or Plasma TSH BLD Lab Routine Hypothyroidism, unspecified type Expected: 02/20/2023, Expires: 04/22/2023 [facility] Work Phone: Comment on above: Expected: 02/20/2023, Expires: 3 Start: 02-20-2023 End: 04-22-2023 Thyroxine (T4) free [Mass/volume] in Serum or Plasma T4 FREE/FREE THYROX Lab Routine Hypothyroidism, unspecified type Expected: 02/20/2023, Expires: 04/22/2023 [facility] Work Phone: Comment on above: Expected: 02/20/2023, Expires: 3 Start: 02-20-2023 End: 04-22-2023 Triiodothyronine (T3) [Mass/volume] in Serum or Plasma T3 BLD Lab Routine Hypothyroidism, unspecified type Expected: 02/20/2023, Expires: 04/22/2023 [facility] Work Phone: Comment on above: Expected: 02/20/2023, Expires: 3 Start: 01-15-2023 Covid-19 Vaccine ( season) Covid-19 Vaccine ( season) [facility] Start: 01-15-2023 Influenza vaccination [facility] Start: 01-07-2023 Urine microalbumin profile DTAP,TDAP,TD (1 - Tdap) [facility] Comment on above: Postponed from 06/27/2008 (Declined at t his time) Start: 11-13-2022 Influenza vaccination INFLUENZA (#1) [facility] Comment on above: Postponed from 01/15/2022 (Declined at t his time) Start: 08-31-2022 End: 10-31-2022 CBC W Auto Differential panel - Blood CBC + DIFF Lab Routine Malignant neoplasm of unspecified part of unspecified bronchus or lung (HCC) Expected: 08/31/2022, Expires: 10/31/2022 [facility] Work Phone: Comment on above: Expected: 08/31/2022, Expires: 3 Start: 08-31-2022 End: 10-31-2022 Comprehensive metabolic 2000 panel - Serum or Plasma COMP METABOLIC PANEL Lab Routine Malignant neoplasm of unspecified part of unspecified bronchus or lung (HCC) Expected: 08/31/2022, Expires: 10/31/2022 [facility] Work Phone: Comment on above: Expected: 08/31/2022, Expires: 3 Start: 08-31-2022 End: 04-01-2023 Ct thorax w/o contrast material CT CHEST WO IVCON Radiology Routine Malignant neoplasm of unspecified part of unspecified bronchus or lung (HCC) Expected: 08/31/2022, Expires: 04/01/2023 [facility] Work Phone: Comment on above: Expected: 08/31/2022, Expires: 3 Start: 05-17-2022 DEPRESSION ASSESSMENT DEPRESSION ASSESSMENT [facility] Start: 03-11-2022 End: 05-11-2022 CBC W Auto Differential panel - Blood CBC + DIFF Lab Routine Hypothyroidism, unspecified type Expected: 03/11/2022, Expires: 05/11/2022 [facility] Work Phone: Comment on above: Expected: 03/11/2022, Expires: 2 Start: 03-11-2022 End: 05-11-2022 Comprehensive metabolic 2000 panel - Serum or Plasma COMP METABOLIC PANEL Lab Routine Hypothyroidism, unspecified type Expected: 03/11/2022, Expires: 05/11/2022 [facility] Work Phone: Comment on above: Expected: 03/11/2022, Expires: 2 Start: 03-11-2022 End: 05-11-2022 LIPID PANEL BASIC LIPID PANEL BASIC Lab Routine PURE HYPERCHOLESTEROLEM Expected: 03/11/2022, Expires: 05/11/2022 [facility] Work Phone: Comment on above: Expected: 03/11/2022, Expires: 2 Start: 03-11-2022 End: 05-11-2022 T4 FREE/FREE THYROX T4 FREE/FREE THYROX Lab Routine Hypothyroidism, unspecified type Expected: 03/11/2022, Expires: 05/11/2022 [facility] Work Phone: Comment on above: Expected: 03/11/2022, Expires: 2 Start: 03-11-2022 End: 05-11-2022 Thyrotropin [Units/volume] in Serum or Plasma TSH BLD Lab Routine Hypothyroidism, unspecified type Expected: 03/11/2022, Expires: 05/11/2022 [facility] Work Phone: Comment on above: Expected: 03/11/2022, Expires: 2 Start: 03-11-2022 End: 05-11-2022 VITAMIN B12 BLOOD VITAMIN B12 BLOOD Lab Routine Fatigue, unspecified type Expected: 03/11/2022, Expires: 05/11/2022 [facility] Work Phone: Comment on above: Expected: 03/11/2022, Expires: 2 Start: 03-11-2022 End: 05-11-2022 VITAMIN D 25 HYDROXY VITAMIN D 25 HYDROXY Lab Routine Vitamin D deficiency Expected: 03/11/2022, Expires: 05/11/2022 [facility] Work Phone: Comment on above: Expected: 03/11/2022, Expires: 2 Start: 03-06-2022 End: 05-06-2022 CBC W Auto Differential panel - Blood CBC + DIFF Lab Routine Cancer of trachea, bronchus, and lung (HCC) Expected: 03/06/2022, Expires: 05/06/2022 [facility] Work Phone: Comment on above: Expected: 03/06/2022, Expires: 2 Start: 03-06-2022 End: 05-06-2022 Comprehensive metabolic 2000 panel - Serum or Plasma COMP METABOLIC PANEL Lab Routine Cancer of trachea, bronchus, and lung (HCC) Expected: 03/06/2022, Expires: 05/06/2022 [facility] Work Phone: Comment on above: Expected: 03/06/2022, Expires: 2 Start: 02-07-2022 End: 04-09-2022 Natriuretic peptide.B prohormone N-Terminal [Mass/volume] in Serum or Plasma NT PRO BNP Lab Routine SOB (shortness of breath) Fatigue, unspecified type Expected: 02/07/2022, Expires: 04/09/2022 [facility] Work Phone: Comment on above: Expected: 02/07/2022, Expires: 2 Start: 01-15-2022 Influenza vaccination INFLUENZA (#1) [facility] Start: 12-15-2021 COVID-19 VACCINE (5 - Booster for Pfizer series) COVID-19 VACCINE (5 - Booster for Pfizer series) [facility] Start: 07-15-2021 COVID-19 VACCINE (4 - Booster for Pfizer series) COVID-19 VACCINE (4 - Booster for Pfizer series) [facility] Start: 05-17-2021 ADVANCE DIRECTIVE DISCUSSION ADVANCE DIRECTIVE DISCUSSION [facility] Start: 05-17-2021 DEPRESSION ASSESSMENT DEPRESSION ASSESSMENT [facility] Start: 2012 RSV Immunization for Adults (1 - 1-dose 75+ series) RSV Immunization for Adults (1 - 1-dose 75+ series) [facility] Start: 2012 RSV Vaccine (1 - 1-dose 75+ series) RSV Vaccine (1 - 1-dose 75+ series) [facility] Start: 06-27-2008 DTaP/Tdap/Td Vaccines (1 - Tdap) DTaP/Tdap/Td Vaccines (1 - Tdap) [facility] Start: 06-27-2008 Urine microalbumin profile [facility] Start: 1997 RSV Immunization aged 60 or older (1 - 1-dose 60+ series) RSV Immunization aged 60 or older (1 - 1-dose 60+ series) [facility] Start: 1997 RSV Vaccine (1 - 1-dose 60+ series) RSV Vaccine (1 - 1-dose 60+ series) [facility] Start: 1987 SHINGRIX VACCINE (1 of 2) SHINGRIX VACCINE (1 of 2) [facility] Start: 1987 Zoster Vaccines (1 of 2) Zoster Vaccines (1 of 2) [facility] Start: 1956 DTaP/Tdap/Td Vaccines (1 - Tdap) DTaP/Tdap/Td Vaccines (1 - Tdap) [facility] Start: 1949 Depression Screening Depression Screening [facility] Start: 1937 Lipid panel Lipid Panel [facility] Start: 1937 Medicare Advantage Annual Wellness Visit (AWV) Medicare Advantage Annual Wellness Visit (AWV) [facility] Start: 1937 Screening for osteoporosis Bone Density Scan [facility] End: 03-31-2025 Bacteria identified in Urine by Culture URINE CULTURE Microbiology Routine Urinary incontinence, unspecified type Once per month for 12 Occurrences starting 03/31/2024 until 03/31/2025 [facility] Comment on above: Once per month for 12 Occurrences starti ng 03/31/2024 until 03/31/2025 CT Chest WO contrast CT CHEST WO IVCON Radiology Routine Malignant neoplasm of unspecified part of unspecified bronchus or lung (HCC) 09/06/2023 9:56 AM EDT [facility] Work Phone: End: 10-29-2024 CT Chest WO contrast CT CHEST WO IVCON Radiology Routine Malignant neoplasm of unspecified part of unspecified bronchus or lung (HCC) 1 Occurrences starting 09/30/2023 until 10/29/2024 [facility] Comment on above: 1 Occurrences starting 09/30/2023 until 10/29/2024 CT Chest WO contrast CT CHEST WO IVCON Radiology Routine Malignant neoplasm of unspecified part of unspecified bronchus or lung (HCC) 09/29/2024 8:33 AM EDT [facility] Work Phone: End: 11-11-2025 CT Chest WO contrast CT CHEST WO IVCON Radiology Routine Lung nodules 1 Occurrences starting 10/12/2024 until 11/11/2025 [facility] Work Phone: Comment on above: 1 Occurrences starting 10/12/2024 until 11/11/2025 End: 10-14-2023 Ct thorax w/o contrast material CT CHEST WO IVCON Radiology Routine Malignant neoplasm of unspecified part of unspecified bronchus or lung (HCC) 1 Occurrences starting 09/14/2022 until 10/14/2023 [facility] Work Phone: Comment on above: 1 Occurrences starting 09/14/2022 until 10/14/2023 End: 10-29-2024 DBT Breast - bilateral screening DARRELL SCREENING W SPARKLE Radiology Routine Malignant neoplasm of unspecified part of unspecified bronchus or lung (HCC) 1 Occurrences starting 09/30/2023 until 10/29/2024 [facility] Work Phone: Comment on above: 1 Occurrences starting 09/30/2023 until 10/29/2024 End: 01-07-2023 Echocardiography ECHO Cardiology Routine SOB (shortness of breath) Fatigue, unspecified type 1 Occurrences starting 01/07/2022 until 01/07/2023 [facility] Work Phone: Comment on above: 1 Occurrences starting 01/07/2022 until 01/07/2023 Influenza virus A an d B RNA and SARS-CoV-2 (COVID-19) N gene panel - Respiratory specimen by HA with probe detection COVID WITH FLUA+B, ROUTINE Microbiology Routine Productive cough Ordered: 02/06/2022 [facility] Work Phone: Comment on above: Ordered: 02/06/2022 End: 05-30-2024 DARRELL SCREENING W SPARKLE DARRELL SCREENING W [facility] Radiology Routine Encounter for screening mammogram for malignant neoplasm of breast 1 Occurrences starting 09/14/2022 until 10/14/2023 [facility] Work Phone: Comment on above: 1 Occurrences starting 09/14/2022 until 10/14/2023 Patient Education [facility] Work Phone: Patient referral [facility] Work Phone: End: 03-08-2023 Radiologic exam chest 2 views XR CHEST 2V FRONTAL/LAT Radiology Routine Productive cough 1 Occurrences starting 02/06/2022 until 03/08/2023 [facility] Work Phone: Comment on above: 1 Occurrences starting 02/06/2022 until 03/08/2023 End: 09-12-2023 Radiologic exam chest 2 views XR CHEST 2V FRONTAL/LAT Radiology Routine Fall, initial encounter 1 Occurrences starting 08/13/2022 until 09/12/2023 [facility] Work Phone: Comment on above: 1 Occurrences starting 08/13/2022 until 09/12/2023 Radiologic exam ches t 2 views XR CHEST 2V FRONTAL/LAT Radiology Routine Fall, initial encounter 08/13/2022 10:37 AM EDT [facility] Work Phone: End: 03-31-2025 Urinalysis complete panel - Urine URINALYSIS, WITH MICROSCOPIC Lab Routine Urinary incontinence, unspecified type Once per month for 12 Occurrences starting 03/31/2024 until 03/31/2025 [facility] Comment on above: Once per month for 12 Occurrences starti ng 03/31/2024 until 03/31/2025 [facility] Immunizations Immunization Date Immunization Notes Care Provider [place] [facility] 01-13-2023 pneumococcal (PCV20) vaccine, 20 valent (PREVNAR 20) Abel Ortiz DO Work Phone: [facility] Work Phone: 03-02-2022 COVID-19 booster vaccine, age 12+ yr, bivalent (RUSBASE-BIONTECH) Miguel A Davis MD Work Phone: [facility] 02-28-2021 influenza, high-dose , quadrivalent vaccine (FLUZONE HIGH DOSE QUADRIVALENT) Rosi Cisneros AUD Work Phone: [facility] Work Phone: 02-28-2021 influenza virus vacc ine, unspecified formulation Ct (I-Stat) Work Phone: [facility] 07-03-2020 COVID-19 vaccine, ag e 12+ yr (PFIZER-BIONTECH - PURPLE TOP) Rosi CARROLL Work Phone: [facility] Work Phone: 06-12-2020 COVID-19 vaccine, ag e 12+ yr (RUSBASE-BIONTECH - PURPLE TOP) Rosi CARROLL Work Phone: [facility] 02-26-2020 influenza, high-dose , quadrivalent vaccine (FLUZONE HIGH DOSE QUADRIVALENT) Rosi CARROLL Work Phone: [facility] Work Phone: 02-21-2019 influenza, high dose seasonal, preservative-free Rosi CARROLL Work Phone: [facility] 02-18-2018 influenza, high dose seasonal, preservative-free Rosi CARROLL Work Phone: [facility] Work Phone: 02-26-2017 influenza, high dose seasonal, preservative-free Rosi CARROLL Work Phone: [facility] 03-20-2016 influenza, high dose seasonal, preservative-free Rosi CARROLL Work Phone: [facility] Work Phone: 12-04-2015 pneumococcal polysaccharide vaccine, 23 valent Rosi Cisneros AUD Work Phone: [facility] Work Phone: 02-14-2015 influenza, high dose seasonal, preservative-free Rosi Lindahn AUD Work Phone: [facility] Work Phone: 01-07-2015 pneumococcal conjuga te vaccine, 13 valent Rosi Amelia AUD Work Phone: [facility] 02-28-2014 influenza, seasonal, injectable Rosi Lindahn AUD Work Phone: [facility] 02-13-2013 influenza virus vacc ine, unspecified formulation Rosi Amelia AUD Work Phone: [facility] Work Phone: 02-13-2012 influenza virus vacc ine, unspecified formulation Rosi Amelia AUD Work Phone: [facility] Work Phone: 02-11-2011 influenza virus vacc ine, unspecified formulation Rosi Lindahn AUD Work Phone: [facility] Work Phone: 03-11-2010 influenza virus vacc ine, unspecified formulation Rosi Lindahn AUD Work Phone: [facility] 06-26-2008 tetanus and diphther ia toxoids, adsorbed, preservative free, for adult use (2 Lf of tetanus toxoid and 2 Lf of diphtheria toxoid) Rosi Cisneros AUD Work Phone: [facility] 03-21-2007 influenza virus vacc ine, unspecified formulation Rosi Lindahn AUD Work Phone: [facility] Work Phone: 03-31-2006 influenza virus vacc ine, unspecified formulation Rosi Amelia AUD Work Phone: [facility] 05-17-2002 pneumococcal polysaccharide vaccine, 23 valent Rosi Amelia AUD Work Phone: [facility] Work Phone: Payers Date Payer Category Payer Medicare ([employer]) [id number]. [id number] 2024 Self-pay 2023 Medicaid [id number] 2023 Medicaid [id number] 2023 Medicare HMO [employer] MED[employer]ARE [id number] 2023 Medicare [id number] 2016 Unknown OSMANBRAYDEN MICHAELA MA DICARE SUPPLEMENT [id number] 2016-Present [phone] [address] [place] [address] Indemnity [id number] 2016 Unknown [id number] 2016 Unknown [id number] 2002 Medicare MEDICARE MEDICAR E A AND B [id number] 2002-Present [phone] [place] [address] Medicare [id number] 2002 Medicare [id number] Unknown [id number] Unknown [id number] Unknown [id number] Unknown [id number] Unknown [id number] Unknown [id number] Social History Date Type Detail Facility Start: 12-23-2021 End: 07-26-2024 Tobacco smoking status MIIS Never smoked tobacco [facility] Work Phone: Start: 06-04-2021 End: 10-11-2024 Alcohol intake Current drinker of alcohol (finding) [facility] Start: 11-18-2019 End: 03-25-2020 History SDOH Alcohol Frequency 2 [facility] Start: 02-23-2020 End: 03-25-2020 History SDOH Alcohol Std Drinks 1 [facility] Start: 11-18-2019 End: 02-23-2020 History SDOH Social Connections Phone 5 [facility] Start: 11-18-2019 History SDOH Social Connections Get Together 4 [facility] Start: 11-18-2019 History SDOH Social Connections Yazidism 3 [facility] Start: 11-18-2019 History SDOH Physical Activity MPS 12 [facility] Start: 1935 Sex Assigned At Female [facility] Start: 04-19-2021 End: 02-06-2022 Exposure to SARS-CoV-2 (event) Not sure [facility] Start: 12-23-2021 End: 06-24-2023 Tobacco use and exposure Smokeless tobacco non-user [facility] Work Phone: Start: 11-18-2019 End: 01-13-2023 History of Social function [facility] Start: 11-18-2019 End: 01-13-2023 Social connection and isolation panel [facility] Do you belong to any clubs or organizations such as cheondoism groups, unions, fraternal or athletic groups, or school groups? Yes [facility] Are you now , , , , never or living with a partner? [facility] How often to you hav e a drink containing alcohol? Monthly or less [facility] How many standard dr inks containing alcohol do you have on a typical day? 1 or 2 [facility] How often do you hav e 6 or more drinks on 1 occasion? Never [facility] How hard is it for y ou to pay for the very basics like food, housing, medical care, and heating Not hard at all [facility] Work Phone: Do you feel stress - tense, restless, nervous, or anxious, or unable to sleep at night because your mind is troubled all the time - these days [OSQ] To some extent [facility] (I/We) worried pau er (my/our) food would run out before (I/we) got money to buy more. Never true [facility] Work Phone: In the past 12 month s, was there a time when you were not able to pay the mortgage or rent on time? No [facility] Start: 07-29-2018 Gender identity Identifies as female gender (finding) [facility] Start: 05-21-2023 Sexual orientation Heterosexual (finding) [facility] Start: 06-24-2023 End: 08-03-2024 Alcohol intake Not Asked [facility] Start: 06-24-2023 Alcohol Comment occassionally [facility] Start: 05-21-2023 End: 08-31-2024 Sex Female (finding) [facility] Work Phone: Start: 04-12-2021 Homeless Homeless [facility] Medical Equipment Procedure Code Equipment Code Equipment Origin al Text Equipment Identifier Dates [employer] Implant - [id number] Start: 04-17-2015 Comment on above: Description: Nucleus Cochlear Implant Model # [id number] Duraseal 5ml - [id number] Start: 04-17-2015 Functional Status Date Assessment Result Facility 08-11-2018 Are you deaf, or do you have serious difficulty hearing Yes 08/11/2018 10:32 AM EDT Tai Jarquin RN Yes [facility] 08-11-2018 Are you blind, or do you have serious difficulty seeing, even when wearing glasses No 08/11/2018 10:32 AM EDT Tai Jarquin RN No [facility] 08-11-2018 Do you have serious difficulty walking or climbing stairs No 08/11/2018 10:32 AM EDT Tai Jarquin RN No [facility] 08-11-2018 Do you have difficul ty dressing or bathing No 08/11/2018 10:32 AM EDT Tai Jarquin RN No [facility] 08-11-2018 Because of a physica l, mental, or emotional condition, do you have difficulty doing errands alone such as visiting a physician's office or shopping No 08/11/2018 10:32 AM CAROLT Tai Jarquin RN No [facility] Mental Status Date Assessment Result Facility 08-11-2018 Because of a physica l, mental, or emotional condition, do you have serious difficulty concentrating, remembering, or making decisions No 08/11/2018 10:32 AM EDT Tai Jarquin RN No [facility] Clinical Notes 05-20-2021 to 10-12-2024 Addendum Note - Miguel A Davis MD - 10/12/2024 10:30 AM EDTAddendum Note - Miguel A Davis MD - 10/12/2024 10:30 AM EDTPatient InstructionsMiguel A Davis MD - 10/12/2024 10:20 AM EDT Note Date & Type Note Facility 10-12-2024 Note Addended by: JONN DAVIS on: 10/12/2024 10:30 AM Modules accepted: Orders [facility] 10-12-2024 Miscellaneous Notes Addended by: MIGUEL A DAVIS on: 10/12/2024 10:30 AM Modules accepted: Orders documented in this encounter [facility] 10-12-2024 Instructions Miguel A Davis MD - 10/12/2024 10:29 AM EDT We discussed your history of non-small cell lung cancer: - You were diagnosed with a 2.2 cm right upper lobe non-small cell lung cancer in 2019, which was treated with a right upper lobectomy. No adjuvant therapy was required at that time. - Your most recent CT scan of the chest (dated 09/29/2024) showed no evidence of intrathoracic lymphadenopathy or suspicious pulmonary nodules. The scarring from your previous surgery appears improved compared to prior imaging. - A nodule in your left lower lung, previously seen in 2023, now appears less prominent, which is reassuring and indicates it is not cancerous. - Overall, your scans are stable, and there are no concerning findings. We discussed your general health: - You reported no issues with appetite, breathing, persistent cough, or new bone pain. - You mentioned some hip pain, which may be related to your gait, but no other significant concerns were noted. - Your physical exam today was normal. Next steps: - I will see you again in one year for follow-up imaging to continue monitoring your health. - Please continue to follow up with your primary care physician, Dr. Ortiz, as scheduled in November. If you experience any new or concerning symptoms, please contact our office. documented in this encounter [facility] 10-12-2024 Note HNO ID: [id number] Author: MIGUEL A DAVIS MD Service: ? Author Type: Physician Type: Progress Notes Filed: 10/12/2024 10:29 Note Text: Patient Overview: The patient is an 89-year-old female with a diagnosis of 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 She underwent a right upper lobectomy in June 2018, during which lymph nodes were resected. No adjuvant therapy was required. We have been following her with serial imaging once a year to ensure there is no new lung primary. Her CT scans from August 2023 were essentially negative. Diagnostic Results: - CT Chest (September 29, 2024): No evidence of intrathoracic lymphadenopathy or suspicious pulmonary nodules. Recording using [employer] software for draft documentation of the visit was discussed with the patient/authorized media sales representative; all questions welcomed and answered. Patient/authorized media sales representative agreed to proceed INTERIM HISTORY:Ms. French returns for follow up. On 06/2018, the patient, an 89-year-old female, was diagnosed with right upper lobe non-small cell lung cancer, measuring 2.2 cm with an invasive component of 1.2 cm. She underwent a right upper lobectomy with lymph node resection and did not require adjuvant therapy. She has been monitored with annual imaging to check for new lung primaries. A CT scan in 08/2023 showed no significant findings. A recent non-contrast chest CT on 09/29/2024 revealed no intrathoracic lymphadenopathy or suspicious pulmonary nodules. She reports good appetite, no issues with persistent cough, new bone pain, or upper right abdominal pain. She has gained weight and denies bowel or bladder function problems, though she occasionally uses pads for urinary incontinence. She experiences hip pain, likely related to her gait, but has no other complaints. She resides in assisted living at [facility] in [place]. Review Of Systems: GENERAL: Negative for weight loss or fever, positive for weight gain, denies malaise HEENT: Negative for frequent or significant headaches; no changes in vision or hearing; no epistaxis or other nasal problems NECK: Negative for lumps, goiter, pain, and significant neck swelling RESPIRATORY: Negative for cough, dyspnea, or shortness of breath CARDIOVASCULAR: Negative for chest pain, leg swelling, CHF, or palpitations GI: No nausea, vomiting, diarrhea, heartburn, abdominal pain, hematochezia, or melena GENITOURINARY: Positive for occasional urinary incontinence requiring pads, denies dysuria or urinary frequency MUSCULOSKELETAL: Positive for hip pain, negative for joint swelling or muscle pain, no back pain SKIN: Negative for lesions, rash, and itching PSYCH: Negative for anxiety or depression HEMATOLOGY/LYMPHOLOGY: No bleeding concerns NEURO: No history of headaches, syncope, paralysis, seizures, or tremors ENDOCRINE: No history of polydipsia, increased thirst, or other endocrine symptoms Physical Examination: BP 101/50 Pulse 68 Temp 36.6 ?C (97.8 ?F) (Temporal) Resp 16 Wt 90.9 kg (200 lb 6.4 oz) SpO2 98% BMI 34.21 kg/m? General: Alert AND oriented, no acute distress Skin: Normal HEENT: Pupils equal, round. Oral cavity, oropharynx clear Neck: Supple, no mass Breast: Deferred Respiratory: Clear to auscultation, bilaterally Cardiovascular: Regular rate and rhythm, no murmurs, rubs, or gallops Abdomen: Soft, non-tender, non-distended, no masses palpable, no hepatosplenomegaly, normal bowel sounds Genitourinary: Deferred MSK: Back is non-tender Extremities: No clubbing, cyanosis, or edema Labs: (09/29/24) CT Chest without contrast: No evidence of intrathoracic lymphadenopathy or suspicious pulmonary nodules (August 2023) CT Chest: Essentially negative (2022) CT Chest: Stable left lower lung nodule, no new suspicious findings DATA: Diagnostic tests reviewed for today's visit: Most recent labs and imaging results. CBC: WBC (k/uL) Date Value 03/31/2024 7.86 02/24/2021 6.48 RBC (m/uL) Date Value 03/31/2024 4.07 02/24/2021 3.90 Hemoglobin (g/dL) Date Value 03/31/2024 12.3 02/24/2021 12.1 Hematocrit (%) Date Value 03/31/2024 39.3 02/24/2021 36.0 Platelet Count (k/uL) Date Value 03/31/2024 200 02/24/2021 159 MCV (fL) Date Value 03/31/2024 96.6 02/24/2021 92.3 MCH Date Value 03/31/2024 30.2 pg 02/24/2021 31.0 pG MPV (fL) Date Value 03/31/2024 10.7 02/24/2021 9.8 CMP: Sodium (mmol/L) Date Value 03/31/2024 138 02/24/2021 138 Chloride (mmol/L) Date Value 03/31/2024 100 02/24/2021 105 CO2 (mmol/L) Date Value 03/31/2024 27 02/24/2021 25 BUN (mg/dL) Date Value 03/31/2024 22 02/24/2021 18 Creatinine (mg/dL) Date Value 03/31/2024 1.08 02/24/2021 0.79 Glucose (mg/dL) Date Value 03/31/2024 98 02/24/2021 96 Protein, Total (g/dL) Date Value 03/31/2024 7.3 02/24 (more content not included)... [facility] 10-12-2024 History of Present illness Narrative Patient Overview: The patient is an 89-year-old female with a diagnosis of 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 She underwent a right upper lobectomy in June 2018, during which lymph nodes were resected. No adjuvant therapy was required. We have been following her with serial imaging once a year to ensure there is no new lung primary. Her CT scans from August 2023 were essentially negative. Diagnostic Results: - CT Chest (September 29, 2024): No evidence of intrathoracic lymphadenopathy or suspicious pulmonary nodules. Recording using [employer] software for draft documentation of the visit was discussed with the patient/authorized media sales representative; all questions welcomed and answered. Patient/authorized media sales representative agreed to proceed INTERIM HISTORY:Ms. French returns for follow up. On 06/2018, the patient, an 89-year-old female, was diagnosed with right upper lobe non-small cell lung cancer, measuring 2.2 cm with an invasive component of 1.2 cm. She underwent a right upper lobectomy with lymph node resection and did not require adjuvant therapy. She has been monitored with annual imaging to check for new lung primaries. A CT scan in 08/2023 showed no significant findings. A recent non-contrast chest CT on 09/29/2024 revealed no intrathoracic lymphadenopathy or suspicious pulmonary nodules. She reports good appetite, no issues with persistent cough, new bone pain, or upper right abdominal pain. She has gained weight and denies bowel or bladder function problems, though she occasionally uses pads for urinary incontinence. She experiences hip pain, likely related to her gait, but has no other complaints. She resides in assisted living at [facility] in [place]. Review Of Systems: GENERAL: Negative for weight loss or fever, positive for weight gain, denies malaise HEENT: Negative for frequent or significant headaches; no changes in vision or hearing; no epistaxis or other nasal problems NECK: Negative for lumps, goiter, pain, and significant neck swelling RESPIRATORY: Negative for cough, dyspnea, or shortness of breath CARDIOVASCULAR: Negative for chest pain, leg swelling, CHF, or palpitations GI: No nausea, vomiting, diarrhea, heartburn, abdominal pain, hematochezia, or melena GENITOURINARY: Positive for occasional urinary incontinence requiring pads, denies dysuria or urinary frequency MUSCULOSKELETAL: Positive for hip pain, negative for joint swelling or muscle pain, no back pain SKIN: Negative for lesions, rash, and itching PSYCH: Negative for anxiety or depression HEMATOLOGY/LYMPHOLOGY: No bleeding concerns NEURO: No history of headaches, syncope, paralysis, seizures, or tremors ENDOCRINE: No history of polydipsia, increased thirst, or other endocrine symptoms Physical Examination: BP 101/50 Pulse 68 Temp 36.6 C (97.8 F) (Temporal) Resp 16 Wt 90.9 kg (200 lb 6.4 oz) SpO2 98% BMI 34.21 kg/m General: Alert & oriented, no acute distress Skin: Normal HEENT: Pupils equal, round. Oral cavity, oropharynx clear Neck: Supple, no mass Breast: Deferred Respiratory: Clear to auscultation, bilaterally Cardiovascular: Regular rate and rhythm, no murmurs, rubs, or gallops Abdomen: Soft, non-tender, non-distended, no masses palpable, no hepatosplenomegaly, normal bowel sounds Genitourinary: Deferred MSK: Back is non-tender Extremities: No clubbing, cyanosis, or edema Labs: (09/29/24) CT Chest without contrast: No evidence of intrathoracic lymphadenopathy or suspicious pulmonary nodules (August 2023) CT Chest: Essentially negative (2022) CT Chest: Stable left lower lung nodule, no new suspicious findings DATA: Diagnostic tests reviewed for today's visit: Most recent labs and imaging results. CBC: WBC (k/uL) Date Value 03/31/2024 7.86 02/24/2021 6.48 RBC (m/uL) Date Value 03/31/2024 4.07 02/24/2021 3.90 Hemoglobin (g/dL) Date Value 03/31/2024 12.3 02/24/2021 12.1 Hematocrit (%) Date Value 03/31/2024 39.3 02/24/2021 36.0 Platelet Count (k/uL) Date Value 03/31/2024 200 02/24/2021 159 MCV (fL) Date Value 03/31/2024 96.6 02/24/2021 92.3 MCH Date Value 03/31/2024 30.2 pg 02/24/2021 31.0 pG MPV (fL) Date Value 03/31/2024 10.7 02/24/2021 9.8 CMP: Sodium (mmol/L) Date Value 03/31/2024 138 02/24/2021 138 Chloride (mmol/L) Date Value 03/31/2024 100 02/24/2021 105 CO2 (mmol/L) Date Value 03/31/2024 27 02/24/2021 25 BUN (mg/dL) Date Value 03/31/2024 22 02/24/2021 18 Creatinine (mg/dL) Date Value 03/31/2024 1.08 02/24/2021 0.79 Glucose (mg/dL) Date Value 03/31/2024 98 02/24/2021 96 Protein, Total (g/dL) Date Value 03/31/2024 7.3 02/24/2021 6.4 Calcium (mg/dL) Date Value 02/24/2021 9.5 Calcium, Total (mg/dL) Date Value 03/31/2024 9.7 Magnesium (mg/dL) Date Value 11/09/2023 2.2 Bilirubin, Total (mg/dL) Date Value 03/31/2024 0.3 02/24/2021 0.5 Alkaline Phosphatase (U/L) Date Value 03/31/2024 88 02/24/2021 69 ALT (U/L) Date Value 03/31/2024 18 02/24/2021 12 AST (U/L) Date Value 03/31/2024 26 02/24/2021 18 Anion Gap (mmol/L) Date Value 03/31/2024 11 02/24/2021 8 Imaging Studies: reviewed. Assessment: 1. Cancer of trachea, bronchus, and lung (HCC) (C33) Personal history of malignant neoplasm of bronchus and lung (Z85.118) Patient has a history of right upper lobe non-small cell lung cancer, 2.2 cm in size with an invasive component measuring 1.2 cm, treated with right upper lobectomy in June 2018. No adjuvant therapy was required. Serial imaging has been performed annually. Recent CT scan on 09/29/24 showed no evidence of intrathoracic lymphadenopathy or suspicious pulmonary nodules. Previous nodule in the left lower lung appears less prominent, indicating it is not malignant. No new symptoms such as cough, bone pain, or abdominal pain reported. Physical exam is unremarkable. - Continue annual surveillance with CT scans. - Next follow-up in one year with repeat imaging. Miguel A Davis MD documented in this encounter [facility] 10-11-2024 Instructions Camila Ledezma PA-C - 10/11/2024 1:14 PM EDT She is established with the care of Dr. Yina Daigle now that Dr. Cabrera is retired I m interested in upgrading my Cochlear Implant processor, what do I do now? Coverage of replacement processors may differ based on your insurance carrier or plan. If you are interested in upgrading your processor, it must be damaged and out of warranty, obsolete, or more than 5 years old for most insurance plans to cover an upgrade. Verify that you are current with your surgeon and have been seen within the last 3 years. If it has been more than 3 years, call to schedule immediately. You will be seen by one of the physician s assistants in the office to reestablish care with a signing provider. Reach out to your current device s garment cutter. Your garment cutter is [employer]: [phone] Your garment cutter will reach out to the [facility] HIP team to get a Letter of Medical Necessity signed by your medical provider to submit to insurance. Once the letter is signed by your provider, it will be submitted by the garment cutter to insurance. Your credit authorizer is not able to sign the paperwork for you, as it must be completed by a medical doctor. When the garment cutter gets insurance approval, they will notify you and mail the upgraded device to your home. They will communicate information about any copays, deductibles, or remaining out of pocket balance with you. If the claim gets denied, it is your garment cutter that initiates the appeal with [facility] support. When you receive your new device, call the scheduling line to set up a programming appointment. . In some cases, your device may be programmed prior to being sent to you. In these cases, the device will be ready to wear, but please reach out to schedule if you notice any programming adjustments are needed. documented in this encounter [facility] 10-11-2024 Note HNO ID: [id number] Author: CAMILA LEDEZMA PA-C Service: ? Author Type: Physician Psychology Technician Type: Progress Notes Filed: 10/11/2024 15:30 Note Text: History of Present Illness Ms. MONSERRAT FRENCH is a 89 year old female Chief Complaint: Reestablish care for cochlear implant S/p right sided cochlear implant Dr. Cabrera 05/14/2015 Wears a left sided hearing aid from outside facility Last programmed by audiology 07/18/24 Last seen 12/19/[address] Cabrera Since last seen, The implant has been functioning well She now is in a mcc for dementia, she requires virtual assistant for advertisers to use the device but depends on it for hearing Otalgia/magnet site pain: denies Otorrhea: denies Dizziness/Imbalance: denies Facial Numbness, Weakness or Tingling: denies ALLERGIES Allergen Reactions Bactrim [Sulfametho* Rash shaking and chills, dry mouth Amoxicillin Rash Ampicillin Rash Cephalosporins Rash Minocycline Rash shaking and chills , dry mouth Rocephin [Ceftriaxo* Rash Current Outpatient Medications on File Prior to Visit Medication Sig donepezil (ARICEPT) 5 mg tablet Take 1 tablet by mouth daily at bedtime. Incontinence Pad, Liner, Disp (BLADDER CONTROL PAD LONG) pads 1 application three times a day as needed (urinary incontinence). sertraline (ZOLOFT) 50 mg tablet Take 1 tablet by mouth daily at bedtime. simvastatin (ZOCOR) 40 mg tablet Take 1 tablet by mouth daily at bedtime. ondansetron orally disintegrating (ZOFRAN ODT) 4 mg disintegrating tablet Take 1 tablet by mouth every 8 hours as needed for nausea/vomiting. cholecalciferol, vitamin D3, (VITAMIN D3 50 MCG, 2,000 UNIT, GUMMIES) levothyroxine (SYNTHROID) 100 mcg tablet Take 1 tablet by mouth once daily 6 days a week and 2 tablets one day per week. Take on an empty stomach. Lactobacillus acidophilus (PROBIOTIC ORAL) Take by mouth once daily. MULTIVITAMIN TAB Take one(1) tablet daily. ASPIRIN 81 MG TAB Take one(1) tablet daily. No current facility-administered medications on file prior to visit. Objective: There were no vitals taken for this visit. Appearance: Non-syndromic, cooperative and calm Communication: Voice has adequate volume; there is no stridor Head/Face: head and facial contours are symmetric Facial nerve 1/6 bilateral Skin: no skin lesions or scarring on face Ears: AD EAC clear. TM intact without perforation or retraction. Middle ear aerated. Magnet site well seated without erythema or swelling. EAC clear. TM intact without perforation or retraction. Middle ear aerated. Nose: external exam with straight profile Oral Cavity: Normal dentition Oropharynx: Uvula hangs midline; mucosa is pink and moist; tonsils present Neck: no LAD; thyroid without masses or enlargement Lymphatic: No lymphadenopathy or masses Neuro/Psych.: Alert and Oriented x 3 Cranial nerves intact Assessment: Z96.[address] (primary encounter diagnosis) H90.3 Sensorineural hearing loss (SNHL) of both ears Plan: Medically cleared for cochlear implant use and any upgrades or replacement parts, established with cochlear implant surgeon Ynia Daigle's practice Follow-up within 2-3 years to stay medically established Camila Ledezma PA-C Otology Medical Decision Making: Problems: Low: Stable chronic illness Risk: Minimal: Minimal risk from testing/treatment Medical Decision Making Level: 2 - Straightforward [facility] 10-11-2024 History of Present illness Narrative History of Present Illness Ms. MONSERRAT FRENCH is a 89 year old female Chief Complaint: Reestablish care for cochlear implant S/p right sided cochlear implant Dr. Cabrera 05/14/2015 Wears a left sided hearing aid from outside facility Last programmed by audiology 07/18/24 Last seen 12/19/[address] Cabrera Since last seen, The implant has been functioning well She now is in a mcc for dementia, she requires virtual assistant for advertisers to use the device but depends on it for hearing Otalgia/magnet site pain: denies Otorrhea: denies Dizziness/Imbalance: denies Facial Numbness, Weakness or Tingling: denies ALLERGIES Allergen Reactions Bactrim [Sulfametho* Rash shaking and chills, dry mouth Amoxicillin Rash Ampicillin Rash Cephalosporins Rash Minocycline Rash shaking and chills , dry mouth Rocephin [Ceftriaxo* Rash Current Outpatient Medications on File Prior to Visit Medication Sig donepezil (ARICEPT) 5 mg tablet Take 1 tablet by mouth daily at bedtime. Incontinence Pad, Liner, Disp (BLADDER CONTROL PAD LONG) pads 1 application three times a day as needed (urinary incontinence). sertraline (ZOLOFT) 50 mg tablet Take 1 tablet by mouth daily at bedtime. simvastatin (ZOCOR) 40 mg tablet Take 1 tablet by mouth daily at bedtime. ondansetron orally disintegrating (ZOFRAN ODT) 4 mg disintegrating tablet Take 1 tablet by mouth every 8 hours as needed for nausea/vomiting. cholecalciferol, vitamin D3, (VITAMIN D3 50 MCG, 2,000 UNIT, GUMMIES) levothyroxine (SYNTHROID) 100 mcg tablet Take 1 tablet by mouth once daily 6 days a week and 2 tablets one day per week. Take on an empty stomach. Lactobacillus acidophilus (PROBIOTIC ORAL) Take by mouth once daily. MULTIVITAMIN TAB Take one(1) tablet daily. ASPIRIN 81 MG TAB Take one(1) tablet daily. No current facility-administered medications on file prior to visit. Objective: There were no vitals taken for this visit. Appearance: Non-syndromic, cooperative and calm Communication: Voice has adequate volume; there is no stridor Head/Face: head and facial contours are symmetric Facial nerve 1/6 bilateral Skin: no skin lesions or scarring on face Ears: AD EAC clear. TM intact without perforation or retraction. Middle ear aerated. Magnet site well seated without erythema or swelling. EAC clear. TM intact without perforation or retraction. Middle ear aerated. Nose: external exam with straight profile Oral Cavity: Normal dentition Oropharynx: Uvula hangs midline; mucosa is pink and moist; tonsils present Neck: no LAD; thyroid without masses or enlargement Lymphatic: No lymphadenopathy or masses Neuro/Psych.: Alert and Oriented x 3 Cranial nerves intact Assessment: Z96.[address] (primary encounter diagnosis) H90.3 Sensorineural hearing loss (SNHL) of both ears Plan: Medically cleared for cochlear implant use and any upgrades or replacement parts, established with cochlear implant surgeon Yina Daigle's practice Follow-up within 2-3 years to stay medically established Camila Ledezma PA-C Otology Medical Decision Making: Problems: Low: Stable chronic illness Risk: Minimal: Minimal risk from testing/treatment Medical Decision Making Level: 2 - Straightforward documented in this encounter [facility] 09-20-2024 Telephone encounter Note Medication order sent to [facility]. [facility] 09-20-2024 Miscellaneous Notes Medication order sent to [facility]. I don't have an xray to review Please find results for me to see Abel Ortiz DO See [employer] message regarding pt. Please review and advise. Did not see anything in faxes, but may have already been received in office. Tg Leonard MA Pt message: Perfecto Ortiz. This is Boris messaging you. Spoke with the nurses today at [facility] and they are reporting that mom's hip has been causing her pain. They took an x-ray and sent it to your office. They are awaiting further instructions and have been giving her Aleve in the meantime. I know she's had cortisone shots in the past. Could this be an option now? Thanks Boris documented in this encounter [facility] 09-19-2024 Telephone encounter Note I don't have an xray to review Please find results for me to see Abel Ortiz DO [facility] 09-13-2024 Note HNO ID: [id number] Author: KYLEIGH DALEY CPhT Service: ? Author Type: Theatrical Dresser Type: Progress Notes Filed: 09/13/2024 14:00 Note Text: Patient is identified through a medication adherence outreach initiative based on pharmacy claims data from: [employer] Medication Adherence Category: Statins First Review Attribution Status: Correct Attribution Medication(s) Simvastatin 40 mg Medication Status per portal/Epic Reconcile Dispense: Filled on time - On or before next fill date Date Filled (MM/DD): 09/04/24 due 09/14/24 Day Supply: 30 Medication Status per Profile Review: No issues per profile review Patient appropriate for outreach? No Reason patient not appropriate for outreach:Patient filled on time / no adherence concerns to be addressed Kyleigh Daley CPhT [facility] Team [facility] 09-13-2024 History of Present illness Narrative Patient is identified through a medication adherence outreach initiative based on pharmacy claims data from: [employer] Medication Adherence Category: Statins First Review Attribution Status: Correct Attribution Medication(s) Simvastatin 40 mg Medication Status per portal/Epic Reconcile Dispense: Filled on time - On or before next fill date Date Filled (MM/DD): 09/04/24 due 09/14/24 Day Supply: 30 Medication Status per Profile Review: No issues per profile review Patient appropriate for outreach? No Reason patient not appropriate for outreach:Patient filled on time / no adherence concerns to be addressed Kyleigh Daley CPhT [facility] Team documented in this encounter [facility] 09-13-2024 Note Patient Outreach ([facility]) MONSERRAT FRENCH ([id number]) 1935 F DEF Date Time Provider Department 09/13/24 [facility] During your visit today, we recorded the following information about you: Kyleigh Daley CPhT 09/13/2024 2:00 PM Signed Patient is identified through a medication adherence outreach initiative based on pharmacy claims data from: [facility] Medication Adherence Category: Statins First Review Attribution Status: Correct Attribution Medication(s) Simvastatin 40 mg Medication Status per portal/Epic Reconcile Dispense: Filled on time - On or before next fill date Date Filled (MM/DD): 09/04/24 due 09/14/24 Day Supply: 30 Medication Status per Profile Review: No issues per profile review Patient appropriate for outreach? No Reason patient not appropriate for outreach:Patient filled on time / no adherence concerns to be addressed Kyleigh Daley CPhT [facility] Pharm[facility] Team Allergies As of Date: 09/13/2024 Noted Allergy Reaction BACTRIM (SULFAMETHOXAZOLE) 08/28/2010 2 - Rash Comments: shaking and chills, dry mouth AMOXICILLIN 02/20/2005 2 - Rash AMPICILLIN 07/22/2011 2 - Rash CEPHALOSPORINS 02/20/2005 2 - Rash MINOCYCLINE 07/22/2011 2 - Rash Comments: shaking and chills , dry mouth ROCEPHIN (CEFTRIAXONE SODIUM) 07/22/2011 2 - Rash Date Reviewed: 08/04/2024 Reviewed by: Zoraida De La Garza LPN - Fully Assessed Reason for Visit: Allied Health Visit [5] Cmt: Medication Adherence Outreach Prescriptions as of 09/13/2024 - donepezil (ARICEPT) 5 mg tablet Take 1 tablet by mouth daily at bedtime. - Incontinence Pad, Liner, Disp (BLADDER CONTROL PAD LONG) pads 1 application three times a day as needed (urinary incontinence). - sertraline (ZOLOFT) 50 mg tablet Take 1 tablet by mouth daily at bedtime. - simvastatin (ZOCOR) 40 mg tablet Take 1 tablet by mouth daily at bedtime. - ondansetron orally disintegrating (ZOFRAN ODT) 4 mg disintegrating tablet Take 1 tablet by mouth every 8 hours as needed for nausea/vomiting. - cholecalciferol, vitamin D3, (VITAMIN D3 50 MCG, 2,000 UNIT, GUMMIES) - levothyroxine (SYNTHROID) 100 mcg tablet Take 1 tablet by mouth once daily 6 days a week and 2 tablets one day per week. Take on an empty stomach. - Lactobacillus acidophilus (PROBIOTIC ORAL) Take by mouth once daily. - MULTIVITAMIN TAB Take one(1) tablet daily. - ASPIRIN 81 MG TAB Take one(1) tablet daily. Problem List As Of Date 09/13/2024 Noted Resolved Pure Hypercholesterolemia [E78.00] 02/23/2005 GENERAL OSTEOARTHROSIS [M15.9] 02/23/2005 OBESITY NOS [E66.9] 06/26/2008 Diverticulosis [K57.90] 02/21/2009 Labial abscess [N76.4] 07/14/2010 Hypothyroidism [E03.9] 07/22/2011 Colitis [K52.9] 06/15/2012 GI bleed [K92.2] 06/15/2012 Acquired hypothyroidism [E03.9] 12/14/2014 Sensorineural hearing loss, bilateral [H90.3] 03/25/2015 Cochlear implant follow-up [Z48.89, Z96.21] 06/11/2017 Chronic constipation [K59.09] 06/18/[address] [Z96.21] 06/18/2017 Class 1 obesity without serious comorbidity wit*06/18/2017 Situational insomnia [F51.09] 06/07/2018 Bereavement [Z63.4] 06/07/2018 Situational anxiety [F41.8] 06/07/2018 Malignant neoplasm of upper lobe of right lung *08/08/2018 Discharge planning issues [Z75.8] 08/08/2018 Pain, postoperative, acute [G89.18] 08/08/2018 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 Hypothyroidism, acquired [E03.9] 08/23/2018 Adenocarcinoma of lung, stage 1, right (HCC) [C*08/23/2018 S/P lobectomy of lung [Z90.2] 08/23/2018 Actinic keratosis [L57.0] 03/27/2019 Nasal sore [J34.89] 05/22/2019 Bronchitis [J40] 05/22/2019 Malignant neoplasm of right upper lobe of lung * Vitamin D deficiency [E55.9] 03/01/2021 Urinary incontinence [R32] 06/04/2021 Cardiac murmur, previously undiagnosed [R01.1] 01/07/2022 Fatigue [R53.83] 01/07/2022 SOB (shortness of breath) [R06.02] 01/07/2022 History of lung cancer [Z85.118] 01/07/2022 Memory loss, short term [R41.3] 01/13/2023 Balance disorder [R26.89] 01/13/2023 Medication noncompliance due to cognitive impai*05/04/2023 Moderate late onset Alzheimer's dementia withou*05/04/2023 Dysuria [R30.0] 05/04/2023 Nausea [R11.0] 08/03/2023 Weight loss, unintentional [R63.4] 11/09/2023 Major depressive disorder with current active e*11/09/2023 Osteoarthritis [M19.90] 03/31/2024 Left hip pain [M25.552] 03/31/2024 Impaired gait and mobility [R26.89] 08/04/2024 Bunion, left foot [M21.612] 08/04/2024 Onychomycosis [B35.1] 08/04/2024 Arthritis of both feet [M19.071, M19.072] 08/04/2024 Weakness of both lower extremities [R29.898] 08/04/2024 Impaired mobility and ADLs [Z74.09, Z78.9] 08/04/2024 Encounter Status:Closed by KYLEIGH DALEY on 09/13/24 [facility] 09-12-2024 Telephone encounter Note See [employer] message regarding pt. Please review and advise. Did not see anything in faxes, but may have already been received in office. Tg Leonard MA Pt message: Perfecto Ortiz. This is Boris messaging you. Spoke with the nurses today at [facility] and they are reporting that mom's hip has been causing her pain. They took an x-ray and sent it to your office. They are awaiting further instructions and have been giving her Aleve in the meantime. I know she's had cortisone shots in the past. Could this be an option now? Sri Escalante [facility] 09-12-2024 Telephone encounter Note Mychart message sent notifying message would be routed to Provider. Started TE. Tg Leonard MA [facility] 09-12-2024 Miscellaneous Notes Mychart message sent notifying message would be routed to Provider. Started TE. Tg Leonard MA documented in this encounter [facility] 08-14-2024 Note HNO ID: [id number] Author: MONSERRAT FROST CPhT Service: ? Author Type: Theatrical Dresser Type: Progress Notes Filed: 08/14/2024 12:18 Note Text: Patient is identified through a medication adherence outreach initiative based on pharmacy claims data from: [employer] Medication Adherence Category: [employer] First Review Attribution Status: Correct Attribution Medication(s) Simvastatin 40 mg Medication Status per portal/[facility] Reconcile Dispense: Filled on time - On or before next fill date Date Filled (MM/DD): 08/10 Day Supply: 30 Medication Status per Profile Review: No issues per profile review Patient appropriate for outreach? No Reason patient not appropriate for outreach:Patient filled on time / no adherence concerns to be addressed Monserrat Frost CPhT [facility] Pharmacy Team [facility] 08-14-2024 History of Present illness Narrative Patient is identified through a medication adherence outreach initiative based on pharmacy claims data from: [employer] Medication Adherence Category: [employer] First Review Attribution Status: Correct Attribution Medication(s) Simvastatin 40 mg Medication Status per portal/Epic Reconcile Dispense: Filled on time - On or before next fill date Date Filled (MM/DD): 08/10 Day Supply: 30 Medication Status per Profile Review: No issues per profile review Patient appropriate for outreach? No Reason patient not appropriate for outreach:Patient filled on time / no adherence concerns to be addressed Monserrat Frost CPhT [facility] Team documented in this encounter [facility] 08-14-2024 Note Patient Outreach ( POHE) MONSERRAT FRENCH ([id number]) 1935 [facility] Date Time Provider Department 08/14/24 [facility] During your visit today, we recorded the following information about you: Monserrat Frost CPhT 08/14/2024 12:18 PM Signed Patient is identified through a medication adherence outreach initiative based on pharmacy claims data [facility]: [facility] Medication Adherence Category: Statins First Review Attribution Status: Correct Attribution Medication(s) Simvastatin 40 mg Medication Status per portal/Epic Reconcile Dispense: Filled on time - On or before next fill date Date Filled (MM/DD): 08/10 Day Supply: 30 Medication Status per Profile Review: No issues per profile review Patient appropriate for outreach? No Reason patient not appropriate for outreach:Patient filled on time / no adherence concerns to be addressed Monserrat Frost CPhT [facility] Team Allergies As of Date: 08/14/2024 Noted Allergy Reaction BACTRIM (SULFAMETHOXAZOLE) 08/28/2010 2 - Rash Comments: shaking and chills, dry mouth AMOXICILLIN 02/20/2005 2 - Rash AMPICILLIN 07/22/2011 2 - Rash CEPHALOSPORINS 02/20/2005 2 - Rash MINOCYCLINE 07/22/2011 2 - Rash Comments: shaking and chills , dry mouth ROCEPHIN (CEFTRIAXONE SODIUM) 07/22/2011 2 - Rash Date Reviewed: 08/04/2024 Reviewed by: Zoraida De La Garza LPN - Fully Assessed Reason for Visit: Allied Health Visit [5] Cmt: Medication Adherence Outreach Prescriptions as of 08/14/2024 - donepezil (ARICEPT) 5 mg tablet Take 1 tablet by mouth daily at bedtime. - Incontinence Pad, Liner, Disp (BLADDER CONTROL PAD LONG) pads 1 application three times a day as needed (urinary incontinence). - sertraline (ZOLOFT) 50 mg tablet Take 1 tablet by mouth daily at bedtime. - simvastatin (ZOCOR) 40 mg tablet Take 1 tablet by mouth daily at bedtime. - ondansetron orally disintegrating (ZOFRAN ODT) 4 mg disintegrating tablet Take 1 tablet by mouth every 8 hours as needed for nausea/vomiting. - cholecalciferol, vitamin D3, (VITAMIN D3 50 MCG, 2,000 UNIT, GUMMIES) - levothyroxine (SYNTHROID) 100 mcg tablet Take 1 tablet by mouth once daily 6 days a week and 2 tablets one day per week. Take on an empty stomach. - Lactobacillus acidophilus (PROBIOTIC ORAL) Take by mouth once daily. - MULTIVITAMIN TAB Take one(1) tablet daily. - ASPIRIN 81 MG TAB Take one(1) tablet daily. Problem List As Of Date 08/14/2024 Noted Resolved Pure Hypercholesterolemia [E78.00] 02/23/2005 GENERAL OSTEOARTHROSIS [M15.9] 02/23/2005 OBESITY NOS [E66.9] 06/26/2008 Diverticulosis [K57.90] 02/21/2009 Labial abscess [N76.4] 07/14/2010 Hypothyroidism [E03.9] 07/22/2011 Colitis [K52.9] 06/15/2012 GI bleed [K92.2] 06/15/2012 Acquired hypothyroidism [E03.9] 12/14/2014 Sensorineural hearing loss, bilateral [H90.3] 03/25/2015 Cochlear implant follow-up [Z48.89, Z96.21] 06/11/2017 Chronic constipation [K59.09] 06/18/[address] [Z96.21] 06/18/2017 Class 1 obesity without serious comorbidity wit*06/18/2017 Situational insomnia [F51.09] 06/07/2018 Bereavement [Z63.4] 06/07/2018 Situational anxiety [F41.8] 06/07/2018 Malignant neoplasm of upper lobe of right lung *08/08/2018 Discharge planning issues [Z75.8] 08/08/2018 Pain, postoperative, acute [G89.18] 08/08/2018 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 Hypothyroidism, acquired [E03.9] 08/23/2018 Adenocarcinoma of lung, stage 1, right (HCC) [C*08/23/2018 S/P lobectomy of lung [Z90.2] 08/23/2018 Actinic keratosis [L57.0] 03/27/2019 Nasal sore [J34.89] 05/22/2019 Bronchitis [J40] 05/22/2019 Malignant neoplasm of right upper lobe of lung * Vitamin D deficiency [E55.9] 03/01/2021 Urinary incontinence [R32] 06/04/2021 Cardiac murmur, previously undiagnosed [R01.1] 01/07/2022 Fatigue [R53.83] 01/07/2022 SOB (shortness of breath) [R06.02] 01/07/2022 History of lung cancer [Z85.118] 01/07/2022 Memory loss, short term [R41.3] 01/13/2023 Balance disorder [R26.89] 01/13/2023 Medication noncompliance due to cognitive impai*05/04/2023 Moderate late onset Alzheimer's dementia withou*05/04/2023 Dysuria [R30.0] 05/04/2023 Nausea [R11.0] 08/03/2023 Weight loss, unintentional [R63.4] 11/09/2023 Major depressive disorder with current active e*11/09/2023 Osteoarthritis [M19.90] 03/31/2024 Left hip pain [M25.552] 03/31/2024 Impaired gait and mobility [R26.89] 08/04/2024 Bunion, left foot [M21.612] 08/04/2024 Onychomycosis [B35.1] 08/04/2024 Arthritis of both feet [M19.071, M19.072] 08/04/2024 Weakness of both lower extremities [R29.898] 08/04/2024 Impaired mobility and ADLs [Z74.09, Z78.9] 08/04/2024 Encounter Status:Closed by MONSERRAT FROST on 08/14/24 [facility] 08-07-2024 Instructions Danielle Peace AUD - 08/07/2024 11:28 AM EDT Schedule a visit with otology to re-establish care for your cochlear implant. Look for your LEFT hearing aid: Tresa 3 series I20 kvvlcx-qjk-njc (BTE) hearing aid with full shell ear mold If you find it, resume evp global multimedia sales use. If you don't find your LEFT hearing aid, consider getting an updated hearing test and ordering a ReSound Nexia 7 hearing aid. 3. Contact [employer]'s at to order a replacement cable/coil for the Nucleus 7 processor. 4. Schedule an appointment with Cochlear in March 2025 to discuss upgrade process for right processor. documented in this encounter [facility] 08-07-2024 History of Present illness Narrative [facility] Section of Allied Hearing, Speech and Balance Services COCHLEAR IMPLANT ADULT PROGRAMMING Name: Monserrat French CC#:[id number] Date of Service: 08/07/2024 Date of : 1935 Age: [age] year old COCHLEAR IMPLANT INFORMATION (see below for all device details) Right ear: External Processor: Cochlear [id number] (Nucleus 7) - upgraded 06/07/2020 Processor SN: [id number] Processor (Back Up CP910) SN: [id number] Magnet strength: 1/2 Internal Device: Cochlear InstantQs CI522 Profile with Slim Straight Array Internal Device SN: [id number] Inactive electrodes: 1-3 (poor sound quality) Surgery Date: 04/17/2015 Initial activation date: 05/14/2015 Surgeon: Dallin Cabrera M.D. Left ear: Tresa 3 series I20 kqzhni-iie-ood (BTE) hearing aid with full shell ear mold and open vent; the device was fit at an outside facility and is being managed by that facility. Remote Control (CR210) SN: [id number] Remote Psychology Technician (CR230) SN: [id number] Cochlear Mini Microphone SN: [id number] Cochlear Phone Clip SN: [id number] Cochlear TV Streamer SN: [id number] HISTORY: Monserrat French was seen for annual evaluation of the device/s. The patient reported: * that she is here for an annual follow up and has no concerns. She is accompanied to today's visit by her son, Leonid who is visiting from [place] He reported that his mother hears women's voices better than men and there's a definite improvement with the processor on. * Problems noted with the equipment: patient noted no issues however, visual inspection revealed her cable to be worn and the sheathing at the connection points to the coil and the plug are torn. Her microphone covers have not been changed in at least 1 year. * No pain, redness, swelling at magnet site. * Wearing sound processor: all waking hours per day *Last otology visit 12/19/2018-Dallin Cabrera MD CONTRALATERAL HEARING AID TROUBLESHOOTING: This patient does not remember ever wearing a hearing aid in her left ear. Her son does not remember the last time she had a hearing aid as well. We discussed that at their last visit with Dr. Davis on 07/06/2023 they discussed replacing her Tresa hearing aid with a ReSound to allow for better streaming access with her phone. The patient and her son do not recall this and will look for her Tresa aid at home. They were encouraged to consider updating her hearing test and obtaining a new hearing aid for the left ear. AIDED AUDIOMETRIC TESTING: Audiologic testing was completed in the sound field with the speech processor(s) at user settings Program 1, Volume 6, sensitivity 12. before programming. See Audiogram under procedures tab for obtained thresholds. 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 NOTE: The contralateral ear was Plugged during testing. The following testing and results were obtained: Guyigocqk-Yqoczwa-Ykibonugh Words (CNC) Test Condition List # Phonemes Words Clinically significant change compared to previous visit? Clinically significant change compared to BEST? Right Ear 3 80% 60% no (68% on 07/06/2023) no (68% on 07/05/2019) AZ BIO (quiet) Test Condition List # Score Clinically significant change compared to previous visit? Clinically significant change compared to BEST? Right Ear 2 76% no (65% on 07/06/2023) no (88% on 08/26/2021) AZ BIO (+10 SNR) Test Condition List # Score Clinically significant change compared to previous visit? Clinically significant change compared to BEST? Right Ear 8 23% yes, decreased (47% on 07/06/2023) yes, decreased (47% on 07/06/2023) Bkb 14 16.5 Summary: Detection was obtained between 20 and 30 dBHL for 250-6000 Hz with the right CI only. Speech perception testing revealed stable performance on CNC words and [employer] sentences in quiet with the right CI only. Speech perception in noise declined significantly. COCHLEAR IMPLANT PROGRAMMING: Datalogging: Time in Use 14.5 hours Time in quiet 7 hours RIGHT Programming: Headset pressure, magnet strength, and incision site were checked with no problems noted. Electrode impedances, used to monitor internal device function, were measured across the electrode array. Impedances were WNL across all active electrodes. Review of impedances obtained today with comparison to previous 4 visits and 60-day postactivation baseline did not identify any remarkable changes or atypical measurements. Programming consisted of sweeping Comfort (C) levels at loud, but comfortable across the array. All active electrodes were measured and the rest were interpolated. The function/use of the programs created were discussed and are listed below: Right Ear Program/Map # Program Feature 1 30 SCAN (ADRO + ASC), SNR-NR,WNR Active controls include: volume, forward focus. Battery Life: Battery Life Estimation: Right: Disposable 47 hours Power Extend 24 hours SUMMARY AND RECOMMENDATIONS: Assistive Technologies: The potential benefit of assistive devices such as TV Streamer was reviewed. Counseling Points: * Schedule otology visit to re-establish care *Contact [facility] upgrade specialist Bryce Calderon to discuss upgrade in March 2025. *Look for missing Tresa BTE hearing aid, if found resume use daily during all waking hours. If it is not found, consider having an updated hearing test and replacing it with a ReSound Nexia device. * Continue use of processor during all waking hours. * Continue to monitor magnet/incision site for pain, redness, swelling, scabbing etc. Should any of these occur discontinue use of device immediately and contact the office. Follow-up Programming: It was recommended that the patient return in 1 year for monitoring of auditory performance and potential programming needs. The center should be contacted if there are problems or concerns before that time. NOTE: It should be noted that the patient left the appointment with all the equipment. None of the patient's equipment was left in the Audiology Section of the Clinic. TOTAL TIME: 90 minutes Programming right 25 minutes and evaluation of auditory status 32 minutes Carly Olmstead, [facility] Clinical and Senior Hearing Implant Manager Human Resources documented in this encounter [facility] 08-07-2024 Note HNO ID: [id number] Author: DANIELLE PEACE AUD Service: ? Author Type: Manager Human Resources Type: Progress Notes Filed: 08/07/2024 22:32 Note Text: [facility] of Allied Hearing, Speech and Balance Services COCHLEAR IMPLANT ADULT PROGRAMMING Name: Monserrat French [facility]#:[id number] Date of Service: 08/07/2024 Date of : 1935 Age: [age] year old COCHLEAR IMPLANT INFORMATION (see below for all device details) Right ear: External Processor: Cochlear [id number] (Nucleus 7) - upgraded 06/07/2020 Processor SN: [id number] Processor (Back Up CP910) SN: [id number] Magnet strength: 1/ Internal Device: Cochlear [employer] CI522 Profile with Slim Straight Array Internal Device SN: [id number] Inactive electrodes: 1-3 (poor sound quality) Surgery Date: 04/17/2015 Initial activation date: 05/14/2015 Surgeon: Dallin Cabrera M.D. Left ear: Tresa 3 series I20 kwgkus-boi-mea (BTE) hearing aid with full shell ear mold and open vent; the device was fit at an outside facility and is being managed by that facility. Remote Control (CR210) SN: [id number] Remote Psychology Technician (CR230) SN: [id number] Cochlear Mini Microphone SN: [id number] Cochlear Phone Clip SN: [id number] Cochlear TV Streamer SN: [id number] HISTORY: Monserrat French was seen for annual evaluation of the device/s. The patient reported: * that she is here for an annual follow up and has no concerns. She is accompanied to today's visit by her son, Leonid who is visiting from [place] He reported that his mother hears women's voices better than men and there's a definite improvement with the processor on. * Problems noted with the equipment: patient noted no issues however, visual inspection revealed her cable to be worn and the sheathing at the connection points to the coil and the plug are torn. Her microphone covers have not been changed in at least 1 year. * No pain, redness, swelling at magnet site. * Wearing sound processor: all waking hours per day *Last otology visit 12/19/2018-Dallin Cabrera MD CONTRALATERAL HEARING AID TROUBLESHOOTING: This patient does not remember ever wearing a hearing aid in her left ear. Her son does not remember the last time she had a hearing aid as well. We discussed that at their last visit with Dr. Davis on 07/06/2023 they discussed replacing her Tresa hearing aid with a ReSound to allow for better streaming access with her phone. The patient and her son do not recall this and will look for her Tresa aid at home. They were encouraged to consider updating her hearing test and obtaining a new hearing aid for the left ear. AIDED AUDIOMETRIC TESTING: Audiologic testing was completed in the sound field with the speech processor(s) at user settings Program 1, Volume 6, sensitivity 12. before programming. See Audiogram under procedures tab for obtained thresholds. 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 NOTE: The contralateral ear was Plugged during testing. The following testing and results were obtained: Mvmwhjcfh-Zuhiypd-Tgspxeunn Words (CNC) Test Condition List # Phonemes Words Clinically significant change compared to previous visit? Clinically significant change compared to BEST? Right Ear 3 80% 60% no (68% on 07/06/2023) no (68% on 07/05/2019) AZ BIO (quiet) Test Condition List # Score Clinically significant change compared to previous visit? Clinically significant change compared to BEST? Right Ear 2 76% no (65% on 07/06/2023) no (88% on 08/26/2021) AZ BIO (+10 SNR) Test Condition List # Score Clinically significant change compared to previous visit? Clinically significant change compared to BEST? Right Ear 8 23% yes, decreased (47% on 07/06/2023) yes, decreased (47% on 07/06/2023) Bkb 14 16.5 Summary: Detection was obtained between 20 and 30 dBHL for 250-6000 Hz with the right CI only. Speech perception testing revealed stable performance on CNC words and [employer] sentences in quiet with the right CI only. Speech perception in noise declined significantly. COCHLEAR IMPLANT PROGRAMMING: Datalogging: Time in Use 14.5 hours Time in quiet 7 hours RIGHT Programming: Headset pressure, magnet strength, and incision site were checked with no problems noted. Electrode impedances, used to monitor internal device function, were measured across the electrode array. Impedances were WNL across all active electrodes. Review of impedances obtained today with comparison to previous 4 visits and 60-day postactivation baseline did not identify any remarkable changes or atypical measurements. Programming consisted of sweeping Comfort (C) levels at loud, but comfortable across the array. All active electrodes were measured and the rest were interpolated. The function/use of the programs created were discussed and are listed below: Right Ear Program/Map # Pro (more content not included)... [facility] 08-07-2024 Telephone encounter Note Called facility spoke with Zoraida kan nurse gave information provided. She voices understanding. I also faxed all orders to her to fax number [phone]. [facility] 08-07-2024 Miscellaneous Notes Called facility spoke with Zoraida kan nurse gave information provided. She voices understanding. I also faxed all orders to her to fax number [phone]. Please call assisted living and ask them to draw blood work as I have just ordered today Also needs to start PHYSICAL THERAPY at her assisted living Also needs to see Radio Frequency Engineer at the facility she is living See orders from today and fax and notify Abel Ortiz DO documented in this encounter [facility] 08-04-2024 Telephone encounter Note Please call assisted living and ask them to draw blood work as I have just ordered today Also needs to start PHYSICAL THERAPY at her assisted living Also needs to see Radio Frequency Engineer at the facility she is living See orders from today and fax and notify Abel Ortiz DO [facility] 08-04-2024 Note HNO ID: [id number] Author: ABEL ORTIZ DO Service: ? Author Type: Physician Type: Progress Notes Filed: 08/04/2024 17:20 Note Text: CC: Monserrat French is a 89 year old female who presents to the office for follow up HPI: At previous OFFICE VISIT on 11/09/23 Alzhemier's dementia, moderate, is taking aricept 5 mg a day, has seen Neurologist. Is having more memory decline. She drove from her home to [place] and was found about 1 hour from [place] by the police department. Sons have taken her keys- she is not longer driving for the last 1 month Weight loss. Son thinks she is now only eating about 1 meal a day. Gets meals on wheels daily delivered to her home. Is supposed to be drinking her Boost. He has a camera installed in her kitchen to monitor her. Also she is only walking the dog once a day now, not more often. She admits to depression symptoms several days a week- is lonely. Doesn't have people to talk to much No recent falls Urinary incontinence, comes and goes, hasn't been wearing her depends. No blood or frequency or urgency or dysuria. Hypothyroidism, states that she is taking her thyroid medication At follow up on 03/31/2024 Alzheimer's disease, seeing Neurologist, dose of aricept was attempted to be increased to 10 mg a day but caused her to have diarrhea so had to go back down on this dose and this resolved then. Memory continues to decline, she is doing well now that she has been in a [facility] care facility living for the last 3 months since December. No falls Bowel function has been better now Urinary incontinence is chronic Chronic left hip pain, no falls. Would be willing to do PHYSICAL THERAPY Weight gain has been occurring Currently She is living in an assisted living at [facility] Her son Boris and daughter in law Araya are present today in the office. Alzheimer's disease, seeing Neurologist, dose of aricept was attempted to be increased to 10 mg a day but caused her to have diarrhea so had to go back down on this dose and this resolved then. Memory continues to decline, she is doing well now that she has been in a supervisor long goods care facility living since December 2023. No falls. The Neurologist is considering starting her on Namenda and titrating up the dose if able. Her son Boris is going to discuss this with the other son Leonid to determine if this is the next steps. Also concerns that she may need to transfer to the jail instead of assisted living. Bowel function is now stable She is requiring help to get to the dining odom 3 times a day. Also requiring help to get dressed and bathe on a routine basis. She is still able to feel herself and is now walking with a walker. No recent falls. Her appetite is good. Does have leg weakness, willing to do PHYSICAL THERAPY per son Boris Hypothyroidism, taking levothyroxine, + weight gain recently but son is unsure if this is related to her actually getting 3 meals consistently or related to need for med adjustment. PAST MEDICAL HISTORY Diagnosis Date Disorders of lipoid metabolism Diverticulosis of colon (without mention of hemorrhage) Generalized osteoarthrosis, unspecified site Hemorrhage of gastrointestinal tract, unspecified Hypothyroidism 04/2010 Internal hemorrhoids without mention of complication Malignant neoplasm of right upper lobe of lung (HCC) Nonspecific abnormal electrocardiogram (ECG) (EKG) Osteoporosis, unspecified Pure hypercholesterolemia PAST SURGICAL HISTORY Procedure Laterality Date COLONOSCOPY FLX DX W/COLLJ SPEC WHEN PFRMD 12/30/2005 Colonoscopy COLONOSCOPY FLX DX W/COLLJ SPEC WHEN PFRMD 07/14/2012 Colonoscopy repeat 10 years EXC CYST/ABERRANT BREAST TISSUE OPEN 1/> LESION IMPLANT COCHLEAR DEVICE Right many years ago. Current Outpatient Medications Medication Sig donepezil (ARICEPT) 5 mg tablet Take 1 tablet by mouth daily at bedtime. Incontinence Pad, Liner, Disp (BLADDER CONTROL PAD LONG) pads 1 application three times a day as needed (urinary incontinence). sertraline (ZOLOFT) 50 mg tablet Take 1 tablet by mouth daily at bedtime. simvastatin (ZOCOR) 40 mg tablet Take 1 tablet by mouth daily at bedtime. ondansetron orally disintegrating (ZOFRAN ODT) 4 mg disintegrating tablet Take 1 tablet by mouth every 8 hours as needed for nausea/vomiting. cholecalciferol, vitamin D3, (VITAMIN D3 50 MCG, 2,000 UNIT, GUMMIES) levothyroxine (SYNTHROID) 100 mcg tablet Take 1 tablet by mouth once daily 6 days a week and 2 tablets one day per week. Take on an empty stomach. Lactobacillus acidophilus (PROBIOTIC ORAL) Take by mouth once daily. MULTIVITAMIN TAB Take one(1) tablet daily. ASPIRIN 81 MG TAB Take one(1) tablet daily. No current facility-administered medications for this visit. ALLERGIES Allergen Reactions Bactrim [Sulfametho* Rash shaking and chills, dry mouth Amoxicillin Rash Ampicillin Rash Cephalosporins Rash Minocycline Rash (more content not included)... [facility] 08-04-2024 History of Present illness Narrative CC: Monserrat French is a 89 year old female who presents to the office for follow up HPI: At previous OFFICE VISIT on 11/09/23 Alzhemier's dementia, moderate, is taking aricept 5 mg a day, has seen Neurologist. Is having more memory decline. She drove from her home to [place] and was found about 1 hour from [place] by the police department. Sons have taken her keys- she is not longer driving for the last 1 month Weight loss. Son thinks she is now only eating about 1 meal a day. Gets meals on wheels daily delivered to her home. Is supposed to be drinking her Boost. He has a camera installed in her kitchen to monitor her. Also she is only walking the dog once a day now, not more often. She admits to depression symptoms several days a week- is lonely. Doesn't have people to talk to much No recent falls Urinary incontinence, comes and goes, hasn't been wearing her depends. No blood or frequency or urgency or dysuria. Hypothyroidism, states that she is taking her thyroid medication At follow up on 03/31/2024 Alzheimer's disease, seeing Neurologist, dose of aricept was attempted to be increased to 10 mg a day but caused her to have diarrhea so had to go back down on this dose and this resolved then. Memory continues to decline, she is doing well now that she has been in a [facility] facility living for the last 3 months since December. No falls Bowel function has been better now Urinary incontinence is chronic Chronic left hip pain, no falls. Would be willing to do PHYSICAL THERAPY Weight gain has been occurring Currently She is living in an assisted living at [facility] Her son Boris and daughter in law Araya are present today in the office. Alzheimer's disease, seeing Neurologist, dose of aricept was attempted to be increased to 10 mg a day but caused her to have diarrhea so had to go back down on this dose and this resolved then. Memory continues to decline, she is doing well now that she has been in a [facility] care facility living since December 2023. No falls. The Neurologist is considering starting her on Namenda and titrating up the dose if able. Her son Boris is going to discuss this with the other son Leonid to determine if this is the next steps. Also concerns that she may need [facility] of assisted living. Bowel function is now stable She is requiring help to get to the dining odom 3 times a day. Also requiring help to get dressed and bathe on a routine basis. She is still able to feel herself and is now walking with a walker. No recent falls. Her appetite is good. Does have leg weakness, willing to do PHYSICAL THERAPY per son Boris Hypothyroidism, taking levothyroxine, + weight gain recently but son is unsure if this is related to her actually getting 3 meals consistently or related to need for med adjustment. PAST MEDICAL HISTORY Diagnosis Date Disorders of lipoid metabolism Diverticulosis of colon (without mention of hemorrhage) Generalized osteoarthrosis, unspecified site Hemorrhage of gastrointestinal tract, unspecified Hypothyroidism 04/2010 Internal hemorrhoids without mention of complication Malignant neoplasm of right upper lobe of lung (HCC) Nonspecific abnormal electrocardiogram (ECG) (EKG) Osteoporosis, unspecified Pure hypercholesterolemia PAST SURGICAL HISTORY Procedure Laterality Date COLONOSCOPY FLX DX W/COLLJ SPEC WHEN PFRMD 12/30/2005 Colonoscopy COLONOSCOPY FLX DX W/COLLJ SPEC WHEN PFRMD 07/14/2012 Colonoscopy repeat 10 years EXC CYST/ABERRANT BREAST TISSUE OPEN /> LESION IMPLANT COCHLEAR DEVICE Right many years ago. Current Outpatient Medications Medication Sig donepezil (ARICEPT) 5 mg tablet Take 1 tablet by mouth daily at bedtime. Incontinence Pad, Liner, Disp (BLADDER CONTROL PAD LONG) pads 1 application three times a day as needed (urinary incontinence). sertraline (ZOLOFT) 50 mg tablet Take 1 tablet by mouth daily at bedtime. simvastatin (ZOCOR) 40 mg tablet Take 1 tablet by mouth daily at bedtime. ondansetron orally disintegrating (ZOFRAN ODT) 4 mg disintegrating tablet Take 1 tablet by mouth every 8 hours as needed for nausea/vomiting. cholecalciferol, vitamin D3, (VITAMIN D3 50 MCG, 2,000 UNIT, GUMMIES) levothyroxine (SYNTHROID) 100 mcg tablet Take 1 tablet by mouth once daily 6 days a week and 2 tablets one day per week. Take on an empty stomach. Lactobacillus acidophilus (PROBIOTIC ORAL) Take by mouth once daily. MULTIVITAMIN TAB Take one(1) tablet daily. ASPIRIN 81 MG TAB Take one(1) tablet daily. No current facility-administered medications for this visit. ALLERGIES Allergen Reactions Bactrim [Sulfametho* Rash shaking and chills, dry mouth Amoxicillin Rash Ampicillin Rash Cephalosporins Rash Minocycline Rash shaking and chills , dry mouth Rocephin [Ceftriaxo* Rash Social History Tobacco Use Smoking status: Never Smokeless tobacco: Never Substance Use Topics Alcohol use: Yes Comment: RARELY Drug use: Never ROS: See HPI PE: BP 134/70 Pulse 76 Temp (Src) 96.7 (Right Tympanic) Resp 20 Wt 190 lb (86.2kg) Gen: A&OX3, NAD, non-toxic appearing, thin, memory impaired, well dressed HEENT: PERRLA, EOMs intact b/l, nares without drainage, pharynx without erythema, exudate, lesions, or drainage. Uvula midline. Dental decay present, hard of hearing Neck: No LAD, no thyromegaly, no meningismus. CV: RRR, no murmur Lungs: CTA b/l, no wheezing Skin: No rashes, lesions, or wounds on exposed skin. No edema, normal pulses Abd: NT, ND, normal BS, no masses palpable Poor ROM hips Onychomycosis toenails, + bunion significant left foot Weakness of b/l legs Walking with a walker safely today ASSESSMENT/PLAN: 1. Weakness of both lower extremities - ICD9: 729.89, ICD10: R29.898 (primary diagnosis) Need for continued use of her walker as well as need for PHYSICAL THERAPY She is eating good foods with high protein now that she is eating 3 meals a day - CONSULT TO PHYSICAL THERAPY 2. Arthritis of both feet - ICD9: 716.97, ICD10: M19.071, M19.072 Referral for nail and foot care - CONSULT TO PODIATRY 3. Onychomycosis - ICD9: 110.1, ICD10: B35.1 Referral for nail and foot care - CONSULT TO PODIATRY 4. Bunion, left foot - ICD9: 727.1, ICD10: M21.612 Referral for nail and foot care 5. Impaired gait and mobility - ICD9: 781.2, ICD10: R26.89 Need for continued use of her walker as well as need for PHYSICAL THERAPY She is eating good foods with high protein now that she is eating 3 meals a day 6. Balance disorder - ICD9: 781.99, ICD10: R26.89 Need for continued use of her walker as well as need for PHYSICAL THERAPY She is eating good foods with high protein now that she is eating 3 meals a day - COMPREHENSIVE METABOLIC PANEL - COMPLETE BLOOD COUNT AND DIFFERENTIAL - MAGNESIUM - VITAMIN B12 - VITAMIN D 25 HYDROXY 7. 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 behavioral disturbance, psychotic disturbance, mood disturbance, or anxiety (HCC) - ICD9: 331.0, 294.10, ICD10: G30.1, F02.B0 See above, f/u with Neurologist, may be starting on Namenda per specialist 8. Impaired mobility and ADLs - ICD9: V49.89, ICD10: Z74.09, Z78.9 Need for continued use of her walker as well as need for PHYSICAL THERAPY She is eating good foods with high protein now that she is eating 3 meals a day Secondary to her Alzheimer's disease- may eventually need to be in a memory care unit as d/w son today 9. Hypothyroidism, unspecified type - ICD9: 244.9, ICD10: E03.9 - Instructed patient on importance of taking on an empty stomach either first thing in the morning or at bedtime. Check labs - THYROID STIMULATING HORMONE - T4 FREE/FREE THYROXINE 10. Vitamin D deficiency - ICD9: 268.9, ICD10: E55.9 - VITAMIN D 25 HYDROXY Abel Ortiz DO I spent 44 minutes in the visit, with more than 50% of the total [id number] time of the visit in counseling / coordination of care. Return if no improvement. Follow up with Abel Ortiz DO. To ER if develops chest pain, shortness of breath. Discussed risks, benefits, alternatives, and potential side effects of medications. Patient/Guardian expressed understanding and agreed with the plan. See patient instructions. Abel Ortiz DO [address] [place] [address] documented in this encounter [facility] 08-03-2024 History of Present illness Narrative Review of Systems Constitutional: Negative for appetite change, fatigue and unexpected weight change. HENT: Positive for hearing loss. Negative for dental problem and trouble swallowing. Eyes: Negative for visual disturbance. Gastrointestinal: Negative for constipation and diarrhea. Genitourinary: Negative for difficulty urinating and dysuria. Musculoskeletal: Positive for gait problem. Negative for arthralgias and back pain. Neurological: Negative for tremors, speech difficulty and weakness. Psychiatric/Behavioral: Positive for confusion. Negative for agitation, dysphoric mood, hallucinations and sleep disturbance. The patient is not nervous/anxious. Senior Services/Geriatrics Social History Present at visit: patient, nguyễn Jaquez, daughter in law Deepa Marital status: Children: 3 children (none) Living arrangement: alone, own home >>02/03/24 [facility] in [place] >>08/03/24 same Household safety problems: fell once last year, no injury, no longer has access to stove >>02/03/24 none >>08/03/24 1 fall, no injury Concerning Behaviors: Hallucinations, rare, a little anxiety >>02/03/24 no >>08/03/24 no Wandering potential: No >>02/03/24 no >>08/03/24 no Pets: Yes, 1 dog, no issues caring for the dog Guns in the home: None Elder abuse: Yes, money was disappearing out of her accounts, kids now on her accounts >>02/03/24 no longer has access to get scammed >>08/03/24 no Alcohol/Tobacco/Marijuana/Drug Use History: minimal when she is out service: Neither pt or spouse/partner Highest level of education: HS Occupation: retired from bureau director Activities: goes to [employer] basketball games in winter, plays cards once per week, gets together with friends, goes to visit family several times per year >>02/03/24 participating in activities if prompted >>08/03/24 participating in activities if cued Exercise: walks the dog >>08/03/24 physical therapy Finances: minimal savings, income- slightly overqualified for Passport/Medicaid >>02/03/24 on Medicaid My Chart: Only son uses Healthcare Power of Archivist: Yes: nguyễn Jaquez Financial Power of Archivist: Yes: nguyễn Jaquez Living Will: Yes Guardian: No Code Status: Full Code Primary Caregiver: davi Jaquez and Boris >>02/03/24 staff at facility, davi Current care plan/supervision: sons talk to her every few days, one kid seeing her once per month >>02/03/24 has 24 hour supervision at facility >>08/03/24 same Community resources: Yes: Home Delivered Meals and Video Monitoring, has a lady who comes to clean on occasion >>02/03/24 In Assisted Living >>08/03/24 in Assisted Living Caregiver stressors: denies >>02/03/24 less stress due to patient being in Assisted Living >>08/03/24 much less stress due to Assisted Living Goals for care: evaluate memory, resources As a Caregiver, What Matters Most to You: Patient safety, medications >>06/24/23 Sons noticed that patient was starting to have trouble with finances and medications. They have taken over her finances and monitor her accounts. Patient wasn't taking her medications, then was over taking medications. Now they have implemented a new system which is working for the last week. SW gave son information on alarmed medications dispensers. Kids all live far from patient, 1 in [place], 1 in [place], and 1 in [place]. >>02/03/24 Son noticing increased decline in short term memory. Family noticed that patient's memory started rapidly declining about 4 months ago. Wasn't taking her medications correctly. Family moved her into Assisted Living and patient is adapting to it well. Patient will participate in activities if she remembers them. SW encouraged them to ask facility staff to remind her. No resources given today. >>08/03/24 Patient doing well at Assisted Living. Needs cuing for activities and meals. Family not sure how often bathing is happening; they noticed that shower was dry this morning. Family plans on talking to facility about having them cue patient to shower and go to activities. No resources given today. Functional Status (I: Independent, A: Assisted, D: Dependent) ADLs I A D Notes Bathing [] [x] [] No issues >>02/03/24 no issues >>08/03/24 not showering daily, shower dry this morning according to family Dressing [x] [] [] No issues >>08/03/24 changing clothes Toileting [x] [] [] No issues Transfers [x] [] [] No issues Feeding [x] [] [] No issues Ambulation [x] [] [] none Assistive devices: Grab bars and Hearing aids IADLs I A D Telephone [] [x] [] Has a cell phone, can call and answer, can text (sometimes get confused), can set up own appointments, does miss some appointments >>02/03/24 can call and answer, family sets up appointments, needs reminders >>08/03/24 no longer calling anymore, rarely answers. Family sets up appointments. Not carrying on conversations anymore. Transportation [] [] [x] Driving safety concerns: still driving, only local, gets turned around sometimes, no night driving >>02/03/24 no longer driving Shopping [] [] [x] Forgets what she needs, overbuying same items >>02/03/24 family picks up items for her Meal prep [] [] [x] Gets mobile meals, not losing weight or forgetting to eat, just heating things up, doesn't access to stove >>02/03/24 facility provides >>08/03/24 same, facility cuing her to come down to eat Housework [] [] [x] Still cleaning, neighbor helps sometimes >>02/03/24 facility provides cleaning and laundry >>08/03/24 same Medications [] [] [x] Was not taking them and then was overtaking them, new system implemented and she is doing ok >>02/03/24 facility admnisters >>08/03/24 same Finances [] [] [x] Sons managing finances, patient was getting scammed, was forgetting to pay bills, was overdrafting, was taking a lot of blackwell out of bank. Patient can carry blackwell/cards appropriately >>02/03/24 family manages >>08/03/24 same Images from the original note were not included. [facility] - [address] [address] Dept: [phone] Dept Loc: [phone] Visit type: [facility] Follow Up Visit Reason for Visit: Dementia Visit Date: 08/03/2024 Assessment and Plan 1. Alzheimer's dementia without behavioral disturbance (HCC) -Slow progressive worsening -Continue donepezil 5 mg daily -Offered memantine. Discuss potential benefits and potential side effects (headache, dizziness, behavior change). Son Boris says that he will talk this over with his brother and get back to me Follow up in about 6 months (around 02/03/2025). Subjective HPI: Monserrat French is a 89 y.o. female with past medical history of Alzheimer's Disease, osteoarthritis, hyperlipidemia, vitamin D deficiency, hypothyroidism, deprssion, who presents to the [facility] for a follow-up visit. The patient is known to me. Chart Review: -Initially seen in June 2023: Family started to notice memory issues back in 2021. Impaired short term memory. In they noticed she wasn't taking her medications. Family increased supervision. Got her a medication dispenser and calendar. 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 Sons now doing the banking. -Initial MOCA , MIS 10/29 -Concerning for mild stage Alzheimer's Disease -started on aricept in July 2023 -Now in an assisted living - [facility] -Last seen January 2024: family noticing slow decline in cognition. She was having intermittent diarrhea, so the donepezil was lowered to 5 mg daily. MOCA declined to 04/15, but patient did not have her hearing aids, which may have contributed to the decline. History obtained from caregiver(s): Nguyễn Escalante and BERKLEY Eng -She is doing well overall. Settling into the assisted living. She is eating regularly. Has gained weight. -More confused in evenings. No agitation. -Short term memory is pretty poor. -supervisor long goods memory: Recognizes immediate family members. May not recall grandkids and great-grandkids as well. -Still plays cards very well. -Mood: seems good. -Sleep: No complaints. -Also getting physical therapy. Now has a walker. Remembers to use it. -No diarrhea anymore. History obtained from patient: Memory: OK. No problems noticed Things going well at assisted living Appetite: Good Sleep: Good. No issues. Mood: Pretty good. Physical health has been good. No problems recently. Now using a walker. Reviewed progress notes completed by AVRIL (LIANA) and social work. Allergies Allergen Reactions Sulfamethoxazole Rash shaking and chills, dry mouth Ampicillin Rash Ceftriaxone Rash Minocycline Rash shaking and chills , dry mouth Cephalosporins Rash Trimethoprim Rash Current Outpatient Medications Medication Sig Dispense Refill acetaminophen (Tylenol) 325 MG capsule Take 325 mg by mouth every 4 hours as needed for mild pain (1-3). albuterol 108 (90 Base) MCG/ACT inhaler Inhale 2 puffs every 4 hours as needed for wheezing. aluminum & magnesium hydroxide-simethicone (Mylanta) 200-200-20 MG/5ML oral suspension Take 30 mL by mouth every 4 hours as needed for indigestion or heartburn. ARTIFICIAL TEAR SOLUTION OP Administer into affected eye(s) every 8 hours as needed. aspirin 81 MG EC tablet Take 81 mg by mouth daily. cholecalciferol (Vitamin D-3) 50 MCG (2000 UT) capsule Take 2,000 Units by mouth daily. donepezil (Aricept) 5 MG tablet Take 1 tablet (5 mg) by mouth Nightly. (Patient taking differently: Take 10 mg by mouth Nightly.) 30 tablet 11 guaiFENesin (Robitussin) 100 MG/5ML liquid Take 10 mL by mouth every 4 hours as needed for cough. Lactobacillus (ACIDOPHILUS PO) Take by mouth daily. levoFLOXacin (Levaquin) 500 MG tablet Take 500 mg by mouth daily. 7 days levothyroxine (Synthroid, Levoxyl) 100 MCG tablet 100 mcg daily. Take one tablet daily for six days a week. Take 2 tablets one day of the week Multiple Vitamin (multivitamin) tablet Take 1 tablet by mouth daily. ondansetron (Zofran) 4 MG tablet Take 4 mg by mouth every 8 hours as needed for nausea or vomiting. sertraline (Zoloft) 50 MG tablet Take 50 mg by mouth daily. simvastatin (Zocor) 40 MG tablet Take 40 mg by mouth Nightly. Probiotic Product (PROBIOTIC-10 PO) Take by mouth. No current facility-administered medications for this visit. 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 Output from pleural aj drain began draining milky fluid on evening of 08/09/18. 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 Colitis 06/15/[address] scan [facility] 06/07/12 ER apt and admit Diarrhea 06/24/2023 Diverticulosis 02/21/2009 Hct 38.8% in 02-22: Iron 102 Dysuria 05/04/2023 Fatigue 01/07/2022 Generalized osteoarthrosis, unspecified site 02/23/2005 GI bleed 06/15/2012 [facility] ER with admit 06/07/12 Hyperlipidemia 06/24/2023 Hypothyroidism 07/22/2011 History: Home med: levothyroxine 100 mcg daily TSH Date Value Ref Range Status 07/11/2018 1.570 0.400 - 5.500 uU/mL Final Assessment: Clinically euthyroid Plan: -Continue home med Labial abscess 07/14/2010 Malignant neoplasm of upper lobe of right lung (HCC) 08/08/2018 History: 83 year old never smoker who had CXR then subsequent CT chest as part of work up for persistent cough. A right upper lung infiltrative lesion was found, which measured about 2.3 x 2 cm in size. No mediastinal lymphadenopathy identified. PET scan FDG uptake of the known lesion (SUV 3.6). CT-guided fine-needle aspiration confirme Medication noncompliance due to cognitive impairment 05/04/2023 Memory loss, short term 01/13/2023 Mild dementia without behavioral disturbance, psychotic disturbance, mood disturbance, or anxiety (HCC) 05/04/2023 Nasal sore 05/22/2019 Obesity, unspecified 06/26/2008 Pt with symptoms of restless legs as of 06-25: declined sleep testing Pain, postoperative, acute 08/08/2018 History: Status post: Robotic right upper lobectomy, mediastinal lymph node dissection on 08/08/18. Assessment: Adequate pain control with oxycodone 5-10 mg q4H prn, tylenol 1000 mg q6H and toradol 15 mg IV q6H Plan: -Continue current regimen but substitute toradol with ibuprofen 600 mg q6h -Continue to re-assess pain control to keep shayy Pure hypercholesterolemia 02/23/2005 LDL 94, HDL 57, TG 157 in 06-25 Pt changed to Simvastatin 20 mg in 02-22 S/P lobectomy of lung 08/23/2018 Sensorineural hearing loss, bilateral 03/25/2015 Situational anxiety 06/07/2018 Situational insomnia 06/07/2018 SOB (shortness of breath) 01/07/2022 Swelling of first metatarsophalangeal (MTP) joint 06/24/2023 Vitamin D deficiency 03/01/2021 Social History Tobacco Use Smoking status: Never Smokeless tobacco: Never Substance Use Topics Alcohol use: Not on file Comment: occassionally Past Surgical History: Procedure Laterality Date COCHLEAR IMPLANT (HISTORICAL) Right LUNG CANCER SURGERY No family history on file. No family status information on file. Objective Vitals: 08/03/24 0951 BP: 114/68 BP Location: Right arm Patient Position: Sitting Pulse: 77 Weight: 190 lb (86.2 kg) Wt Readings from Last 3 Encounters: 08/03/24 190 lb (86.2 kg) 02/03/24 173 lb (78.5 kg) 08/05/23 163 lb 12.8 oz (74.3 kg) Physical Exam Constitutional: General: She is not in acute distress. Appearance: She is not ill-appearing. HENT: Head: Normocephalic and atraumatic. Right Ear: Decreased hearing noted. Left Ear: Decreased hearing noted. Cardiovascular: Rate and Rhythm: Normal rate and regular rhythm. Heart sounds: No murmur heard. No friction rub. No gallop. Pulmonary: Effort: Pulmonary effort is normal. Breath sounds: Normal breath sounds. No wheezing, rhonchi or rales. Musculoskeletal: Right lower leg: No edema. Left lower leg: No edema. Neurological: Mental Status: She is alert. Psychiatric: Attention and Perception: Attention normal. Mood and Affect: Mood and affect normal. Cognition and Memory: Cognition is impaired. Memory is impaired. Data Reviewed and Summarized Testing: The following tests were performed at today's visit and scanned in to thechart: MoCA score: 03/15, MIS score: 415 Clock drawing score: 17 PHQ-9 score: 0 I independently reviewed the Mikie Cognitive Assessment from 08/03/2024. Test scanned in to the chart. I spent total time of 53 minutes face to face with the patient and/or family discussing the diagnosis and importance of compliance with the treatment plan as well as documenting on the day of the visit. In addition, that total time includes the following (this does not include the time spent in Advanced Care Planning which, if done, was documented elsewhere in the note): -Reviewing previous notes, -Reviewing previous cognitive tests, -Obtaining and/or reviewing separately obtained history, -Ordering prescription medications, tests and procedures, -Communicating results to the patient/family/caregiver, -Counseling/educating the patient/family/caregiver, -Documenting clinical information in the patients electronic record, -Coordination of care for the patient, and -Performing a medically appropriate exam and/or evaluation I, Alexander Galaviz MD, furnish ongoing care related to [place], serious and complex condition(s) Dementia. I assume responsibility for the patient's ongoing medical care of this condition. documented in this encounter [facility] 08-03-2024 Instructions Alexander Galaviz MD - 08/03/2024 10:00 AM EDT Alzheimer's Disease is progressing to moderate stage. We can offer to start Memantine (Namenda) to help slow down the Alzheimer's Disease. If we start the Memantine, these would be the instructions: Memantine (Namenda) IR to slow down the memory loss. Take 5 mg daily for 7 days, then increase to 5 mg twice a day, then increase to 10 mg in the morning and 5 mg in the evening for 7 days then increase to 10 mg twice a day thereafter. The medication is generally well tolerated. Potential common side effects include dizziness and headache. documented in this encounter [facility] 08-03-2024 Note Alzheimer's Disease is progressing to moderate stage. We can offer to start Memantine (Namenda) to help slow down the Alzheimer's Disease. If we start the Memantine, these would be the instructions: Memantine (Namenda) IR to slow down the memory loss. Take 5 mg daily for 7 days, then increase to 5 mg twice a day, then increase to 10 mg in the morning and 5 mg in the evening for 7 days then increase to 10 mg twice a day thereafter. The medication is generally well tolerated. Potential common side effects include dizziness and headache. [facility] 07-26-2024 Telephone encounter Note Noted, agree Abel Ortiz DO [facility] 07-26-2024 Miscellaneous Notes Noted, agree Abel Ortiz DO Received page from patient's jail. Per nurse, she was seen in [place] ED 3 days ago and diagnosed with URI. Was given prescription for albuterol inhaler 2 puffs q4 hours but with her dementia has been unable to use it. She has been having persistent cough and ox sat at 92%. Called asking recs and prescription to help with breathing. Advised that they should switch to albuterol nebs every 4 hours. If she is continuing to have increased WOB or oxygen sat <90%, then need to follow again in ED. Dr. Fadi Nash DO documented in this encounter [facility] 07-26-2024 Discharge summary [facility] 07-26-2024 Radiology Diagnostic study note [facility] Imaging Services [address] [place] [address] Chest PA and Lateral MR#: [id number] Acct: [id number] Name: MONSERRAT FRENCH Rep #: [id number] : 1935 F 89 From: Tomas Murphy MD PCP: Dr. Abel Ortiz DO Status: RE G ER Study:Chest PA and Lateral Date of Exam: 07/26/24 Exam# [id number] Ordering Dr: Shawanda Black DO PROCEDURE: CHEST PA AND LATERAL REASON FOR EXAM: COUGH TECHNIQUE: Frontal and lateral views of the chest. COMPARISON: 07/22/2024 FINDINGS: There are bilateral left more than right patchy ill-defined airspace opacities at the lower lobes which may be inflammatory, infectious with possible aspiration not entirely excluded. Pulmonary vascularity appears within limits. No pleural effusion. Right staple line and surgical clips at the right hilum again noted. The cardiac and mediastinal contours appear within limits. Atherosclerotic change aortic arch. RAD/Chest PA and Lateral IMPRESSION: There are bilateral left more than right patchy ill-defined airspace opacities at the lower lobes which may be inflammatory, infectious with possible aspiration not entirely excluded. Pulmonary vascularity appears within limits. No pleural effusion. Reading Location: [facility] CC: Dr. Abel Ortiz DO; Jerardo Black DO ~ Preventative Maintenance Technician: Signed [facility] 07-25-2024 Telephone encounter Note Received page from patient's jail. Per nurse, she was seen in [place] ED 3 days ago and diagnosed with URI. Was given prescription for albuterol inhaler 2 puffs q4 hours but with her dementia has been unable to use it. She has been having persistent cough and ox sat at 92%. Called asking recs and prescription to help with breathing. Advised that they should switch to albuterol nebs every 4 hours. If she is continuing to have increased WOB or oxygen sat <90%, then need to follow again in ED. Dr. Fadi Nash DO [facility] Work Phone: 07-23-2024 Discharge summary Note Date/Time July 23, 2024 12:05am [facility] Medical Records Department [address] [place] [address] Emergency Department Summary 07/22/24 MR#: [id number] Acct: [id number] Name: MONSERRAT FRENCH Rep #:[id number] : 1935 89 From: Glenn Farfan PCP: Dr. Abel Ortiz DO Status:RE G ER Location: ED HPI History of Present Illness Chief Complaint: Cough Informant: patient and EMS Narrative Narrative: Brought by EMS from [facility] for evaluation. History dementia. She has had an ongoing cough cannot tell me timeframe. Denies fevers. Reports dyspnea and there was no wheezing. Status post albuterol by EMS. She denies asthma or COPDhistory. Denies tobacco history. Denies chest or abdominal pain. Denies vomiting diarrhea. Denies any urinary symptoms. [facility] Medical History History of lung cancer Hypothyroidism HLD (hyperlipidemia) Home Medications ?Medication ?Instructions ?Recorded ?Last Taken ?Type levothyroxine 100 mcg tablet 100 mcg PO DAILY 07/17/20 Unknown History naproxen sodium 220 mg capsule 220 mg PO PRN PRN Pain 1-10 Or 07/17/20 Unknown History Fever thzohbcf-mtk-mqpjb acid 0.4 1 tab PO DAILY 03/05/23 Un known History mg-lycopene 300 mcg-lutein 250 mcg tablet (Centrum Silver) ondansetron HCl 8 mg tablet 8 mg PO Q8H PRN nausea and 03/05/23 Unknown Rx vomiting #14 tabs Allergy/AdvReac Type Severity Reaction Status Date / Time amoxicillin AdvReac Rash Verified 07/22/24 22:55 ampicillin AdvReac Rash Verified 07/22/24 22:55 ceftriaxone (From Rocephin) AdvReac Rash Verified 07/22/24 22:55 Cephalosporins AdvReac Rash Verified 07/22/24 22:55 minocycline AdvReac Rash Verified 07/22/24 22:55 sulfamethoxazole (From AdvReac Rash Verified 07/22/24 22:55 Bactrim) trimethoprim (From Bactrim) AdvReac Rash Verified 07/22/24 22:55 Family History Father Cancer Surgical History History of lung surgery Social History Smoking Status: Never smoker alcohol intake: current alcohol intake frequency: a few times a month Alcohol type: wine substance use type: does not use ROS ROS ED Constitutional Constitutional ED: Denies chills, fever(s) or sweats ENT ENT ED: Denies sore throat Cardiovascular Cardiovascular: Denies chest pain, leg edema, palpitations or racing heartbeat Respiratory/Chest Respiratory/Chest: Reports cough and dyspnea; Denies dyspnea on exertion Gastrointestinal Gastrointestinal: Denies abdominal pain, diarrhea, nausea or vomiting Genitourinary Genitourinary ED: Denies dysuria, hematuria or urinary frequency Musculoskeletal Musculoskeletal: Denies back pain, extremity pain or neck pain Integumentary Denies rash or wounds Neurologic Neurologic: Denies headache(s), paresthesias or weakness EXAM Physical Exam Const Vital Signs: 07/22/24 22:53 07/22/24 22:58 07/22/24 23:20 Temperature 99 F 99 F Temperature Source Oral Oral Pulse Rate 91 92 Respiratory Rate 18 17 Respiratory Effort Short of Breath Labored Respiratory Depth Normal Respiratory Pattern Normal Blood Pressure 143/70 H 143/70 H Blood Pressure Mean 94 94 Pulse Ox 93 96 Oxygen Delivery Method Room Air Room Air Room Air 07/22/24 23:22 07/22/24 23:58 Temperature 98.9 F Temperature Source Oral Pulse Rate 89 95 Respiratory Rate 24 H 23 H Respiratory Effort Respiratory Depth Respiratory Pattern Tachypnea Blood Pressure 137/59 H Blood Pressure Mean 85 Pulse Ox 96 Oxygen Delivery Method Room Air Positive well nourished and well developed General Appearance ED: well developed and NAD HEENT Reports moist mucous membranes normocephalic and atraumatic Eyes General Eye ED: Yes normal appearance of both eyes Neck full ROM Chest Wall Chest: Negative for tenderness Resp Resp Narrative: Bilateral mild wheezing noted. No distress. Effort and Inspection: symmetric chest movement; Negative for respiratory distress Cardio regular rate, regular rhythm and no murmurs Peripheral Pulses: pulses 2+ throughout GI normal to inspection, nondistended, normoactive bowel sounds and non-tender Palpation: Negative for guarding or rebound tenderness present Extremity normal to inspection General Extremety ED: Negative for edema or tenderness General Extremity: Negative for edema Neuro no sensory deficits noted Neuro Narrative: Alert to person and place, reported to me, year was 2023. Sensorium / Orientation: awake and alert Skin no rashes or lesions noted and no wounds MDM MDM MDM Narrative Medical decision making narrative: Interventions / MDM: Differential diagnosis: Viral syndrome, bronchospasms, history of dementia Diagnosis considered but do not suspect: Pneumonia however x-ray negative. My EKG interpretation: Sinus first-degree AV block rate of 89, no ST or T wave changes, interventricular delay with QRS of 102. Imaging independently reviewed and interpreted by myself: 2 view chest x-ray: Noacute process also read by radiology. External documents reviewed: N/A Test considered but not ordered:N/A ED course: Vital stable in the ED 96% room air no distress. Temp of 99. Still current mild wheezing status post albuterol by EMS. Will check lab work chest x-ray additional aerosol treatments ordered. 0100: X-ray negative labs stable EKG sinus rhythm. Wheezing improving. Nursingdiscussed with facility note COPD or asthma history. No indication for steroids. Discussed with them will dispense albuterol MDI with spacer for use at the facility. COVID, flu, RSV negative. Re-evaluation: stable Disposition discussed with patient/family/significant other: Patient Case discussed with consulting clinician: Nursing facility This note was generated with [employer] dictation software. It may contain incorrectwords, spelling, and punctuation that were not noted in checking the note beforesigning. Lab Data Attestation: I reviewed the patient's lab results. Labs: Laboratory Results - last 24 hr 07/22/24 23:17 WBC 6.6 RBC 4.00 L Hgb 12.0 Hct 36.6 L MCV 91.5 MCH 30.0 MCHC 32.8 RDW Std Deviation 46.8 H RDW Coeff of [place] 13.8 Plt Count 140 L MPV 10.4 Immature Gran % (Auto) 0.300 Neut % (Auto) 68.9 Lymph % (Auto) 15.7 L Weakley % (Auto) 12.5 H Eos % (Auto) 2.3 Baso % (Auto) 0.3 Absolute Neuts (auto) 4.6 Absolute Lymphs (auto) 1.04 Nucleated RBC % 0 Sodium 137 Potassium 4.1 Chloride 104 Carbon Dioxide 22.0 Anion Gap 11 BUN 25 H Creatinine 0.86 Estim Creat Clear Calc 50.55 Est GFR (MDRD) Non-Af 65 BUN/Creatinine Ratio 29.5 H Glucose 102 H Calcium 8.9 Radiography Diagnostic Testing: Clinical Impression(s) from Imaging Studies Chest X-Ray 07/22/24 23:47 IMPRESSION: No acute cardiopulmonary process. Reading Location: [facility] Discharge Plan Triage Chief Complaint: Cough ED Provider: Glenn Steiner Dx/Rx/DC Orders Clinical Impression: Viral upper respiratory infection, Acute bronchospasm, Dementia Instructions: ED Bronchospasm (Adult), ED URI, Viral, No Abx (Adult) Prescriptions: No Action Centrum Silver 0.4 mg-300 mcg- 250 mcg tablet 1 tab PO DAILY ondansetron HCl 8 mg tablet 8 mg PO Q8H PRN (Reason: nausea and vomiting) Qty: 14 0RF levothyroxine 100 MCG tablet 100 mcg PO DAILY naproxen sodium 220 MG capsule 220 mg PO PRN PRN (Reason: Pain 1-10 Or Fever) Primary Care Provider: Abel Ortiz Referrals: Abel Ortiz DO [Primary Care Provider] - 1 Week if not improving Activity Restrictions/Additional Instructions: EKG normal chest x-ray negative. Labs negative. COVID, influenza, RSV negative. Use inhaler every 4 hours as needed for wheezing. Print Language: Martiniquais Disposition Disposition: Home, Self Care What to do if you have Problems For any increased pain, shortness of breath, bleeding, nausea or vomiting, chestpain, or any unexpected problems, contact your Primary Care Provider. Call [facility] ([phone]) or report to the closest Emergency Room. Call 911 if necessary. 07/23/24 0105 <Electronically signed by Glenn Farfan> Cosigner Signature (if applicable): CC: Dr. Abel Ortiz DO ~ Signed [facility] Work Phone: [phone]) 660-883603-09-2025 Discharge summary [facility] Medical Records Department [address] [place] [address] Emergency Department Summary 07/22/24 MR#: [id number] Acct: [id number] Name: MONSERRAT FRENCH Rep #:[id number] : 1935 89 From: Glenn Farfan PCP: Dr. Abel Ortiz DO Status:RE G ER Location: ED HPI History of Present Illness Chief Complaint: Cough Informant: patient and EMS Narrative Narrative: Brought by EMS from [facility] for evaluation. History dementia. She has had an ongoing cough cannot tell me timeframe. Denies fevers. Reports dyspnea and there was no wheezing. Status post albuterol by EMS. She denies asthma or COPDhistory. Denies tobacco history. Denies chest or abdominal pain. Denies vomiting diarrhea. Denies any urinary symptoms. PFSH PFS Medical History History of lung cancer Hypothyroidism HLD (hyperlipidemia) Home Medications ?Medication ?Instructions ?Recorded ?Last Taken ?Type levothyroxine 100 mcg tablet 100 mcg PO DAILY 07/17/20 Unknown History naproxen sodium 220 mg capsule 220 mg PO PRN PRN Pain 1-10 Or 07/17/20 Unknown History Fever dvsifucz-nbl-dqzju acid 0.4 1 tab PO DAILY 03/05/23 Un known History mg-lycopene 300 mcg-lutein 250 mcg tablet (Centrum Silver) ondansetron HCl 8 mg tablet 8 mg PO Q8H PRN nausea and 03/05/23 Unknown Rx vomiting #14 tabs Allergy/AdvReac Type Severity Reaction Status Date / Time amoxicillin AdvReac Rash Verified 07/22/24 22:55 ampicillin AdvReac Rash Verified 07/22/24 22:55 ceftriaxone (From Rocephin) AdvReac Rash Verified 07/22/24 22:55 Cephalosporins AdvReac Rash Verified 07/22/24 22:55 minocycline AdvReac Rash Verified 07/22/24 22:55 sulfamethoxazole (From AdvReac Rash Verified 07/22/24 22:55 Bactrim) trimethoprim (From Bactrim) AdvReac Rash Verified 07/22/24 22:55 Family History Father Cancer Surgical History History of lung surgery Social History Smoking Status: Never smoker alcohol intake: current alcohol intake frequency: a few times a month Alcohol type: wine substance use type: does not use ROS ROS ED Constitutional Constitutional ED: Denies chills, fever(s) or sweats ENT ENT ED: Denies sore throat Cardiovascular Cardiovascular: Denies chest pain, leg edema, palpitations or racing heartbeat Respiratory/Chest Respiratory/Chest: Reports cough and dyspnea; Denies dyspnea on exertion Gastrointestinal Gastrointestinal: Denies abdominal pain, diarrhea, nausea or vomiting Genitourinary Genitourinary ED: Denies dysuria, hematuria or urinary frequency Musculoskeletal Musculoskeletal: Denies back pain, extremity pain or neck pain Integumentary Denies rash or wounds Neurologic Neurologic: Denies headache(s), paresthesias or weakness EXAM Physical Exam Const Vital Signs: 07/22/24 22:53 07/22/24 22:58 07/22/24 23:20 Temperature 99 F 99 F Temperature Source Oral Oral Pulse Rate 91 92 Respiratory Rate 18 17 Respiratory Effort Short of Breath Labored Respiratory Depth Normal Respiratory Pattern Normal Blood Pressure 143/70 H 143/70 H Blood Pressure Mean 94 94 Pulse Ox 93 96 Oxygen Delivery Method Room Air Room Air Room Air 07/22/24 23:22 07/22/24 23:58 Temperature 98.9 F Temperature Source Oral Pulse Rate 89 95 Respiratory Rate 24 H 23 H Respiratory Effort Respiratory Depth Respiratory Pattern Tachypnea Blood Pressure 137/59 H Blood Pressure Mean 85 Pulse Ox 96 Oxygen Delivery Method Room Air Positive well nourished and well developed General Appearance ED: well developed and NAD HEENT Reports moist mucous membranes normocephalic and atraumatic Eyes General Eye ED: Yes normal appearance of both eyes Neck full ROM Chest Wall Chest: Negative for tenderness Resp Resp Narrative: Bilateral mild wheezing noted. No distress. Effort and Inspection: symmetric chest movement; Negative for respiratory distress Cardio regular rate, regular rhythm and no murmurs Peripheral Pulses: pulses 2+ throughout GI normal to inspection, nondistended, normoactive bowel sounds and non-tender Palpation: Negative for guarding or rebound tenderness present Extremity normal to inspection General Extremety ED: Negative for edema or tenderness General Extremity: Negative for edema Neuro no sensory deficits noted Neuro Narrative: Alert to person and place, reported to me, year was 2023. Sensorium / Orientation: awake and alert Skin no rashes or lesions noted and no wounds MDM MDM MDM Narrative Medical decision making narrative: Interventions / MDM: Differential diagnosis: Viral syndrome, bronchospasms, history of dementia Diagnosis considered but do not suspect: Pneumonia however x-ray negative. My EKG interpretation: Sinus first-degree AV block rate of 89, no ST or T wave changes, interventricular delay with QRS of 102. Imaging independently reviewed and interpreted by myself: 2 view chest x-ray: Noacute process also read by radiology. External documents reviewed: N/A Test considered but not ordered:N/A ED course: Vital stable in the ED 96% room air no distress. Temp of 99. Still current mild wheezingstatus post albuterol by EMS. Will check lab work chest x- ray additional aerosol treatments ordered. 0100: X-ray negative labs stable EKG sinus rhythm. Wheezing improving. Nursingdiscussed with facility note COPD or asthma history. No indication for steroids. Discussed with them will dispense albuterol MDI with spacer for use at the facility. COVID, flu, RSV negative. Re-evaluation: stable Disposition discussed with patient/family/significant other: Patient Case discussed with consulting clinician: Nursing facility This note was generated with [employer] dictation software. It may contain incorrectwords, spelling, and punctuation that were not noted in checking the note beforesigning. Lab Data Attestation: I reviewed the patient's lab results. Labs: Laboratory Results - last 24 hr 07/22/24 23:17 WBC 6.6 RBC 4.00 L Hgb 12.0 Hct 36.6 L MCV 91.5 MCH 30.0 MCHC 32.8 RDW Std Deviation 46.8 H RDW Coeff of [place] 13.8 Plt Count 140 L MPV 10.4 Immature Gran % (Auto) 0.300 Neut % (Auto) 68.9 Lymph % (Auto) 15.7 L Weakley % (Auto) 12.5 H Eos % (Auto) 2.3 Baso % (Auto) 0.3 Absolute Neuts (auto) 4.6 Absolute Lymphs (auto) 1.04 Nucleated RBC % 0 Sodium 137 Potassium 4.1 Chloride 104 Carbon Dioxide 22.0 Anion Gap 11 BUN 25 H Creatinine 0.86 Estim Creat Clear Calc 50.55 Est GFR (MDRD) Non-Af 65 BUN/Creatinine Ratio 29.5 H Glucose 102 H Calcium 8.9 Radiography Diagnostic Testing: Clinical Impression(s) from Imaging Studies Chest X-Ray 07/22/24 23:47 IMPRESSION: No acute cardiopulmonary process. Reading Location: [facility] Discharge Plan Triage Chief Complaint: Cough ED Provider: Glenn Steiner Dx/Rx/DC Orders Clinical Impression: Viral upper respiratory infection, Acute bronchospasm, Dementia Instructions: ED Bronchospasm (Adult), ED URI, Viral, No Abx (Adult) Prescriptions: No Action Centrum Silver 0.4 mg-300 mcg- 250 mcg tablet 1 tab PO DAILY ondansetron HCl 8 mg tablet 8 mg PO Q8H PRN (Reason: nausea and vomiting) Qty: 14 0RF levothyroxine 100 MCG tablet 100 mcg PO DAILY naproxen sodium 220 MG capsule 220 mg PO PRN PRN (Reason: Pain 1-10 Or Fever) Primary Care Provider: Abel Ortiz Referrals: Abel Ortiz DO [Primary Care Provider] - 1 Week if not improving Activity Restrictions/Additional Instructions: EKG normal chest x-ray negative. Labs negative. COVID, influenza, RSV negative. Use inhaler every 4hours as needed for wheezing. Print Language: Martiniquais Disposition Disposition: Home, Self Care What to do if you have Problems For any increased pain, shortness of breath, bleeding, nausea or vomiting, chestpain, or any unexpected problems, contact your Primary Care Provider. Call [facility] ([phone]) or report tothe closest Emergency Room. Call 911 if necessary. 07/23/24 0105 Cosigner Signature (if applicable): CC: Dr. Abel Ortiz DO ~ Signed [facility]03-08-2025 Radiology Diagnostic study note [facility] Imaging Services [address] [place] [address] Chest PA and Lateral MR#: [id number] Acct: [id number] Name: MONSERRAT FRENCH Rep #: [id number] : 1935 F 89 From: Gauri Sellers DO PCP: Dr. Abel Ortiz DO Status: RE G ER Study:Chest PA and Lateral Date of Exam: 07/22/24 Exam# [id number] Ordering Dr: Glenn Steiner DO PROCEDURE: CHEST PA AND LATERAL REASON FOR EXAM: Cough. TECHNIQUE: Frontal and lateral views of the chest. COMPARISON: None. FINDINGS: Cardiac size and pulmonary vasculature are within normal limits. No consolidation, pleural effusion, or pneumothorax is present. There is dextroscoliosis of the midthoracic spine. Degenerative changes are identified. RAD/Chest PA and Lateral IMPRESSION: No acute cardiopulmonary process. Reading Location: [facility] CC: Dr. Abel Ortiz DO; Dr. Glenn Steiner DO ~ Preventative Maintenance Technician: Signed [facility]03-08-2025 Hospital Discharge instructions Additional Instructions Your x-ray today questions pneumonia that was not present from your x-ray on July 22. Secondary to this take the prescribed antibiotics/Levaquin once a day. However you will still need to take your inhaler to help with bronchospasm and wheeze. Your oxygen level and work of breathing are normal in the ER and therefore you do not require oxygen and you do not have signs of systemic infection/sepsis and therefore do not require admission or IV antibiotics. If your symptoms continue to worsen he develop a fever or you have any further concerns please return to the ER for repeat evaluation.[facility] Work Phone: [phone]) 360-839802-05-2025 Telephone encounter Note* Telephone Encounter - Dinora Kowalski - 06/21/2024 10:43 AM EST Called patient and left LVM that appt with Dr. Davis on 10/05/2024 has been canceled due to provider being out of office. Advised to call back to reschedule. Thanks, Dinora Kowalski [facility]02-05-2025 Miscellaneous Notes* Telephone Encounter - Dinora Kowalski - 06/21/2024 10:43 AM EST Called patient and left LVM that appt with Dr. Davis on 10/05/2024 has been canceled due to provider being out of office. Advised to call back to reschedule. Dinora Fierro [facility] Telephone encounter Note * Telephone Encounter - Dinora Kowalski - 04/26/2024 3:17 PM EST Spoke with Leonid and relayed providers message below. Leonid verbalized understanding and will reach outto Cochlear. Provided contact number to Leonid. Dinora Fierro [facility]12-11-2024 Miscellaneous Notes* Telephone Encounter - Dinora Kowalski - 04/26/2024 3:17 PM EST Spoke with Leonid and relayed providers message below. Leonid verbalized understanding and will reach outto Cochlear. Provided contact number to Leonid. 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 Leonid can be reached at [phone]. Dinora Fierro [facility] Telephone encounter Note * Telephone Encounter - Dinora Kowalski - 04/26/2024 10:15 AM EST Patients son Leonid called into the office regarding patient stating her Cochlear implant battery is not working and is wondering next steps in how to fix this and if that is something our office can help with. Leonid can be reached at [phone]. Dinora Fierro [facility]12-03-2024 Telephone encounter Note* Telephone Encounter - Zoraida De La Garza LPN - 04/18/2024 1:43 PM EST Informed via my Chart. [facility]12-03-2024 Miscellaneous Notes* Telephone Encounter - Zoraida Musa LPN - 04/18/2024 1:43 PM EST Informed via my Chart. * Telephone Encounter - Rosario Pandey PA-C - 04/18/2024 1:30 PM EST Noted-reviewed addendum, patient improved. Advise f/u in office if symptoms are not resolving, or worsening. Rosario Pandey PA-C * Telephone Encounter - Sofiya Deleon LPN - 04/17/2024 11:08 AM EST Per patient mychart: Dr. Ortiz - This is Monserrat Hicks's son. We brought mom to [place] for the holiday. She had a cough when we left [place] but she didn't seem too bad. The cough has persisted this week and I decided to test her for COVID last night. The test came back positive. She does not have too many symptoms. - A cough, mainly while laying in bed. I have moved her to a couch where she can be propped up. This has helped. - She seems a bit lethargic but not sure how much of that is attributable to the dementia - I can hear a little wheezing or rattle in her breathing, mainly at night. - No sore throat - No fever - No headache - Has an appetite - Can smell I have not tried any OTC drugs. She will be back in [place] on April 16. Any recommendations for care over the next few days? Plan once she's back in [place]? Following up on this. We tested her today and the test came back negative. Possibly a false positive or she was at the end of Covid from a previous infection. She was improved today with just a coughthat is less persistent than it was. She is back at [facility] where they checked her heart and oxygen levels and all looked good. Apologies for the false alarm. [facility] [facility]. documented in this encounterHigh[facility]12[facility] Telephone encounter Note * Telephone Encounter - Rosario Pandey PA-C - 04/18/2024 1:30 PM EST Noted-reviewed addendum, patient improved. Advise f/u in office if symptoms are not resolving, or worsening. Rosario Pandey PA-C [facility] Work Phone: [phone] 149-443912-02-2024 Telephone encounter Note* Telephone Encounter - Haydee Jhaveri APRN.CNP - 04/17/2024 2:50 PM EST Noted. Thank you, Haydee Jhaveri APRN.ALLEY TENDER [facility]12-02-2024 Miscellaneous Notes* Telephone Encounter - Haydee Jhaveri APRN.CNP - 04/17/2024 2:50 PM EST Noted. Thank you, Haydee Jhaveri APRN.CNP * Telephone Encounter - Sofiya Deleon LPN - 04/17/2024 11:08 AM EST Follow up on telephone encounter Sofiya Deleon LPN April 17, 2024 11:08 AM documented in this encounterHigh[facility] Hospital12-02-2024 Telephone encounter Note * Telephone Encounter - Sofiya Deleon LPN - 04/17/2024 11:08 AM EST Per patient mychart: Dr. Ortiz - This is Monserrat Hicks's son. We brought mom to [place] for the holiday. She had a cough when we left [place] but she didn't seem too bad. The cough has persisted this week and I decided to test her for COVID last night. The test came back positive. She does not have too many symptoms. - A cough, mainly while laying in bed. I have moved her to a couch where she can be propped up. This has helped. - She seems a bit lethargic but not sure how much of that is attributable to the dementia - I can hear a little wheezing or rattle in her breathing, mainly at night. - No sore throat - No fever - No headache - Has an appetite - Can smell I have not tried any OTC drugs. She will be back in [place] on April 16. Any recommendations for care over the next few days? Plan once she's back in [place]? Following up on this. We tested her today and the test came back negative. Possibly a false positive or she was at the end of Covid from a previous infection. She was improved today with just a coughthat is less persistent than it was. She is back at [facility] where they checked her heart and oxygen levels and all looked good. Apologies for the false alarm. Nurses will continue to check in with her at [facility]. [facility]12[facility] Telephone encounter Note* Telephone Encounter - Sofiya Deleon LPN - 04/17/2024 11:08 AM EST Follow up on telephone encounter Sofiya Deleon LPN April 17, 2024 11:08 AM [facility]11-18-2024 Telephone encounter Note* Telephone Encounter - Tg Leonard MA - 04/03/2024 8:33 AM EST Based on previous appt's pt was being seen every 3-4 months. On last appt note it said Dr. López to see pt every 3-4 months. Notified Esc[facility] of this. Tg Leonard MA [facility]11-18-2024 Miscellaneous Notes* Telephone Encounter - Tg Leonard MA - 04/03/2024 8:33 AM EST Based on previous appt's pt was being seen every 3-4 months. On last appt note it said Dr. López to see pt every 3-4 months. Notified [facility] of this. Tg Leonard MA documented in this encounterHighland [facility] Hospital11-15-2024 NoteHNO ID: [id number] Author: ABEL ORTIZ, DO Service: ? Author Type: Physician Type: Progress Notes Filed: 03/31/2024 12:46 Note Text: CC: Monserrat French is a 88 year old female who presents to the office for follow up HPI: At previous OFFICE VISIT on 11/09/23 Alzhemier's dementia, moderate, is taking aricept 5 mg a day, has seen Neurologist. Is having more memory decline. She drove from her home to [place] and was found about 1 hour from [place] by the police department. Sons have taken her keys- she is not longer driving for the last 1 month Weight loss. Son thinks she is now only eating about 1 meal a day. Gets meals on wheels daily delivered to her home. Is supposed to be drinking her Boost. He has a camera installed in her kitchen to monitor her. Also she is only walking the dog once a day now, not more often. She admits to depression symptoms several days a week- is lonely. Doesn't have people to talk to much No recent falls Urinary incontinence, comes and goes, hasn't been wearing her depends. No blood or frequency or urgency or dysuria. Hypothyroidism, states that she is taking her thyroid medication Currently Alzheimer's disease, seeing Neurologist, dose of aricept was attempted to be increased to 10 mg a day but caused her to have diarrhea so had to go back down on this dose and this resolved then. Memory continues to decline, she is doing well now that she has been in a supervisor long goods care facility living for the last 3 months since December. No falls Bowel function has been better now Urinary incontinence is chronic Chronic left hip pain, no falls. Would be willing to do PHYSICAL THERAPY Weight gain has been occuring PAST MEDICAL HISTORY Diagnosis Date Disorders of lipoid metabolism Diverticulosis of colon (without mention of hemorrhage) Generalized osteoarthrosis, unspecified site Hemorrhage of gastrointestinal tract, unspecified Hypothyroidism 04/2010 Internal hemorrhoids without mention of complication Malignant neoplasm of right upper lobe of lung (HCC) Nonspecific abnormal electrocardiogram (ECG) (EKG) Osteoporosis, unspecified Pure hypercholesterolemia PAST SURGICAL HISTORY Procedure Laterality Date COLONOSCOPY FLX DX W/COLLJ SPEC WHEN PFRMD 12/30/2005 Colonoscopy COLONOSCOPY FLX DX W/COLLJ SPEC WHEN PFRMD 07/14/2012 Colonoscopy repeat 10 years EXC CYST/ABERRANT BREAST TISSUE OPEN 1/> LESION IMPLANT COCHLEAR DEVICE Right many years ago. Social History: Social History Tobacco Use Smoking status: Never Smokeless tobacco: Never Substance Use Topics Alcohol use: Yes Comment: RARELY Drug use: Never FAMILY HISTORY Problem Relation Age of Onset other (melanoma) Sister other (pancreatic cancer) Father Current Outpatient prescriptions: donepezil (ARICEPT) 10 mg tablet Take 1 tablet by mouth daily at bedtime. (Patient taking differently: Take 5 mg by mouth daily at bedtime.) Incontinence Pad, Liner, Disp (BLADDER CONTROL PAD LONG) pads 1 application three times a day as needed (urinary incontinence). sertraline (ZOLOFT) 50 mg tablet Take 1 tablet by mouth daily at bedtime. simvastatin (ZOCOR) 40 mg tablet Take 1 tablet by mouth daily at bedtime. ondansetron orally disintegrating (ZOFRAN ODT) 4 mg disintegrating tablet Take 1 tablet by mouth every 8 hours as needed for nausea/vomiting. cholecalciferol, vitamin D3, (VITAMIN D3 50 MCG, 2,000 UNIT, GUMMIES) levothyroxine (SYNTHROID) 100 mcg tablet Take 1 tablet by mouth once daily 6 days a week and 2 tablets one day per week. Take on an empty stomach. Lactobacillus acidophilus (PROBIOTIC ORAL) Take by mouth once daily. MULTIVITAMIN TAB Take one(1) tablet daily. ASPIRIN 81 MG TAB Take one(1) tablet daily. Allergies: ALLERGIES Allergen Reactions Bactrim [Sulfametho* Rash shaking and chills, dry mouth Amoxicillin Rash Ampicillin Rash Cephalosporins Rash Minocycline Rash shaking and chills , dry mouth Rocephin [Ceftriaxo* Rash ROS: See HPI PE: 03/31/24 1040 BP: 122/60 Pulse: 60 Resp: 20 Temp: 36.1 ?C (97 ?F) TempSrc: Temporal Weight: 81.5 kg (179 lb 10.8 oz) Gen: AANDOX3, NAD, non-toxic appearing, thin, memory impaired, well dressed HEENT: PERRLA, EOMs intact b/l, nares without drainage, pharynx without erythema, exudate, lesions, or drainage. Uvula midline. Neck: No LAD, no thyromegaly, no meningismus. CV: RRR, no murmur Lungs: CTA b/l, no wheezing Skin: No rashes, lesions, or wounds on exposed skin. No edema, normal pulses Thin Abd: NT, ND, normal BS, no masses palpable Poor ROM hips ASSESSMENT/PLAN: 1. Mild dementia without behavioral disturbance, psychotic disturbance, mood disturbance, or anxiety, unspecified dementia type (HCC) - ICD9: 294.10, ICD10: F03.A0 (primary diagnosis) Recheck labs Continue lower dose of aricept Worsening memory Is living in extended care facility- needs to start PHYSICAL THERAPY, will (more content not included)...[facility]11-15-2024 History of Present illness Narrative* Abel Ortiz DO - 03/31/2024 12:38 PM EST CC: Monserrat French is a 88 year old female who presents to the office for follow up HPI: At previous OFFICE VISIT on 11/09/23 Alzhemier's dementia, moderate, is taking aricept 5 mg a day, has seen Neurologist. Is having more memory decline. She drove from her home to [place] and was found about 1 hour from [place] by the police department. Sons have taken her keys- she is not longer driving for the last 1 month Weight loss. Son thinks she is now only eating about 1 meal a day. Gets meals on wheels daily delivered to her home. Is supposed to be drinking her Boost. He has a camera installed in her kitchen to monitor her. Also she is only walking the dog once a day now, not more often. She admits to depression symptoms several days a week- is lonely. Doesn't have people to talk to much No recent falls Urinary incontinence, comes and goes, hasn't been wearing her depends. No blood or frequency or urgency or dysuria. Hypothyroidism, states that she is taking her thyroid medication Currently Alzheimer's disease, seeing Neurologist, dose of aricept was attempted to be increased to 10 mg a day but caused her to have diarrhea so had to go back down on this dose and this resolved then. Memory continues to decline, she is doing well now that she has been in a supervisor long goods care facility living for the last 3 months since December. No falls Bowel function has been better now Urinary incontinence is chronic Chronic left hip pain, no falls. Would be willing to do PHYSICAL THERAPY Weight gain has been occuring PAST MEDICAL HISTORY Diagnosis Date Disorders of lipoid metabolism Diverticulosis of colon (without mention of hemorrhage) Generalized osteoarthrosis, unspecified site Hemorrhage of gastrointestinal tract, unspecified Hypothyroidism 04/2010 Internal hemorrhoids without mention of complication Malignant neoplasm of right upper lobe of lung (HCC) Nonspecific abnormal electrocardiogram (ECG) (EKG) Osteoporosis, unspecified Pure hypercholesterolemia PAST SURGICAL HISTORY Procedure Laterality Date COLONOSCOPY FLX DX W/COLLJ SPEC WHEN PFRMD 12/30/2005 Colonoscopy COLONOSCOPY FLX DX W/COLLJ SPEC WHEN PFRMD 07/14/2012 Colonoscopy repeat 10 years EXC CYST/ABERRANT BREAST TISSUE OPEN 1/> LESION IMPLANT COCHLEAR DEVICE Right many years ago. Social History: Social History Tobacco Use Smoking status: Never Smokeless tobacco: Never Substance Use Topics Alcohol use: Yes Comment: RARELY Drug use: Never FAMILY HISTORY Problem Relation Age of Onset other (melanoma) Sister other (pancreatic cancer) Father Current Outpatient prescriptions: donepezil (ARICEPT) 10 mg tablet Take 1 tablet by mouth daily at bedtime. (Patient taking differently: Take 5 mg by mouth daily at bedtime.) Incontinence Pad, Liner, Disp (BLADDER CONTROL PAD LONG) pads 1 application three times a day as needed (urinary incontinence). sertraline (ZOLOFT) 50 mg tablet Take 1 tablet by mouth daily at bedtime. simvastatin (ZOCOR) 40 mg tablet Take 1 tablet by mouth daily at bedtime. ondansetron orally disintegrating (ZOFRAN ODT) 4 mg disintegrating tablet Take 1 tablet by mouth every 8 hours as needed for nausea/vomiting. cholecalciferol, vitamin D3, (VITAMIN D3 50 MCG, 2,000 UNIT, GUMMIES) levothyroxine (SYNTHROID) 100 mcg tablet Take 1 tablet by mouth once daily 6 days a week and 2 tablets one day per week. Take on an empty stomach. Lactobacillus acidophilus (PROBIOTIC ORAL) Take by mouth once daily. MULTIVITAMIN TAB Take one(1) tablet daily. ASPIRIN 81 MG TAB Take one(1) tablet daily. Allergies: ALLERGIES Allergen Reactions Bactrim [Sulfametho* Rash shaking and chills, dry mouth Amoxicillin Rash Ampicillin Rash Cephalosporins Rash Minocycline Rash shaking and chills , dry mouth Rocephin [Ceftriaxo* Rash ROS: See HPI PE: 03/31/24 1040 BP: 122/60 Pulse: 60 Resp: 20 Temp: 36.1 C (97 F) TempSrc: Temporal Weight: 81.5 kg (179 lb 10.8 oz) Gen: A&OX3, NAD, non-toxic appearing, thin, memory impaired, well dressed HEENT: PERRLA, EOMs intact b/l, nares without drainage, pharynx without erythema, exudate, lesions,or drainage. Uvula midline. Neck: No LAD, no thyromegaly, no meningismus. CV: RRR, no murmur Lungs: CTA b/l, no wheezing Skin: No rashes, lesions, or wounds on exposed skin. No edema, normal pulses Thin Abd: NT, ND, normal BS, no masses palpable Poor ROM hips ASSESSMENT/PLAN: 1. Mild dementia without behavioral disturbance, psychotic disturbance, mood disturbance, or anxiety, unspecified dementia type (HCC) - ICD9: 294.10, ICD10: F03.A0 (primary diagnosis) Recheck labs Continue lower dose of aricept Worsening memory Is living in extended care facility- needs to start PHYSICAL THERAPY, will be checking a urinalysisand urine culture - COMPLETE BLOOD COUNT AND DIFFERENTIAL - COMPREHENSIVE METABOLIC PANEL - THYROID STIMULATING HORMONE - VITAMIN B12 2. Vitamin D deficiency - ICD9: 268.9, ICD10: E55.9 Recheck labs - VITAMIN D 25 HYDROXY 3. Osteoarthritis of other site, unspecified osteoarthritis type - ICD9: 715.98, ICD10: M19.09 Recheck labs Continue lower dose of aricept Worsening memory Is living in extended care facility- needs to start PHYSICAL THERAPY, will be checking a urinalysisand urine culture 4. Pure hypercholesterolemia - ICD9: 272.0, ICD10: E78.00 stable 5. Dysuria - ICD9: 788.1, ICD10: R30.0 recurrent - Patient education for prevention given Recheck labs Continue lower dose of aricept Worsening memory Is living in extended care facility- needs to start PHYSICAL THERAPY, will be checking a urinalysisand urine culture 6. Hypothyroidism, unspecified type - ICD9: 244.9, ICD10: E03.9 - Instructed patient on importance of taking on an empty stomach either first thing in the morning or at bedtime. 7. Major depressive disorder with current active episode, unspecified depression episode severity, unspecified whether recurrent - ICD9: 296.30, ICD10: F32.9 Recheck labs Continue lower dose of aricept Worsening memory Is living in extended care facility- needs to start PHYSICAL THERAPY, will be checking a urinalysisand urine culture 8. Urinary incontinence, unspecified type - ICD9: 788.30, ICD10: R32 Recheck labs Continue lower dose of aricept Worsening memory Is living in extended care facility- needs to start PHYSICAL THERAPY, will be checking a urinalysisand urine culture - URINALYSIS, WITH MICROSCOPIC - URINE CULTURE 9. Balance disorder - ICD9: 781.99, ICD10: R26.89 Recheck labs Continue lower dose of aricept Worsening memory Is living in extended care facility- needs to start PHYSICAL THERAPY, will be checking a urinalysisand urine culture - CONSULT TO PHYSICAL THERAPY 10. Left hip pain - ICD9: 719.45, ICD10: M25.552 Recheck labs Continue lower dose of aricept Worsening memory Is living in extended care facility- needs to start PHYSICAL THERAPY, will be checking a urinalysisand urine culture - CONSULT TO PHYSICAL THERAPY Abel Ortiz DO To ER if develops chest pain, shortness of breath, or severe worsening of symptoms. Discussed risks, benefits, alternatives, and potential side effects of medications. Patient expressed understanding and agreed with the plan. Abel Ortiz DO [address] [place] [address] documented in this encounterHigh[facility] Hospital10-28-2024 Telephone encounter Note * Telephone Encounter - Siria Walker MA - 03/13/2024 11:07 AM EDT Detailed message left on Boris's identified VM. Siria Walker MA [facility]10-28-2024 Miscellaneous Notes* Telephone Encounter - Siria Walker MA - 03/13/2024 11:07 AM EDT Detailed message left on Boris's identified VM. Siria Walker MA * Telephone Encounter - Abel Ortiz DO - 03/11/2024 12:21 PM EDT Please inform patient's son that rx sent as below Abel Ortiz DO The following approved medication requests have been transmitted electronically. Requested Prescriptions Signed Prescriptions Disp Refills Incontinence Pad, Liner, Disp (BLADDER CONTROL PAD LONG) pads 200 Each 2 Si application three times a day as needed (urinary incontinence). Authorizing Provider: ABEL ORTIZ DO * Telephone Encounter - Zoraida De La Garza LPN - 03/08/2024 7:24 PM EDT Images from the original note were not included. Monserrat French tr [facility] My Chart Rx Pool Dr. Ortiz - Mom has been using pads due to incontinence. Titus Luna mentioned that if this was prescribed by you this would be covered by Medicaid. Can you please add a prescription for Monserrat to have pads? Thanks Boris French documented in this encounterHighland [facility] Hospital10-27-2024 Telephone encounter Note * Telephone Encounter - Marjorie Greenwood RN - 03/12/2024 7:11 PM EDT Reason for Call: Patient calling with return call/Message from office: Patient called back and given message from office note dated 03/11 informing patient that a prescription for incontinence pads has been ordered and sent to [facility] in [place] on [address] Pt verbalized understanding of message given. Patient denies any new or worsening symptoms of which a provider is not aware:Yes Reason for Disposition [1] Follow-up call to recent contact AND [2] information only call, no triage required Protocols used: Information Only Call - No [id number] [facility]10-27-2024 Miscellaneous Notes* Telephone Encounter - Marjorie Greenwood RN - 03/12/2024 7:11 PM EDT Reason for Call: Patient calling with return call/Message from office: Patient called back and given message from office note dated 03/11 informing patient that a prescription for incontinence pads has been ordered and sent to [facility] in [place] on [address] Pt verbalized understanding of message given. Patient denies any new or worsening symptoms of which a provider is not aware:Yes Reason for Disposition [1] Follow-up call to recent contact AND [2] information only call, no triage required Protocols used: Information Only Call - No [id number] documented in this encounterHighland [facility] Hospital10-26-2024 Telephone encounter Note * Telephone Encounter - Abel Ortiz DO - 03/11/2024 12:21 PM EDT Please inform patient's son that rx sent as below Abel Ortiz DO The following approved medication requests have been transmitted electronically. Requested Prescriptions Signed Prescriptions Disp Refills Incontinence Pad, Liner, Disp (BLADDER CONTROL PAD LONG) pads 200 Each 2 Si application three times a day as needed (urinary incontinence). Authorizing Provider: ABEL ORTIZ DO [facility]10-23-[facility] Telephone encounter Note* Telephone Encounter - Zoraida De La Garza LPN - 03/08/2024 7:26 PM EDT See telephone note [facility]10-23-2024 Miscellaneous Notes* Telephone Encounter - Zoraida Musa LPN - 03/08/2024 7:26 PM EDT See telephone note documented in this encounterHighland District Hospital10-23-2024 Telephone encounter Note * Telephone Encounter - Zoraida De La Garza LPN - 03/08/2024 7:24 PM EDT Images from the original note were not included. Monserrat French [facility] My Chart Rx Pool Dr. Ortiz - [facility] has been using pads due to incontinence. Titus Luna mentioned that if this was prescribed by you this would be covered by Medicaid. Can you please add a prescription for Monserrat to have pads? Thanks Boris French [facility]10-19-2024 Telephone encounter Note* Telephone Encounter - China Santiago RN - 03/04/2024 6:22 PM EDT Reason for Call: Patient stating provider called her - returning the call Outcome: No message left in the Epic chart to relay Advised to call PCP Wednesday when the office is open [facility]10-19-2024 Miscellaneous Notes* Telephone Encounter - China Santiago RN - 03/04/2024 6:22 PM EDT Reason for Call: Patient stating provider called her - returning the call Outcome: No message left in the Epic chart to relay Advised to call PCP Wednesday when the office is open documented in this encounterHighland District Hospital09-19-2024 History of Present illness Narrative* Alexander Galaviz MD - 02/03/2024 1:00 PM EDT Images from the original note were not included. [address] [address] Dept: [phone] Dept Loc: [phone] Visit type: [facility] Follow Up Visit Reason for Visit: Dementia Visit Date: 02/03/2024 Assessment and Plan 1. Alzheimer's dementia without behavioral disturbance (HCC) Family has not noticed any slowing of disease progression or improvements in cognition since starting the aricept. Possible it is contributing to intermittent diarrhea. Will trial a reduced dose of Aricept to 5 mg daily. Son asked about Donanemab. Discussed it is an infusion medication that attempts to slow cognition/function decline. It does require frequent MRI monitoring for side effects like brain bleeds. I am not sure about it's availability to the [facility]. Offered referral to Neurology to discuss monoclonal antibody options but son declined at this time after this discussion. MOCA test score declined from to 04/15. She did not have working hearing aids and it is possible that impacted the score a bit today Follow up in about 6 months (around 08/02/2024). Subjective HPI: Monserrat French is a 88 y.o. female with past medical history of Alzheimer's Disease who presents to the [facility] for a follow-up visit. The patient is known to me. Chart Review: -Initially seen in June 2023: Family started to notice memory issues back in 2021. Impaired short term memory. In they noticed she wasn't taking her medications. Family increasedsupervision. Got her a medication dispenser and calendar. 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 Sons now doing the banking. -MOCA , MIS 10/29 -Concerning for mild stage Alzheimer's Disease -started on aricept in July 2023 -Now in an assisted living - [facility] History obtained from caregiver(s): Son Leonid Arenas -She moved into assisted living in middle of December. Seems to like it so far. -Short term memory is definitely worsening with time. For example: she will forget she just ate lunch. -Taking care of her personal hygiene. -Uses signs and calenders. -Cognition seemed a lot better this morning after she drank gatorade -Mood: Sometimes gets frustrated with her memory issues. Can be talked through it pretty well. Overall seems to be in a good mood. Likes having people to talk to. -No longer driving. Had to give up her dog to move into the assisted living. However, she rarely brings up the car or the dog. Doesn't seem upset. -Hallucinations: none -Appetite: Good -Sleep: Seems to be OK. -She has had diarrhea off and on for the past 2-3 months. History obtained from patient: -She is very hard of hearing without her hearing aids (battery ran out). All questions were [place] for her -She is feeling well. She notices issues with her memory. Will forget what just happened. Family reminds her -She likes her new assisted living. Participates in some activities like bingo -eating well, sleeping well Reviewed progress notes completed by AVRIL (ROS) and social work. Allergies Allergen Reactions Sulfamethoxazole Rash shaking and chills, dry mouth Ampicillin Rash Ceftriaxone Rash Minocycline Rash shaking and chills , dry mouth Cephalosporins Rash Trimethoprim Rash Current Outpatient Medications Medication Sig Dispense Refill acetaminophen (Tylenol) 325 MG capsule Take 325 mg by mouth every 4 hours as needed for mild pain (1-3). aluminum & magnesium hydroxide-simethicone (Mylanta) 200-200-20 MG/5ML oral suspension Take 30 mL by mouth every 4 hours as needed for indigestion or heartburn. aspirin 81 MG EC tablet Take 81 mg by mouth daily. cholecalciferol (Vitamin D-3) 50 MCG (2000 UT) capsule Take 2,000 Units by mouth daily. guaiFENesin (Robitussin) 100 MG/5ML liquid Take 10 mL by mouth every 4 hours as needed for cough. Lactobacillus (ACIDOPHILUS PO) Take by mouth daily. levothyroxine (Synthroid, Levoxyl) 100 MCG tablet 100 mcg daily. Take one tablet daily for six daysa week. Take 2 tablets one day of the week Multiple Vitamin (multivitamin) tablet Take 1 tablet by mouth daily. ondansetron (Zofran) 4 MG tablet Take 4 mg by mouth every 8 hours as needed for nausea or vomiting. sertraline (Zoloft) 50 MG tablet Take 50 mg by mouth daily. simvastatin (Zocor) 40 MG tablet Take 40 mg by mouth Nightly. donepezil (Aricept) 5 MG tablet Take 1 tablet (5 mg) by mouth Nightly. 30 tablet 11 Probiotic Product (PROBIOTIC-10 PO) Take by mouth. No current facility-administered medications for this visit. 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 Output from pleural aj drain began draining milky fluid on evening of 08/09/18. 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 Colitis 06/15/[address] scan [facility] 06/07/12 ER apt and admit Diarrhea 06/24/2023 Diverticulosis 02/21/2009 Hct 38.8% in : Iron 102 Dysuria 05/04/2023 Fatigue 01/07/2022 Generalized osteoarthrosis, unspecified site 02/23/2005 GI bleed 06/15/2012 [facility] ER with admit 06/07/12 Hyperlipidemia 06/24/2023 Hypothyroidism 07/22/2011 History: Home med: levothyroxine 100 mcg daily TSH Date Value Ref Range Status 07/11/2018 1.570 0.400 - 5.500 uU/mL Final Assessment: Clinically euthyroid Plan: -Continue home med Labial abscess 07/14/2010 Malignant 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 A right upper lung infiltrative lesion was found, which measured about 2.3 x 2 cm in size. No mediastinal lymphadenopathy identified. PET scan FDG uptake of the known lesion (SUV 3.6). CT-guided fine-needle aspiration confirme Medication noncompliance due to cognitive impairment 05/04/2023 Memory loss, short term 01/13/2023 Mild dementia without behavioral disturbance, psychotic disturbance, mood disturbance, or anxiety (HCC) 05/04/2023 Nasal sore 05/22/2019 Obesity, unspecified 06/26/2008 Pt with symptoms of restless legs as of 06-25: declined sleep testing Pain, postoperative, acute 08/08/2018 History: Status post: Robotic right upper lobectomy, mediastinal lymph node dissection on 08/08/18. Assessment: Adequate pain control withoxycodone 5-10 mg q4H prn, tylenol 1000 mg q6H and toradol 15 mg IV q6H Plan: -Continue current regimen but substitute toradol with ibuprofen 600 mg q6h -Continue to re-assess pain control to keep shayy Pure hypercholesterolemia 02/23/2005 LDL 94, HDL 57, TG 157 in 06-25 Pt changed to Simvastatin 20 mg in 02-22 S/P lobectomy of lung 08/23/2018 Sensorineural hearing loss, bilateral 03/25/2015 Situational anxiety 06/07/2018 Situational insomnia 06/07/2018 SOB (shortness of breath) 01/07/2022 Swelling of first metatarsophalangeal (MTP) joint 06/24/2023 Vitamin D deficiency 03/01/2021 Social History Tobacco Use Smoking status: Never Smokeless tobacco: Never Substance Use Topics Alcohol use: Not on file Comment: occassionally Past Surgical History: Procedure Laterality Date COCHLEAR IMPLANT (HISTORICAL) Right LUNG CANCER SURGERY No family history on file. No family status information on file. Objective Vitals: 02/03/24 1258 BP: 118/68 BP Location: Right arm Patient Position: Sitting Pulse: 85 Weight: 173 lb (78.5 kg) Wt Readings from Last 3 Encounters: 02/03/24 173 lb (78.5 kg) 08/05/23 163 lb 12.8 oz (74.3 kg) 06/24/23 164 lb 12.8 oz (74.8 kg) Physical Exam Constitutional: General: She is not in acute distress. Appearance: She is not ill-appearing. Comments: Initially playing solEpic! on her phone HENT: Head: Normocephalic and atraumatic. Right Ear: Decreased hearing noted. Left Ear: Decreased hearing noted. Cardiovascular: Rate and Rhythm: Normal rate and regular rhythm. Heart sounds: No murmur heard. No friction rub. No gallop. Pulmonary: Effort: Pulmonary effort is normal. Breath sounds: Normal breath sounds. No decreased breath sounds, wheezing, rhonchi or rales. Musculoskeletal: Right lower leg: No edema. Left lower leg: No edema. Neurological: Mental Status: She is alert. Psychiatric: Attention and Perception: Attention normal. Mood and Affect: Mood and affect normal. Cognition and Memory: Cognition is impaired. Memory is impaired. Data Reviewed and Summarized Testing: The following tests were performed at today's visit and scanned in to thechart: MoCA score: 1130, MIS score: 5/15 Clock drawing score: 1/7 PHQ-9 score: 0 I independently reviewed the MOCA from 02/03/2024. Test scanned in to the chart. I spent total time of 70 minutes face to face with the patient and/or family discussing the diagnosis and importance of compliance with the treatment plan as well as documenting on the day of the visit. In addition, that total time includes the following: -Reviewing previous notes, -Reviewing previous cognitive tests, -Obtaining and/or reviewing separately obtained history, -Ordering prescription medications, tests and procedures, -Communicating results to the patient/family/caregiver, -Counseling/educating the patient/family/caregiver, -Documentingclinical information in the patients electronic record, - Coordination of care for the patient, and -Performing a medically appropriate exam and/or evaluation I, Alexander Galaviz MD, furnish ongoing care related to Monserrat French single, serious and complexcondition(s) dementia. I assume responsibility for the patient's ongoing medical care of this condition. * Jenifer Pro - 02/03/2024 1:00 PM EDT Review of Systems Constitutional: Positive for fatigue. Negative for appetite change, fever and unexpected weight change. HENT: Positive for hearing loss. Negative for dental problem and trouble swallowing. Eyes: Negative for visual disturbance. Respiratory: Negative for cough and shortness of breath. Cardiovascular: Positive for leg swelling. Gastrointestinal: Positive for diarrhea. Negative for constipation. Genitourinary: Negative for difficulty urinating and dysuria. Musculoskeletal: Positive for gait problem. Negative for arthralgias and back pain. Neurological: Negative for tremors, speech difficulty and weakness. Psychiatric/Behavioral: Positive for confusion and sleep disturbance. Negative for agitation, dysphoric mood and hallucinations. The patient is nervous/anxious. * CIERA Trejo - 02/03/2024 1:00 PM EDT Images from the original note were not included. Senior Services/Geriatrics Social History Present at visit: patient, nguyễn Jaquez, daughter in law Deepa Marital status: Children: 3 children (none) Living arrangement: alone, own home >>02/03/24 [facility] [place] Household safety problems: fell once last year, no injury, no longer has access to stove >>02/03/24 none Concerning Behaviors: Hallucinations, rare, a little anxiety >>02/03/24 no Wandering potential: No >>02/03/24 no Pets: Yes, 1 dog, no issues caring for the dog Guns in the home: None Elder abuse: Yes, money was disappearing out of her accounts, kids now on her accounts >>02/03/24 no longer has access to get scammed Alcohol/Tobacco/Marijuana/Drug Use History: minimal when she is out service: Neither pt or spouse/partner Highest level of education: HS Occupation: retired from bureau director Activities: goes to [employer] in winter, plays cards once per week, gets together with friends, goes to visit family several times per year >>02/03/24 participating in activitiesif prompted Exercise: walks the dog Finances: minimal savings, income- slightly overqualified for Passport/Medicaid >>02/03/24 onMedicaid My Chart: Only son uses Healthcare Power of Archivist: Yes: nguyễn Jaquez Financial Power of Archivist: Yes: nguyễn Jaquez Living Will: Yes Guardian: No Code Status: Full Code Primary Caregiver: davi Hare >>02/03/24 staff at facility, davi Current care plan/supervision: sons talk to her every few days, one kid seeing her once per month >>02/03/24 has 24 hour supervision at facility Community resources: Yes: Home Delivered Meals and Video Monitoring, has a lady who comes to clean on occasion >>02/03/24 In Assisted Living Caregiver stressors: denies >>02/03/24 less stress due to patient being in Assisted Living Goals for care: evaluate memory, resources As a Caregiver, What Matters Most to You: Patient safety, medications >>06/24/23 Sons noticed that patient was starting to have trouble with finances and medications. They have taken over her finances and monitor her accounts. Patient wasn't taking her medications, then was over taking medications. Now they have implemented a new system which is working for the week. SW gave son information on alarmed medications dispensers. Kids all live far from patient, 1 in [place], 1 in [place], and 1 in [place]. >>02/03/24 Son noticing increased decline in short term memory. Family noticed that patient'smemory started rapidly declining about 4 months ago. Wasn't taking her medications correctly. Family moved her into Assisted Living and patient is adapting to it well. Patient will participate in activities if she remembers them. SW encouraged them to ask facility staff to remind her. No resources given today. Functional Status (I: Independent, A: Assisted, D: Dependent) ADLs I A D Notes Bathing [x] [] [] No issues >>02/03/24 no issues Dressing [x] [] [] No issues Toileting [x] [] [] No issues Transfers [x] [] [] No issues Feeding [x] [] [] No issues Ambulation [x] [] [] none Assistive devices: Grab bars and Hearing aids IADLs I A D Telephone [] [x] [] Has a cell phone, can call and answer, can text (sometimes get confused), can set up own appointments, does miss some appointments >>02/03/24 can call and answer, family sets up appointments, needs reminders Transportation [] [] [x] Driving safety concerns: still driving, only local, gets turned around sometimes, no night driving >>02/03/24 no longer driving Shopping [] [] [x] Forgets what she needs, overbuying same items >>02/03/24 family picks up items for her Meal prep [] [x] [] Gets mobile meals, not losing weight or forgetting to eat, just heating things up, doesn't access to stove >>02/03/24 facility provides Housework [] [x] [] Still cleaning, neighbor helps sometimes >>02/03/24 facility provides cleaning and laundry Medications [] [] [x] Was not taking them and then was overtaking them, new system implemented and she is doing ok >>02/03/24 facility admnisters Finances [] [] [x] Sons managing finances, patient was getting scammed, was forgetting to pay bills, was overdrafting, was taking a lot of blackwell out of bank. Patient can carry blackwell/cards appropriately>>02/03/24 family manages documented in this [facility]08-29-2024 Telephone encounter Note* Telephone Encounter - Lazara Ingram MA - 01/13/2024 3:58 PM EDT Consult and Urine order faxed. Lazara Ingram MA [facility]08-29-2024 Miscellaneous Notes* Telephone Encounter - Lazara Ingram MA - 01/13/2024 3:58 PM EDT Consult and Urine order faxed. Lazara Ingram MA * Telephone Encounter - Rosario Pandey PA-C - 01/13/2024 3:06 PM EDT Consult to PT ordered and UA with culture. Please print and fax. Rosario Pandey PA-C 01/13/2024 * Telephone Encounter - Lou Cortes RN - 01/12/2024 3:40 PM EDT Patient's daughter in law, Albertina calling to request orders for PT and UA/ C+S be faxed to [facility]. . Lou Cortes RN * Telephone Encounter - Summer Dunbra LPN - 01/10/2024 1:03 PM EDT Left message for nurse to return call. * Telephone Encounter - Lazara Ingram MA - 01/06/2024 4:21 PM EDT Attempted to contact [facility] assisted living nurse with no answer. Will need to try again. Lazara Ingram MA * Telephone Encounter - Abel Ortiz DO - 01/05/2024 9:06 PM EDT Yes, agree with need for PHYSICAL THERAPY for her left knee and hip and ankle pain Please call the assisted living to place this order by verbal if able or I can sign faxed order Also need for UA culture and sensitivitiy to be checked esophoria * Telephone Encounter - Lazara Ingram MA - 01/05/2024 12:56 PM EDT Please see pt message -- BC Dr. Ortiz - This is Monserrat's son, Boris. She was moved to Assisted Living at [facility] on December 26. Two items: 1) She has been having frequent accidents with peeing herself and bowel movements. Not sure if she's forgetting and moving too slow or there is another underlying issue. Please advise. She has a follow-up with you on March 31. 2) Her left side, hip, knee and ankle appear to be bothering her. There is PT available at [facility] with a doctor's orders. Should we pursue this? Thanks Boris [facility] Telephone encounter Note * Telephone Encounter - Rosario Pandey PA-C - 01/13/2024 3:06 PM EDT Consult to PT ordered and UA with culture. Please print and fax. Rosario Pandey PA-C 01/13/2024 [facility]08-28-2024 Telephone encounter Note* Telephone Encounter - Lou Cortes RN - 01/12/2024 3:40 PM EDT Patient's daughter in law, Albertina calling to request orders for PT and UA/ C+S be faxed to [facility]. . Lou Cortes RN [facility]08-26-2024 Telephone encounter Note* Telephone Encounter - Summer Dunbar LPN - 01/10/2024 1:03 PM EDT Left message for nurse to return call. [facility]08-22-2024 Telephone encounter Note* Telephone Encounter - Lazara Ingram MA - 01/06/2024 4:21 PM EDT Attempted to contact [facility] nurse with no answer. Will need to try again. Lazara Ingram MA [facility]08-21-2024 Telephone encounter Note* Telephone Encounter - Abel Ortiz DO - 01/05/2024 9:06 PM EDT Yes, agree with need for PHYSICAL THERAPY for her left knee and hip and ankle pain Please call the assisted living to place this order by verbal if able or I can sign faxed order Also need for UA culture and sensitivitiy to be checked esophoria [facility]08-21-2024 Telephone encounter Note* Telephone Encounter - Lazara Ingram MA - 01/05/2024 12:56 PM EDT Please see pt message -- BC Dr. Ortiz - This is Monserrat's son, Boris. She was moved to Assisted Living at [facility] on December 26. Two items: 1) She has been having frequent accidents with peeing herself and bowel movements. Not sure if she's forgetting and moving too slow or there is another underlying issue. Please advise. She has a follow-up with you on March 31. 2) Her left side, hip, knee and ankle appear to be bothering her. There is PT available at [facility] with a doctor's orders. Should we pursue this? Thanks Boris [facility]08-21-2024 Telephone encounter Note* Telephone Encounter - Lazara Ingram MA - 01/05/2024 12:56 PM EDT Turned into TE for provider to review. Lazara Ingram MA [facility]08-21-2024 Miscellaneous Notes* Telephone Encounter - Lazara Ingram MA - 01/05/2024 12:56 PM EDT Turned into TE for provider to review. Lazara Ingram MA documented in this [facility]07-[facility]24 Telephone encounter Note * Telephone Encounter - Summer Dunbar LPN - 12/09/2023 8:35 AM EDT Paperworked faxed back. [facility]07-25-2024 Miscellaneous Notes* Telephone Encounter - Summer Dunbar LPN - 12/09/2023 8:35 AM EDT Paperworked faxed back. * Telephone Encounter - Abel Ortiz DO - 12/08/2023 9:51 PM EDT Paperwork signed Abel Ortiz DO * Telephone Encounter - Lazara Ingram MA - 12/03/2023 12:01 PM EDT Form on JG desk Lazara Ingram MA * Telephone Encounter - Malgorzata Reardon RN - 12/02/2023 9:51 AM EDT Rubina with [facility] calling to update PCP office that she will be faxing over a form this morning for provider to review and complete for level of care for patient. Patient is moving into [facility] assisted living today. For any questions call Rubina at [phone] Malgorzata Reardon RN documented in this [facility]High[facility]07-[facility] Telephone encounter Note * Telephone Encounter - Abel Ortiz DO - 12/08/2023 9:51 PM EDT Paperwork signed Abel Ortiz DO [facility]07-19-2024 Telephone encounter Note* Telephone Encounter - Lazara Ingram MA - 12/03/2023 12:01 PM EDT Form on JG desk Lazara Ingram MA [facility]07-18-2024 Telephone encounter Note* Telephone Encounter - Tg Leonrad MA - 12/02/2023 4:19 PM EDT Pt son notified office received a call from [facility] to expect a fax. Notified him that he does not need to do anything at this time, but once form received we will get it sent back. Tg Leonard MA [facility]07-18-2024 Miscellaneous Notes* Telephone Encounter - Tg Leonard MA - 12/02/2023 4:19 PM EDT Pt son notified office received a call from [email or web address] to expect a fax. Notified him that he does not need to do anything at this time, but once form received we will get it sent back. Tg Leonard MA documented in this encounterHigh[facility]07-18-2024 Telephone encounter Note * Telephone Encounter - Malgorzata Reardon RN - 12/02/2023 9:51 AM EDT Rubina with [facility] calling to update PCP office that she will be faxing over a form this morning for provider to review and complete for level of care for patient. [facility]. For any questions call Rubina at [phone] Malgorzata Reardon RN [facility]07-17-2024 Telephone encounter Note* Telephone Encounter - Anisha Champagne LPN - 12/01/2023 3:12 PM EDT Phoned patient son Leonid and went over results, notes from Dr Ortiz with understanding. He is try to get assistance from assisted living with making sure mother is getting her medications since he lives in [place]. [facility]07-17-2024 Miscellaneous Notes* Telephone Encounter - Anisha Champagne LPN - 12/01/2023 3:12 PM EDT Phoned patient son Leonid and went over results, notes from Dr Ortiz with understanding. He is try to get assistance from assisted living with making sure mother is getting her medications since he lives in [place]. * Telephone Encounter - Abel Ortiz DO - 12/01/2023 1:04 PM EDT Please call son and let him know that her blood work overall is stable except her TSH was slightly high, which means that she was likely missing some of her doses of her synthroid and we need to try to keep this consistent in the AM before eating Abel Ortiz DO documented in this encounterHigh[facility]07-[facility]-2024 Telephone encounter Note * Telephone Encounter - Abel Ortiz DO - 12/01/2023 1:04 PM EDT Please call son and let him know that her blood work overall is stable except her TSH was slightly high, which means that she was likely missing some of her doses of her synthroid and we need to try to keep this consistent in the AM before eating Abel Ortiz DO [facility]07-16-2024 Telephone encounter Note* Telephone Encounter - Zoraida De La Garza LPN - 11/30/2023 1:48 PM EDT Forms received and Faxed back to [facility]. [facility]07-16-2024 Miscellaneous Notes* Telephone Encounter - Zoraida Musa LPN - 11/30/2023 1:48 PM EDT Forms received and Faxed back to [facility]. * Telephone Encounter - Anisha Champagne LPN - 11/29/2023 1:18 PM EDT Attempted to call patient son Steve, his phone was not accepting calls. Sending notes below to my chart. * Telephone Encounter - Haydee Jhaveri APRN.CNP - 11/29/2023 11:25 AM EDT Should have appointment to assess all of this. Thank you, Haydee Jhaveri APRN.ALLEY TENDER * Telephone Encounter - Summer Dunbar LPN - 11/29/2023 10:[address] Ortiz - This is Boris French Monserrat's son. Mom has had a rough couple of weeks with frequent peeing accidents and more confusion than she has been exhibiting. A neighbor has been checking on her daily and it seems she won't eat unless fed by her. We have removed her dog from the house as she stated she was too tired to walk or care for it. We have an opening at [facility] and she will be likely going there soon. My brother should be in town Wednesday or Wednesday next week. Two questions: 1) Wondering about the peeing and extra confusion. I've heard this could be UTI? [place] having her checked? 2) Assisted Living says we'll need your office to fill out some paperwork. How best to coordinate that? Thanks Boris documented in this encounterHigh[facility]07-[facility]-2024 Telephone encounter Note * Telephone Encounter - Anisha Champagne LPN - 11/29/2023 1:18 PM EDT Attempted to call patient son Steve, his phone was not accepting calls. Sending notes below to my chart. [facility]07-15-2024 Telephone encounter Note* Telephone Encounter - Haydee Jhaveri APRN.CNP - 11/29/2023 11:25 AM EDT Should have appointment to assess all of this. Thank you, Haydee Jhaveri APRN.ALLEY TENDER [facility]07-15-2024 Telephone encounter Note* Telephone Encounter - Summer Dunbar LPN - 11/29/2023 10:41 AM EDT Turned into phone note as pcp requests. [facility]07-15-2024 Miscellaneous Notes* Telephone Encounter - Summer Dunbar LPN - 11/29/2023 10:41 AM EDT Turned into phone note as pcp requests. documented in this encounterHighland [facility] Hospital07-15-2024 Telephone encounter Note * Telephone Encounter - Summer Dunbar LPN - 11/29/2023 10:[address] Ortiz - This is Escalantedaniel French, Monserrat's son. Mom has had a rough couple of weeks with frequent peeing accidents and more confusion than she has been exhibiting. A neighbor has been checking on her daily and it seems she won't eat unless fed by her. We have removed her dog from the house as she stated she was too tired to walk or care for it. We have an opening at [facility] and she will be likely going there soon. My brother should be in town Wednesday or Wednesday next week. Two questions: 1) Wondering about the peeing and extra confusion. I've heard this could be UTI? [place] having her checked? 2) Assisted Living says we'll need your office to fill out some paperwork. How best to coordinate that? Thanks Boris [facility]06-25-2024 NoteHNO ID: [id number] Author: ABEL ORTIZ, DO Service: ? Author Type: Physician Type: Progress Notes Filed: 11/09/2023 11:02 Note Text: CC: Monserrat French is a 88 year old female who presents to the office for follow up HPI: Alzhemier's dementia, moderate, is taking aricept 5 mg a day, has seen Neurologist. Is having more memory decline. She drove from her home to [place] and was found about 1 hour from [place] by the police department. Sons have taken her keys- she is not longer driving for the last 1 month Weight loss. Son thinks she is now only eating about 1 meal a day. Gets meals on wheels daily delivered to her home. Is supposed to be drinking her Boost. He has a camera installed in her kitchen to monitor her. Also she is only walking the dog once a day now, not more often. She admits to depression symptoms several days a week- is lonely. Doesn't have people to talk to much No recent falls Urinary incontinence, comes and goes, hasn't been wearing her depends. No blood or frequency or urgency or dysuria. Hypothyroidism, states that she is taking her thyroid medication PAST MEDICAL HISTORY Diagnosis Date Disorders of lipoid metabolism Diverticulosis of colon (without mention of hemorrhage) Generalized osteoarthrosis, unspecified site Hemorrhage of gastrointestinal tract, unspecified Hypothyroidism 04/2010 Internal hemorrhoids without mention of complication Malignant neoplasm of right upper lobe of lung (HCC) Nonspecific abnormal electrocardiogram (ECG) (EKG) Osteoporosis, unspecified Pure hypercholesterolemia PAST SURGICAL HISTORY Procedure Laterality Date COLONOSCOPY FLX DX W/COLLJ SPEC WHEN PFRMD 12/30/2005 Colonoscopy COLONOSCOPY FLX DX W/COLLJ SPEC WHEN PFRMD 07/14/2012 Colonoscopy repeat 10 years EXC CYST/ABERRANT BREAST TISSUE OPEN 1/> LESION IMPLANT COCHLEAR DEVICE Right many years ago. Current Outpatient Medications Medication Sig sertraline (ZOLOFT) 50 mg tablet Take 1 tablet by mouth daily at bedtime. donepezil (ARICEPT) 10 mg tablet Take 1 tablet by mouth daily at bedtime. simvastatin (ZOCOR) 40 mg tablet Take 1 tablet by mouth daily at bedtime. ondansetron orally disintegrating (ZOFRAN ODT) 4 mg disintegrating tablet Take 1 tablet by mouth every 8 hours as needed for nausea/vomiting. cholecalciferol, vitamin D3, (VITAMIN D3 50 MCG, 2,000 UNIT, GUMMIES) levothyroxine (SYNTHROID) 100 mcg tablet Take 1 tablet by mouth once daily 6 days a week and 2 tablets one day per week. Take on an empty stomach. Lactobacillus acidophilus (PROBIOTIC ORAL) Take by mouth once daily. MULTIVITAMIN TAB Take one(1) tablet daily. ASPIRIN 81 MG TAB Take one(1) tablet daily. No current facility-administered medications for this visit. ALLERGIES Allergen Reactions Bactrim [Sulfametho* Rash shaking and chills, dry mouth Amoxicillin Rash Ampicillin Rash Cephalosporins Rash Minocycline Rash shaking and chills , dry mouth Rocephin [Ceftriaxo* Rash Social History Tobacco Use Smoking status: Never Smokeless tobacco: Never Substance Use Topics Alcohol use: Yes Comment: RARELY Drug use: Never ROS: See HPI PE: BP 120/70 Pulse 80 Temp (Src) 97 (Right Tympanic) Resp 16 Wt 151 lb (68.5kg) Gen: AANDOX3, NAD, non-toxic appearing, thin, memory impaired, well dressed HEENT: PERRLA, EOMs intact b/l, nares without drainage, pharynx without erythema, exudate, lesions, or drainage. Uvula midline. Neck: No LAD, no thyromegaly, no meningismus. CV: RRR, no murmur Lungs: CTA b/l, no wheezing Skin: No rashes, lesions, or wounds on exposed skin. No edema, normal pulses Thin Abd: NT, ND, normal BS, no masses palpable ASSESSMENT/PLAN: 1. Weight loss, unintentional - ICD9: 783.21, ICD10: R63.4 (primary diagnosis) Labs as ordered Concerns that she isn't eating enougth daily Son is looking into assisted living facility for her to go to potentially Her dementia is worsening. She is no longer driving which is the correct decision Will start on zoloft to help mood- titrate up as needed Increase aricept from 5 mg to 10 mg She is needing help with her IADLs etc.- not cooking, she is still bathing herself - COMPREHENSIVE METABOLIC PANEL - COMPLETE BLOOD COUNT AND DIFFERENTIAL - MAGNESIUM - PREALBUMIN - PROTEIN ELECTROPHORESIS SERUM W/INTERP - VITAMIN B12 2. Vitamin D deficiency - ICD9: 268.9, ICD10: E55.9 - VITAMIN D 25 HYDROXY 3. Mild dementia without behavioral disturbance, psychotic disturbance, mood disturbance, or anxiety, unspecified dementia type (HCC) - ICD9: 294.10, ICD10: F03.A0 4. Major depressive disorder with current active episode, unspecified depression episode severity, unspecified whether recurrent - ICD9: 296.30, ICD10: F32.9 Labs as ordered Concerns that she isn't eating enougth daily Son is looking into assisted living facility for her to go to potentially Her dementia is worsening. She (more content not included)...[facility]06-25-[facility]24 History of Present illness Narrative* Abel Ortiz DO - 11/09/2023 10:53 AM EDT CC: Monserrat French is a 88 year old female who presents to the office for follow up HPI: Alzhemier's dementia, moderate, is taking aricept 5 mg a day, has seen Neurologist. Is having more memory decline. She drove from her home to [place] and was found about 1 hour from [place] by the police department. Sons have taken her keys- she is not longer driving for the last 1 month Weight loss. Son thinks she is now only eating about 1 meal a day. Gets meals on wheels daily delivered to her home. Is supposed to be drinking her Boost. He has a camera installed in her kitchen to monitor her. Also she is only walking the dog once a day now, not more often. She admits to depression symptoms several days a week- is lonely. Doesn't have people to talk to much No recent falls Urinary incontinence, comes and goes, hasn't been wearing her depends. No blood or frequency or urgency or dysuria. Hypothyroidism, states that she is taking her thyroid medication PAST MEDICAL HISTORY Diagnosis Date Disorders of lipoid metabolism Diverticulosis of colon (without mention of hemorrhage) Generalized osteoarthrosis, unspecified site Hemorrhage of gastrointestinal tract, unspecified Hypothyroidism 04/2010 Internal hemorrhoids without mention of complication Malignant neoplasm of right upper lobe of lung (HCC) Nonspecific abnormal electrocardiogram (ECG) (EKG) Osteoporosis, unspecified Pure hypercholesterolemia PAST SURGICAL HISTORY Procedure Laterality Date COLONOSCOPY FLX DX W/COLLJ SPEC WHEN PFRMD 12/30/2005 Colonoscopy COLONOSCOPY FLX DX W/COLLJ SPEC WHEN PFRMD 07/14/2012 Colonoscopy repeat 10 years EXC CYST/ABERRANT BREAST TISSUE OPEN 1/> LESION IMPLANT COCHLEAR DEVICE Right many years ago. Current Outpatient Medications Medication Sig sertraline (ZOLOFT) 50 mg tablet Take 1 tablet by mouth daily at bedtime. donepezil (ARICEPT) 10 mg tablet Take 1 tablet by mouth daily at bedtime. simvastatin (ZOCOR) 40 mg tablet Take 1 tablet by mouth daily at bedtime. ondansetron orally disintegrating (ZOFRAN ODT) 4 mg disintegrating tablet Take 1 tablet by mouth every 8 hours as needed for nausea/vomiting. cholecalciferol, vitamin D3, (VITAMIN D3 50 MCG, 2,000 UNIT, GUMMIES) levothyroxine (SYNTHROID) 100 mcg tablet Take 1 tablet by mouth once daily 6 days a week and 2 tablets one day per week. Take on an empty stomach. Lactobacillus acidophilus (PROBIOTIC ORAL) Take by mouth once daily. MULTIVITAMIN TAB Take one(1) tablet daily. ASPIRIN 81 MG TAB Take one(1) tablet daily. No current facility-administered medications for this visit. ALLERGIES Allergen Reactions Bactrim [Sulfametho* Rash shaking and chills, dry mouth Amoxicillin Rash Ampicillin Rash Cephalosporins Rash Minocycline Rash shaking and chills , dry mouth Rocephin [Ceftriaxo* Rash Social History Tobacco Use Smoking status: Never Smokeless tobacco: Never Substance Use Topics Alcohol use: Yes Comment: RARELY Drug use: Never ROS: See HPI PE: BP 120/70 Pulse 80 Temp (Src) 97 (Right Tympanic) Resp 16 Wt 151 lb (68.5kg) Gen: A&OX3, NAD, non-toxic appearing, thin, memory impaired, well dressed HEENT: PERRLA, EOMs intact b/l, nares without drainage, pharynx without erythema, exudate, lesions,or drainage. Uvula midline. Neck: No LAD, no thyromegaly, no meningismus. CV: RRR, no murmur Lungs: CTA b/l, no wheezing Skin: No rashes, lesions, or wounds on exposed skin. No edema, normal pulses Thin Abd: NT, ND, normal BS, no masses palpable ASSESSMENT/PLAN: 1. Weight loss, unintentional - ICD9: 783.21, ICD10: R63.4 (primary diagnosis) Labs as ordered Concerns that she isn't eating enougth daily Son is looking into assisted living facility for her to go to potentially Her dementia is worsening. She is no longer driving which is the correct decision Will start on zoloft to help mood- titrate up as needed Increase aricept from 5 mg to 10 mg She is needing help with her IADLs etc.- not cooking, she is still bathing herself - COMPREHENSIVE METABOLIC PANEL - COMPLETE BLOOD COUNT AND DIFFERENTIAL - MAGNESIUM - PREALBUMIN - PROTEIN ELECTROPHORESIS SERUM W/INTERP - VITAMIN B12 2. Vitamin D deficiency - ICD9: 268.9, ICD10: E55.9 - VITAMIN D 25 HYDROXY 3. Mild dementia without behavioral disturbance, psychotic disturbance, mood disturbance, or anxiety, unspecified dementia type (HCC) - ICD9: 294.10, ICD10: F03.A0 4. Major depressive disorder with current active episode, unspecified depression episode severity, unspecified whether recurrent - ICD9: 296.30, ICD10: F32.9 Labs as ordered Concerns that she isn't eating enougth daily Son is looking into assisted living facility for her to go to potentially Her dementia is worsening. She is no longer driving which is the correct decision Will start on zoloft to help mood- titrate up as needed Increase aricept from 5 mg to 10 mg She is needing help with her IADLs etc.- not cooking, she is still bathing herself - SERTRALINE 50 MG TABLET 5. Hypothyroidism, unspecified type - ICD9: 244.9, ICD10: E03.9 - Instructed patient on importance of taking on an empty stomach either first thing in the morning or at bedtime. - THYROID STIMULATING HORMONE - T4 FREE/FREE THYROXINE 6. Moderate dementia without behavioral disturbance, psychotic disturbance, mood disturbance, or anxiety, unspecified dementia type (HCC) - ICD9: 294.20, ICD10: F03.B0 Labs as ordered Concerns that she isn't eating enougth daily Son is looking into assisted living facility for her to go to potentially Her dementia is worsening. She is no longer driving which is the correct decision Will start on zoloft to help mood- titrate up as needed Increase aricept from 5 mg to 10 mg She is needing help with her IADLs etc.- not cooking, she is still bathing herself - DONEPEZIL 10 MG TABLET 7. Urinary incontinence, unspecified type - ICD9: 788.30, ICD10: R32 Labs as ordered Concerns that she isn't eating enougth daily Son is looking into assisted living facility for her to go to potentially Her dementia is worsening. She is no longer driving which is the correct decision Will start on zoloft to help mood- titrate up as needed Increase aricept from 5 mg to 10 mg She is needing help with her IADLs etc.- not cooking, she is still bathing herself - URINALYSIS, WITH MICROSCOPIC Abel Ortiz DO Return if no improvement. Follow up with Abel Ortiz DO. To ER if develops chest pain, shortness of breath. Discussed risks, benefits, alternatives, and potential side effects of medications. Patient/Guardian expressed understanding and agreed with the plan. See patient instructions. Abel Ortiz DO [address] [place] [address] [facility] History of Present illness Narrative* Miguel A Davis MD - 09/30/2023 1:53 PM EDT The patient is a 87-year-old female. Patient diagnosed with a right upper lobe non-small cell lung cancer. 2.2 cm in size with the invasive component being around 1.2 cm in size with 4 lymph nodes surgically resected. Underwent a right upper lobectomy in June 2018. Has been followed subsequently with serial imaging. Her last CAT scan from 09/01/2021 showed a small left upper lobe pulmonary nodule that was unchangedfrom a year ago. The patient remains in complete remission. Doing relatively well. Her last mammogram was done on 06/05/2021 reportedly normal. Comes in post imaging. Noncontrast CT scan of the chest dated reviewed. The pulmonary nodules in the lung essentially stable. The nodule in the left upper lobe unchanged from before. No evidence of any mediastinal lymphadenopathy. No evidence of any hepatic lesions or adrenal metastasis. Surveillance CAT scan from 09/06/2023 reviewed. No new abnormalities identified. On examination:BP 137/77 Pulse 68 Temp 36.1 C (97 F) (Temporal) Resp 16 Wt 70.4 kg (155 lb 3.3 oz) SpO2 97% BMI 26.50 kg/m The patient was awake alert oriented. Didn't appear to be in acute distress. HEENT: No pallor, icterus, cyanosis, oral cavity shows no evidence of mucositis, lesions, or ulcers. Trachea midline. No JVD, carotid bruit, thyromegaly, cervical lymphadenopathy or supra-infraclavicular lymphadenopathy. CVS: S1-S2 heard no S3 no murmurs or pericardial rub. No peripheral edema. Lungs: Chest wall nontender. No dullness to percussion. Clear to auscultation bilaterally. No rhonchi or rales noted. No pleural rub or at it sounds noted. Abdomen: Normal inspection, nondistended no dilated veins. Soft nontender no organomegaly. No palpable masses noted. Hem/ Lymph: No peripheral lymphadenopathy or any palpable masses. Neuro Exam: High mental functions were normal. Cranial nerves II through XII are normal. No gross abnormality noted on sensory or motor system exam. Musculoskeletal: No joint deformities noted. No evidence of synovitis, swelling or tenderness in the joints or bursitis. Skin: No evidence to suggest any bruising, ecchymosis, petechiae and symptoms of hand-foot syndrome. Latest Reference Range & Units 09/30/23 12:37 WBC 3.70 - 11.00 k/uL 6.05 RBC 3.90 - 5.20 m/uL 4.17 Hemoglobin 11.5 - 15.5 g/dL 12.7 Hematocrit 36.0 - 46.0 % 39.0 Platelet Count 150 - 400 k/uL 152 MCV 80.0 - 100.0 fL 93.5 MCH 26.0 - 34.0 pg 30.5 MCHC 30.5 - 36.0 g/dL 32.6 MPV 9.0 - 12.7 fL 10.3 RDW-CV 11.5 - 15.0 % 13.1 DTYPE Auto Neut% % 69.6 Abs Neut (ANC) 1.45 - 7.50 k/uL 4.21 Lymph% % 18.2 Abs Lymph 1.00 - 4.00 k/uL 1.10 Weakley% % 10.4 Abs Weakley <0.87 k/uL 0.63 Eosin% % 0.8 Abs Eosin <0.46 k/uL 0.05 Baso% % 0.7 Abs Baso <0.11 k/uL 0.04 Immature Gran % % 0.3 IMMATURE GRANS (ABS) <0.10 k/uL <0.03 NRBC /100 WBC 0.0 Absolute nRBC <0.01 k/uL <0.01 Latest Reference Range & Units 09/30/23 12:37 Sodium 136 - 144 mmol/L 137 Potassium 3.7 - 5.1 mmol/L 4.3 Chloride 97 - 105 mmol/L 101 CO2 22 - 30 mmol/L 26 BUN 7 - 21 mg/dL 18 Creatinine 0.58 - 0.96 mg/dL 0.91 Glucose 74 - 99 mg/dL 123 (H) Protein, Total 6.3 - 8.0 g/dL 6.8 Calcium 8.5 - 10.2 mg/dL 9.5 (H): Data is abnormally high Assesment 1. 87-year-old female with a diagnosis of surgically resected lung cancer. 2.2 cm primary. Status post right upper lobectomy in June 2018. 2. Small pulmonary nodule the left upper lobe being observed. 3. Scans showed no progression. Patient to see me back again in a year with a repeat CAT scan. Stable otherwise. Miguel A Anne Ali, MD documented in this [facility]04-[facility] History of Present illness Narrative* Milka Coreas, RT(R) - 09/06/2023 9:20 AM EDT Radiology Service Progress Note PATIENT NAME: Monserrat French DATE OF SERVICE: September 06, 2023 TIME: 2:00 PM PATIENT IDENTITY VERIFICATION COMPLETED USING TWO (2) IDENTIFIERS: Name and Date of confirmedby patient verbally. FALL SCREENING: Has the patient had 2 falls in the last year or 1 fall with injury or currently using an Ambulatory Assistive Device (Walker, Cane, Wheelchair, Crutches, etc.)? No PATIENT GENDER DATA: Female. status: : No status: NO. PATIENT RELEVANT IMPLANT DATA REVIEWED: Yes PATIENT PRESENTS WITH AN IMPLANTABLE OR ATTACHED MAIL ORDER SORTER: No RADIOLOGY DEPARTMENT: CT; Exam(s) Completed: Chest PERIPHERAL IV DATA: Not applicable SIGNED BY: RT Fred(R) September 06, 2023 2:00 PM documented in this encounterHigh[facility]03-21-2024 History of Present illness Narrative* Aisha Matta, CIERA - 08/05/2023 9:45 AM EDT Interval history since last appointment: Any visits to primary care provider? Yes Any visits to the emergency department/hospital? No Any medication changes? No Any falls? No Family present: patient, son nguyễn Jaquez Educational Materials reviewed/provided at visit: Memory/Cognitive Ability Next Steps After an Alzheimer's Diagnosis Alzheimer's Association info/hotline 10 Tips to Keeping Independent Memory Tips (mild) 5Ms Dealing with Dementia Stages for Memory Loss 10 Ways to Love Your Brain Exercise/Activities Dementia exercise tips Communication/Behaviors Communication - All Stages Communication Tips Redirecting Confabulation Therapeutic Fibbing Diet Healthy Nutrition for Older Adults - [facility] Injury Prevention/Home Safety [facility] Home Safety Checklist Hearing/Vision Hearing Loss and Older Adults Medications Medication Safety/Dispensers- given at initial visit Sleep Getting a Good Night's Sleep ([facility]) Driving Driving And Older Adults/Warning Signs - [facility] GPS trackers list and Assisted Living/Independent Living list given at initial visit * Alexander Galaviz MD - 08/05/2023 9:45 AM EDT [facility] [address] [address] Dept: [phone] Dept Loc: [phone] Visit type: [facility] Family Summary Conference Reason for Visit: Dementia Visit Date: 08/05/2023 Assessment and Plan 1. Alzheimer's dementia without behavioral disturbance (HCC) - donepezil (Aricept) 5 MG tablet; Take 1 tablet (5 mg) by mouth daily., Starting Lizbeth 08/05/2023, Until Wed08/04/2024, Normal We reviewed the diagnosis of mild stage Alzheimer's Dementia, course, prognosis and treatment. Discussed the option of medication. Discussed the donepezil can slow down memory loss and is recommended for mild Alzheimer's Disease. Discussed that patient's blood pressure does drop when going from sitting to standing (patient asymptomatic with this) and it is possible that the medication could make this problem worse and increased her fall risk. After discussion, patient/sons opted to move forward with the medication. They will monitor for side effects such as dizziness. Opted to start donepezil (Aricept) 5 mg once a day to slow down memory loss. In one month call our office. If tolerating OK, we will increase the dose to 10 mg once a day. Call if any problems with this medication. Reviewed management of the following behavioral symptoms: not applicable at this time Discussed safety management: increased supervision Reviewed the importance of caregiver stress and support through following means: Alzheimer's Association support and Adult Day Program. Interested in Adult Day Program, but concerned about finances. On waiting list for a don through [facility]. rollway worker to put in referral to Alzheimer's Association. Educational information and handouts on the above was provided to the caregiver. Follow up in about 6 months (around 02/05/2024). Subjective Monserrat French is a 88 y.o. female who returns today for a Family Summary Conference to review the care plan based on the comprehensive geriatric assessment completed at the last appointment. Chart Review Chart Review: -Family started to notice memory issues back in 2021. Impaired short term memory. In they noticed she wasn't taking her medications. Family increased supervision. Got her a medication dispenser and calendar. 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 Sons now doing the banking. -MOCA , MIS 10/29 -Concerning for mild stage Alzheimer's Disease -She saw her PCP two days ago. No medications changes. Patient update: Sons present at appointment = Leonid astorga Escalante Allergies Allergen Reactions Sulfamethoxazole Rash shaking and chills, dry mouth Ampicillin Rash Ceftriaxone Rash Minocycline Rash shaking and chills , dry mouth Cephalosporins Rash Trimethoprim Rash Current Outpatient Medications Medication Sig Dispense Refill aspirin 81 MG EC tablet Take 81 mg by mouth daily. cholecalciferol (Vitamin D-3) 50 MCG (2000 UT) capsule Take 2,000 Units by mouth daily. donepezil (Aricept) 5 MG tablet Take 1 tablet (5 mg) by mouth daily. 30 tablet 1 levothyroxine (Synthroid, Levoxyl) 100 MCG tablet 100 mcg daily. Take one tablet daily for six daysa week. Take 2 tablets one day of the week Multiple Vitamin (multivitamin) tablet Take 1 tablet by mouth daily. Probiotic Product (PROBIOTIC-10 PO) Take by mouth. simvastatin (Zocor) 40 MG tablet Take 40 mg by mouth Nightly. No current facility-administered medications for this visit. 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 Output from pleural aj drain began draining milky fluid on evening of 08/09/18. 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 Colitis 06/15/[address] scan [facility] 06/07/12 ER apt and admit Diarrhea 06/24/2023 Diverticulosis 02/21/2009 Hct 38.8% in : Iron 102 Dysuria 05/04/2023 Fatigue 01/07/2022 Generalized osteoarthrosis, unspecified site 02/23/2005 GI bleed 06/15/2012 [facility] ER with admit 06/07/12 Hyperlipidemia 06/24/2023 Hypothyroidism 07/22/2011 History: Home med: levothyroxine 100 mcg daily TSH Date Value Ref Range Status 07/11/2018 1.570 0.400 - 5.500 uU/mL Final Assessment: Clinically euthyroid Plan: -Continue home med Labial abscess 07/14/2010 Malignant 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 A right upper lung infiltrative lesion was found, which measured about 2.3 x 2 cm in size. No mediastinal lymphadenopathy identified. PET scan FDG uptake of the known lesion (SUV 3.6). CT-guided fine-needle aspiration confirme Medication noncompliance due to cognitive impairment 05/04/2023 Memory loss, short term 01/13/2023 Mild dementia without behavioral disturbance, psychotic disturbance, mood disturbance, or anxiety (HCC) 05/04/2023 Nasal sore 05/22/2019 Obesity, unspecified 06/26/2008 Pt with symptoms of restless legs as of 06-25: declined sleep testing Pain, postoperative, acute 08/08/2018 History: Status post: Robotic right upper lobectomy, mediastinal lymph node dissection on 08/08/18. Assessment: Adequate pain control withoxycodone 5-10 mg q4H prn, tylenol 1000 mg q6H and toradol 15 mg IV q6H Plan: -Continue current regimen but substitute toradol with ibuprofen 600 mg q6h -Continue to re-assess pain control to keep shayy Pure hypercholesterolemia 02/23/2005 LDL 94, HDL 57, TG 157 in 06-25 Pt changed to Simvastatin 20 mg in 02-22 S/P lobectomy of lung 08/23/2018 Sensorineural hearing loss, bilateral 03/25/2015 Situational anxiety 06/07/2018 Situational insomnia 06/07/2018 SOB (shortness of breath) 01/07/2022 Swelling of first metatarsophalangeal (MTP) joint 06/24/2023 Vitamin D deficiency 03/01/2021 Social History Tobacco Use Smoking status: Never Smokeless tobacco: Never Substance Use Topics Alcohol use: Not on file Comment: occassionally Past Surgical History: Procedure Laterality Date COCHLEAR IMPLANT (HISTORICAL) Right LUNG CANCER SURGERY No family history on file. No family status information on file. Objective Wt Readings from Last 3 Encounters: 08/05/23 163 lb 12.8 oz (74.3 kg) 06/24/23 164 lb 12.8 oz (74.8 kg) No physical exam performed Discussion only Data Reviewed and Summarized Problems and recommendations from initial assessment reviewed, Medications reviewed, Recent laboratory tests reviewed, and Recent diagnostic imaging reviewed Labs: No results found for: WBC, HGB, HCT, MCV, PLT No results found for: NA, K, CL, CO2, BUN, CREATININE, GLUCOSE, CALCIUM, PROT, BILITOT, ALKPHOS, AST, ALT, LABGLOM, AGRATIO, GLOB No results found for: TSH No results found for: FOLATE No results found for: [id number] No results found for: RPR Imaging: head CT reviewed from summer 2022 Testing: I reviewed the Mikie CognitiveAssessment from the initial assessment with the patient and family. Total score was 19 out of 30. I spent total time of 65 minutes face to face with the patient and/or family discussing the diagnosis and importance of compliance with the treatment plan as well as documenting on the day of the visit. In addition, that total time includes the following: -Reviewing previous notes, -Reviewing labs, -Reviewing previous cognitive tests, -Ordering prescription medications, tests and procedures, -Communicating results to the patient/family/caregiver, -Counseling/educating the patient/family/caregiver, -Documenting clinical information in the patients martha ctronic record, and -Coordination of care for the patient documented in this [facility]03-21-2024 Instructions* Patient Instructions* Alexander Galaviz MD - 08/05/2023 9:45 AM EDT Start donepezil (Aricept) 5 mg once a day to slow down memory loss. Most common side effects are nausea and diarrhea. Less common but more serious side effects include dizziness or low heart rate. Ifyou experience those side effects you should call our office right away. In one month, call our office. If you are tolerating the medication without issue we will increase the dose to 10 mg once a day at that time. Call if any problems with this medication. documented in this [facility]03[facility]19[facility]24 History of Present illness Narrative* Abel Ortiz DO - 08/03/2023 1:57 PM EDT CC: Monserrat French is a 88 year old female who presents to the office for follow up HPI: Seen in office on 04/30/2023, at that time Memory loss, present in office with son Leonid whom is concerned about her short term memory. Becomingmore forgetful and has noticed some balancing difficulty. She denies any falls but does admit to these concerns. No new vision concerns. No new headaches or fevers or chills. Worse with short term memory such as forgetting appointments or forgetting to turn off her water in the bathtub etc. Lives alone with her dog Hx of cochlear implant, needing to call their office since struggling with some hearing. She had a CT brain obtained in Dec 2022 which showed: IMPRESSION: No evidence of acute intracranial process or mass effect within constraints of artifact from the right cochlear implant. Mild nonspecific supratentorial white matter changes, most commonly due to microvascular ischemia, and mild parenchymal volume loss. She has had consistent labs checked as well. Son is concerned that she isn't taking her medications as prescribed since when a family member is able to check on her, there are still pills present which should have already been gone. She wants to stay in her own home with her dog and doesn't want to move into an assisted living or jail. Currently She scored 26/30 on MMSE at her visit in Apr and was referred to Neurologist/neuropsychologist for opnion She was seen by Neurologist specialist at [facility] and was found to likely have mild Alzheimer's dementia likely starting. She is more successfully taking her medications regularly since she now has a medication alarm system. She is getting meals on wheels regularly and is doing a good job eating these. There is now a camera installed in her home to help monitor that she is getting tasks completed. She really would like to remain in her home. She is daily drinking a protein shake. She is going to have a follow up with Neurologist upcoming and they mentioned her starting on Aricept medication which she is willing to try Did have episode about 1 week ago x 1 of vomiting and x1 on watery diarrhea and then it resolved. No fevers or chills or other illness related symptoms PAST MEDICAL HISTORY Diagnosis Date Disorders of lipoid metabolism Diverticulosis of colon (without mention of hemorrhage) Generalized osteoarthrosis, unspecified site Hemorrhage of gastrointestinal tract, unspecified Hypothyroidism 04/2010 Internal hemorrhoids without mention of complication Malignant neoplasm of right upper lobe of lung (HCC) Nonspecific abnormal electrocardiogram (ECG) (EKG) Osteoporosis, unspecified Pure hypercholesterolemia PAST SURGICAL HISTORY Procedure Laterality Date COLONOSCOPY FLX DX W/COLLJ SPEC WHEN PFRMD 12/30/2005 Colonoscopy COLONOSCOPY FLX DX W/COLLJ SPEC WHEN PFRMD 07/14/2012 Colonoscopy repeat 10 years EXC CYST/ABERRANT BREAST TISSUE OPEN 1/> LESION IMPLANT COCHLEAR DEVICE Right many years ago. Current Outpatient Medications Medication Sig cholecalciferol, vitamin D3, (VITAMIN D3 50 MCG, 2,000 UNIT, GUMMIES) levothyroxine (SYNTHROID) 100 mcg tablet Take 1 tablet by mouth once daily 6 days a week and 2 tablets one day per week. Take on an empty stomach. Lactobacillus acidophilus (PROBIOTIC ORAL) Take by mouth once daily. MULTIVITAMIN TAB Take one(1) tablet daily. ASPIRIN 81 MG TAB Take one(1) tablet daily. simvastatin (ZOCOR) 40 mg tablet Take 1 tablet by mouth daily at bedtime. ondansetron orally disintegrating (ZOFRAN ODT) 4 mg disintegrating tablet Take 1 tablet by mouth every 8 hours as needed for nausea/vomiting. No current facility-administered medications for this visit. ALLERGIES Allergen Reactions Bactrim [Sulfametho* Rash shaking and chills, dry mouth Amoxicillin Rash Ampicillin Rash Cephalosporins Rash Minocycline Rash shaking and chills , dry mouth Rocephin [Ceftriaxo* Rash Social History Tobacco Use Smoking status: Never Smokeless tobacco: Never Substance Use Topics Alcohol use: Yes Comment: RARELY Drug use: Never ROS: See HPI PE: BP 110/70 Pulse 76 Temp (Src) 97.3 (Temporal) Resp 20 Wt 160 lb (72.6kg) Gen: A&OX3, NAD, non-toxic appearing HEENT: PERRLA, EOMs intact b/l, nares without drainage, pharynx without erythema, exudate, lesions,or drainage. Uvula midline. Hearing deficit Neck: No LAD, no thyromegaly, no meningismus. CV: RRR, no murmur Lungs: CTA b/l, no wheezing Skin: No rashes, lesions, or wounds on exposed skin. Non focal neurologic exam ASSESSMENT/PLAN: 1. Mild dementia without behavioral disturbance, psychotic disturbance, mood disturbance, or anxiety, unspecified dementia type (HCC) - ICD9: 294.10, ICD10: F03.A0 (primary diagnosis) F/u with Neurologist, likely to start Aricept. Is making better behavioral patterns with medicationreminders and meals on wheels. F/u in 3-4 months. Has good support from family. She and her family both agree to try to keep her home as long as possible 2. PURE HYPERCHOLESTEROLEM - ICD9: 272.0, ICD10: E78.00 rx refilled. - SIMVASTATIN 40 MG TABLET 3. Nausea - ICD9: 787.02, ICD10: R11.0 rx prn use - ONDANSETRON 4 MG DISINTEGRATING TABLET 4. Malignant neoplasm of upper lobe of right lung (HCC) - ICD9: 162.3, ICD10: C34.11 F/u with HemOnc and need for repeat CT chest 5. Hypothyroidism, unspecified type - ICD9: 244.9, ICD10: E03.9 - Instructed patient on importance of taking on an empty stomach either first thing in the morning or at bedtime. 6. Balance disorder - ICD9: 781.99, ICD10: R26.89 stable 7. Vitamin D deficiency - ICD9: 268.9, ICD10: E55.9 stable Abel Ortiz DO Return if no improvement. Follow up with Abel Ortiz DO. To ER if develops chest pain, shortness of breath,. Discussed risks, benefits, alternatives, and potential side effects of medications. Patient/Guardian expressed understanding and agreed with the plan. See patient instructions. Abel Ortiz DO [address] [place] [address] \ [facility] History of Present illness Narrative* Marguerite Davis AUD - 07/06/2023 8:00 AM EST [facility] Hearing, Speech and Balance Services COCHLEAR IMPLANT ADULT PROGRAMMING Name: Monserrat French [facility]#: [id number] Date of Service: July 06, 2023 Date of : 1935 Age: [age] year old COCHLEAR IMPLANT INFORMATION (see below for all device details) Right ear: External Processor: Cochlear [id number] (Nucleus 7) - upgraded 06/07/2020 Processor SN: [id number] Processor (Back Up CP910) SN: [id number] Magnet strength: 05/18 Internal Device: Cochlear InstantQs CI522 Profile with Slim Straight Array Internal Device SN: [id number] Inactive electrodes: 1-3 (poor sound quality) Surgery Date: 04/17/2015 Initial activation date: 05/14/2015 Surgeon: Dallin Cabrera M.D. Left ear: Tresa 3 series I20 guynzo-umk-zbv (BTE) hearing aid with full shell ear mold and open vent; the device was fit at an outside facility and is being managed by that facility. Remote Control (CR210) SN: [id number] Remote Psychology Technician (CR230) SN: [id number] Cochlear Mini Microphone SN: [id number] Cochlear Phone Clip SN: [id number] Cochlear TV Streamer SN: [id number] HISTORY: Ms. French was seen for monitoring of the device/s accompanied by her sister in law. The patient reported: * No pain, redness, swelling at magnet site. * Overall denied any concerns * Feels like she needs a new hearing aid for the left ear, currently wearing her first hearing aid that was fit well before she was implanted. Interested in a hearing aid that is compatible with her CI * Is considering going to a hearing aid center nearby, but has not explored what they carry * Microphone covers last changed: does not recall ever having changed ileana covers * Wearing sound processor: all hours per day * Last Otology visit date: 12/19/2018 - Dr. Cabrera * Reported she does not change the volume/program * Not completing any listening practice * Batteries lasting her all day AIDED AUDIOMETRIC TESTING: Audiologic testing was completed in the sound field with the speech processor(s) at user settings (Program: 1; Volume: 6; Sensitivity: 12.) before programming. See the [employer] Audiogram for obtained thresholds. 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 NOTE: The contralateral ear was plugged and muffed or masked during testing. The following testing and results were obtained: Ykphdvvep-Glcgcme-Oghnknadb Words (CNC) Test Condition List # Phonemes Words Clinically significant change compared to previous visit? Clinically significant change compared to BEST? Right Ear 5 79% 68% no (60% on 06/01/2022) no (68% on 07/05/2019) Bimodal 2 85% 76% no (68% on 06/01/2022) no (68% on 07/05/2019) NEW BEST TODAY AZ BIO (quiet) Test Condition List # Score Clinically significant change compared to previous visit? Clinically significant change compared to BEST? Right Ear 3 65% no (73% on 06/01/2022) yes, decreased (88% on 08/26/2021) Bimodal 4 77% no (87% on 06/01/2022) no (87% on 06/01/2022) AZ BIO (+10 SNR) Test Condition List # Score Clinically significant change compared to previous visit? Clinically significant change compared to BEST? Right Ear 1 47% no (41% on 06/09/2017) no (41% on 06/09/2017) NEW BEST TODAY Bimodal 7 46% yes, decreased (66% on 06/09/2017) yes, decreased (66% on 06/09/2017) Summary: Aided detection in the expected range (20-30 dB HL) from 250-6000 Hz. Speech performance remains essentially stable, with new best scores obtained today in the right CI only condition on single wordsand sentences in noise. COCHLEAR IMPLANT PROGRAMMING/TROUBLESHOOTING: Dataloggin.3 hours/day RIGHT Programming: Headset pressure, magnet strength, and incision site were checked with no problems noted. Electrode impedances, used to monitor internal device function, were measured across the electrode array. Impedances were WNL across all active electrodes. Review of impedances obtained today with comparison to previous 4 visits did not identify any remarkable changes or atypical measurements. Programming consisted of setting Comfort (C) levels at loud, but comfortable using a loudness scale. Several active electrodes were measured and the rest were interpolated. Overall minimal changes made to C levels. She reported the sound was comfortable following these changes. The function/use of the programs created were discussed and are listed below: Right Ear Program/Map # Program Feature 1 29 SCAN (ADRO + ASC), SNR-NR,WNR Active controls include: volume and Forward Focus. Battery Life: Rechargeable: 25 hours Disposable: 49 hours SUMMARY AND RECOMMENDATIONS: Counseling Points: * Discussed process and frequency recommended for changing microphone covers. * Provided info on Resound hearing aids compatible with N7 processor for bimodal linking and tolbert range out of pocket at [facility]. Will [employer] message once insurance benefits check completed to determine if any coverage through [facility]. * Continue to monitor magnet/incision site for pain, redness, swelling, scabbing etc. Should any ofthese occur discontinue use of device immediately and contact the office. * Continue use of right processor and left hearing aid during all waking hours. Follow-up Programming: It was recommended that the patient return in 1 year for monitoring of auditory performance and potential programming needs. The center should be contacted if there are problems or concerns before that time. NOTE: It should be noted that the patient left the appointment with all the equipment. None of the patient's equipment was left in the Audiology Section of the Clinic. TOTAL TIME: 85 minutes Programming right 15 minutes Programming left 0 minutes Evaluation of auditory status 40 minutes Carly Le, [facility] Clinical and Hearing Implant Manager Human Resources documented in this [facility]High[facility] History of Present illness Narrative* Alexander Galaviz MD - 06/24/2023 1:45 PM EST Images from the original note were not included. [facility] [address] [address] Dept: [phone] Dept Loc: [phone] Visit type: [facility] Initial Assessment Visit Date: 06/24/2023 Reason for Visit: Memory Loss Assessment and Plan 1. Cognitive impairment - Mental status change with cognitive deficits in the following areas: short term memory, executive functions, orientation, and insight which have been slowly progressiveover time with subsequent impairment in function. History and exam are concerning for Mild stage Alzheimer's Dementia. Will review results at the Family Summary Conference. -suggested locked pill box -suggesting GPS tracker for car given risk of getting lost -Recheck orthostatic vitals signs at family summary visit to determine if we can offer aricept. Follow up in about 6 weeks (around 08/05/2023). Subjective HPI: Monserrat French is a 88 y.o.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 Sig: Take 1 tablet by mouth once daily 6 days a week and 2 tablets one day per week. Take on an empty stomach. documented in this encounterHighland District Hospital12-02-2022 Miscellaneous Notes* Telephone Encounter - Huyen Rocha - 04/17/2022 10:31 AM EST Patient has been identified by name and date of : Yes Last office visit in this department: 02/06/2022 Labs-03/20/22 NOV-07/13/22 med filled 04/15/21 RX INSTRUCTIONS: Patient aware RX will be sent to pharmacy. No need to notify patient. Patient phones requesting refills as follows: Requested Prescriptions No prescriptions requested or ordered in this encounter Please review and advise. Huyen Campbell Pss documented in this encounterHighland District Hospital11-10-2022 Miscellaneous Notes* Telephone Encounter - Siria Walker Ma - 03/26/2022 12:25 PM EST Pt notified of results via [employer]. Siria Walker Ma * Telephone Encounter - OUSMANE Luna - 03/24/2022 8:54 AM EST TC to patient with no answer, phone straight to . Left message to return call to receive results.OUSMANE Luna * Telephone Encounter - Abel Ortiz DO - 03/24/2022 7:53 AM EST Please inform patient that overall her lab results are stable, no major concerns. Abel Ortiz DO documented in this encounterHighland District Hospital10-17-2022 History of Present illness Narrative* Miguel A Davis MD - 03/02/2022 9:41 AM EDT The patient is a 85-year-old female with a diagnosis of surgically resected lung cancer. Primary arising in the right upper lobe s/p left upper lobectomy operated in June 2018. Part of this note is carried forward from note dictated: 09/04/21 It is appropriately updated. The patient is an 85-year-old female. Noted to have a lung mass involving the right upper lobe. Underwent a right upper lobectomy. Primary was a 2.2 cm lesion with the invasive component being 1.2 cmin size. Four lymph nodes were removed. A right upper lobectomy performed. Surgery performed on July 11, 2018. She had a mammogram done May 2020 negative. She comes in with a restaging CAT scan of the chestwhich is stable CT scans from August 30, [address] scan of the chest dated 09/01/2021 shows stable small left lower lobe pulmonary nodules unchangedfrom a year ago. The patient is currently doing relatively well without any acute issues. Review Of Systems: General: Denies any fatigue. No fever, chills, night sweats, weight loss, headaches or loss of appetite. Stamina intact. HEENT/Neck: No hearing/vision changes; no pain, masses, or swelling. No evidence of sores in the mouth. Respiratory: No cough, productive sputum, hemoptysis, chest pain, shortness of breath or wheezing. Cardiovascular: No palpatations, chest pain,shotness or breath, exertional dyspnea or leg swelling. Gastrointestinal: No nausea, vomiting, dysphagia, abdominal pain,melana or hematochezia. No diahreaorconstipation. No change in the bowel habbits. Genitourinary: No dysuria, nocturia, frequency, urgency, hematuria or incontinence. Musculoskeletal: No joint or pain bone pain: No limitation of motion. No problems with the gait. Neurological: No sensory or motor abnormalities; no headaches or dizziness. Dermatologic: No rash, skin lesions or itching. Psychiatric: No sleep disturbances, mood disorders, depression, etc. Hematologic: No bleeding, bruising or echymisis. Lymphatic System: No new lymph gland enlargement or and new lumps of bumps in the body. Endocrine: No heat or cold intolerance, diabetes or other abnormalities The rest of systems reviewed and essentially unremarkable. Physical Examination: BP 114/80 Pulse 64 Resp 18 Wt 76.2 kg (168 lb) SpO2 99% BMI 28.86 kg/m The patient was awake alert oriented. Didn't appear to be in acute distress. HEENT: No pallor, icterus, cyanosis, oral cavity shows no evidence of mucositis, lesions, or ulcers. Trachea midline. No JVD, carotid bruit, thyromegaly, cervical lymphadenopathy or supra-infraclavicular lymphadenopathy. CVS: S1-S2 heard no S3 no murmurs or pericardial rub. No peripheral edema. Lungs: Chest wall nontender. No dullness to percussion. Clear to auscultation bilaterally. No rhonchi or rales noted. No pleural rub or at it sounds noted. Abdomen: Normal inspection, nondistended no dilated veins. Soft nontender no organomegaly. No palpable masses noted. Hem/ Lymph: No peripheral lymphadenopathy or any palpable masses. Neuro Exam: High mental functions were normal. Cranial nerves II through XII are normal. No gross abnormality noted on sensory or motor system exam. Musculoskeletal: No joint deformities noted. No evidence of synovitis, swelling or tenderness in the joints or bursitis. Skin: No evidence to suggest any bruising, ecchymosis, petechiae and symptoms of hand-foot syndrome. Labs: DATA: Diagnostic tests reviewed for today's visit: Most recent labs and imaging results. CBC: WBC (k/uL) Date Value 09/01/2021 6.01 02/24/2021 6.48 RBC (m/uL) Date Value 09/01/2021 3.79 02/24/2021 3.90 Hemoglobin (g/dL) Date Value 09/01/2021 11.9 02/24/2021 12.1 Hematocrit (%) Date Value 09/01/2021 36.7 02/24/2021 36.0 Platelet Count (k/uL) Date Value 09/01/2021 166 02/24/2021 159 MCV (fL) Date Value 09/01/2021 96.8 02/24/2021 92.3 MCH Date Value 09/01/2021 31.4 pg 02/24/2021 31.0 pG MPV (fL) Date Value 09/01/2021 10.1 02/24/2021 9.8 CMP: Sodium (mmol/L) Date Value 09/01/2021 140 02/24/2021 138 Chloride (mmol/L) Date Value 09/01/2021 106 02/24/2021 105 CO2 (mmol/L) Date Value 09/01/2021 28 02/24/2021 25 BUN (mg/dL) Date Value 09/01/2021 18 02/24/2021 18 Creatinine (mg/dL) Date Value 09/01/2021 0.84 02/24/2021 0.79 Glucose (mg/dL) Date Value 09/01/2021 92 02/24/2021 96 Protein, Total (g/dL) Date Value 09/01/2021 6.3 02/24/2021 6.4 Calcium (mg/dL) Date Value 02/24/2021 9.5 Calcium, Total (mg/dL) Date Value 09/01/2021 9.0 Bilirubin, Total (mg/dL) Date Value 09/01/2021 0.4 02/24/2021 0.5 Alkaline Phosphatase (U/L) Date Value 09/01/2021 62 02/24/2021 69 ALT (U/L) Date Value 09/01/2021 10 02/24/2021 12 AST (U/L) Date Value 09/01/2021 16 02/24/2021 18 Anion Gap (mmol/L) Date Value 09/01/2021 6 02/24/2021 8 Imaging Studies: Restaging scans have been placed. Assessment: 1. 86 year old female with a diagnosis of surgically resected lung cancer. T1 N0 M0. 1.2 cm primarys/p right upper lobectomy performed in June 2018. Scans from 6 months ago unremarkable. 2. Restaging scans have been placed for 6 months from now. Continue with surveillance imaging once a year. Miguel A Davis MD documented in this encounterHighland District Hospital09-26-2022 Miscellaneous Notes* Telephone Encounter - Huong Cortez Cma - 02/09/2022 11:14 AM EDT Done Huong Cortez Cma * Telephone Encounter - Jitendra Lucas RN - 02/09/2022 9:49 AM EDT Joy- [facility] lab- reports she has a covid test done on 02-06-22, but the time was not entered. Reportsit appears Huong Cortez collected the sample and needs Huong to go in under modify area and put in collect date and time (has to be after 11:45). Has to be date 02-06-22 with time. Can call, teams, or email Joy with any questions. documented in this encounterHighland District Hospital09-23-2022 Instructions* Patient Instructions* Haydee Cruz APRN.CNP - 02/06/2022 11:42 AM EDT Chest x-ray today COVID and flu testing today -- results will be back tomorrow. If positive -- will order paxlovid If negative --- will consider antibiotic Tessalon perles and Mucinex to start to help symptoms today. documented in this encounterHighland District Hospital09-23-2022 History of Present illness Narrative* Haydee Cruz APRN.CNP - 02/06/2022 11:20 AM EDT Chief Complaint Patient presents with: Cough: Productive cough X 1 day HPI Monserrat French is a 86 year old female who presents here today for Above Complaints. Monserrat is an established patient of Dr. Angel DO. Monserrat is a new patient to me today. Concerns today.. Cough--- Sudden onset of productive cough with clear/white sputum last night. Unable to sleep all night due to cough. Tried sleeping upright in recliner with little relief as well. Takes Alleve routinely --- no relief in these symptoms. Reports mild congestion. Denies any fever/chills, SOB, or CP. Pulse ox normal in office. No known exposure to COVID. Hx of lung cancer -- had right upper lobectomy in 2018 with 4 additional lymph nodes removed. No complications since. Follows with Dr. Davis routinely. Routine CT scans are stable, last one in August. Due to history, wanted to make sure this was just a cold and not something serious. No other concerns or complaints today. Hypothyroidism -- Stable from blood work in August. Past medical history, appointments, medications, allergies reviewed. Previous Medical History PAST MEDICAL HISTORY Diagnosis Date Disorders of lipoid metabolism Diverticulosis of colon (without mention of hemorrhage) Generalized osteoarthrosis, unspecified site Hemorrhage of gastrointestinal tract, unspecified Hypothyroidism 04/2010 Internal hemorrhoids without mention of complication Malignant neoplasm of right upper lobe of lung (HCC) Nonspecific abnormal electrocardiogram (ECG) (EKG) Osteoporosis, unspecified Pure hypercholesterolemia Previous Surgical History PAST SURGICAL HISTORY Procedure Laterality Date COLONOSCOPY FLX DX W/COLLJ SPEC WHEN PFRMD 12/30/2005 Colonoscopy COLONOSCOPY FLX DX W/COLLJ SPEC WHEN PFRMD 07/14/12 Colonoscopy repeat 10 years EXC CYST/ABERRANT BREAST TISSUE OPEN 1/> LESION Family History FAMILY HISTORY Problem Relation Age of Onset other (melanoma) Sister other (pancreatic cancer) Father Patient Allergies ALLERGIES Allergen Reactions Bactrim [Sulfametho* Rash shaking and chills, dry mouth Amoxicillin Rash Ampicillin Rash Cephalosporins Rash Minocycline Rash shaking and chills , dry mouth Rocephin [Ceftriaxo* Rash Current Medications Current Outpatient Medications on File Prior to Visit Medication Sig simvastatin (ZOCOR) 40 mg tablet Take 1 tablet by mouth daily at bedtime. levothyroxine (SYNTHROID) 100 mcg tablet TAKE ON AN EMPTY STOMACH. Take 1 PO daily x 6 days a week and 2 PO 1 day a week Lactobacillus acidophilus (PROBIOTIC ORAL) Take by mouth once daily. MULTIVITAMIN TAB Take one(1) tablet daily. ASPIRIN 81 MG TAB Take one(1) tablet daily. Current Facility-Administered Medications on File Prior to Visit Medication perflutren lipid microspheres 1.3 mL in NaCl (PF) 0.9% 10 mL injection (DEFINITY) sodium chloride 0.9 % (flush) 10 mL (BD POSIFLUSH) Social History Social History Tobacco Use Smoking status: Never Smokeless tobacco: Never Substance Use Topics Alcohol use: Yes Comment: RARELY Drug use: Never REVIEW OF SYSTEMS: as above Reviewed relevant PMHx, PSHx, Social Hx, current medications and allergies. Review of Symptoms REVIEW OF SYSTEMS See HPI. All other systems are negative. EXAM: BP 102/66 Pulse 68 Temp 36.6 C (97.9 F) Resp 16 Wt 76.7 kg (169 lb) SpO2 98% BMI 29.03 kg/m General Appearance: Well appearing, alert, in no acute distress, well-hydrated, well nourished.. Skin: Skin color, texture, turgor normal, no suspicious rashes or lesions. Head: Normocephalic, no masses, lesions, tenderness or abnormalities. Nose/Sinuses: Nares normal, septum midline, mucosa normal, no drainage or sinus tenderness. Oropharynx: Lips, mucosa, and tongue normal, teeth and gums normal, oropharynx normal. Neck: Supple, no adenopathy; thyroid symmetric, normal size, no bruits. Back:no pain to palpation of vertebrae, good flexion and extension, good range of motion, no muscletenderness, reflexes are 2+ and symmetric, motor and sensory appear to be normal, negative SLR test, no evidence of scoliosis Lungs: Lungs clear to auscultation. No wheezing, rhonchi, rales.. Heart: RRR without murmur, gallop, or rubs. No ectopy. Health Maintenance List SHINGRIX VACCINE(1 of 2) Never done COVID-19 VACCINE(5 - Booster for Pfizer series) due on 12/15/2021 INFLUENZA(1) due on 01/15/2022 DTAP,TDAP,TD(1 - Tdap) due on 01/07/2023 DIABETES SCREEN due on 09/01/2024 BONE DENSITY Completed PNEUMOCOCCAL: 65+ Completed ADVANCE DIRECTIVE DISCUSSION Discontinued ASSESSMENT/PLAN: 1. Productive cough - ICD9: 786.2, ICD10: R05.8 (primary diagnosis) Chest x-ray due to history. COVID and flu testing today. Start tessalon perles and OTC mucinex as needed. If COVID + pt agreeable to paxlovid. If COVID negative and symptoms due to not improve in 3-5 days -- will consider antibiotic. - XR CHEST 2V FRONTAL/LAT - COVID WITH FLUA+B, ROUTINE - BENZONATATE 100 MG CAPSULE - GUAIFENESIN ER 600 MG TABLET, EXTENDED RELEASE 12 HR 2. Hypothyroidism, unspecified type - ICD9: 244.9, ICD10: E03.9 - Instructed patient on importance of taking on an empty stomach either first thing in the morning or at bedtime. - check TSH, T4/FTI, and free T4 today - continue current dose of Synthroid - Needs routine blood work that was ordered prior. 3. Malignant neoplasm of right upper lobe of lung (HCC) - ICD9: 162.3, ICD10: C34.11 History. Stable and in remission since 2019. Continue to follow with Dr. Davis. RTO if symptoms worsen or do not improve in 3-5 days. Prescription instructions reviewed with patient as applicable. Potential red flag symptoms discussed with the patient. Reviewed appropriate action plan to take if red flag symptoms occur. Patient agreeable to treatment plan. Haydee Cruz APRN.ALLEY T[employer]ER [address] [place] [address] documented in this encounterHigh[facility]09-[facility]-2022 Miscellaneous Notes* Telephone Encounter - Malgorzata Reardon RN - 01/15/2022 8:22 AM EDT Patient contacted and given provider's information below. Malgorzata Reardon RN * Telephone Encounter - Abel Ortiz DO - 01/14/2022 9:34 PM EDT Please inform patient that overall her ECHO looks great, no concerns. Normal ejection fraction around 64% Abel Ortiz DO documented in this encounterHighland [facility] Hospital08-29-2022 Miscellaneous Notes* Telephone Encounter - Adilene Zimmer RN - 01/12/2022 3:10 AM EDT Reason for Call: intermittent right abdominal pain tonight Outcome: patient prefers to call pcp office when open this am to discuss Reason for Disposition Age > 60 years Answer Assessment - Initial Assessment Questions 1. LOCATION: to the right of the belly button 2. RADIATION: N/A 3. ONSET: 30 minutes ago 4. SUDDEN: woke up with the pain 5. PATTERN: comes and goes, does not feel the pain now 6. SEVERITY: 1-2/10 now - worse when first waking up 7. RECURRENT SYMPTOM: N/A 8. CAUSE: not sure, asking about appendicitis 9. RELIEVING/AGGRAVATING FACTORS: unable to have a bm 10. OTHER SYMPTOMS: N/A 11. : N/A Protocols used: Abdominal Pain - [id number] documented in this encounterHighland [facility] Hospital08-24-2022 History of Present illness Narrative* Abel Ortiz DO - 01/07/2022 8:46 PM EDT CC: Monserrat French is a 86 year old female who presents to the office for follow up HPI: Currently Constipation, stable, use of prune juice as needed, hasn't had to take laxatives/stimulants, no blood in stool or abdominal pain or nausea/vomiting Vitamin D deficiency, taking supplements HPL, tolerating her zocor medication well without obvious SE to medication Hx of lung CA, seen by specialist routinely, next follow up in Feb. no new changes needed, findings are stable. Has had some mild shortness of breath with exertion, no chest pressure or pain, no dyspnea. Does get occasional LH feeling, no syncope. No fevers or chills. Routinely is walking her dog 2-3 times a day. Seems the symptoms have recently started. No recent infection or other symptoms Hypothyroidism, taking her levothyroxine as prescribed PAST MEDICAL HISTORY Diagnosis Date Disorders of lipoid metabolism Diverticulosis of colon (without mention of hemorrhage) Generalized osteoarthrosis, unspecified site Hemorrhage of gastrointestinal tract, unspecified Hypothyroidism 04/2010 Internal hemorrhoids without mention of complication Malignant neoplasm of right upper lobe of lung (HCC) Nonspecific abnormal electrocardiogram (ECG) (EKG) Osteoporosis, unspecified Pure hypercholesterolemia PAST SURGICAL HISTORY Procedure Laterality Date COLONOSCOPY FLX DX W/COLLJ SPEC WHEN PFRMD 12/30/2005 Colonoscopy COLONOSCOPY FLX DX W/COLLJ SPEC WHEN PFRMD 07/14/12 Colonoscopy repeat 10 years EXC CYST/ABERRANT BREAST TISSUE OPEN 1/> LESION Current Outpatient Medications Medication Sig simvastatin (ZOCOR) 40 mg tablet Take 1 tablet by mouth daily at bedtime. levothyroxine (SYNTHROID) 100 mcg tablet TAKE ON AN EMPTY STOMACH. Take 1 PO daily x 6 days a week and 2 PO 1 day a week Lactobacillus acidophilus (PROBIOTIC ORAL) Take by mouth once daily. MULTIVITAMIN TAB Take one(1) tablet daily. ASPIRIN 81 MG TAB Take one(1) tablet daily. Current Facility-Administered Medications Medication Dose Route Frequency perflutren lipid microspheres 1.3 mL in NaCl (PF) 0.9% 10 mL injection (DEFINITY) INTRAVENOUS DIRECTED PRN sodium chloride 0.9 % (flush) 10 mL (BD POSIFLUSH) 10 mL INTRAVENOUS DIRECTED PRN ALLERGIES Allergen Reactions Bactrim [Sulfametho* Rash shaking and chills, dry mouth Amoxicillin Rash Ampicillin Rash Cephalosporins Rash Minocycline Rash shaking and chills , dry mouth Rocephin [Ceftriaxo* Rash Social History Tobacco Use Smoking status: Never Smokeless tobacco: Never Substance Use Topics Alcohol use: Yes Comment: RARELY Drug use: Never ROS: See HPI PE: BP 100/60 Pulse 72 Resp 16 Ht 5' 3.976 (1.63m) Wt 168 lb 1.9 oz (76.3kg) BMI 28.88 kg/(m^2). Gen: A&OX3, NAD, non-toxic appearing HEENT: PERRLA, EOMs intact b/l, nares without drainage, pharynx without erythema, exudate, lesions,or drainage. Uvula midline. MMM, wearing glasses Neck: No LAD, no thyromegaly, no meningismus. CV: RRR, 2/6 HSM RUSB murmur, normal s1s2 Lungs: CTA b/l, no wheezing Skin: scattered solar lentigos and angiomas and nevi and seborrheic keratoses. Hard of hearing, cochlear implant in place No edema, normal pulse Bunions b/l feet present ASSESSMENT/PLAN: 1. SOB (shortness of breath) - ICD9: 786.05, ICD10: R06.02 (primary diagnosis) Labs as ordered previously, need for ECHO. Need for CXR as ordered by specialist Dr. Davis to be completed. F/u if symptoms worsen. Recent onset, no infectious symptoms. - ECHO - PERFLUTREN LIPID MICROSPHERES 1.1 MG/ML INJECTION IN NS 10 ML - SODIUM CHLORIDE 0.9 % (FLUSH) INJECTION SYRINGE - NT PRO BNP 2. Fatigue, unspecified type - ICD9: 780.79, ICD10: R53.83 - see above - ECHO - PERFLUTREN LIPID MICROSPHERES 1.1 MG/ML INJECTION IN NS 10 ML - SODIUM CHLORIDE 0.9 % (FLUSH) INJECTION SYRINGE - NT PRO BNP 3. Cardiac murmur, previously undiagnosed - ICD9: 785.2, ICD10: R01.1 - see above, need for ECHO 4. Hypothyroidism, unspecified type - ICD9: 244.9, ICD10: E03.9 - Instructed patient on importance of taking on an empty stomach either first thing in the morning or at bedtime. - check TSH, free T4, and Free T3 today - continue current dose of Synthroid Stable - Behavioral intervention 5. Chronic constipation - ICD9: 564.00, ICD10: K59.09 -stable 6. Vitamin D deficiency - ICD9: 268.9, ICD10: E55.9 -continue supplement 7. PURE HYPERCHOLESTEROLEM - ICD9: 272.0, ICD10: E78.00 - taking statin therapy, no SE to medication 8. History of lung cancer - ICD9: V10.11, ICD10: Z85.118 F/u with specialist as scheduled in Feb Abel Ortiz DO Return if no improvement. Follow up with Abel Ortiz DO. To ER if develops chest pain, shortness of breath Discussed risks, benefits, alternatives, and potential side effects of medications. Patient/Guardian expressed understanding and agreed with the plan. See patient instructions. Abel Ortiz DO [address] [place] [address] documented in this encounterHighland [facility] Hospital08-24-2022 Instructions* Patient Instructions* Abel Ortiz DO - 01/07/2022 6:24 PM EDT Please get fasting labs when able, these are ordered Will check [facility]IOGRAM test at [facility] and we will schedule this for you. documented in this encounterHighland District Hospital08-10-2022 History of Present illness Narrative* Abel Ortiz DO - 12/24/2021 6:40 AM EDT Patient left without being seen in office. Stated that she had another appointment to get to and was going to be late. Abel Ortiz DO documented in this encounterHighland [facility] Hospital07-22-2022 Miscellaneous Notes* Telephone Encounter - Iva Chinchilla APRN.CNP - 12/05/2021 2:55 PM EDT Noted, thank you. Iva Chinchilla APRN.[place] * Telephone Encounter - Malgorzata Reardon RN - 12/05/2021 2:15 PM EDT Protocol Recommends: See provider within 4 hours today. Patient states she will get family member to bring [facility]. Reason for Disposition [1] SEVERE pain (e.g., excruciating, unable to walk) AND [2] not improved after 2 hours of pain medicine Answer Assessment - Initial Assessment Questions Paitent calling and reports about an hour ago she bent down on boh of her knees to clean up something off the floor and when she got up, her left knee was hurting badly. She reports that she is unable to walk on her left knee at this time. Mild aching to left knee at rest and severe pain when walking on it. States it hurts to bed left knee. Slight swelling below front of knee noted by patient. Nobruising or redness. Does not radiate-No leg or foot pain. 1. LOCATION and RADIATION: as above 2. QUALITY: at rest it aches, sharp pain when uses it or bends it 3. SEVERITY: mild to severe 4. ONSET: as above 5. RECURRENT: no 6. SETTING:as above 7. AGGRAVATING FACTORS:as above 8. ASSOCIATED SYMPTOMS:as above 9. OTHER SYMPTOMS: Denies chest pain, difficulty breathing, fever, or calf pain Protocols used: KNEE [id number] documented in this encounterHighland [facility] Hospital05-06-2022 History of Present illness Narrative* Matt Peter APRN.CNP - 09/19/2021 1:26 PM EDT Nontoxic-appearing female presents urgent care chief complaint right knee pain. Duration of symptoms today. Associated symptoms right knee pain. Denies any fevers trauma swelling or redness. History of arthritis Patient presents today for cortisone injection. I discussed with patient that we are more than happy to see her in urgent care today for right knee pain. We can prescribe medications however we cannot perform joint injections. I discussed with patient if she is wishing to receive a joint injection she needs to follow-up with PCP or orthopedics. Patient verbalized understanding agrees with plan of care. Matt Peter APRN.CNP documented in this encounterHighland District Hospital04-29-2022 Miscellaneous Notes* Telephone Encounter - Anisha Champagne LPN - 09/12/2021 10:10 AM EDT Patient returned call and went over notes below from Dr Ortiz with understanding. * Telephone Encounter - OUSMANE Luna - 09/12/2021 10:01 AM EDT TC to patient with no answer. Left message to return call to office and ask to speak with a nurse. OSUMANE Luna * Telephone Encounter - Anisha Champagne LPN - 09/10/2021 9:02 AM EDT Phoned patient and left message to return call and ask to speak to a nurse. * Telephone Encounter - Abel Ortiz DO - 09/09/2021 5:31 PM EDT Please inform patient that I would recommend considering booster of covid 19 vaccine in December or Jan. I am not sure if Prevagen as a supplement would give any benefit since there are no randomized double blinded placebo controlled studies on supplements such as this. Abel Ortiz DO * Telephone Encounter - Jitendra Lucas RN - 09/09/2021 1:04 PM EDT Patient asking pcp if you think she should get the 4th booster pfizer? Also asking what you think about prevagen, she has seen advertised for brain health? Reports it's suppose to help with memory. Asking if you think she should take it? documented in this encounterHighland [facility] Hospital04-26-2022 History of Present illness Narrative* Abel Ortiz DO - 09/09/2021 7:09 AM EDT CC: Monserrat French is a 86 year old female who presents to the office for follow up HPI: Seen in office on 06/04/21 Hypothyroidism, taking levothyroxine 100 mcg 6 days a week and 200 mg 1 day a week, tolerating well, no concerns., TSH Date Value Ref Range Status 08/23/2020 1.030 0.270 - 4.200 uU/mL Final She did have episode of difficulty with urinary incontinence, was seen by GYNURO specialist at [facility] Dr. Ashford. She was told to stop drinking coffee and she feels the symptoms are improved. Still hasmild symptoms but better. Had some increase in constipation the last few months. Has been more consistent with eating high fiber cereal daily and this seems to be better. Not able to tolerate the laxative since causes diarrhea. Had a trip and fall when walking out of [employer] 2.5 weeks ago, scraped her right knee and right elbow. Was helped up from ground by 2 other customers in the parking lot. Denies any residual pain or concerns. She states no head injury or other concerns. She states that she was distracted by messingin her purse to find her keys while walking out. Currently Constipation, stable, use of prune juice as needed, hasn't had to take laxatives/stimulants, no blood in stool or abdominal pain or nausea/vomiting Vitamin D deficiency, taking supplements HPL, tolerating her zocor medication well without obvious SE to medication Cholesterol, Total Date Value Ref Range Status 09/01/2021 177 <200 mg/dL Final Comment: <200 mg/dL, Desirable 200-239 mg/dL, Borderline high >239 mg/dL, High HDL Cholesterol Date Value Ref Range Status 09/01/2021 70 >39 mg/dL Final Comment: 40-59 mg/dL, Acceptable >59 mg/dL, High: Negative risk factor for coronary heart disease <40 mg/dL, Low: Positive risk factor for coronary heart disease LDL Cholesterol Date Value Ref Range Status 09/01/2021 85 <100 mg/dL Final Comment: <100 mg/dL, Optimal 100-129 mg/dL, Near optimal/above optimal 130-159 mg/dL, Borderline high 160-189 mg/dL, High >189 mg/dL, Very high Secondary prevention optimal LDL Cholesterol levels are recommended to be < 70 mg/dL Triglyceride Date Value Ref Range Status 09/01/2021 110 <150 mg/dL Final Comment: <150 mg/dL, Normal 150-199 mg/dL, Borderline high 200-499 mg/dL, High >499 mg/dL, Very high Hx of lung CA, seen by specialist this last week, no new changes needed, findings are stable. Hypothyroidism, taking her levothyroxine as prescribed TSH Date Value Ref Range Status 09/01/2021 0.879 0.270 - 4.200 mIU/L Final Free T4 Date Value Ref Range Status 08/23/2020 1.8 (H) 0.9 - 1.7 ng/dL Final Free T3 1.4 07/13/2020 T3 95 08/23/2020 Glucose (mg/dL) Date Value 09/01/2021 92 02/24/2021 96 Potassium (mmol/L) Date Value 09/01/2021 4.0 02/24/2021 4.3 Sodium (mmol/L) Date Value 09/01/2021 140 02/24/2021 138 Chloride (mmol/L) Date Value 09/01/2021 106 02/24/2021 105 CO2 (mmol/L) Date Value 09/01/2021 28 02/24/2021 25 Creatinine (mg/dL) Date Value 09/01/2021 0.84 02/24/2021 0.79 BUN (mg/dL) Date Value 09/01/2021 18 02/24/2021 18 Anion Gap (mmol/L) Date Value 09/01/2021 6 02/24/2021 8 Calcium (mg/dL) Date Value 02/24/2021 9.5 Calcium, Total (mg/dL) Date Value 09/01/2021 9.0 Protein, Total (g/dL) Date Value 09/01/2021 6.3 02/24/2021 6.4 Albumin (g/dL) Date Value 09/01/2021 3.9 02/24/2021 4.1 Bilirubin, Total (mg/dL) Date Value 09/01/2021 0.4 02/24/2021 0.5 Alkaline Phosphatase (U/L) Date Value 09/01/2021 62 02/24/2021 69 AST (U/L) Date Value 09/01/2021 16 02/24/2021 18 ALT (U/L) Date Value 09/01/2021 10 02/24/2021 12 Hemoglobin (g/dL) Date Value 09/01/2021 11.9 02/24/2021 12.1 Hematocrit (%) Date Value 09/01/2021 36.7 02/24/2021 36.0 WBC (k/uL) Date Value 09/01/2021 6.01 02/24/2021 6.48 PAST MEDICAL HISTORY Diagnosis Date Disorders of lipoid metabolism Diverticulosis of colon (without mention of hemorrhage) Generalized osteoarthrosis, unspecified site Hemorrhage of gastrointestinal tract, unspecified Hypothyroidism 04/2010 Internal hemorrhoids without mention of complication Malignant neoplasm of right upper lobe of lung (HCC) Nonspecific abnormal electrocardiogram (ECG) (EKG) Osteoporosis, unspecified Pure hypercholesterolemia PAST SURGICAL HISTORY Procedure Laterality Date COLONOSCOPY FLX DX W/COLLJ SPEC WHEN PFRMD 12/30/2005 Colonoscopy COLONOSCOPY FLX DX W/COLLJ SPEC WHEN PFRMD 07/14/12 Colonoscopy repeat 10 years EXC CYST/ABERRANT BREAST TISSUE OPEN 1/> LESION Current Outpatient Medications Medication Sig simvastatin (ZOCOR) 40 mg tablet Take 1 tablet by mouth daily at bedtime. levothyroxine (SYNTHROID) 100 mcg tablet TAKE ON AN EMPTY STOMACH. Take 1 PO daily x 6 days a week and 2 PO 1 day a week MULTIVITAMIN TAB Take one(1) tablet daily. ASPIRIN 81 MG TAB Take one(1) tablet daily. Lactobacillus acidophilus (PROBIOTIC ORAL) Take by mouth once daily. No current facility-administered medications for this visit. ALLERGIES Allergen Reactions Bactrim [Sulfametho* Rash shaking and chills, dry mouth Amoxicillin Rash Ampicillin Rash Cephalosporins Rash Minocycline Rash shaking and chills , dry mouth Rocephin [Ceftriaxo* Rash Social History Tobacco Use Smoking status: Never Smoker Smokeless tobacco: Never Used Substance Use Topics Alcohol use: Yes Comment: RARELY Drug use: Never ROS: See HPI PE: BP 112/62 Pulse 72 Wt 168 lb (76.2kg) Gen: A&OX3, NAD, non-toxic appearing HEENT: PERRLA, EOMs intact b/l, nares without drainage, pharynx without erythema, exudate, lesions,or drainage. Uvula midline. MMM, wearing glasses Neck: No LAD, no thyromegaly, no meningismus. CV: RRR, 1/6 HSM RUSB murmur, normal s1s2 Lungs: CTA b/l, no wheezing Skin: scattered solar lentigos and angiomas and nevi and seborrheic keratoses. Hard of hearing, cochlear implant in place No edema, normal pulse Bunions b/l feet present ASSESSMENT/PLAN: 1. Hypothyroidism, unspecified type - ICD9: 244.9, ICD10: E03.9 (primary diagnosis) - Instructed patient on importance of taking on an empty stomach either first thing in the morning or at bedtime. - continue current dose of Synthroid Stable - Behavioral intervention, - Eat well program and - Continue current medications 2. Vitamin D deficiency - ICD9: 268.9, ICD10: E55.9 - continue supplement, stable 3. Chronic constipation - ICD9: 564.00, ICD10: K59.09 - stable, continue use of prune juice 4. PURE HYPERCHOLESTEROLEM - ICD9: 272.0, ICD10: E78.00 - stable, continue statin therapy and low cholesterol diet and regular exercise 5. Sensorineural hearing loss, bilateral - ICD9: 389.18, ICD10: H90.3 - stable, continue follow ups with Manager Human Resources 6. Malignant neoplasm of right upper lobe of lung (HCC) - ICD9: 162.3, ICD10: C34.11 - stable, continue follow ups with specialist, recently rechecked Abel Ortiz DO Return if no improvement. Follow up with Abel Ortiz DO. To ER if develops chest pain, shortness of breath Discussed risks, benefits, alternatives, and potential side effects of medications. Patient/Guardian expressed understanding and agreed with the plan. See patient instructions. Abel Ortiz DO [address] [place] [address] documented in this encounterHighland [facility] Hospital04-25-2022 Instructions* Patient Instructions* Abel Ortiz DO - 09/08/2021 9:34 AM EDT VICKS vapor rub on toenails every night May take 6 months to clear up fungal nail infection documented in this encounterHighland District Hospital04-21-2022 History of Present illness Narrative* Miguel A Davis MD - 09/04/2021 9:00 AM EDT The patient is a 85-year-old female with a diagnosis of surgically resected lung cancer. Primary arising in the right upper lobe s/p left upper lobectomy operated in June 2018. Part of this note is carried forward from note dictated: 03/03/2021. It is appropriately updated. The patient is an 85-year-old female. Noted to have a lung mass involving the right upper lobe. Underwent a right upper lobectomy. Primary was a 2.2 cm lesion with the invasive component being 1.2 cmin size. Four lymph nodes were removed. A right upper lobectomy performed. Surgery performed on July 11, 2018. She had a mammogram done May 2020 negative. She comes in with a restaging CAT scan of the chestwhich is stable CT scans from August 30, [address] scan of the chest dated 09/01/2021 shows stable small left lower lobe pulmonary nodules unchangedfrom a year ago. History of presenting illness: The patient is currently doing relatively well. Energy level fair noloss of appetite. Review Of Systems: General: Denies any fatigue. No fever, chills, night sweats, weight loss, headaches or loss of appetite. Stamina intact. HEENT/Neck: No hearing/vision changes; no pain, masses, or swelling. No evidence of sores in the mouth. Respiratory: No cough, productive sputum, hemoptysis, chest pain, shortness of breath or wheezing. Cardiovascular: No palpatations, chest pain,shotness or breath, exertional dyspnea or leg swelling. Gastrointestinal: No nausea, vomiting, dysphagia, abdominal pain,melana or hematochezia. No diahreaorconstipation. No change in the bowel habbits. Genitourinary: No dysuria, nocturia, frequency, urgency, hematuria or incontinence. Musculoskeletal: No joint or pain bone pain: No limitation of motion. No problems with the gait. Neurological: No sensory or motor abnormalities; no headaches or dizziness. Dermatologic: No rash, skin lesions or itching. Psychiatric: No sleep disturbances, mood disorders, depression, etc. Hematologic: No bleeding, bruising or echymisis. Lymphatic System: No new lymph gland enlargement or and new lumps of bumps in the body. Endocrine: No heat or cold intolerance, diabetes or other abnormalities The rest of systems reviewed and essentially unremarkable. Physical Examination: BP 132/78 Pulse 73 Temp 36.7 C (98.1 F) (Temporal) Resp 18 Wt 75.8 kg (167 lb) SpO2 97% BMI 27.79 kg/m The patient was awake alert oriented. Didn't appear to be in acute distress. HEENT: No pallor, icterus, cyanosis, oral cavity shows no evidence of mucositis, lesions, or ulcers. Trachea midline. No JVD, carotid bruit, thyromegaly, cervical lymphadenopathy or supra-infraclavicular lymphadenopathy. CVS: S1-S2 heard no S3 no murmurs or pericardial rub. No peripheral edema. Lungs: Chest wall nontender. No dullness to percussion. Clear to auscultation bilaterally. No rhonchi or rales noted. No pleural rub or at it sounds noted. Abdomen: Normal inspection, nondistended no dilated veins. Soft nontender no organomegaly. No palpable masses noted. Hem/ Lymph: No peripheral lymphadenopathy or any palpable masses. Neuro Exam: High mental functions were normal. Cranial nerves II through XII are normal. No gross abnormality noted on sensory or motor system exam. Musculoskeletal: No joint deformities noted. No evidence of synovitis, swelling or tenderness in the joints or bursitis. Skin: No evidence to suggest any bruising, ecchymosis, petechiae and symptoms of hand-foot syndrome. Labs: DATA: Diagnostic tests reviewed for today's visit: Most recent labs and imaging results. CBC: WBC (k/uL) Date Value 09/01/2021 6.01 02/24/2021 6.48 RBC (m/uL) Date Value 09/01/2021 3.79 02/24/2021 3.90 Hemoglobin (g/dL) Date Value 09/01/2021 11.9 02/24/2021 12.1 Hematocrit (%) Date Value 09/01/2021 36.7 02/24/2021 36.0 Platelet Count (k/uL) Date Value 09/01/2021 166 02/24/2021 159 MCV (fL) Date Value 09/01/2021 96.8 02/24/2021 92.3 MCH Date Value 09/01/2021 31.4 pg 02/24/2021 31.0 pG MPV (fL) Date Value 09/01/2021 10.1 02/24/2021 9.8 BMP: Sodium (mmol/L) Date Value 09/01/2021 140 02/24/2021 138 Potassium (mmol/L) Date Value 09/01/2021 4.0 02/24/2021 4.3 Chloride (mmol/L) Date Value 09/01/2021 106 02/24/2021 105 CO2 (mmol/L) Date Value 09/01/2021 28 02/24/2021 25 BUN (mg/dL) Date Value 09/01/2021 18 02/24/2021 18 Creatinine (mg/dL) Date Value 09/01/2021 0.84 02/24/2021 0.79 Glucose (mg/dL) Date Value 09/01/2021 92 02/24/2021 96 Imaging Studies: CT of the chest dated 09/01/2021 IMPRESSION: Stable small left lower lobe pulmonary nodules. No thoracic lymphadenopathy or new suspicious nodule. No acute pulmonary disease. Assessment: 1. 86 year old female with a diagnosis of surgically resected lung cancer. S/p right upper lobectomy. T1 [1.2 cm] adenocarcinoma. Surgery performed June 2018. Has remained in complete remission. 2. No acute issues at this time. Scans personally reviewed. No evidence of relapse. 3. Patient to see me back again in 6 months with repeat blood work. Continue with surveillance scans once a year. Miguel A Davis MD [facility] History of Present illness Narrative* Milka Rizvi, RT(R) - 09/01/2021 8:40 AM EDT Radiology Service Progress Note DATE OF SERVICE: September 01, 2021 TIME: 12:06 PM PATIENT IDENTITY VERIFICATION COMPLETED USING TWO (2) STANDARD IDENTIFIERS: Name and Date of confirmed by patient verbally. FALL SCREENING: Has the patient had 2 falls in the last year or 1 fall with injury or currently using an Ambulatory Assistive Device (Walker, Cane, Wheelchair, Crutches, etc.)? No PATIENT GENDER DATA: Female. status: : No status: NO. PATIENT RELEVANT IMPLANT DATA REVIEWED: Yes ALLERGIES: Reviewed and unchanged CONTRAST ALLERGY: NO. EXAM: CT -CONTRAST INDUCED NEPHROPATHY RISK FACTORS: Patient age > 60 years CREATININE: Creatinine Date Value Ref Range Status 09/01/2021 0.84 0.58 - 0.96 mg/dL Final 02/24/2021 0.79 0.58 - 0.96 mg/dL Final 07/13/2020 0.90 0.58 - 0.96 mg/dL Final Estimated Glomerular Filtration Rate Date Value Ref Range Status 09/01/2021 69 >=60 mL/min/1.73m Final Comment: Estimated Glomerular Filtration Rate (eGFR) is calculated using the 2020 CKD-EPI creatinine equation. This equation utilizes serum creatinine, sex, and age as parameters. The creatinine assay has traceable calibration to isotope dilution- mass spectrometry. Refer to KDIGO guidelines for clinical interpretation. In patients with unstable renal function, e.g. those with acute kidney injury, the eGFRmay not accurately reflect actual GFR. eGFR- Date Value Ref Range Status 02/24/2021 >60 Final P.O.C.T. RESULTS: POC done: Yes, See Lab Tab September 01, 2021 TREATMENT: N/A PERIPHERAL IV DATA: Ambulatory: A peripheral IV was started in the Left antecubital site with a Angio cath: 22 gauge. RADIOLOGY DEPARTMENT: CT; Exam(s) Completed: Chest SIGNATURE: RT Fred(R) PATIENT NAME: Monserrat French DATE: September 01, 2021 TIME: 12:06 PM documented in this encounterHigh[facility]04-12-[facility]22 History of Present illness Narrative* CARLY Espino - 08/26/2021 10:53 AM EDT [facility] COCHLEAR IMPLANT ADULT PROGRAMMING Name: Monserrat French [facility]#: [id number] Date of Service: August 26, 2021 Date of : 1935 Age: [age] year old COCHLEAR IMPLANT INFORMATION (see below for all device details) Updated: August 26, 2021 Right ear: External Processor: Cochlear [id number] (Nucleus 7) - upgraded 06/07/2020 Processor SN: [id number] Processor (Back Up CP910) SN: [id number] Magnet strength: 05/18 Internal Device: Cochlear InstantQs CI522 Profile with Slim Straight Array Internal Device SN: [id number] Inactive electrodes: 1-3 (poor sound quality) Surgery Date: 04/17/2015 Initial activation date: 05/14/2015 Surgeon: Dallin Cabrera M.D. Left ear: Tresa 3 series I20 ciyazr-hoq-bst (BTE) hearing aid with full shell ear mold and open vent; the device was fit at an outside facility and is being managed by that facility. Remote Control (CR210) SN: [id number] Remote Psychology Technician (CR230) SN: [id number] Cochlear Mini Microphone SN: [id number] Cochlear Phone Clip SN: [id number] Cochlear TV Streamer SN: [id number] HISTORY: Ms. French was seen for annual evaluation of the device. The patient reported: - Overall doing well; however, patient feels she is not performing as well with her Nucleus 7 soundprocessor as she did with her previous device - No retention concerns noted - Occasional pain/discomfort at magnet site - No equipment concerns noted - Using Volume 6 routinely AIDED AUDIOMETRIC TESTING: Audiologic testing was completed in the sound field with the speech processor at user settings (Program: 1; Volume: 6; Sensitivity: 12) before programming. See the SmartForm Audiogram for obtained thresholds. 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 NOTE: The contralateral ear was plugged and muffed during testing. The following testing and results were obtained: Preshpttu-Jaxxvvq-Wpizrlymt Words (CNC) Test Condition List # Phonemes Words Clinically significant change compared to previous visit? Clinically significant change compared to BEST? Clinically significant change compared to Evaluation (12/05/2014)? Right Ear 1 76% 56% No (68% on 07/05/19) No (68% on 07/05/19) Yes, improved (4%) Bimodal 10 79% 68% No (68% on 07/05/19) No (68% on 07/05/19) Yes, improved (12%) AZ BIO (quiet) Test Condition List # Score Clinically significant change compared to previous visit? Clinically significant change compared to BEST? Clinically significant change compared to Evaluation (12/05/2014)? Right Ear 2 88% Yes, improved (66% on 07/05/19) No (80% on 06/08/18) DNT Bimodal 6 78% No (77% on 07/05/19) No (84% on 06/08/18) Yes, improved (16%) AZ BIO (+5 SNR) Test Condition List # Score Clinically significant change compared to previous visit? Clinically significant change compared to BEST? Clinically significant change compared to Evaluation (12/05/2014)? Right Ear 5 16% No (10% on 07/05/19) No (22% on 06/08/18) DNT Bimodal 8 12% Yes, decreased (27% on 07/05/19) Yes, decreased (38% on 06/08/18) DNT Summary: Aided detection thresholds were obtained between 20-30 dB HL from 250-6000 Hz using the right CI only. Speech perception performance remains essentially stable, with the exception of a clinically significant decrease in the bimodal condition in background noise. COCHLEAR IMPLANT PROGRAMMING/TROUBLESHOOTING: Dataloggin.3 hours of use per day RIGHT Programming: Headset pressure, magnet strength, and incision site were checked. Patient's magnet was found to be too tight. Her size 1 magnet was replaced with a size 1/2. Electrode impedances,used to monitor internal device function, were measured across the electrode array. Impedances wereWNL across all active electrodes. Review of impedances obtained today with comparison to previous 4visits and 60-day postactivation baseline did not identify any remarkable changes or atypical measurements. Programming consisted of setting Comfort (C) levels at loud, but comfortable using a loudness scale. Several active electrodes were measured and the rest were interpolated. The function/use of the programs created were discussed and are listed below: Right Ear Program/Map # Program Feature 1 28 SCAN (ADRO + ASC) SNR-NR,WNR Active controls include: volume and Forward Focus. Battery Life: Rechargeable: 25 hours Disposable: 48 hours SUMMARY AND RECOMMENDATIONS: Counseling Points: * Patient was encouraged to utilize her Mini Microphone 2+ in difficult listening situations to help improve access to auditory information. She was provided with contact information for Nieves Troncoso, Recipient Mobile Homes Repairer from [employer], to assist with set up and review of device use if desired. * Continue to monitor magnet/incision site for pain, redness, swelling, scabbing etc. Should any ofthese occur discontinue use of device immediately and contact the office. * Continue use of the right sound processor and left hearing aid during all waking hours. Follow-up Programming: It was recommended that the patient return annually for monitoring of auditory performance and potential programming needs. The center should be contacted if there are problemsor concerns before that time. NOTE: It should be noted that the patient left the appointment with all the equipment. None of the patient's equipment was left in the Audiology Section of the Clinic. TOTAL TIME: 90 minutes Programming right: 15 minutes Programming left: N/A Evaluation of auditory status: 35 minutes Davis Espino, JOSE/A Clinical Manager Human Resources documented in this encounterHigh[facility]01-04-[facility]22 History of Present illness Narrative* Kelly Ford RT(R) - 05/20/2021 11:40 AM EST Radiology Service Progress Note PATIENT NAME: Monserrat French DATE OF SERVICE: May 20, 2021 TIME: 11:47 AM PATIENT IDENTITY VERIFICATION COMPLETED USING TWO (2) IDENTIFIERS: Name and Date of confirmedby patient verbally. FALL SCREENING: Has the patient had 2 falls in the last year or 1 fall with injury or currently using an Ambulatory Assistive Device (Walker, Cane, Wheelchair, Crutches, etc.)? No PATIENT GENDER DATA: Female. status: : No status: NO. PATIENT RELEVANT IMPLANT DATA REVIEWED: Not Applicable RADIOLOGY DEPARTMENT: General X-ray: Exam(s) Completed: Chest X-Ray PERIPHERAL IV DATA: Not applicable SIGNED BY: RT Chelsea(R) May 20, 2021 11:47 AM documented in this encounterHighland District HospitalDischarge summary Author Jerardo Black [facility] Note Date/Time July 26, 2024 1:1 6am [facility] Medical Records Department [address] [place] [address] Emergency Department Summary 07/26/24 MR#: [id number] Acct: [id number] Name: MONSERRAT FRENCH Rep #:[id number] : 1935 89 From: Jerardo Black DO PCP: Dr. Abel Ortiz DO Status:RE G ER Location: ED HPI History of Present Illness Chief Complaint: Shortness of Breath Informant: patient, EMS and SNF Narrative Narrative: Patient is an 89-year-old female from [facility] with history of dementia as well as hyperlipidemia and hypothyroidism. She was seen recently secondary to congestion and cough and at that time had negative COVID influenza RSV swab as well as normal blood work and a normal chest x-ray. Reportedly the patient's been having difficulty using her inhaler and the [facility] felt that she may need admitted for oxygen and therefore called EMS to have her brought in for evaluation. Upon arrival to the ER the patient is in no acute respiratory distress satting 93% on room air and she repeatedly states that she does not understand why she is at the hospital at this time. She denies fevers chills chest pain or shortness of breath but does admit to the persistent cough that she has had over the past week. [facility] Medical History Unspecified urinary incontinence Major depressive disorder, single episode, unspecified Vitamin D deficiency, unspecified Unspecified dementia, mild, without behavioral disturbance, psychotic disturbance, mood disturbance, and anxiety History of lung cancer Hypothyroidism HLD (hyperlipidemia) Home Medications ?Medication ?Instructions ?Recorded ?Last Taken ?Type levothyroxine 100 mcg tablet 100 mcg PO DAILY 07/17/20 Unknown History naproxen sodium 220 mg capsule 220 mg PO PRN PRN Pain 1-10 Or 07/17/20 Unknown History Fever nkqdktap-ymb-ycbzh acid 0.4 1 tab PO DAILY 03/05/23 Un known History mg-lycopene 300 mcg-lutein 250 mcg tablet (Centrum Silver) ondansetron HCl 8 mg tablet 8 mg PO Q8H PRN nausea and 03/05/23 Unknown Rx vomiting #14 tabs levofloxacin 500 mg tablet 500 mg PO DAILY 7 days #7 t abs 07/26/24 Unknown Rx Allergy/AdvReac Type Severity Reaction Status Date / Time amoxicillin AdvReac Rash Verified 07/26/24 00:15 ampicillin AdvReac Rash Verified 07/26/24 00:15 ceftriaxone (From Rocephin) AdvReac Rash Verified 07/26/24 00:15 Cephalosporins AdvReac Rash Verified 07/26/24 00:15 minocycline AdvReac Rash Verified 07/26/24 00:15 sulfamethoxazole (From AdvReac Rash Verified 07/26/24 00:15 Bactrim) trimethoprim (From Bactrim) AdvReac Rash Verified 07/26/24 00:15 Family History Father Cancer Surgical History History of lung surgery Social History Smoking Status: Never smoker alcohol intake: current alcohol intake frequency: a few times a month Alcohol type: wine substance use type: does not use ROS ROS ED Constitutional Constitutional ED: Denies chills or fever(s) Eyes Eyes: Denies change in vision ENT ENT ED: Denies sore throat Cardiovascular Cardiovascular: Denies chest pain Respiratory/Chest Respiratory/Chest: Reports cough; Denies dyspnea Gastrointestinal Gastrointestinal: Denies abdominal pain, diarrhea, nausea or vomiting Genitourinary Genitourinary ED: Denies dysuria Musculoskeletal Musculoskeletal: Denies myalgias Integumentary Denies rash Neurologic Neurologic: Denies headache(s) Hematologic/Lymphatic Hematologic/Lymphatic: Denies easy bleeding or easy bruising EXAM Physical Exam Const Vital Signs: 07/26/24 00:09 07/26/24 00:21 07/26/24 01:04 Temperature 98.4 F Temperature Source Oral Pulse Rate 76 75 Respiratory Rate 16 16 Respiratory Effort Normal Non-Labored Respiratory Depth Normal Respiratory Pattern Normal Normal Blood Pressure 130/59 H Blood Pressure Mean 82 Pulse Ox 93 Oxygen Delivery Method Room Air Positive well nourished and well developed General Appearance ED: well developed; Negative for pallor HEENT HEENT Narrative: No tongue or lip swelling no oral lesions no airway edema or compromise There is cobblestoning noted in posterior pharynx consistent with sinus drainagewithout secondary findings to suggest infection Eyes PERRL and EOMs intact bilaterally General Eye ED: Negative for scleral icterus Neck supple and no JVD Chest Wall palpation of chest normal Resp normal respiratory effort Resp Narrative: Breath sounds are diminished throughout with diffuse expiratory wheeze however no nasal flaring retractions tachypnea accessory muscle use stridor or dyspnea with speech Cardio regular rate and regular rhythm Extremity normal to inspection Extremity Narrative: No asymmetric edema no pitting edema negative Homans' sign bilaterally Neuro CN's II-XII intact bilaterally and no sensory deficits noted Neuro Narrative: Patient is at her baseline mental status consistent with history of dementia without focal neurologic deficit Sensorium / Orientation: alert Motor Exam: strength 5/5 throughout Psych mental status grossly normal Skin no rashes or lesions noted General Skin Exam: Negative for jaundice or pallor MDM MDM MDM Narrative Medical decision making narrative: Patient arrived to the ER with stable vitals in no acute respiratory distress and satting in the mid 90s on room air. She was seen on July 22 for the same complaint and at that time was negative for COVID influenza RSV chest x-ray did not reveal pneumonia and blood work showed no systemic findings concerning for sepsis or acute kidney injury. As the patient is not hypoxic she is not in respiratory distress she did not derangement to her vital signs I do not feel that there is need for repeat blood work or viral swab. In order to ensure thatthe x-ray was not lagging behind from the previous day and that she has now developed tension pneumonia I did elect to repeat an x-ray. The x-ray today is showing poor inspiratory effort but there is concern for developing infection. Secondary to this should be placed on oral Levaquin. However because she is nothypoxic or in respiratory distress does not derangement to her vital signs I do not feel that there will be need for repeat blood work or even potential admission as she is not hypoxic. Therefore the patient was placed on oral Levaquin but is safe to return to the nursing facility. History & Record Review Discussion w/independent historian: EMS personnel and Patient Radiography Diagnostic Testing: Clinical Impression(s) from Imaging Studies Chest X-Ray 07/26/24 00:22 IMPRESSION: There are bilateral left more than right patchy ill-defined airspace opacities at the lower lobes which may be inflammatory, infectious with possible aspiration not entirely excluded. Pulmonary vascularity appears within limits. No pleural effusion. Reading Location: [facility] 2 view chest x-ray as interpreted by the emergency medicine physician reveals poor inspiration with hazy opacities in the bilateral lower lobes right slightlygreater than left which could be development of pneumonia versus poor inspiration and atelectasis Discharge Plan Triage Chief Complaint: Shortness of Breath ED Provider: Jerardo Black Dx/Rx/DC Orders Clinical Impression: Pneumonia, Dementia, Hypothyroidism, HLD (hyperlipidemia) Instructions: Treating Pneumonia Prescriptions: New levofloxacin 500 mg tablet 500 mg PO DAILY 7 Days Qty: 7 0RF No Action Centrum Silver 0.4 mg-300 mcg- 250 mcg tablet 1 tab PO DAILY ondansetron HCl 8 mg tablet 8 mg PO Q8H PRN (Reason: nausea and vomiting) Qty: 14 0RF levothyroxine 100 MCG tablet 100 mcg PO DAILY naproxen sodium 220 MG capsule 220 mg PO PRN PRN (Reason: Pain 1-10 Or Fever) Primary Care Provider: Abel Ortiz Referrals: Abel Ortiz DO [Primary Care Provider] - Activity Restrictions/Additional Instructions: Your x-ray today questions pneumonia that was not present from your x-ray on July 22. Secondary to this take the prescribed antibiotics/Levaquin once a day. However you will still need to take your inhaler to help with bronchospasm and wheeze. Your oxygen level and work of breathing are normal in the ER and therefore you do not require oxygen and you do not have signs of systemic infection/sepsis and therefore do not require admission or IV antibiotics. If your symptoms continue to worsen he develop a fever or you have any further concerns please return to the ER for repeat evaluation. Print Language: Martiniquais Disposition Disposition: Home, Self Care What to do if you have Problems For any increased pain, shortness of breath, bleeding, nausea or vomiting, chestpain, or any unexpected problems, contact your Primary Care Provider. Call [facility] ([phone]) or report to the closest Emergency Room. Call 911 if necessary. 07/26/24 0116 <Electronically signed by Jerardo Black DO> Cosigner Signature (if applicable): CC: Dr. Abel Ortiz DO ~ Signed [facility] Work Phone: Evaluation note* Diagnosis Sensorineural hearing loss, bilateral- Primary Cochlear implant follow-up Other specified aftercare following [facility] Primary lung cancer with metastasis from lung to other site, right (HCC) Lung nodules Other nonspecific abnormal finding of lung field [facility] Diagnosis Cancer of trachea, bronchus, and lung (HCC)- Primary Malignant neoplasm of other parts of bronchus or lung [facility]* Diagnosis Hypothyroidism, unspecified type- Primary Vitamin D deficiency Unspecified vitamin D deficiency Chronic constipation Unspecified constipation PURE HYPERCHOLESTEROLEM Pure hypercholesterolemia Sensorineural hearing loss, bilateral Malignant neoplasm of right upper lobe of lung (HCC) Malignant neoplasm of upper lobe, bronchus or lung Fatigue, unspecified type [facility] Procedure not carried out- Primary Procedure not carried out for other reasons [facility]* Diagnosis Patient left after triage- Primary [facility]* Diagnosis SOB (shortness of breath)- Primary Shortness of breath Fatigue, unspecified type Cardiac murmur, previously undiagnosed Undiagnosed cardiac murmurs Hypothyroidism, unspecified type Chronic constipation Unspecified constipation Vitamin D deficiency Unspecified vitamin D deficiency PURE HYPERCHOLESTEROLEM Pure hypercholesterolemia History of lung cancer Personal history of malignant neoplasm of bronchus and lung [facility]* Diagnosis Productive cough- Primary Cough Hypothyroidism, unspecified type Malignant neoplasm of right upper lobe of lung (HCC) Malignant neoplasm of upper lobe, bronchus or lung [facility]* Diagnosis Malignant neoplasm of unspecified part of unspecified bronchus or lung (HCC)- Primary [facility]* Diagnosis Hypothyroidism, unspecified type [facility]* Diagnosis Sensorineural hearing loss, bilateral- Primary Cochlear implant follow-up Other specified aftercare following surgery [facility]* Diagnosis Sensorineural hearing loss (SNHL) of both ears- Primary Impacted cerumen of both ears Impacted cerumen [facility]* Diagnosis Malignant neoplasm of right upper lobe of lung (HCC)- Primary Malignant neoplasm of upper lobe, bronchus or lung SOB (shortness of breath) Shortness of breath Productive cough Cough Hypothyroidism, unspecified type [facility]* Diagnosis PURE HYPERCHOLESTEROLEM Pure hypercholesterolemia documented in this encounter [facility] note* Diagnosis Fall, initial encounter- Primary documented in this encounter [facility] note* Diagnosis Encounter for screening mammogram for malignant neoplasm of breast- Primary Other screening mammogram Malignant neoplasm of unspecified part of unspecified bronchus or lung (HCC) documented in this encounter [facility] note* Diagnosis Hypothyroidism, unspecified type- Primary documented in this encounter [facility] note* Diagnosis PURE HYPERCHOLESTEROLEM Pure hypercholesterolemia documented in this encounter [facility] note* Diagnosis Malignant neoplasm of unspecified part of unspecified bronchus or lung (HCC) documented in this encounter [facility] note* Diagnosis Fatigue, unspecified type Memory loss, short term Memory loss documented in this encounter [facility] note* Diagnosis Cognitive impairment- Primary Unspecified persistent mental disorders due to conditions classified elsewhere documented in this encounter [facility] note* Diagnosis Cognitive impairment- Primary Unspecified persistent mental disorders due to conditions classified elsewhere documented in this encounter [facility] note* Diagnosis Sensorineural hearing loss, bilateral- Primary Cochlear implant follow-up Other specified aftercare following surgery documented in this encounter [facility] note* Diagnosis Mild dementia without behavioral disturbance, psychotic disturbance, mood disturbance, or anxiety, unspecified dementia type (HCC)- Primary PURE HYPERCHOLESTEROLEM Pure hypercholesterolemia Nausea Nausea alone Malignant neoplasm of upper lobe of right lung (HCC) Malignant neoplasm of upper lobe, bronchus or lung Hypothyroidism, unspecified type Balance disorder Other symptoms involving nervous and musculoskeletal systems Vitamin D deficiency Unspecified vitamin D deficiency [facility]* Diagnosis Alzheimer's dementia without behavioral disturbance (HCC)- Primary Alzheimer's disease documented in [facility] Diagnosis Alzheimer's dementia without behavioral disturbance (HCC)- Primary Alzheimer's disease documented in this encounter [facility] note* Diagnosis Malignant neoplasm of unspecified part of unspecified bronchus or lung (HCC) documented in this encounter [facility] note* Diagnosis Malignant neoplasm of unspecified part of unspecified bronchus or lung (HCC)- Primary documented in this encounter [facility] note* Diagnosis Weight loss, unintentional- Primary Loss of weight Vitamin D deficiency Unspecified vitamin D deficiency Mild dementia without behavioral disturbance, psychotic disturbance, mood disturbance, or anxiety, unspecified dementia type (HCC) Major depressive disorder with current active episode, unspecified depression episode severity, unspecified whether recurrent Hypothyroidism, unspecified type Moderate dementia without behavioral disturbance, psychotic disturbance, mood disturbance, or anxiety, unspecified dementia type (HCC) Urinary incontinence, unspecified type documented in this encounter [facility] note* Diagnosis Osteoarthritis of other site, unspecified osteoarthritis type- Primary Urinary incontinence, unspecified type documented in this encounter [facility] note* Diagnosis Alzheimer's dementia without behavioral disturbance (HCC)- Primary Alzheimer's disease documented in this encounter [facility] note* Diagnosis Fall, initial encounter documented in this encounter [facility] note* Diagnosis Cough documented in this encounter [facility] note* Diagnosis Urinary incontinence, unspecified type- Primary Mild dementia without behavioral disturbance, psychotic disturbance, mood disturbance, or anxiety, unspecified dementia type (HCC) documented in this encounter [facility] note* Diagnosis Mild dementia without behavioral disturbance, psychotic disturbance, mood disturbance, or anxiety, unspecified dementia type (HCC)- Primary Vitamin D deficiency Unspecified vitamin D deficiency Osteoarthritis of other site, unspecified osteoarthritis type Pure hypercholesterolemia Dysuria Hypothyroidism, unspecified type Major depressive disorder with current active episode, unspecified depression episode severity, unspecified whether recurrent Urinary incontinence, unspecified type Balance disorder Other symptoms involving nervous and musculoskeletal systems Left hip pain Pain in joint, pelvic region and thigh documented in this encounter [facility] note* Diagnosis Alzheimer's dementia without behavioral disturbance (HCC)- Primary Alzheimer's disease documented in this encounter [facility] note* Diagnosis Weakness of both lower extremities- Primary Arthritis of both feet Onychomycosis Dermatophytosis of nail Bunion, left foot Bunion Impaired gait and mobility Balance disorder Other symptoms involving nervous and musculoskeletal systems 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 behavioral disturbance, psychotic disturbance, mood disturbance, or anxiety (HCC) Impaired mobility and ADLs Other ill-defined conditions Hypothyroidism, unspecified type Vitamin D deficiency Unspecified vitamin D deficiency documented in this encounter [facility] note* Diagnosis Sensorineural hearing loss, bilateral- Primary Cochlear implant follow-up Other specified aftercare following surgery documented in this encounter [facility] noteNo assessment information availableWCenterville Work Phone: Evaluation note* Diagnosis Malignant neoplasm of unspecified part of unspecified bronchus or lung (HCC) documented in this encounter [facility] note* Diagnosis Cochlear implant in place- Primary Other postprocedural status Sensorineural hearing loss (SNHL) of both ears documented in this encounter [facility] note* Diagnosis Cancer of trachea, bronchus, and lung (HCC)- Primary Malignant neoplasm of other parts of bronchus or lung Personal history of malignant neoplasm of bronchus and lung Lung nodules Other nonspecific abnormal finding of lung field documented in this encounter [facility] Discharge instructions Additional Instructions EKG normal chest x-ray negative. Labs negative. COVID, influenza, RSV negative. Use inhaler every 4 hours as needed for wheezing.[facility] Work Phone: Reason for referral (narrative)* Outpatient Procedure (Routine) - Authorized Specialty Diagnoses / Procedures Referred By Sharif blank Referred To Contact [facility] Diagnoses SOB (shortness of breath) Fatigue, unspecified type Procedures ECHO ECHO TTHRC R-T 2D W/WOM-MODE COMPL SPEC&COLR D Abel Ortiz DO [address] [place] [address] [facility] [address] [place] [address] Referral ID Status Reason Start Date Expiration Date Visits Requested Visits Authorized [id number] Authorized Auto-Generat ed Referral 01/07/2022 01/07/2023 1 1 [facility] for referral (narrative)No reason for referral information availableWCenterville Work Phone: Reason for visit Narrative* MRI/CT (Routine) - Closed Specialty Diagnoses / Procedures Referred By Sharif blank Referred To Contact CT IMAGING Diagnoses Malignant neoplasm of unspecified part of unspecified bronchus or lung (HCC) Procedures CT CHEST WO IVCON DIAGNOSTIC COMPUTED TOMOGRAPHY THORAX W/[place] [address] [place] [address] Phone: tel: fax: [place] [phone] Referral ID Status Reason Start Date Expiration Date V isits Requested Visits Authorized [id number] Closed Auto-Generate d Referral 09/30/2023 10/29/2024 1 1 [facility] Advance Directives No Advanced Directives Records FoundDocuments on File Type Date Recorded Patient Scouring Pads Supervisor Expl anation Advance Directive(s) 08/08/2018 6:50 AM Advance Directive(s) 08/04/2018 3:14 PM Advance Directive(s) 2018 1:55 PM Advance Directive(s) 06/01/2018 9:34 AM Documents on File Type Date Recorded Patient Scouring Pads Supervisor Expl anation Advance Directive(s) 08/08/2018 6:50 AM Advance Directive(s) 08/04/2018 3:14 PM Advance Directive(s) 2018 1:55 PM Advance Directive(s) 06/01/2018 9:34 AM Documents on File Type Date Recorded Patient Scouring Pads Supervisor Expl anation Advance Directive(s) 08/08/2018 6:50 AM Documents on File Type Date Recorded Patient Scouring Pads Supervisor Expl anation Advance Directive(s) 08/08/2018 6:50 AM Documents on File Type Date Recorded Patient Scouring Pads Supervisor Expl anation Advance Directive(s) 04/20/2022 8:53 AM Advance Directive(s) 08/08/2018 6:50 AM Documents on File Type Date Recorded Patient Scouring Pads Supervisor Expl anation Advance Directive(s) 04/20/2022 8:53 AM Advance Directive(s) 08/08/2018 6:50 AM Advance Directive Response Recorded Date/ Time Living Will Yes July 22, 2024 11:59pm Power of Archivist Yes July 22 11:59pm Name of Medical Power of Archivist LEONID FRENCH July 22, 2024 11:59pm Advance Directive Response Recorded Date/ Time Living Will Yes July 22, 2024 11:59pm Power of Archivist Yes July 22 11:59pm Name of Medical Power of Archivist LEONID FRENCH July 22, 2024 11:59pm Living Will No July 26, 2024 12:14am Power of Archivist No July 26 12:14am Advance Directive Response Recorded Date/ Time Living Will Yes July 22, 2024 11:59pm Do you have a Healthcare Power of Archivist? Yes July 22, 2024 11:59pm Name of Medical Power of Archivist LEONID FRENCH July 22, 2024 11:59pm Living Will No July 26, 2024 12:14am Do you have a Healthcare Power of Archivist? No July 26, 2024 12:14am Reason for Referral Specialty Diagnoses / Procedures Referred By Contac t Referred To Contact CT IMAGING Diagnoses Primary lung cancer with metastasis from lung to other site, right (HCC) Lung nodules Procedures CT CHEST W IVCON CAT [place]AN [place] [address] [place] [address] Ct Imaging Referral ID Status Reason Start Date Expiration Date V isits Requested Visits Authorized [id number] Closed Auto-Generate d Referral 03/03/2021 04/02/2022 1 1 Specialty Diagnoses / Procedures Referred By Contac t Referred To Contact CT IMAGING Diagnoses Malignant neoplasm of unspecified part of unspecified bronchus or lung (HCC) Procedures CT CHEST WO IVCON DIAGNOSTIC COMPUTED TOMOGRAPHY THORAX W/[place] [address] [place] [address] Ct Imaging Referral ID Status Reason Start Date Expiration Date Visits Requested Visits Authorized [id number] Pending Review Auto-Generat ed Referral 08/31/2022 04/01/2023 1 1 Referral ID Status Reason Start Date Expiration Date Visits Requested Visits Authorized [id number] Authorized Auto-Generat ed Referral 09/14/2022 10/14/2023 1 1 Specialty Diagnoses / Procedures Referred By Contac t Referred To Contact [facility] Diagnoses Encounter for screening mammogram for malignant neoplasm of breast Procedures DARRELL SCREENING W SPARKLE SCREENING DIGITAL BREAST TOMOSYNTHESIS BI SCREENING MAMMOGRAPHY BI 2-[place] [address] [place] [address] [facility] [address] [place] [address] Referral ID Status Reason Start Date Expiration Date Visits Requested Visits Authorized [id number] Authorized Auto-Generat ed Referral 09/14/2022 10/14/2023 1 1 Specialty Diagnoses / Procedures Referred By Contac t Referred To Contact CT IMAGING Diagnoses Malignant neoplasm of unspecified part of unspecified bronchus or lung (HCC) Procedures CT CHEST WO IVCON DIAGNOSTIC COMPUTED TOMOGRAPHY THORAX W/[place] [address] [place] [address] [place] [address] Referral ID Status Reason Start Date Expiration Date V isits Requested Visits Authorized [id number] Closed Auto-Generate d Referral 08/31/2022 04/01/2023 1 1 Specialty Diagnoses / Procedures Referred By Contac t Referred To Contact CT IMAGING Diagnoses Fatigue, unspecified type Memory loss, short term Procedures CT BRAIN WO IVCON CT HEAD/BRAIN W/O CONTRAST MATERIAL Abel Ortiz DO [address] [place] [address] Ct Imaging [facility] Referral ID Status Reason Start Date Expiration Date V isits Requested Visits Authorized [id number] Closed Auto-Generate d Referral 01/13/2023 02/12/2024 1 1 Referral ID Status Reason Start Date Expiration Date Visits Requested Visits Authorized [id number] Pending Review Auto-Generat ed Referral 09/30/2023 10/29/2024 1 1 Specialty Diagnoses / Procedures Referred By Contac t Referred To Contact [facility] Diagnoses Malignant neoplasm of unspecified part of unspecified bronchus or lung (HCC) Procedures DARRELL SCREENING W SPARKLE SCREENING DIGITAL BREAST TOMOSYNTHESIS BI SCREENING MAMMOGRAPHY BI 2-[place] [address] [place] [id number] [facility] [address] [place] [address] Referral ID Status Reason Start Date Expiration Date Visits Requested Visits Authorized [id number] Authorized Auto-Generat ed Referral 09/30/2023 10/29/2024 1 1 Specialty Diagnoses / Procedures Referred By Contac t Referred To Contact [facility] Diagnoses Osteoarthritis of other site, unspecified osteoarthritis type Procedures CONSULT TO PHYSICAL THERAPY PHYSICAL THERAPY EVALUATION HIGH COMPLEX 45 MINS Rosario Pandey PA-C [address] [place] [address] [facility] [address] [place] [address] Referral ID Status Reason Start Date Expiration Date Visits Requested Visits Authorized [id number] Pending Review Auto-Generat ed Referral 01/13/2024 01/12/2025 1 1 Specialty Diagnoses / Procedures Referred By Contac t Referred To Contact [facility] Diagnoses Balance disorder Left hip pain Procedures CONSULT TO PHYSICAL THERAPY PHYSICAL THERAPY EVALUATION HIGH COMPLEX 45 MINS Able Ortiz, DO [address] [place] [address] [facility] [address] [place] [address] Referral ID Status Reason Start Date Expiration Date Visits Requested Visits Authorized [id number] Pending Review Auto-Generat ed Referral 4 03/31/2025 1 1 Summary Purpose Family History No Family History Records Found Relationship Condition Age at Onset Recorded Date/T lisset father Malignant neoplasm Unknown Chief Complaint and Reason for Visit Chief Complaint Admit Date DETENTION LAB WORK April 03 7:38am SOB July 22, 2024 10:5 3pm Chief Complaint Admit Date DETENTION LAB WORK April 03 7:38am SOB July 22, 2024 10:5 3pm sob July 26, 2024 12: 09am Chief Complaint Admit Date SOB July 22, 2024 10:5 3pm sob July 26, 2024 12: 09am DETENTION LAB WORK August 08, 2024 5 :00am Additional Source Comments Source Comments (unrecognize d section and content) In the event this informatio n is protected by the Federal Confidentiality of Alcohol and Drug Abuse Patient Records regulations: The Federal rules restrict any use of the information to criminally investigate or prosecute any alcohol or drug abuse patient.[facility] the event this information is protected by the Federal Confidentiality of Alcohol and Drug Abuse Patient Records regulations: The Federal rules restrict any use of the information to criminally investigate or prosecute any alcohol or drug abuse patient.[facility] HospitalIn the event this information is protected by the Federal Confidentiality of Alcohol and Drug Abuse Patient Records regulations: The Federal rules restrict any use of the information to criminally investigate or prosecute any alcohol or drug abuse patient.[facility] HospitalIn the event this information is protected by the Federal Confidentiality of Alcohol and Drug Abuse Patient Records regulations: The Federal rules restrict any use of the information to criminally investigate or prosecute any alcohol or drug abuse patient.[facility] Hospital[facility] the event this information is protected by the Federal Confidentiality of Alcohol and Drug Abuse Patient Records regulations: The Federal rules restrict any use of the information to criminally investigate or prosecute any alcohol or drug abuse patient.[facility] HospitalIn the event this information is protected by the Federal Confidentiality of Alcohol and Drug Abuse Patient Records regulations: The Federal rules restrict any use of the information to criminally investigate or prosecute any alcohol or drug abuse patient.[facility] HospitalIn the event this information is protected by the Federal Confidentiality of Alcohol and Drug Abuse Patient Records regulations: The Federal rules restrict any use of the information to criminally investigate or prosecute any alcohol or drug abuse patient.[facility] HospitalIn the event this information is protected by the Federal Confidentiality of Alcohol and Drug Abuse Patient Records regulations: The Federal rules restrict any use of the information to criminally investigate or prosecute any alcohol or drug abuse patient.[facility] HospitalIn the event this information is protected by the Federal Confidentiality of Alcohol and Drug Abuse Patient Records regulations: The Federal rules restrict any use of the information to criminally investigate or prosecute any alcohol or drug abuse patient.[facility] HospitalIn the event this information is protected by the Federal Confidentiality of Alcohol and Drug Abuse Patient Records regulations: The Federal rules restrict any use of the information to criminally investigate or prosecute any alcohol or drug abuse patient.[facility] HospitalIn the event this information is protected by the Federal Confidentiality of Alcohol and Drug Abuse Patient Records regulations: The Federal rules restrict any use of the information to criminally investigate or prosecute any alcohol or drug abuse patient.[facility] HospitalIn the event this information is protected by the Federal Confidentiality of Alcohol and Drug Abuse Patient Records regulations: The Federal rules restrict any use of the information to criminally investigate or prosecute any alcohol or drug abuse patient.[facility] HospitalIn the event this information is protected by the Federal Confidentiality of Alcohol and Drug Abuse Patient Records regulations: The Federal rules restrict any use of the information to criminally investigate or prosecute any alcohol or drug abuse patient.[facility] HospitalIn the event this information is protected by the Federal Confidentiality of Alcohol and Drug Abuse Patient Records regulations: The Federal rules restrict any use of the information to criminally investigate or prosecute any alcohol or drug abuse patient.[facility] HospitalIn the event this information is protected by the Federal Confidentiality of Alcohol and Drug Abuse Patient Records regulations: The Federal rules restrict any use of the information to criminally investigate or prosecute any alcohol or drug abuse patient.[facility] HospitalIn the event this information is protected by the Federal Confidentiality of Alcohol and Drug Abuse Patient Records regulations: The Federal rules restrict any use of the information to criminally investigate or prosecute any alcohol or drug abuse patient.[facility] HospitalIn the event this information is protected by the Federal Confidentiality of Alcohol and Drug Abuse Patient Records regulations: The Federal rules restrict any use of the information to criminally investigate or prosecute any alcohol or drug abuse patient.[facility] HospitalIn the event this information is protected by the Federal Confidentiality of Alcohol and Drug Abuse Patient Records regulations: The Federal rules restrict any use of the information to criminally investigate or prosecute any alcohol or drug abuse patient.[facility] HospitalIn the event this information is protected by the Federal Confidentiality of Alcohol and Drug Abuse Patient Records regulations: The Federal rules restrict any use of the information to criminally investigate or prosecute any alcohol or drug abuse patient.[facility] HospitalIn the event this information is protected by the Federal Confidentiality of Alcohol and Drug Abuse Patient Records regulations: The Federal rules restrict any use of the information to criminally investigate or prosecute any alcohol or drug abuse patient.[facility] HospitalIn the event this information is protected by the Federal Confidentiality of Alcohol and Drug Abuse Patient Records regulations: The Federal rules restrict any use of the information to criminally investigate or prosecute any alcohol or drug abuse patient.[facility] HospitalIn the event this information is protected by the Federal Confidentiality of Alcohol and Drug Abuse Patient Records regulations: The Federal rules restrict any use of the information to criminally investigate or prosecute any alcohol or drug abuse patient.[facility] HospitalIn the event this information is protected by the Federal Confidentiality of Alcohol and Drug Abuse Patient Records regulations: The Federal rules restrict any use of the information to criminally investigate or prosecute any alcohol or drug abuse patient.[facility] HospitalIn the event this information is protected by the Federal Confidentiality of Alcohol and Drug Abuse Patient Records regulations: The Federal rules restrict any use of the information to criminally investigate or prosecute any alcohol or drug abuse patient.[facility] HospitalIn the event this information is protected by the Federal Confidentiality of Alcohol and Drug Abuse Patient Records regulations: The Federal rules restrict any use of the information to criminally investigate or prosecute any alcohol or drug abuse patient.[facility] HospitalIn the event this information is protected by the Federal Confidentiality of Alcohol and Drug Abuse Patient Records regulations: The Federal rules restrict any use of the information to criminally investigate or prosecute any alcohol or drug abuse patient.[facility] HospitalIn the event this information is protected by the Federal Confidentiality of Alcohol and Drug Abuse Patient Records regulations: The Federal rules restrict any use of the information to criminally investigate or prosecute any alcohol or drug abuse patient.[facility] HospitalIn the event this information is protected by the Federal Confidentiality of Alcohol and Drug Abuse Patient Records regulations: The Federal rules restrict any use of the information to criminally investigate or prosecute any alcohol or drug abuse patient.[facility] HospitalIn the event this information is protected by the Federal Confidentiality of Alcohol and Drug Abuse Patient Records regulations: The Federal rules restrict any use of the information to criminally investigate or prosecute any alcohol or drug abuse patient.[facility] HospitalIn the event this information is protected by the Federal Confidentiality of Alcohol and Drug Abuse Patient Records regulations: The Federal rules restrict any use of the information to criminally investigate or prosecute any alcohol or drug abuse patient.[facility] HospitalIn the event this information is protected by the Federal Confidentiality of Alcohol and Drug Abuse Patient Records regulations: The Federal rules restrict any use of the information to criminally investigate or prosecute any alcohol or drug abuse patient.[facility] HospitalIn the event this information is protected by the Federal Confidentiality of Alcohol and Drug Abuse Patient Records regulations: The Federal rules restrict any use of the information to criminally investigate or prosecute any alcohol or drug abuse patient.[facility] HospitalIn the event this information is protected by the Federal Confidentiality of Alcohol and Drug Abuse Patient Records regulations: The Federal rules restrict any use of the information to criminally investigate or prosecute any alcohol or drug abuse patient.[facility] HospitalIn the event this information is protected by the Federal Confidentiality of Alcohol and Drug Abuse Patient Records regulations: The Federal rules restrict any use of the information to criminally investigate or prosecute any alcohol or drug abuse patient.[facility] HospitalIn the event this information is protected by the Federal Confidentiality of Alcohol and Drug Abuse Patient Records regulations: The Federal rules restrict any use of the information to criminally investigate or prosecute any alcohol or drug abuse patient.[facility] HospitalIn the event this information is protected by the Federal Confidentiality of Alcohol and Drug Abuse Patient Records regulations: The Federal rules restrict any use of the information to criminally investigate or prosecute any alcohol or drug abuse patient.[facility] HospitalIn the event this information is protected by the Federal Confidentiality of Alcohol and Drug Abuse Patient Records regulations: The Federal rules restrict any use of the information to criminally investigate or prosecute any alcohol or drug abuse patient.[facility] HospitalIn the event this information is protected by the Federal Confidentiality of Alcohol and Drug Abuse Patient Records regulations: The Federal rules restrict any use of the information to criminally investigate or prosecute any alcohol or drug abuse patient.[facility] HospitalIn the event this information is protected by the Federal Confidentiality of Alcohol and Drug Abuse Patient Records regulations: The Federal rules restrict any use of the information to criminally investigate or prosecute any alcohol or drug abuse patient.[facility] HospitalIn the event this information is protected by the Federal Confidentiality of Alcohol and Drug Abuse Patient Records regulations: The Federal rules restrict any use of the information to criminally investigate or prosecute any alcohol or drug abuse patient.[facility] HospitalIn the event this information is protected by the Federal Confidentiality of Alcohol and Drug Abuse Patient Records regulations: The Federal rules restrict any use of the information to criminally investigate or prosecute any alcohol or drug abuse patient.[facility] HospitalIn the event this information is protected by the Federal Confidentiality of Alcohol and Drug Abuse Patient Records regulations: The Federal rules restrict any use of the information to criminally investigate or prosecute any alcohol or drug abuse patient.[facility] HospitalIn the event this information is protected by the Federal Confidentiality of Alcohol and Drug Abuse Patient Records regulations: The Federal rules restrict any use of the information to criminally investigate or prosecute any alcohol or drug abuse patient.[facility] HospitalIn the event this information is protected by the Federal Confidentiality of Alcohol and Drug Abuse Patient Records regulations: The Federal rules restrict any use of the information to criminally investigate or prosecute any alcohol or drug abuse patient.[facility] HospitalIn the event this information is protected by the Federal Confidentiality of Alcohol and Drug Abuse Patient Records regulations: The Federal rules restrict any use of the information to criminally investigate or prosecute any alcohol or drug abuse patient.[facility] HospitalIn the event this information is protected by the Federal Confidentiality of Alcohol and Drug Abuse Patient Records regulations: The Federal rules restrict any use of the information to criminally investigate or prosecute any alcohol or drug abuse patient.[facility] HospitalIn the event this information is protected by the Federal Confidentiality of Alcohol and Drug Abuse Patient Records regulations: The Federal rules restrict any use of the information to criminally investigate or prosecute any alcohol or drug abuse patient.[facility] HospitalIn the event this information is protected by the Federal Confidentiality of Alcohol and Drug Abuse Patient Records regulations: The Federal rules restrict any use of the information to criminally investigate or prosecute any alcohol or drug abuse patient.[facility] HospitalIn the event this information is protected by the Federal Confidentiality of Alcohol and Drug Abuse Patient Records regulations: The Federal rules restrict any use of the information to criminally investigate or prosecute any alcohol or drug abuse patient.[facility] HospitalIn the event this information is protected by the Federal Confidentiality of Alcohol and Drug Abuse Patient Records regulations: The Federal rules restrict any use of the information to criminally investigate or prosecute any alcohol or drug abuse patient.[facility] HospitalIn the event this information is protected by the Federal Confidentiality of Alcohol and Drug Abuse Patient Records regulations: The Federal rules restrict any use of the information to criminally investigate or prosecute any alcohol or drug abuse patient.[facility] HospitalIn the event this information is protected by the Federal Confidentiality of Alcohol and Drug Abuse Patient Records regulations: The Federal rules restrict any use of the information to criminally investigate or prosecute any alcohol or drug abuse patient.[facility] HospitalIn the event this information is protected by the Federal Confidentiality of Alcohol and Drug Abuse Patient Records regulations: The Federal rules restrict any use of the information to criminally investigate or prosecute any alcohol or drug abuse patient.[facility] HospitalIn the event this information is protected by the Federal Confidentiality of Alcohol and Drug Abuse Patient Records regulations: The Federal rules restrict any use of the information to criminally investigate or prosecute any alcohol or drug abuse patient.[facility] HospitalIn the event this information is protected by the Federal Confidentiality of Alcohol and Drug Abuse Patient Records regulations: The Federal rules restrict any use of the information to criminally investigate or prosecute any alcohol or drug abuse patient.[facility] HospitalIn the event this information is protected by the Federal Confidentiality of Alcohol and Drug Abuse Patient Records regulations: The Federal rules restrict any use of the information to criminally investigate or prosecute any alcohol or drug abuse patient.[facility] HospitalIn the event this information is protected by the Federal Confidentiality of Alcohol and Drug Abuse Patient Records regulations: The Federal rules restrict any use of the information to criminally investigate or prosecute any alcohol or drug abuse patient.[facility] HospitalIn the event this information is protected by the Federal Confidentiality of Alcohol and Drug Abuse Patient Records regulations: The Federal rules restrict any use of the information to criminally investigate or prosecute any alcohol or drug abuse patient.[facility] HospitalIn the event this information is protected by the Federal Confidentiality of Alcohol and Drug Abuse Patient Records regulations: The Federal rules restrict any use of the information to criminally investigate or prosecute any alcohol or drug abuse patient.[facility] HospitalIn the event this information is protected by the Federal Confidentiality of Alcohol and Drug Abuse Patient Records regulations: The Federal rules restrict any use of the information to criminally investigate or prosecute any alcohol or drug abuse patient.[facility] HospitalIn the event this information is protected by the Federal Confidentiality of Alcohol and Drug Abuse Patient Records regulations: The Federal rules restrict any use of the information to criminally investigate or prosecute any alcohol or drug abuse patient.[facility] HospitalIn the event this information is protected by the Federal Confidentiality of Alcohol and Drug Abuse Patient Records regulations: The Federal rules restrict any use of the information to criminally investigate or prosecute any alcohol or drug abuse patient.[facility] HospitalIn the event this information is protected by the Federal Confidentiality of Alcohol and Drug Abuse Patient Records regulations: The Federal rules restrict any use of the information to criminally investigate or prosecute any alcohol or drug abuse patient.[facility] HospitalIn the event this information is protected by the Federal Confidentiality of Alcohol and Drug Abuse Patient Records regulations: The Federal rules restrict any use of the information to criminally investigate or prosecute any alcohol or drug abuse patient.[facility] Care Teams (unrecognized sec tion and content) Casting Supervisor Relationship Specialty Start Date End Date Abel Ortiz, DO [address] [place] [address] PCP - General Family Practice 05/29/14 Serena Cummings MD [address] [place] [address] Referring Pulmonary and Critical Care Medicine 06/22/18 Casting Supervisor Relationship Specialty Start Date End Date Abel Ortiz DO [address] [place] [address] PCP - General Family Practice 05/29/14 Serena Cummings MD [address] [place] [address] Referring Pulmonary and Critical Care Medicine 06/22/18 Casting Supervisor Relationship Specialty Start Date End Date Abel Ortiz, DO [address] [place] [address] PCP - General Family Practice 05/29/14 Serena Cummings MD [address] [place] [address] Referring Pulmonary and Critical Care Medicine 06/22/18 Casting Supervisor Relationship Specialty Start Date End Date Abel Ortiz, DO [address] [facility] [address] PCP - General Family Practice 05/29/14 Serena Cummings MD [address] [place] [address] Referring Pulmonary and Critical Care Medicine 06/22/18 Casting Supervisor Relationship Specialty Start Date End Date Abel Ortiz, DO [address] [facility] [place] [address] PCP - General Family Practice 05/29/14 Serena Cummings MD [address] [place] [address] Referring Pulmonary and Critical Care Medicine 06/22/18 Casting Supervisor Relationship Specialty Start Date End Date Abel Ortiz, DO [address] [facility] [place] [address] PCP - General Family Practice 05/29/14 Serena Cummings MD [address] [place] [address] Referring Pulmonary and Critical Care Medicine 06/22/18 Casting Supervisor Relationship Specialty Start Date End Date Abel Ortiz, DO [address] [facility] [place] [address] PCP - General Family Practice 05/29/14 Serena Cummings MD [address] [place] [address] Referring Pulmonary and Critical Care Medicine 06/22/18 Casting Supervisor Relationship Specialty Start Date End Date Abel Ortiz, DO [address] [facility] [place] [address] PCP - General Family Practice 05/29/14 Serena Cummings MD [address] [place] [address] Referring Pulmonary and Critical Care Medicine 06/22/18 Casting Supervisor Relationship Specialty Start Date End Date Abel Ortiz, DO [address] [facility] [place] [address] PCP - General Family Practice 05/29/14 Serena Cummings MD [address] [place] [address] Referring Pulmonary and Critical Care Medicine 06/22/18 Casting Supervisor Relationship Specialty Start Date End Date Abel Ortiz, DO [address] [facility] [place] [address] PCP - General Family Medicine 05/29/14 Serena Cummings MD [address] [place] [address] Referring Pulmonary and Critical Care Medicine 06/22/18 Casting Supervisor Relationship Specialty Start Date End Date Abel Ortiz, DO [address] [facility] [place] [address] PCP - General Family Medicine 05/29/14 Serena Cummings MD [address] [place] [address] Referring Pulmonary and Critical Care Medicine 06/22/18 Casting Supervisor Relationship Specialty Start Date End Date Abel Ortiz, DO [address] [facility] [place] [address] PCP - General Family Medicine 05/29/14 Serena Cummings MD [address] [place] [address] Referring Pulmonary and Critical Care Medicine 06/22/18 Casting Supervisor Relationship Specialty Start Date End Date Abel Ortiz, DO [address] [facility] [place] [address] PCP - General Family Medicine 05/29/14 Serena Cummings MD [address] [place] [address] Referring Pulmonary and Critical Care Medicine 06/22/18 Casting Supervisor Relationship Specialty Start Date End Date Abel Ortiz, DO [address] [facility] [place] [address] PCP - General Family Medicine 05/29/14 Serena Cummings MD [address] [place] [address] Referring Pulmonary and Critical Care Medicine 06/22/18 Casting Supervisor Relationship Specialty Start Date End Date Abel Ortiz, DO [address] [facility] [place] [address] PCP - General Family Medicine 05/29/14 Serena Cummings MD [address] [place] [address] Referring Pulmonary and Critical Care Medicine 06/22/18 Casting Supervisor Relationship Specialty Start Date End Date Abel Ortiz, DO [address] [facility] [place] [address] PCP - General Family Medicine 05/29/14 Serena Cummings MD [address] [place] [address] Referring Pulmonary and Critical Care Medicine 06/22/18 Casting Supervisor Relationship Specialty Start Date End Date Abel Ortiz, DO [address] [facility] [address] PCP - General Family Medicine 05/29/14 Serena Cummings MD [address] [place] [address] Referring Pulmonary and Critical Care Medicine 06/22/18 Casting Supervisor Relationship Specialty Start Date End Date Abel Ortiz DO [address] [place] [address] PCP - General Family Medicine 05/29/14 Serena Cummings MD [address] [place] [address] Referring Pulmonary and Critical Care Medicine 06/22/18 Casting Supervisor Relationship Specialty Start Date End Date Abel Ortiz DO [address] [place] [address] PCP - General Family Medicine 05/29/14 Serena Cummings MD [address] [place] [address] Referring Pulmonary and Critical Care Medicine 06/22/18 Casting Supervisor Relationship Specialty Start Date End Date Abel Ortiz DO [address] [place] [address] PCP - General Family Medicine 05/29/14 Serena Cummings MD [address] [place] [address] Referring Pulmonary and Critical Care Medicine 06/22/18 Casting Supervisor Relationship Specialty Start Date End Date Abel Ortiz DO [address] [place] [address] PCP - General Family Medicine 05/29/14 Serena Cummings MD [address] [place] [address] Referring Pulmonary and Critical Care Medicine 06/22/18 Casting Supervisor Relationship Specialty Start Date End Date Abel Ortiz DO [address] [place] [address] PCP - General Family Medicine 05/29/14 Serena Cummings MD [address] [place] [address] Referring Pulmonary and Critical Care Medicine 06/22/18 Casting Supervisor Relationship Specialty Start Date End Date Abel Ortiz [address] [place] [address] PCP - General Family Medicine 05/24/23 Casting Supervisor Relationship Specialty Start Date End Date Abel Ortiz [address] [place] [address] PCP - General Family Medicine 05/24/23 Casting Supervisor Relationship Specialty Start Date End Date Abel Ortiz [address] [place] [address] PCP - General Family Medicine 05/24/23 Casting Supervisor Relationship Specialty Start Date End Date Abel Ortiz [address] [place] [address] PCP - General Family Medicine 05/24/23 Casting Supervisor Relationship Specialty Start Date End Date Abel Ortiz DO [address] [place] [address] PCP - General Family Medicine 05/29/14 Serena Cummings MD [address] [place] [address] Referring Pulmonary and Critical Care Medicine 06/22/18 Casting Supervisor Relationship Specialty Start Date End Date Abel Ortiz [address] [place] [address] PCP - General Family Medicine 05/24/23 Casting Supervisor Relationship Specialty Start Date End Date Abel Ortiz DO [address] [place] [address] PCP - General Family Medicine 05/29/14 Serena Cummings MD [address] [place] [address] Referring Pulmonary and Critical Care Medicine 06/22/18 Casting Supervisor Relationship Specialty Start Date End Date Abel Ortiz DO [address] [place] [address] PCP - General Family Medicine 05/29/14 Serena Cummings MD [address] [place] [address] Referring Pulmonary and Critical Care Medicine 06/22/18 Casting Supervisor Relationship Specialty Start Date End Date Abel Ortiz DO [address] [place] [address] PCP - General Family Medicine 05/29/14 Serena Cummings MD [address] [place] [address] Referring Pulmonary and Critical Care Medicine 06/22/18 Casting Supervisor Relationship Specialty Start Date End Date Abel Ortiz DO [address] [place] [address] PCP - General Family Medicine 05/29/14 Serena Cummings MD [address] [place] [address] Referring Pulmonary and Critical Care Medicine 06/22/18 Marguerite Davis AUD [address] [place] [address] [employer] [facility] 12/07/23 Casting Supervisor Relationship Specialty Start Date End Date Abel Ortiz DO [address] [place] [address] PCP - General Family Medicine 05/29/14 Serena Cummings MD [address] [place] [address] Referring Pulmonary and Critical Care Medicine 06/22/18 Marguerite Davis AUD [address] [place] [address] [employer] [facility] 12/07/23 Casting Supervisor Relationship Specialty Start Date End Date Abel Ortiz DO [address] [place] [address] PCP - General Family Medicine 05/29/14 Serena Cummings MD [address] [place] [address] Referring Pulmonary and Critical Care Medicine 06/22/18 Marguerite Davis AUD [address] [place] [address] [employer] [facility] 12/07/23 Casting Supervisor Relationship Specialty Start Date End Date Abel Ortiz [address] [place] [address] PCP - General Family Medicine 05/24/23 Casting Supervisor Relationship Specialty Start Date End Date Abel Ortiz DO [address] [place] [address] PCP - General Family Medicine 05/29/14 Serena Cummings MD [address] [place] [address] Referring Pulmonary and Critical Care Medicine 06/22/18 Casting Supervisor Relationship Specialty Start Date End Date Abel Ortiz DO [address] [place] [address] PCP - General Family Medicine 05/29/14 Serena Cummings MD [address] [place] [address] Referring Pulmonary and Critical Care Medicine 06/22/18 Marguerite Davis AUD [address] [place] [address] [employer] [facility] 12/07/23 Casting Supervisor Relationship Specialty Start Date End Date Abel Ortiz DO [address] [place] [address] PCP - General Family Medicine 05/29/14 Serena Cummings MD [address] [place] [address] Referring Pulmonary and Critical Care Medicine 06/22/18 Marguerite Davis AUD [address] [place] [address] [employer] [facility] 12/07/23 Casting Supervisor Relationship Specialty Start Date End Date Abel Ortiz DO [address] [place] [address] PCP - General Family Medicine 05/29/14 Serena Cummings MD [address] [place] [address] Referring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
[2024-11-04 08:52] VITALS: BP 155/72; PULSE 64; RESP 18; O2SAT 95
--- NOTE | 2024-11-04 08:56 | CT_ITS ---
PROCEDURE: EXTREMITY LOWER WITHOUT CONTRA 11/04/2024 REASON FOR EXAM: HIP PAIN AND WILL NOT AMBULATE TECHNIQUE: EXTREMITY LOWER WITHOUT CONTRA Coronal and Sagittal reconstruction series were provided. CONTRAST: 100 mL of Isovue 370 One or more dose reduction techniques were used (e.g., Automated exposure control, adjustment of the mA and/or kV according to patient size, use of iterative reconstruction technique). RADIATION DOSE SUMMARY: DLP: 1132 mGycm COMPARISON: None FINDINGS: No acute fracture or dislocations. Mild degenerative changes of the right hip evidenced by joint space narrowing, subchondral sclerosis, and subchondral cysts. No acute soft tissue abnormalities. No radiographic foreign body. CT/Extremity Lower without Contra IMPRESSION: No acute fracture or dislocations. Mild degenerative changes of the right hip as above. Reading Location: [id number]
[2024-11-04 09:00] VITALS: BP 155/86; PULSE 61; RESP 16; O2SAT 94
[2024-11-04 10:00] VITALS: BP 131/79; PULSE 67; RESP 14; O2SAT 95
[2024-11-04 11:00] VITALS: BP 141/78; PULSE 78; RESP 16; O2SAT 94
--- NOTE | 2024-11-04 11:01 | ED.RN ---
Nguyễn Escalante called and updated on pt status and findings. All questions answered.
--- NOTE | 2024-11-04 11:06 | ED.RN ---
Nurse to nurse called to Rosina at [facility]
[2024-11-04 11:38] VITALS: BP 136/74; PULSE 71; RESP 14; TEMP 36.9; O2SAT 95
== END 2024-11-04 11:39 | disposition skilled nursing facility (03) ==
PROVIDERS: Emergency Provider Emergency Medicine; PCP Student in an Organized Health Care Education/Training Program; Visit Provider Emergency Medicine
DX: S70.01XA Contusion of right hip, initial encounter (principal); F03.90 Unspecified dementia, unspecified severity, without behavioral disturbance, psychotic disturbance, mood disturbance, and anxiety; R26.2 Difficulty in walking, not elsewhere classified; E78.5 Hyperlipidemia, unspecified; I10 Essential (primary) hypertension; E03.9 Hypothyroidism, unspecified; W19.XXXA Unspecified fall, initial encounter; Z85.118 Personal history of other malignant neoplasm of bronchus and lung
CPT/HCPCS: 73502; 73700; 99284